=== PATIENT | male | born 1955 | race Caucasian/White ===

== ENCOUNTER 2025-06-03 06:00 | Inpatient (IN) | payer MEDICARE, MEDICAID, SELFPAY ==
[2025-06-03] VITALS (17 sets, daily range): BP systolic 109–135; BP diastolic 58–75; PULSE 64–81; RESP 15–97; TEMP 36.1–36.8; O2SAT 93–98; BMI 24.3
--- NOTE | 2025-06-03 07:11 | EDNOTE_ITS ---
ED Fall Injury RME/HPI General Chief Complaint: Fall Stated Complaint: FALL Time Seen by Provider: 06/03/25 06:27 Source: patient Arrival date/time: 06/03/25 06:00 Mode of arrival: ambulatory Limitations: no limitations and language barrier RME / HPI RME / HPI Narrative: Patient is a 69-year-old male that seen emergency department after having had a fall at home. Patient usually ambulates with a walker states that he tripped on his feet, landed onto his right side. Did hit his head. Patient does not take any blood thinners. Patient remembers everything did not lose consciousness. Denies any neck pain chest pain back pain abdominal pain pelvic pain or pain in his lower extremities. Patient was not able to get up. Patient sustained a large bruise to his right side of his flank. Patient does not have any allergies to medications. No drugs and alcohol no smoking. Has a history of diabetes Related Data Previous Rx's ?Medication ?Instructions ?Recorded Sulfamethoxazole/Trimethoprim DS * 1 tab PO BID #14 ta bs 08/01/17 (BACTRIM DS *) Allergies Allergy/AdvReac Type Severity Reaction Status Date / Time Bee Stings Allergy Severe ANAPHYLAXIS Uncoded 08/01/17 13:41 Review of Systems Review of Systems Systems Reviewed: All systems reviewed, normal except as documented Past Medical History Past Medical History CARDIAC: Positive Hypertension GASTROINTESTINAL: Positive Gastrointestinal Disorders and Cirrhosis ENDOCRINE: Positive Endocrine Disorders and Diabetes Mellitus Type 2 Family History FAMILY HISTORY: Positive Family Cardiac Disorders Surgical History SURGICAL: Negative Cardiac Surgery, Ear Surgery, Abdominal Surgery, Joint Replacement or Neurologic Surgery ED Exam General Limitations: Present no limitations and language barrier General appearance: Present alert Head Head exam: Present other (Small abrasion to the right) Eye Eye exam: Present normal appearance, PERRL and EOMI ENT ENT exam: Present normal exam, normal oropharynx and mucous membranes moist Neck Neck exam: Present normal inspection, full ROM and trachea midline; Absent tenderness Chest Chest inspection: Present symmetric chest wall rise and other (Large hematoma appreciated in patient's right lateral chest wall, no tenderness to palpation, no fluctuance or crepitus); Absent tenderness Respiratory Respiratory exam: Present normal lung sounds bilaterally; Absent respiratory distress, wheezes or stridor Cardiovascular Cardiovascular exam: Present regular rate and normal rhythm Abdominal Exam Abdominal exam: Present soft; Absent distention, tenderness or guarding Extremities Exam Extremities exam: Present normal inspection, full ROM, normal capillary refill and other (Skin tear right forearm, not actively bleeding, no tenderness pa lpation bilateral upper extremities bilateral lower extremities no lesions appreciated in left upper extremity nor bilateral lower extremities, patient also with a large hematoma at the right pelvis, no tenderness palpation); Absent tenderness or pedal edema Back Exam Back exam: Present other (Patient with 7 inch hematoma to right flank); Absent tenderness Neurological Exam Neurological exam: Present alert, oriented X3 and CN II-XII intact Psychiatric Psychiatric exam: Present normal affect and normal mood Skin Skin exam: Present warm and dry Course Quality Measures none Orders Category Date Time Status CT Screening NOW Care 06/03/25 07:16 Active EKG (ED ONLY) *Do not use* NOW Care 06/03/25 07:15 Completed NPO NOW Care 06/03/25 09:36 Active Consult to Gastroenterology Stat Cons 06/03/25 15:18 Ordered Diet NPO (NOW) Diet 06/03/25 09:[address] cervical spine wo con Stat Exams 06/03/25 07:[address] chest abdomen pelvis wo Stat Exams 06/03/25 13:[address] head/brain wo con Stat Exams 06/03/25 07:14 Completed CXR [XR chest 1V] Stat Exams 06/03/25 07:14 Completed EKG (ED Only) Stat Exams 06/03/25 07:14 Draft US abdomen limited Stat Exams 06/03/25 09:23 Completed XR forearm RT 2V Stat Exams 06/03/25 07:14 Completed XR hand comp RT min 3V Stat Exams 06/03/25 07:14 Completed XR pelvis 1-2V Stat Exams 06/03/25 07:14 Completed CBC Stat Lab 06/03/25 07:23 Completed CMP [Comprehensive Metabolic Panel] Stat Lab 06/03/25 07:23 Completed CMP [Comprehensive Metabolic Panel] Stat Lab 06/03/25 10:36 Completed CMP [Comprehensive Metabolic Panel] Stat Lab 06/03/25 12:52 Completed Creatine Kinase Stat Lab 06/03/25 07:23 Completed Fibrinogen Stat Lab 06/03/25 07:23 Completed Hepatitis Acute Panel Stat Lab 06/03/25 10:36 Received Occult Blood, Stool (LAB) Routine Lab 06/03/25 09:46 Completed PT [Prothrombin Time with INR] Stat Lab 06/03/25 07:23 Completed Troponin I Stat Lab 06/03/25 07:23 Completed Type and Screen Stat Lab 06/03/25 09:52 Completed UA, C/S IF [Urinalysis, C/S if Indicated] Stat Lab 06/03/25 09:32 Completed Urine Culture Stat Lab 06/03/25 09:32 Received Acetaminophen Tab [Tylenol Tab] Med 06/03/25 07:19 Discontinued 650 mg PO X1 ONE Pantoprazole/Ns 80Mg IV Premix [Protonix/NS 80mg IV Med 06/03/25 09:37 Active Premix] 80 mg in 100 ml IV X1 Pantoprazole/Ns 80Mg IV Premix [Protonix/NS 80mg IV Med 06/03/25 09:37 Disco ntinued Premix] 80 mg in 100 ml IV X1 Ringers Lactated 1000 ml [Lactated Ringers] 1,000 ml Med 06/03/25 08:09 Discontinued IV 999 mls/hr Ringers Lactated 1000 ml [Lactated Ringers] 1,000 ml Med 06/03/25 11:17 Discontinued IV 999 mls/hr TET,DIP/PERT AC (Adult)-Tdap [Boostrix Adult (Tdap) Med 06/03/25 07:19 Discontinued Vacc] 0.5 ml IMI .ONCE ONE Vital Signs Vital signs: Vital Signs Temperature 97.7 F 06/03/25 06:04 Pulse Rate 73 06/03/25 06:04 Respiratory Rate 19 06/03/25 06:04 Blood Pressure 128/75 06/03/25 06:04 Pulse Oximetry (%) 95 06/03/25 06:04 Oxygen Delivery Method Room Air 06/03/25 06:04 Pulse ox is 95% on room air which is adequate. Fall MDM Narrative MDM Narrative:: Patient is a 69-year-old male is in the emergency ferment after having sustained a ground-level fall. Vital signs and exam as listed. Concern for acute intracranial injury, intrathoracic injury given patient's large hematoma apprec iated on flank. Also concern for rib fractures. Patient was unable to get up after the fall, concern for pelvic injury. Also concern for nonmechanical causes of the fall including syncope arrhythmia. Ordered labs, EKG, CT brain, CT cervical spine, CT chest abdomen pelvis with contrast as well as x-ray of the pelvis. Offered medication for symptom relief. Labs with evidence of hemoglobin 8.6, do not have a recent prior comparison however last recorded hemoglobin we have here is from 2017 that shows a hemoglobin of 13. This is a microcytic anemia. Patient also has 1% immature granulocytes. Patient does not take any blood thinners, no aspirin or Plavix. Patient states that his stool has been right at home. I performed a rectal exam did not identify any gross blood, stool was discolored. Performed Hemoccult testing which was positive for blood. Concerned that patient has been bleeding from his gastrointestinal system. Patient is n.p.o., ordered Protonix. Patient does not have a history of alcohol use less likely varices. Patient is also thrombocytopenic with platelets 35. In 2017 patient's platelets were in the 50s. PT/INR normal. Chloride elevated, bicarb 17.6. Normal anion gap. Creatinine 2.3, BUN 49. Creatinine previously normal in 2017. Patient GFR is 30. Patient with an AST of 103, ALT of 93, alk phos 336. Patient had a transaminitis in 2017. Currently at patient's baseline. T. bili normal. Ordered hepatitis panel, fibrinogen level, also ordered right upper quadrant ultrasound. Troponin not elevated, EKG performed today at 7:43 AM notable for s inus rhythm, heart rate 71, normal intervals, nonspecific T wave changes, not a cardiac alert. Total protein and albumin is low. Pelvic x-ray with severe osteopenia however no evidence of fracture. Chest x-ray with evidence of pulmonary fibrosis however no abnormalities. X-ray of the right forearm and hand also without any abnormalities. CT brain and cervical spine unremarkable. Given patient with acute kidney injury, that did not improve despite fluid resuscitation, ordered CT chest abdomen pelvis without contrast which identified COPD, 16 mm pulmonary nodule in the right upper lobe, cirrhosis, multiple liver lesions concerning for liver metastases, patient with splenomegaly, ascites, cholelithiasis no evidence of obstruction. Given patient with downtrending hemoglobin consulted on-call radiation therapist Dr. Yap, agrees with admission. Discussed case with hospitalist service Patient data External records reviewed:: [facility] previous records Clinical information provided by:: patient Social determinants that could affect healthcare access:: other (specify) Patient has the following chronic illnesses:: See MDM How is presenting disease/condition affected by chronic disease/condition?: exacerbated by Evaluation data The following diagnostics were reviewed and interpreted by me:: lab results, radiology exam(s) and EKG tracing(s) Lab and/or radiology exams considered but not ordered:: None Interpretation Summary: See MDM Medications / Prescriptions Medications or Prescriptions considered but not ordered:: None Medication administrations:: Medication Administration History Pantoprazole Sodium (Protonix/Ns 80mg Iv Premix) 80 mg in 100 mls @ 10 mls/hr IV X1 ONE Stop: 06/03/25 19:36 Last Admin: 06/03/25 10:34 Dose: 10 mls/hr Documented By: NAVEED Discontinued Medications Acetaminophen (Acetaminophen 325 Mg Tablet) 650 mg PO X1 ONE Stop: 06/03/25 07:20 Last Admin: 06/03/25 09:01 Dose: 650 mg Documented By: STEW Diphtheria/Tetanus/Acell Pertussis (Diphth,Pertuss(Acell),Tet Vac 0.5 Ml Syr- Adult) 0.5 ml IMi .ONCE ONE Stop: 06/03/25 07:20 Last Admin: 06/03/25 09:02 Dose: 0.5 ml Documented By: STEW Lactated Ringer's (Lactated Ringers) 1,000 mls @ 999 mls/hr IV .Q1H1M ONE Stop: 06/03/25 09:09 Last Infusion: 06/03/25 10:15 Dose: Infused Documented By: Admin: 06/03/25 09:01 Dose: 999 mls/hr Documented By: STEW Pantoprazole Sodium (Protonix/Ns 80mg Iv Premix) 80 mg in 100 mls @ 400 mls/hr IV X1 ONE Stop: 06/03/25 09:51 Last Infusion: 06/03/25 10:34 Dose: Infused Documented By: Admin: 06/03/25 10:09 Dose: 400 mls/hr Documented By: STEW Lactated Ringer's (Lactated Ringers) 1,000 mls @ 999 mls/hr IV .Q1H1M ONE Stop: 06/03/25 12:17 Last Infusion: 06/03/25 12:46 Dose: Infused Documented By: Admin: 06/03/25 11:34 Dose: 999 mls/hr Documented By: STEW See above Consultations Consultation(s) initiated? (list below): Yes Consultation #1 (Physician, Specialty, Details): See MDM Diagnosis Fall Differential Diagnosis: other (See MDM ) Most likely diagnosis given after review of the tests above:: Metastatic cancer, liver lesions, GI bleed, thrombocytopenia, symptomatic anemia Admission Indicated Admission indicated?: indicated Admission Request Was there a request for admission?: Yes Admission Attestation Admission request attestation: Discussed case with Hospitalist service regarding admission. Discussed patients ED course, exam findings, labs, and radiology results. The Hospitalist [agrees] to accept the patient for admission. Disposition Plan Disposition Plan: Admit Critical Care Time Critical Care Time Critical Care Time: Yes Total Critical Care Time (min.): 120 Attestation: ?I spent 120 minutes of critical care time with this patient not including reportable procedures. There was an acute impairment of an organ system with a high probability of imminent or life threatening deterioration in the patient's condition. Interventions and changes required in the course of therapy are located in the chart. Time involved was spent in direct patient care, reviewing ancillary data, old records, consulting with decision makers, EMS, other doctors, giving orders and documenting. Discharge Plan Plan Patient Disposition: Admit Acute Care w/in Hospital Prescriptions/Referrals Prescriptions/Med Rec: No Action Sulfamethoxazole/Trimethoprim DS * (BACTRIM DS *) 1 TAB tablet 1 tab PO BID Qty: 14 0RF Referrals: Avel Tran DO [Primary Care Provider, Emergency Medicine] - In 1 week Problem List Clinical Impression: Syncope, Metastatic cancer, Cirrhosis, Anemia, GI (gastrointestinal bleed), Thrombocytopenia, Blunt head trauma, Acute kidney injury Patient/Caregiver Discharge Instructions Print Language: Stateless Stand Alone Forms: [employer] Award Info., Patient Portal Info Letter
--- NOTE | 2025-06-03 07:14 | XR_ITS ---
Examination: CT brain head without contrast. 2-D sagittal coronal reconstructions Date and time of exam:June 03, 2025 0824 hours INDICATIONS: Ground-level fall this morning with injury to the head, head pain CTDI: vol (mGy):53.2 DLP: (mGycm):1139 Technique: Multiple CT axial sections of the brain have been obtained, 5 mm slice thickness. Contrast has not been administered. 2-D sagittal, coronal reconstructions have been obtained Low dose protocols were performed. One or more of the following dose reduction techniques were used; automated exposure control, adjustment of the mA and/or KV according to patient size, use of iterative reconstruction technique. Findings: No significant ventricular enlargement. Left frontal encephalomalacia with left frontal craniotomy defect and mild exit lateral ventricular dilatation Old infarct left cerebellar hemisphere Intra-axial or extra-axial hemorrhage density is not seen. No mass effect or midline shift Basal cisterns are not remarkable. Fourth ventricle is midline. No acute cranial vault fracture Impression: Negative for acute hemorrhage, mass effect or midline shift
--- NOTE | 2025-06-03 07:14 | EKG_ITS ---
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
--- NOTE | 2025-06-03 07:14 | XR_ITS ---
Examination: CT cervical spine without contrast 2-D sagittal reconstructions 2-D coronal reconstructions 3-D reconstructions. Exam date and time:June 03, 2025 0824 hours INDICATIONS: Ground-level fall today with injury to the neck, neck pain CTDI:vol (mGy) 29 DLP: (mGycm) 551 Technique: Multiple 2 mm axial sections of the cervical spine have been obtained. The coronal and sagittal reconstructions have been obtained. 3-D reconstructions have been obtained. Low dose protocols were performed. One or more of the following dose reduction techniques were used; automated exposure control, adjustment of the mA and/or KV according to patient size, use of iterative reconstruction technique. Findings: Axial sections demonstrate intact base of the skull. C1 exhibit satisfactory relationship to the odontoid. No acute cervical vertebral body fracture seen. Alignment posterior spinous processes satisfactory. Retrodisplacement C6 relative to C7 8 mm Advanced disc narrowing C3 C4 C5 C6 C6 C7 All of the images are degraded by patient motion Odontoid is intact Impression: Study is severely limited secondary to continual patient motion No gross fracture Repeat this study as clinically warranted
--- NOTE | 2025-06-03 07:14 | XR_ITS ---
Examination: AP chest single view Technique one AP portable sitting chest single view Date and time: June 03, 2025, 0726 hrs., Comparison September 25, 2014 Indications: Patient fell today with into the chest, chest pain Findings: Reduced inspiratory effort No pneumothorax Interstitial disease throughout the lungs, consider pulmonary fibrosis Mild prominence left ventricle Clavicles intact Old right-sided rib fractures Impression: No pneumothorax Suspicious for pulmonary fibrosis
--- NOTE | 2025-06-03 07:14 | XR_ITS ---
Examination: Hand, right 3 views Technique: Hand AP, oblique, lateral 3 views Date and time of exam: June 03, 2025, 0722 hrs. Indications: Patient fell today with injury to the hand, hand pain Findings: Severe osteopenia Significant osteoarthritis radiocarpal and first carpometacarpal joint Old deformity distal phalanx first digit The fingers are not on the lateral view Impression: Limited study No acute fracture depicted
--- NOTE | 2025-06-03 07:14 | XR_ITS ---
Examination: Forearm, right, 2 views. Technique: Forearm, AP, lateral 2 views Date and time of exam: June 03, 2025, 0722 hrs. Indications: Patient fell today with injury to the forearm, forearm pain. Findings: Nonstandard views. Prominent osteopenia. No acute fracture. Soft tissue vascular calcification Impression: No acute fracture
--- NOTE | 2025-06-03 07:14 | XR_ITS ---
Examination: AP pelvis single view Technique: AP portable supine pelvis single view Date and time: June 03, 2025, 0722 hrs. Indications: Patient fell today with into the pelvis, pelvic pain. Findings: No right or left hip fracture. No hip dislocations. Bones of the pelvis intact Impression: No acute hip or pelvic fracture Given the osteopenia, suggest 1-2 day follow-up AP pelvis as clinically warranted
[2025-06-03 07:41] LABS: Basophils # (Auto) 0.0 Thou/mm3 (0.0-0.2); Basophils % (Auto) 1 % (0-2.5); Eosinophils # (Auto) 0.2 Thou/mm3 (0.0-0.5); Eosinophils % (Auto) 3 % (0-10); Hematocrit 28.7 % (41.0-53.0); Immature Granulocytes Auto 0.04 Thou/mm3 (0.00-0.00); Lymphocytes # (Auto) 1.0 Thou/mm3 (1.0-4.8); Lymphocytes % (Auto) 15 % (10-50); Mean Corpuscular HGB Conc 30.0 g/dl (31.0-37.0); Mean Corpuscular Hemoglobin 25.6 pg (25.0-35.0); Mean Corpuscular Volume 85 fL (80-100); Monocytes # (Auto) 0.7 Thou/mm3 (0.0-0.8); Monocytes % (Auto) 11 % (0-12); Neutrophils # (Auto) 4.7 Thou/mm3 (1.8-7.7); Neutrophils % (Auto) 71 % (37-80); Nucleated Red Blood Cell # 0.00 Thou/mm3 (0.00-0.00); Nucleated Red Blood Cell % 0 /100 WBC (0); RDW Standard Deviation 63.7 fL (35.1-43.9); Red Blood Count 3.36 Miln/mm3 (4.50-5.90); White Blood Count 6.6 Thou/mm3 (3.8-10.6)
[2025-06-03 07:58] LABS: Alanine Aminotransferase 93 U/L (10-49); Albumin, Serum 3.0 gm/dL (3.4-4.8); Albumin/Globulin Ratio 1.2 (1.2-2.2); Alkaline Phosphatase 336 U/L (46-116); Anion Gap 11 (7-16); Aspartate Amino Transferase 103 U/L (0-34); BUN/Creatinine Ratio 21 Ratio (12-20); Bilirubin,Total 0.8 mg/dL (0.3-1.2); Blood Urea Nitrogen 49 mg/dL (9-23); Calcium 8.7 mg/dL (8.3-10.6); Calcium (Corrected) 9.5 mg/dL (8.5-10.1); Carbon Dioxide 17.6 mMol/L (20.0-31.0); Chloride 114 mMol/L (98-107); Creatinine (Component) 2.3 mg/dL (0.6-1.3); Estimated Creatinine Clearance 36.2 mL/min (>60); Globulin 2.6 gm/dL (2.3-3.5); Glucose 213 mg/dL (74-106); Osmolality,Calculated 303 (275-295); Potassium 4.9 mMol/L (3.4-5.1); Sodium 143 mMol/L (136-145); Total Protein 5.6 gm/dL (5.7-8.2); Troponin I < 0.002 ng/mL (0.0-0.045); eGFR 30 See Note
[2025-06-03 08:05] LABS: INR 1.1 (0.9-1.3); Prothrombin Time 12.1 Seconds (9.0-12.2)
[2025-06-03] MEDS: RINGERS LACTATED 1000 ML 1,000 ML 999 ML IV ×2 (09:01→11:34)
[2025-06-03] MEDS: ACETAMINOPHEN 325 MG TABLET 650 MG PO (09:01)
[2025-06-03] MEDS: DIPHTH,PERTUSS(ACELL),TET VAC 0.5 ML SYR- ADULT IMi (09:02)
[2025-06-03 09:09] LABS: Creatine Kinase 58 U/L (34-171)
[2025-06-03 09:19] LABS: Hemoglobin 8.6 g/dL (13.5-16.0); Platelet Count 35 Thou/mm3 (140-440)
--- NOTE | 2025-06-03 09:23 | XR_ITS ---
Examination: Abdomen sonogram, Limited Date and time of exam: June 03, 2025 1001 hours INDICATIONS: Abnormal liver function tests on laboratory examination today, diagnosis cirrhosis Technique: Real-time rivera scale transabdominal sonographic images of the upper abdomen obtained. Findings: 10 mm gallstone Gallbladder wall is poorly visualized Common bile duct 0.3 cm Pancreatic head 1.5 cm Liver 18.4 cm multiple mildly hyperechoic liver masses, the largest anterior liver is 12.7 x 13.1 cm with vascularity Normal hepatopedal portal venous flow Patent IVC Also free fluid around the right lobe the liver IMPRESSION: Cholelithiasis Hepatomegaly with multiple liver lesions, recommend CT scan abdomen pelvis post intravenous contrast
[2025-06-03 09:42] LABS: Collection Type, Urine Clean Catch
[2025-06-03] MEDS: PANTOPRAZOLE/NS 80MG IV PREMIX 80 MG/100 ML BAG 400 MG IV (10:09)
[2025-06-03 10:12] LABS: Bacteria,Urine 1+; Bilirubin,Urine Negative (Negative); Blood,Urine Negative (Negative); Clarity,Urine Clear (Clear/Hazy); Color,Urine Lt-Yellow (Lt Yel-Yel); Glucose, Urine 4+ (Negative); Ketones,Urine Negative (Negative); Leukocyte Esterase,Urine Negative (Negative); Nitrite,Urine Negative (Negative); PH,Urine 5.5 (5.0-7.0); Protein,Urine Trace (Neg - Trace); RBC,Urine 1 /hpf (0-3); Specific Gravity,Urine 1.016 (1.001-1.035); Squamous Epithelial Cell,Urine < 1 /hpf (0-5); Urobilinogen,Urine Negative mg/dL (0.0-1.0); WBC,Urine 2 /hpf (0-5)
[2025-06-03 10:19] LABS: OBS Developer Lot # 04/24/55; OBS QC OK? Yes; Occult Blood, Stool Positive (Negative)
[2025-06-03 10:22] LABS: Fibrinogen 357 mg/dL (175-375)
[2025-06-03 10:27] LABS: Culture Indicated,Urine Yes
[2025-06-03] MEDS: PANTOPRAZOLE/NS 80MG IV PREMIX 80 MG/100 ML BAG 10 MG IV (10:34)
[2025-06-03 11:14] LABS: Alanine Aminotransferase 84 U/L (10-49); Albumin, Serum 2.8 gm/dL (3.4-4.8); Albumin/Globulin Ratio 1.1 (1.2-2.2); Alkaline Phosphatase 298 U/L (46-116); Anion Gap 10 (7-16); Aspartate Amino Transferase 93 U/L (0-34); BUN/Creatinine Ratio 19 Ratio (12-20); Bilirubin,Total 0.8 mg/dL (0.3-1.2); Blood Urea Nitrogen 41 mg/dL (9-23); Calcium 8.4 mg/dL (8.3-10.6); Calcium (Corrected) 9.4 mg/dL (8.5-10.1); Carbon Dioxide 17.6 mMol/L (20.0-31.0); Chloride 115 mMol/L (98-107); Creatinine (Component) 2.2 mg/dL (0.6-1.3); Estimated Creatinine Clearance 37.9 mL/min (>60); Globulin 2.5 gm/dL (2.3-3.5); Glucose 217 mg/dL (74-106); Osmolality,Calculated 302 (275-295); Potassium 4.8 mMol/L (3.4-5.1); Sodium 143 mMol/L (136-145); Total Protein 5.3 gm/dL (5.7-8.2); eGFR 32 See Note
[2025-06-03 13:13] LABS: Slide Review Platelets confirmed
[2025-06-03 13:23] LABS: Alanine Aminotransferase 83 U/L (10-49); Albumin, Serum 2.8 gm/dL (3.4-4.8); Albumin/Globulin Ratio 1.2 (1.2-2.2); Alkaline Phosphatase 292 U/L (46-116); Anion Gap 11 (7-16); Aspartate Amino Transferase 92 U/L (0-34); BUN/Creatinine Ratio 17 Ratio (12-20); Bilirubin,Total 0.8 mg/dL (0.3-1.2); Blood Urea Nitrogen 38 mg/dL (9-23); Calcium 8.3 mg/dL (8.3-10.6); Calcium (Corrected) 9.3 mg/dL (8.5-10.1); Carbon Dioxide 17.4 mMol/L (20.0-31.0); Chloride 115 mMol/L (98-107); Creatinine (Component) 2.2 mg/dL (0.6-1.3); Estimated Creatinine Clearance 37.9 mL/min (>60); Globulin 2.4 gm/dL (2.3-3.5); Glucose 192 mg/dL (74-106); Osmolality,Calculated 298 (275-295); Potassium 4.7 mMol/L (3.4-5.1); Sodium 143 mMol/L (136-145); Total Protein 5.2 gm/dL (5.7-8.2); eGFR 32 See Note
--- NOTE | 2025-06-03 13:30 | XR_ITS ---
Examination: CT chest, without intravenous contrast. CT abdomen, without intravenous contrast. CT pelvis, without intravenous contrast. 2-D sagittal and coronal reconstructions. 3-D reconstructions. Date and time of exam:June 03, 2025 1558 hours, comparison CT abdomen pelvis September 25, 2014 INDICATIONS: Multiple liver lesions on ultrasound abdomen 06/03/2025, assess for metastatic disease CTDI vol (mgy) 8.58 DLP (MGycm)746 Technique: Multiple CT images, 3.0 mm slice thickness, obtained chest, abdomen, pelvis, with the high-resolution 64 slice scanner.. Sagittal and coronal 2-D reconstructions are obtained. 3-D reconstructions Low dose protocols were performed. One or more of the following dose reduction techniques were used; automated exposure control, adjustment of the mA and/or KV according to patient size, use of iterative reconstruction technique. Findings: No thoracic aortic aneurysm dilatation. Pulmonary artery segments are not enlarged. No paratracheal tracheobronchial or bronchopulmonary adenopathy. COPD with multiple areas of airspace destruction. 16mm pulmonary nodule right upper lobe image 78 Cirrhosis, liver is markedly irregular in contour Multiple poorly defined liver lesions on this noncontrast study, the largest in the right lobe 7.6 cm, central liver and 4.4 cm lower right lobe of the liver Splenomegaly Mild ascites No pancreatic mass No right hydronephrosis Gallstones Left kidney is not visualized No bowel obstruction Aorta is normal in size Urinary bladder is intact Severe osteopenia with advanced disc narrowing at the lumbar levels IMPRESSION: COPD 16mm pulmonary nodule right upper lobe Cirrhosis Multiple liver lesions, differential would include hepatic metastases, multifocal primary hepatocellular carcinoma, MRI abdomen liver follow-up would best assess these lesions Splenomegaly Mild ascites Cholelithiasis No bowel obstruction
[2025-06-03 15:57] LABS: Hepatitis A Antibody IgM Non Reactive (Non React); Hepatitis B Core Antibody IgM Non Reactive (Non React); Hepatitis B Surface Antigen Non Reactive (Non React); Hepatitis C Antibody Non Reactive (Non React)
--- NOTE | 2025-06-03 16:51 | ESCONSULT_ITS ---
HPI Data of Consult Requesting Physician: Leann Gregorio MD Admitting Provider: Leann Gregorio MD Attending Provider: Leann Gregorio MD Primary Care Provider: Avel Tran DO Consult Narrative Reason for consult: Evaluation of anemia with positive FOBT and recent red stool History of present illness: 69-year-old male with a history of HTN, DM2, and cirrhosis who presented to the ED after a ground-level fall. Initial ED workup revealed Hgb 8.6 (down from 13 in 2017), platelets 35 (baseline 50s in 2017), and positive FOBT. Patient denies hematemesis, melena, nausea, vomiting, abdominal pain, or prior episodes of GI bleeding. On interview, he reports his last bowel movement was earlier today and was reddish in color, the first such episode. He denies weight loss, anorexia, or constitutional symptoms. No history of prior EGD or colonoscopy. Denies history of prior diagnosis of cirrhosis, though imaging shows cirrhotic morphology and multiple liver lesions. Home meds include only antihypertensiveper patient and denies NSAID, aspirin, or anticoagulant use. ROS: * Constitutional: Denies fevers, chills, weight loss. * GI: As above; denies nausea, vomiting, melena, hematemesis, abdominal pain, dysphagia. * Heme: Denies epistaxis, gum bleeding, bruising. * Other systems reviewed, negative. PMH: * Hypertension * Type 2 Diabetes Mellitus * Cirrhosis PSH: * None Family History: * Cardiac disorders * No GI malignancy Social History: * Quit alcohol 20 years ago * Quit smoking 20 years ago * No recreational drug use cc:: cc: Leann Gregorio MD Exam Vital Signs Temp Pulse Resp BP Pulse Ox O2 Del Method 97.7 F 68 18 121/66 97 Room Air 06/03/25 15:25 06/03/25 15:25 06/03/25 15:25 06/03/25 15:25 06/03/25 15:25 06/03/25 15:25 Narrative Exam General: Alert, oriented, no acute distress. Abdomen: Soft, nondistended, nontender. No rebound or guarding. No hepatosplenomegaly palpated. No ascites appreciated on exam. Bowel sounds present. Rectal (per ED): Heme positive, no gross blood. Skin: Right flank ecchymosis, otherwise no jaundice, spider angiomas, or palmar erythema. cardiac: RRR Pulm: clear bilateral no wheezing Results Labs 06/03/25 07:06/03/25 12:52 Labs: Short CBC 06/03/25 Range/Units 07:23 WBC 6.6 (3.8-10.6) Thou/mm3 Hgb 8.6 L (13.5-16.0) g/dL Hct 28.7 L (41.0-53.0) % Plt Count 35 L (140-440) Thou/mm3 BMP 06/03/25 06/03/25 06/03/25 07:23 10:36 12:52 Sodium 143 143 143 Potassium 4.9 4.8 4.7 Chloride 114 H 115 H 115 H Carbon Dioxide 17.6 L 17.6 L 17.4 L BUN 49 H 41 H 38 H Creatinine 2.3 H 2.2 H 2.2 H Glucose 213 H 217 H 192 H Calcium 8.7 8.4 8.3 Cardiac Enzymes 06/03/25 Range/Units 07:23 Total Creatine Kinase 58 (34-171) U/L Troponin I < 0.002 (0.0-0.045) ng/mL Liver Function 06/03/25 06/03/25 06/03/25 Range/Units 07:23 10:36 12:52 Total Bilirubin 0.8 0.8 0.8 (0.3-1.2) mg/dL AST 103 H 93 H 92 H (0-34) U/L ALT 93 H 84 H 83 H (10-49) U/L Alkaline Phosphatase 336 H 298 H D 292 H (46-116) U/L Albumin 3.0 L 2.8 L 2.8 L (3.4-4.8) gm/dL Urine 06/03/25 Range/Units 09:32 Urine Color Lt-Yellow (Lt Yel-Yel) Urine Clarity Clear (Clear/Hazy) Urine pH 5.5 (5.0-7.0) Ur Specific [place] 1.016 (1.001-1.035) Urine Protein Trace (Neg - Trace) Urine Glucose (UA) 4+ A (Negative) Quality Measures Quality Measures VTE prophylaxis Advance care planning discussed with:: patient Medications Home Medications and Allergies Allergies Allergy/AdvReac Type Severity Reaction Status Date / Time Bee Stings Allergy Severe ANAPHYLAXIS Uncoded 08/01/17 13:41 Visit Medications Acetaminophen (Acetaminophen 325 Mg Tablet) 650 mg PO Q6H PRN PRN Reason: Fever >100.4 or pain Stop: 07/03/25 16:39 Pantoprazole Sodium (Protonix/Ns 80mg Iv Premix) 80 mg in 100 mls @ 10 mls/hr IV X1 ONE Stop: 06/03/25 19:36 Last Admin: 06/03/25 10:34 Dose: 10 mls/hr Ceftriaxone Sodium/Dextrose (Rocephin/D5w 1gm Iv Premix) 1 gm in 50 mls @ 100 mls/hr IV X1 ONE Stop: 06/03/25 17:12 Octreotide Acetate 1,000 mcg/ (Sodium Chloride) 102 mls @ 5.1 mls/hr IV .Q20H JERSON; Protocol Stop: 06/08/25 16:44 Ondansetron HCl (Ondansetron Inj 2 Mg/Ml Inj 2 Ml) 4 mg IVP Q6H PRN; Protocol PRN Reason: NAUSEA OR VOMITING Stop: 07/03/25 16:39 Pantoprazole Sodium (Pantoprazole Inj 40 Mg Vial) 40 mg IVP Q12HR JERSON Stop: 07/04/25 08:59 Sennosides (Senna Tablet) 1 tab PO QDAY PRN; Protocol PRN Reason: constipation Stop: 07/03/25 16:39 Discontinued Medications Acetaminophen (Acetaminophen 325 Mg Tablet) 650 mg PO X1 ONE Stop: 06/03/25 07:20 Last Admin: 06/03/25 09:01 Dose: 650 mg Diphtheria/Tetanus/Acell Pertussis (Diphth,Pertuss(Acell),Tet Vac 0.5 Ml Syr- Adult) 0.5 ml IMi .ONCE ONE Stop: 06/03/25 07:20 Last Admin: 06/03/25 09:02 Dose: 0.5 ml Lactated Ringer's (Lactated Ringers) 1,000 mls @ 999 mls/hr IV .Q1H1M ONE Stop: 06/03/25 09:09 Last Infusion: 06/03/25 10:15 Dose: Infused Pantoprazole Sodium (Protonix/Ns 80mg Iv Premix) 80 mg in 100 mls @ 400 mls/hr IV X1 ONE Stop: 06/03/25 09:51 Last Infusion: 06/03/25 10:34 Dose: Infused Lactated Ringer's (Lactated Ringers) 1,000 mls @ 999 mls/hr IV .Q1H1M ONE Stop: 06/03/25 12:17 Last Infusion: 06/03/25 12:46 Dose: Infused Assessment & Plan Plan 69M with HTN, DM2, cirrhosis (MELD-Na 15, hepatitis panel negative), thrombocytopenia (35), and acute anemia (Hgb 8.6 from prior 13) presenting with new hematochezia and positive FOBT concerning for lower GI bleed vs portal hypertensive source. # Anemia, unspecified # Possible GI hemorrhage New hematochezia with microcytic anemia and positive FOBT. Plan: * Consent for EGD today. * Colonoscopy tomorrow - start GoLYTELY prep at midnight and clear liquid diet after EGD tonight * Continue IV PPI (Protonix). * NPO until EGD. * Transfuse PRBCs if Hgb <7 or symptomatic. # Cirrhosis # Splenomegaly # Ascites Cirrhotic morphology with portal hypertension features. MELD-Na 15. Hepatitis panel negative. Plan: * No MRI needed. * Monitor for decompensation. # Secondary malignant neoplasm of liver # Pulmonary nodule Multiple hepatic lesions concerning for metastases RUL pulmonary nodule 16 mm. Plan: * Order CEA and AFP tumor markers. * CT-guided biopsy of liver nodule * Oncology consult after stabilization. ----- Plan discussed with attending physician Dr. Fracisco Branch MD PGY-1 Internal Medicine Attending Provider Attestation/Addendum Patient personally examined I personally reviewed all the imaging studies and laboratory data and examined the patient I agree wholeheartedly with the assessment with the resident Dr. Branch Plan is to do a fiberoptic esophagogastroduodenoscopy with possible biopsy possible therapeutic intervention under intravenous moderate sedation If negative we will consider doing a fiberoptic colonoscopy Also recommend intravenous Protonix and octreotide and will follow the patient closely Serial CBC Thank you very much for the opportunity to participate in the care of this patient
[2025-06-03] MEDS: cefTRIAXone/D5w 1gm IV premix 1 GM/50 ML BAG IV (17:16)
--- NOTE | 2025-06-03 17:46 | ESHP_ITS ---
<Statement entered by Linda Veloz MD - 06/03/25 21:38> Mr. Franz is a 69-year-old male with past medical history significant for diabetes and thrombocytopenia who presented to the ED status post ground-level fall. Patient denies a loss of consciousness and or any pain. Patient denies taking any blood thinners. Patient will be admitted for further management of GI bleed. Patient's baseline hemoglobin is around 13 and today was 8.6. Will order type and screen and transfuse if hemoglobin is less than 7. CT showed NAFLD or secondary to incidental liver lesions. Will keep patient on octreotide, Protonix and n.p.o. for possible EGD and colonoscopy. Patient also found to have incidental pulmonary nodule findings, and may need CT-guided biopsy for further workup. Will also start patient on sliding scale insulin for his diabetes. Patient also will be on IV fluids for his SHAI seen on CMP. Anticipate discharge within 48 to 72 hours. I discussed with and supervised the phd internship physician who took care of this patient. I personally saw and examined the patient and discussed the assessment and plan with the entire medicine team, including my attending Dr. Gregorio, I agree with most of the assessment and plan as documented below Linda Veloz M.D. PGY-3 Disclaimer: Despite multiple revisions, due to the dictation software being used, the document bellow may not be free of grammatical errors including phonetic/typographic errors. However, this does not deter from our commitment to providing health care in the patient's best interest in mind. Documentation for date of: 06/03/25 HPI History of Present Illness Chief complaint: Fall History of present illness: This is a 69 om wtih a h/o insulin dependent diabetes and thrombocytopenia who presents after sustaining a fall. Denies near syncopal event, states he just tripped and fell while getting out of bed. Per ED note, Patient usually ambulates with a walker states that he tripped on his feet, landed onto his right side. Did hit his head. Patient does not take any blood thinners. Patient remembers everything did not lose consciousness. He sustained a bruise on the right side of his ribs, but denies difficulty breathing. He also denies syncope and chest pain. Upon additional history, he denies fever, headache, N/V, abdominal pain, numbness, weakness, or loss of balance. He does endorse some blood in the stool but not melena. He also denies history of IV drug use, prior dx of hepatitis, or prior blood transfusion. PMHx: Insulin Dependent DM, thrombocytopenia recorded in 2017. Transaminitis in 2017. PSHx: Denies Meds: Insulin, dose unspecified Family Hx: non-contributory Allergies: Bee stings Social: Denies alcohol, tobacco, and rec drug use. 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 ED Course: -Patient presents with BP 128/75, HR 73, T 97.7, RR 19, O2 95 Room Air -lab workup notable for low hgb of 8 and platelets in the 50s which was significantly lower from 2017 with hgb 17 and plts in the 70s. Creatinine 2.3, BUN 49. Patient GFR is 30. Patient with an AST of 103, ALT of 93, alk phos 336. T. bili normal. -Ordered hepatitis panel, fibrinogen level, -CT brain and cervical spine unremarkable. CT chest abdomen pelvis without contrast which identified COPD, 16 mm pulmonary nodule in the right upper lobe, cirrhosis, multiple liver lesions concerning for liver metastases, patient with splenomegaly, ascites, cholelithiasis no evidence of obstruction. -On-call shear operator helper Dr. Yap, consulted for downtrending hgb. Agreed with admission for EGD and colonoscopy to eval for GI bleed. Also recommending CT guided bx of the liver nodule. Exam Vital Signs Temp Pulse Resp BP Pulse Ox O2 Del Method 97.7 F 71 19 121/66 97 Room Air 06/03/25 15:25 06/03/25 16:59 06/03/25 16:59 06/03/25 15:25 06/03/25 15:25 06/03/25 15:25 Narrative Exam General: Ill appearing patient, laying in bed, no acute distress, HEENT: Mucosa moist, patient edentulous. No oropharyngeal lesions. Pupils are equal and reactive to light bilaterally Cardiovascular: Normal S1 and S2. Regular rate and rhythm. No murmur appreciated Respiratory: Clear to auscultation bilaterally without wheezes or crackles. Abdomen: Soft, nontender, not distended, slightly protuberant. Skin: Dry, large hematoma along the posterolateral aspect of the right chest wall. Also smaller hematoma along the right scapula just below the scapular spine. Multiple sites of bruising along the arms and legs bilaterally. Musculoskeletal: No gross injuries. Able to move all 4 extremities. Non edematous lower extremities. Neuro: Alert and oriented x2, to person, place, but not year or month. No focal neuro deficits. Negative pronator drift, no asterixis of the fingers or tongue. Results: Labs 06/05/25 05:10 06/05/25 05:10 Labs: Short CBC 06/03/25 Range/Units 07:23 WBC 6.6 (3.8-10.6) Thou/mm3 Hgb 8.6 L (13.5-16.0) g/dL Hct 28.7 L (41.0-53.0) % Plt Count 35 L (140-440) Thou/mm3 BMP 06/03/25 06/03/25 06/03/25 07:23 10:36 12:52 Sodium 143 143 143 Potassium 4.9 4.8 4.7 Chloride 114 H 115 H 115 H Carbon Dioxide 17.6 L 17.6 L 17.4 L BUN 49 H 41 H 38 H Creatinine 2.3 H 2.2 H 2.2 H Glucose 213 H 217 H 192 H Calcium 8.7 8.4 8.3 Cardiac Enzymes 06/03/25 Range/Units 07:23 Total Creatine Kinase 58 (34-171) U/L Troponin I < 0.002 (0.0-0.045) ng/mL Liver Function 06/03/25 06/03/25 06/03/25 Range/Units 07:23 10:36 12:52 Total Bilirubin 0.8 0.8 0.8 (0.3-1.2) mg/dL AST 103 H 93 H 92 H (0-34) U/L ALT 93 H 84 H 83 H (10-49) U/L Alkaline Phosphatase 336 H 298 H D 292 H (46-116) U/L Albumin 3.0 L 2.8 L 2.8 L (3.4-4.8) gm/dL Urine 06/03/25 Range/Units 09:32 Urine Color Lt-Yellow (Lt Yel-Yel) Urine Clarity Clear (Clear/Hazy) Urine pH 5.5 (5.0-7.0) Ur Specific [place] 1.016 (1.001-1.035) Urine Protein Trace (Neg - Trace) Urine Glucose (UA) 4+ A (Negative) Quality Measures Quality Measures none Advance care planning discussed with:: patient Medications Home Medications and Allergies Home Medications ?Medication ?Instructions ?Recorded ?Confirmed ?Type buspirone 5 mg tablet 5 mg PO BID 06/04/25 5 History empagliflozin 25 mg tablet 25 mg PO QAM 06/04/2506/04 History (Jardiance) ezetimibe 10 mg tablet 10 mg PO DAILY 06/04/2505/13 History insulin glargine 100 unit/mL (3 10 unit subcut DAILY 0 06/04/25 06/04/25 History mL) subcutaneous pen (Lantus Solostar U-100 Insulin) lactulose 10 gram/15 mL oral 15 ml PO DAILY 06/04/25 0 06/04/25 History solution levothyroxine 50 mcg tablet 50 mcg PO DAILY UD 5 06/04/25 History neomycin 500 mg tablet 500 mg PO Q4H 06/04/2506/04 History rosuvastatin 20 mg tablet 20 mg PO HS 06/04/25 5 History sertraline 100 mg tablet 100 mg PO DAILY 06/04/25 History Allergies Allergy/AdvReac Type Severity Reaction Status Date / Time Bee Stings Allergy Severe ANAPHYLAXIS Uncoded 08/01/17 13:41 Visit Medications Acetaminophen (Acetaminophen 325 Mg Tablet) 650 mg PO Q6H PRN PRN Reason: Fever >100.4 or pain Stop: 07/03/25 16:39 Pantoprazole Sodium (Protonix/Ns 80mg Iv Premix) 80 mg in 100 mls @ 10 mls/hr IV X1 ONE Stop: 06/03/25 19:36 Last Admin: 06/03/25 10:34 Dose: 10 mls/hr Octreotide Acetate 1,000 mcg/ (Sodium Chloride) 102 mls @ 5.1 mls/hr IV .Q20H JERSON; Protocol Stop: 06/08/25 16:44 Octreotide Acetate 1,000 mcg/ (Sodium Chloride) 102 mls @ 5.1 mls/hr IV .Q20H ONE; Protocol Stop: 06/04/25 12:59 Ondansetron HCl (Ondansetron Inj 2 Mg/Ml Inj 2 Ml) 4 mg IVP Q6H PRN; Protocol PRN Reason: NAUSEA OR VOMITING Stop: 07/03/25 16:39 Pantoprazole Sodium (Pantoprazole Inj 40 Mg Vial) 40 mg IVP Q12HR JERSON Stop: 07/04/25 08:59 Polyethylene Glycol/Electrolytes (Na Lloyd/Nahco3/Bridger/Peg (Golytely) 4,000 Ml Btl) 4,000 ml PO X1 ONE Stop: 06/04/25 00:01 Sennosides (Senna Tablet) 1 tab PO QDAY PRN; Protocol PRN Reason: constipation Stop: 07/03/25 16:39 Discontinued Medications Acetaminophen (Acetaminophen 325 Mg Tablet) 650 mg PO X1 ONE Stop: 06/03/25 07:20 Last Admin: 06/03/25 09:01 Dose: 650 mg Diphtheria/Tetanus/Acell Pertussis (Diphth,Pertuss(Acell),Tet Vac 0.5 Ml Syr- Adult) 0.5 ml IMi .ONCE ONE Stop: 06/03/25 07:20 Last Admin: 06/03/25 09:02 Dose: 0.5 ml Lactated Ringer's (Lactated Ringers) 1,000 mls @ 999 mls/hr IV .Q1H1M ONE Stop: 06/03/25 09:09 Last Infusion: 06/03/25 10:15 Dose: Infused Pantoprazole Sodium (Protonix/Ns 80mg Iv Premix) 80 mg in 100 mls @ 400 mls/hr IV X1 ONE Stop: 06/03/25 09:51 Last Infusion: 06/03/25 10:34 Dose: Infused Lactated Ringer's (Lactated Ringers) 1,000 mls @ 999 mls/hr IV .Q1H1M ONE Stop: 06/03/25 12:17 Last Infusion: 06/03/25 12:46 Dose: Infused Ceftriaxone Sodium/Dextrose (Rocephin/D5w 1gm Iv Premix) 1 gm in 50 mls @ 100 mls/hr IV X1 ONE Stop: 06/03/25 17:12 Last Admin: 06/03/25 17:16 Dose: 100 mls/hr Assessment & Plan Plan This is a 69 om wtih a h/o insulin dependent diabetes and thrombocytopenia who presents after sustaining a fall, found to have low hgb of 8, low plts, cirrhosis, and liver lesions, admitted for GI bleed work up and Bx of Liver nodules. #Acute anemia #Cirrhosis #GI Bleed Patient found to have hgb of 8.6, +FOBT, and reports blood in the stool. CT Abd pelvis notable for cirrhosis and trace ascites fluid. Denies alcohol use or IV drug use. Hepatitis panel negative. Possible NAFLD or secondary to incidental liver lesions seen on CT (see below). Meld Na 15, < 2% estimated 3 month mortality Plan for EGD tonight, Colonoscopy tomorrow. -NPO now. -CLD after EGD. Golytely after midnight. -Octreotide -Protonix - Transfuse if hgb <7 #Liver Mass #Pulmonary nodules Incidental findings on CT. 16mm pulmonary nodule right upper lobe, Multiple poorly defined liver lesions on this noncontrast study, the largest in the right lobe 7.6 cm, central liver and 4.4 cm lower right lobe of the liver, Splenomegaly Mild ascites Concern for primary liver malignancy vs distal metastasis.. Dr. Yap recommending CT guided bx as opposed to MRI for further characterization. -Plan for CT guided bx after workup above. #IDDM Takes insulin at home but unclear of the dose. -Start on sliding scale, adjust once his mom brings home meds for med rec. #SHAI Cr persistently elevated around 2.2 despite 2L fluids. UA unremarkalbe, no blood or protein seen. -mIVF -am CMP. Health Maintenance: DVT prophylaxis: SCDs Diet: NPO for EGD, CLD after, Golytely at midnight. Healy: No Lines: PIV CODE STATUS: DNR Disposition: Pending colonoscopy and bx Patient's plan and care discussed with my attending, Dr Gregorio and my senior Dr. Magdiel Ramey, DO PGY-1 ([facility]ident) Attending Provider Attestation/Addendum 69-year-old male with liver cirrhosis and prediabetes who presented with generalized weakness and presyncope. Found to have acute anemia with differential diagnosis peptic ulcer disease versus esophageal varices given history of history of cirrhosis. In addition noted to have a liver mass with pulmonary nodules and concern of possible underlying malignancy. Plan to admit the patient, start patient on Protonix and octreotide in addition to GI consult. I reviewed above note and agree with findings and plans. I have also personally examined the patient with medicine team and went over assessment and plan with medical team including phd internship and resident physician.
[2025-06-03] MEDS: OCTREOTIDE ACET INJ 1,000 MCG in SODIUM CHLORIDE 0.9% 100 ML 5.1 MCG IV (18:23)
[2025-06-03 18:45] LABS: Partial Thromboplastin Time 27.7 Seconds (22.0-36.0)
--- NOTE | 2025-06-03 19:47 | PC.NURSE ---
Addendum entered by Trevon Kay RN 06/03/25 19:50: Pt transferred at 1944 Original Note: Pt transferred via [facility] for EGD by MD Yap by RYAN Moreland
[2025-06-03 20:28] LABS: AFP Non-Pregnant 2.30 ng/mL (<8.10); Carcinoembryonic Antigen 4.8 ng/mL (0.0-5.0)
--- NOTE | 2025-06-03 21:15 | PC.NURSE ---
Pt returned from EGD procure at 2104, pt resting comfortably in bed, pt instructed to call for assistance as needed by utilizing the call light
[2025-06-03] MEDS: NA SU/NAHCO3/KC/PEG (Golytely) 4,000 ML BTL 4000 ML PO (21:44)
[2025-06-03] MEDS: SODIUM CHLORIDE 0.9% 1000 ML 1,000 ML 75 ML IV (21:44)
--- NOTE | 2025-06-03 23:20 | PC.NURSE ---
Pt found down near bedside commode, code star initiated at 2312, pt noted to have skin tear to left elbow, pt assisted back to bed, vitals taken and pt assessed by MD Fuller. When pt asked if head was hit during the fall, pt replied I don't know, but I don't think so . MD Fuller provided instructions to monitor pt's neuro status periodically and to notify MD if any changes are noted. Avasure put in place, pt re-educated on use of call light for assistance.
[2025-06-04] VITALS (17 sets, daily range): BP systolic 103–148; BP diastolic 53–85; PULSE 62–79; RESP 12–94; TEMP 36–37.1; O2SAT 92–98; BMI 25.4
[2025-06-04 05:39] LABS: Basophils # (Auto) 0.0 Thou/mm3 (0.0-0.2); Basophils % (Auto) 0 % (0-2.5); Eosinophils # (Auto) 0.3 Thou/mm3 (0.0-0.5); Eosinophils % (Auto) 4 % (0-10); Hematocrit 29.5 % (41.0-53.0); Immature Granulocytes Auto 0.03 Thou/mm3 (0.00-0.00); Lymphocytes # (Auto) 0.9 Thou/mm3 (1.0-4.8); Lymphocytes % (Auto) 13 % (10-50); Mean Corpuscular HGB Conc 28.8 g/dl (31.0-37.0); Mean Corpuscular Hemoglobin 25.4 pg (25.0-35.0); Mean Corpuscular Volume 88 fL (80-100); Monocytes # (Auto) 0.9 Thou/mm3 (0.0-0.8); Monocytes % (Auto) 13 % (0-12); Neutrophils # (Auto) 4.8 Thou/mm3 (1.8-7.7); Neutrophils % (Auto) 70 % (37-80); Nucleated Red Blood Cell # 0.00 Thou/mm3 (0.00-0.00); Nucleated Red Blood Cell % 0 /100 WBC (0); RDW Standard Deviation 69.1 fL (35.1-43.9); Red Blood Count 3.34 Miln/mm3 (4.50-5.90); White Blood Count 6.8 Thou/mm3 (3.8-10.6)
[2025-06-04 05:48] LABS: Glucose Estimated Average 157 mg/dL (80-131); Hemoglobin A1C 7.1 % Hgb (4.8-6.0)
[2025-06-04 06:01] LABS: Hemoglobin 8.5 g/dL (13.5-16.0); Platelet Count 30 Thou/mm3 (140-440)
[2025-06-04 06:24] LABS: Alanine Aminotransferase 86 U/L (10-49); Albumin, Serum 2.8 gm/dL (3.4-4.8); Albumin/Globulin Ratio 1.1 (1.2-2.2); Alkaline Phosphatase 309 U/L (46-116); Anion Gap 14 (7-16); Aspartate Amino Transferase 107 U/L (0-34); BUN/Creatinine Ratio 15 Ratio (12-20); Bilirubin,Total 0.8 mg/dL (0.3-1.2); Blood Urea Nitrogen 32 mg/dL (9-23); Calcium 8.3 mg/dL (8.3-10.6); Calcium (Corrected) 9.3 mg/dL (8.5-10.1); Carbon Dioxide 15.4 mMol/L (20.0-31.0); Chloride 115 mMol/L (98-107); Creatinine (Component) 2.2 mg/dL (0.6-1.3); Estimated Creatinine Clearance 37.9 mL/min (>60); Globulin 2.6 gm/dL (2.3-3.5); Glucose 103 mg/dL (74-106); Magnesium 1.9 mg/dL (1.6-2.6); Osmolality,Calculated 293 (275-295); Phosphorous 4.9 mg/dL (2.4-5.1); Potassium 4.5 mMol/L (3.4-5.1); Sodium 144 mMol/L (136-145); Total Protein 5.4 gm/dL (5.7-8.2); eGFR 32 See Note
[2025-06-04 06:40] LABS: Slide Review Platelets confirmed
[2025-06-04] MEDS: cefTRIAXone/D5w 1gm IV premix 1 GM/50 ML BAG IV (08:55)
--- NOTE | 2025-06-04 09:14 | PC.NURSE ---
Notified Sravani DAVIS patients platelets are to low to safely do procedure per Dr. Reyes. Please ask Dr to reorder if procedure is still required when platelets are at an acceptable level greater than 100.
--- NOTE | 2025-06-04 09:51 | XR_ITS ---
Examination: CT brain head without contrast. 2-D sagittal coronal reconstructions Date and time of exam:June 04, 2025, 1047 hours, comparison 06/03/2025 INDICATIONS: Ground-level fall yesterday with injury to the head, persistent head pain CTDI: vol (mGy):51.5 DLP: (mGycm):1043 Technique: Multiple CT axial sections of the brain have been obtained, 5 mm slice thickness. Contrast has not been administered. 2-D sagittal, coronal reconstructions have been obtained Low dose protocols were performed. One or more of the following dose reduction techniques were used; automated exposure control, adjustment of the mA and/or KV according to patient size, use of iterative reconstruction technique. Findings: No significant ventricular enlargement. 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 No mass effect or midline shift Basal cisterns are not remarkable. Fourth ventricle is midline. Cranial vault intact. Impression: No interval acute hemorrhage mass effect or midline shift
--- NOTE | 2025-06-04 10:26 | PC.SS ---
Update: Plan is for the patient to obtain a colonoscopy today.
--- NOTE | 2025-06-04 12:53 | PC.SS ---
Addendum entered and electronically signed by BRADLEY Dumont 06/04/25 13:16: Secondary contact: Cherise Franz [phone], niece. Original Note: HEALTH CENTER ASSOCIATE conducted bedside contact with the patient conduct initial assessment and to discuss discharge planning.? Patient confirmed demographic information.? At bedside with patient was mother, Brittany Lezama .? Patient resides at home with mother.? Patient possesses a walker to assist with ambulation.? Patient does not require the use of home oxygen.? Patient requires some assistance with completion of ADL?s due to recent weakness.? Patient?s surrogate medical decision maker is mother, Brittany Lezama.? Patient?s PCP is [facility].? Patient possesses a accountant auditor, could not recall name. Patient does not participate with dialysis.? Patient utilizes [facility] for medication services.? Patient is diabetic insulin dependent.? Discharge plan is for the patient to transition to SNF.? [facility].? Patient aligned with [facility] prior to current admission.? Patient is prescribed Buspar for anxiety.? Patient possesses coverage for transport services.? Patient and mother informed that patient would need to be assessed for skilled need for SNF placement.? No further discharge needs identified by the patient.? No further intervention required at this time, social worker delinquency prevention will be available to address any further concerns.? Next of Kin: Brittany Teja D/C Plan: Home
--- NOTE | 2025-06-04 13:01 | PC.SS ---
SNF referrals submitted on [facility]. Responses are pending. [facility] facility.
--- NOTE | 2025-06-04 13:06 | PC.SS ---
PASSR completed. Meets Level II criteria. PASSR follow up pending.
--- NOTE | 2025-06-04 13:15 | PC.SS ---
[facility] referral submitted on [facility] Fax.
--- NOTE | 2025-06-04 13:23 | PD.RESPRO ---
Documentation for date of: 06/04/25 Subjective Subjective Interval history: Patient examined at bedside. Overnight patient patient fell after trying to use the restroom. Per nursing patient hit his head. On physical exam small erythematous maximino noted over scalp/forehead. CT head was negative for any hemorrhage. Hb stable 8.6. EGD completed yesterday showed grade 2 esophageal varices status post banding. Patient is currently on GoLytely prep for colonoscopy. Continue octreotide drip, IV Protonix, IV ceftriaxone daily in setting of upper GI bleed. Liver biopsy pending. Follow up with renal u/s to evlauate for possible chronic kidney disease findings. Exam Vital Signs Temp Pulse Resp BP Pulse Ox O2 Del Method O2 Flow Rate 97.4 F 77 21 H 137/83 H 97 Room Air 3 06/04/25 12:00 06/04/25 12:00 06/04/25 12:00 06/04/25 12:00 06/04/25 12:06/04/25 12:00 06/03/25 20:25 Narrative Exam General: Elderly male, no acute distress HEENT: On physical exam small erythematous maximino noted over scalp/forehead. Mucosa moist, patient edentulous. No oropharyngeal lesions. Pupils are equal and reactive to light bilaterally Cardiovascular: Normal S1 and S2. Regular rate and rhythm. No murmur appreciated Respiratory: Clear to auscultation bilaterally without wheezes or crackles. Abdomen: Soft, nontender, not distended, slightly protuberant. Skin: Dry, large hematoma along the posterolateral aspect of the right chest wall. Also smaller hematoma along the right scapula just below the scapular spine. Multiple sites of bruising along the arms and legs bilaterally. Musculoskeletal: No gross injuries. Able to move all 4 extremities. Non edematous lower extremities. Neuro: Alert and oriented x2, to person, place, but not year or month. No focal neuro deficits. Negative pronator drift, no asterixis of the fingers or tongue. Objective Labs 06/05/25 05:10 06/05/25 05:10 Labs: Laboratory Results - last 24 hr 06/03/25 06/03/25 06/03/25 10:36 12:52 18:10 WBC RBC Hgb Hct MCV MCH MCHC RDW Std Deviation Plt Count Neut % (Auto) Lymph % (Auto) [place] % (Auto) Eos % (Auto) Baso % (Auto) Neut # (Auto) Lymph # (Auto) [place] # (Auto) Eos # (Auto) Baso # (Auto) Immature Gran # (Auto) Absolute Nucleated RBC Immature Gran % Nucleated RBC % APTT 27.7 Sodium 143 Potassium 4.7 Chloride 115 H Carbon Dioxide 17.4 L Anion Gap 11 BUN 38 H Creatinine 2.2 H Estim Creat Clear Calc 37.9 L eGFR 32 L BUN/Creatinine Ratio [address] Glu mg/dL Hemoglobin A1c Calculated Osmolality 298 H Calcium 8.3 Corrected Calcium 9.3 Phosphorus Magnesium Total Bilirubin 0.8 AST 92 H ALT 83 H Alkaline Phosphatase 292 H Total Protein 5.2 L Albumin 2.8 L Globulin 2.4 Albumin/Globulin Ratio 1.2 Tumor Marker AFP 2.30 Carcinoembryonic Ag 4.8 Hepatitis A IgM Ab Non Reactive Hep Bs Antigen Non Reactive Hep B Core IgM Ab Non Reactive Hepatitis C Antibody Non Reactive Misc Test Result 06/04/25 05:02 WBC 6.8 RBC 3.34 L Hgb 8.5 L Hct 29.5 L MCV 88 MCH 25.4 MCHC 28.8 L RDW Std Deviation 69.1 H Plt Count 30 L Neut % (Auto) 70 Lymph % (Auto) 13 [place] % (Auto) 13 H Eos % (Auto) 4 Baso % (Auto) 0 Neut # (Auto) 4.8 Lymph # (Auto) 0.9 L [place] # (Auto) 0.9 H Eos # (Auto) 0.3 Baso # (Auto) 0.0 Immature Gran # (Auto) 0.03 H Absolute Nucleated RBC 0.00 Immature Gran % 0 Nucleated RBC % 0 APTT Sodium 144 Potassium 4.5 Chloride 115 H Carbon Dioxide 15.4 L Anion Gap 14 BUN 32 H Creatinine 2.2 H Estim Creat Clear Calc 37.9 L eGFR 32 L BUN/Creatinine Ratio [address] Glu mg/dL 157 H Hemoglobin A1c 7.1 H Calculated Osmolality 293 Calcium 8.3 Corrected Calcium 9.3 Phosphorus 4.9 Magnesium 1.9 Total Bilirubin 0.8 AST 107 H ALT 86 H Alkaline Phosphatase 309 H Total Protein 5.4 L Albumin 2.8 L Globulin 2.6 Albumin/Globulin Ratio 1.1 L Tumor Marker AFP Carcinoembryonic Ag Hepatitis A IgM Ab Hep Bs Antigen Hep B Core IgM Ab Hepatitis C Antibody Misc Test Result Platelets confirmed Quality Measures Quality Measures VTE prophylaxis Advance care planning discussed with:: patient Assessment & Plan Assessment Current Active Medications: Generic Name Dose Route Start Last Admin Trade Name Fremalou PRN Reason Stop Dose Admin Acetaminophen 650 mg 06/03/25 16:40 Acetaminophen 325 Mg Tablet PO 07/03/25 16:39 Q6H PRN Fever >100.4 or pain Dextrose 25 ml 06/03/25 18:26 Dextrose 50%-Water Inj 50 Ml Syringe IV 07/03/25 18:25 Q15MIN PRN BG 50-70 responsive npo pt Dextrose 50 ml 06/03/25 18:26 Dextrose 50%-Water Inj 50 Ml Syringe IV 07/03/25 18:25 Q15MIN PRN BG <50 OR BG <70 & pt unresponsive Glucagon 1 mg 06/03/25 18:26 Glucagon Inj 1 Mg Vial IM Q15MIN PRN BG <70, and no IV access Octreotide Acetate 1,000 mcg/ 102 mls @ 5.1 mls/hr 06/04/25 13:00 Sodium Chloride IV 06/08/25 17:00 .Q20H JERSON Protocol 50 MCG/HR Ceftriaxone Sodium/Dextrose 1 gm in 50 mls @ 100 mls/hr 06/04/25 08:34 06/04/25 12:39 Rocephin/D5w 1gm Iv Premix IV 06/11/25 08:33 Not Given QDAY JERSON Insulin Human Regular 0 unit 06/04/25 07:30 06/04/25 12:07 Insulin Hum Regular 1 Unit/0.01 Ml (Per Unit) SC 07/04/25 07:29 Not Given AC JERSON Protocol Ondansetron HCl 4 mg 06/03/25 16:40 Ondansetron Inj 2 Mg/Ml Inj 2 Ml IVP 07/03/25 16:39 Q6H PRN NAUSEA OR VOMITING Protocol Pantoprazole Sodium 40 mg 06/04/25 09:00 06/04/25 08:07 Pantoprazole Inj 40 Mg Vial IVP 07/04/25 08:59 40 mg Q12HR JERSON Administration Sennosides 1 tab 06/03/25 16:40 Senna Tablet PO 07/03/25 16:39 QDAY PRN constipation Protocol Plan Luis Franz is a 69 yr male with a h/o insulin dependent diabetes and thrombocytopenia who presents after sustaining a fall, found to have low hgb of 8, low plts, cirrhosis, and liver lesions, admitted for GI bleed work up and Bx of Liver nodules. #Acute blood loss anemia 2/2 #upper GI bleed #Cirrhosis Patient found to have hgb of 8.6, +FOBT, and reports blood in the stool. CT Abd pelvis notable for cirrhosis and trace ascites fluid. Denies alcohol use or IV drug use. Hepatitis panel negative. Possible NAFLD or secondary to incidental liver lesions seen on CT (see below). Meld Na 15, < 2% estimated 3 month mortality EGD completed yesterday showed grade 2 esophageal varices status post banding. -Colonoscopy tomorrow. -CLD after EGD. Golytely prep -Octreotide drip (until 06/08) -Protonix 40 twice daily - Transfuse if hgb <7 #Liver Mass #Pulmonary nodules Incidental findings on CT. 16mm pulmonary nodule right upper lobe, Multiple poorly defined liver lesions on this noncontrast study, the largest in the right lobe 7.6 cm, central liver and 4.4 cm lower right lobe of the liver, Splenomegaly Mild ascites Concern for primary liver malignancy vs distal metastasis.. Dr. Yap recommending CT guided bx as opposed to MRI for further characterization. -Plan for CT guided bx after workup above. #IDDM Takes insulin at home but unclear of the dose. A1c 7.1. - Sliding scale insulin ? ACHS glucose checks #SHAI vs CKD 3b GFR 32, Cr persistently elevated around 2.2 despite 2L fluids. UA unremarkable, no blood or protein seen. -mIVF -am CMP. -f/u renal u/s Health Maintenance: DVT prophylaxis: SCDs Diet: Clear liquid diet for colonoscopy Healy: No Lines: PIV CODE STATUS: DNR Disposition: Pending colonoscopy and bx The patient's management plan was discussed with my attending physician Dr. Gregorio. Estelle Mosqueda, PGY-2 Attending Provider Attestation/Addendum 69-year-old male with liver cirrhosis and prediabetes who presented with generalized weakness and presyncope. Found to have acute anemia with differential diagnosis peptic ulcer disease versus esophageal varices given history of history of cirrhosis. In addition noted to have a liver mass with pulmonary nodules and concern of possible underlying malignancy. Plan to admit the patient, start patient on Protonix and octreotide in addition to GI consult. I reviewed above note and agree with findings and plans. I have also personally examined the patient with medicine team and went over assessment and plan with medical team including restaurant management internship and resident physician.
[2025-06-04] MEDS: OCTREOTIDE ACET INJ 1,000 MCG in SODIUM CHLORIDE 0.9% 100 ML 5.1 MCG IV (14:05)
--- NOTE | 2025-06-04 16:42 | XR_ITS ---
Examination: Retroperitoneal ultrasound, complete Technique: Multiple high resolution grayscale images of the retroperitoneum obtained, including kidneys and bladder. Exam date and time:June 04, 2025, 2132 hrs. Indications: Elevated liver function tests on laboratory examination today Findings: Right kidney 9.6 cm cortex 1.3 cm Left kidney 8.7 cm cortex 1.4 cm Left kidney in the pelvis Moderate renal parenchymal scar formation No bladder mass or bladder calculi Bladder prevoid volume 240 cc Impression: Small kidneys with bilateral renal cortical thinning Moderate bilateral renal parenchymal scar formation
--- NOTE | 2025-06-04 21:15 | PC.NURSE ---
Pt transferred by vamshi for colonoscopy procedure at 2007
--- NOTE | 2025-06-04 21:15 | PC.NURSE ---
Pt returned from colonoscopy procedure at 2106, pt resting in bed comfortably, bed in lowest / locked position with side rails up x2, call light within reach and bed alarm on with Av[employer] in place
[2025-06-04 22:28] LABS: Carcinoembryonic Antigen 4.7 ng/mL (0.0-5.0)
[2025-06-05] VITALS (12 sets, daily range): BP systolic 118–149; BP diastolic 66–93; PULSE 63–108; RESP 14–95; TEMP 35.8–36.2; O2SAT 91–95; BMI 25.4
[2025-06-05] MEDS: LEVOTHYROXINE SODIUM 25 MCG TABLET 50 MCG PO (05:20)
[2025-06-05 05:37] LABS: Basophils # (Auto) 0.0 Thou/mm3 (0.0-0.2); Basophils % (Auto) 0 % (0-2.5); Eosinophils # (Auto) 0.2 Thou/mm3 (0.0-0.5); Eosinophils % (Auto) 4 % (0-10); Hematocrit 29.4 % (41.0-53.0); Immature Granulocytes Auto 0.03 Thou/mm3 (0.00-0.00); Lymphocytes # (Auto) 0.9 Thou/mm3 (1.0-4.8); Lymphocytes % (Auto) 17 % (10-50); Mean Corpuscular HGB Conc 29.6 g/dl (31.0-37.0); Mean Corpuscular Hemoglobin 25.4 pg (25.0-35.0); Mean Corpuscular Volume 86 fL (80-100); Monocytes # (Auto) 0.7 Thou/mm3 (0.0-0.8); Monocytes % (Auto) 12 % (0-12); Neutrophils # (Auto) 3.5 Thou/mm3 (1.8-7.7); Neutrophils % (Auto) 66 % (37-80); Nucleated Red Blood Cell # 0.00 Thou/mm3 (0.00-0.00); Nucleated Red Blood Cell % 0 /100 WBC (0); RDW Standard Deviation 65.4 fL (35.1-43.9); Red Blood Count 3.42 Miln/mm3 (4.50-5.90); White Blood Count 5.4 Thou/mm3 (3.8-10.6)
[2025-06-05 05:42] LABS: Hemoglobin 8.7 g/dL (13.5-16.0)
[2025-06-05 05:43] LABS: Platelet Count 27 Thou/mm3 (140-440)
[2025-06-05 06:01] LABS: Alanine Aminotransferase 90 U/L (10-49); Albumin, Serum 2.7 gm/dL (3.4-4.8); Albumin/Globulin Ratio 1.0 (1.2-2.2); Alkaline Phosphatase 308 U/L (46-116); Anion Gap 11 (7-16); Aspartate Amino Transferase 109 U/L (0-34); BUN/Creatinine Ratio 12 Ratio (12-20); Bilirubin,Total 0.8 mg/dL (0.3-1.2); Blood Urea Nitrogen 27 mg/dL (9-23); Calcium 7.8 mg/dL (8.3-10.6); Calcium (Corrected) 8.8 mg/dL (8.5-10.1); Carbon Dioxide 16.6 mMol/L (20.0-31.0); Chloride 116 mMol/L (98-107); Creatinine (Component) 2.2 mg/dL (0.6-1.3); Estimated Creatinine Clearance 37.9 mL/min (>60); Globulin 2.6 gm/dL (2.3-3.5); Glucose 144 mg/dL (74-106); Osmolality,Calculated 294 (275-295); Potassium 4.3 mMol/L (3.4-5.1); Sodium 144 mMol/L (136-145); Total Protein 5.3 gm/dL (5.7-8.2); eGFR 32 See Note
[2025-06-05 07:44] LABS: Slide Review Platelets confirmed
[2025-06-05] MEDS: INSULIN HUM REGULAR 1 UNIT/0.01 ML (PER UNIT) SC ×2 (08:12→12:24)
[2025-06-05] MEDS: SERTRALINE HCL 25 MG TABLET 100 MG PO (08:13)
[2025-06-05] MEDS: EZETIMIBE 10 MG TABLET PO (08:13)
[2025-06-05] MEDS: cefTRIAXone/D5w 1gm IV premix 1 GM/50 ML BAG IV (08:14)
[2025-06-05 09:14] LABS: Path Review Blood Smear Sent to Pathologist
--- NOTE | 2025-06-05 10:25 | PC.SS ---
SS spoke to PT Srinivas who stated, pt did very well with PT and has a walker at home. Pt is no interested at this time for SNF, DC plan Home with PT
--- NOTE | 2025-06-05 10:37 | PC.SS ---
Rounding: Pending sx consult, DC plan Home with HH
--- NOTE | 2025-06-05 10:46 | ESPR_ITS ---
<Statement entered by Leann Gregorio MD - 06/13/25 14:39> I reviewed above note and agree with findings and plans. I have also personally examined the patient with medicine team and went over assessment and plan with medical team including undergraduate intern and resident physician. <Statement entered by Linda Veloz MD - 06/06/25 14:12> Patient seen and examined at bedside. Denies any complaints at this time. Patient was evaluated by surgery due to findings seen on colonoscopy for obstructing mass near the cecum and transverse colon. General surgery will take patient most likely for surgery after platelets are at least above 50,000. Will order platelets and repeat CBC. Patient currently agrees with current action of plan. I discussed with and supervised the undergraduate intern physician who took care of this patient. I personally saw and examined the patient and discussed the assessment and plan with the entire medicine team, including my attending Dr. Gregorio, I agree with most of the assessment and plan as documented below Linda Veloz M.D. PGY-3 Disclaimer: Despite multiple revisions, due to the dictation software being used, the document bellow may not be free of grammatical errors including phonetic/typographic errors. However, this does not deter from our commitment to providing health care in the patient's best interest in mind. Documentation for date of: 06/05/25 Subjective Subjective Interval history: This is a 69 om wtih a h/o insulin dependent diabetes and thrombocytopenia who presents to the ED on 06/03 after sustaining a fall without LOC or syncope, found to have plts in the 40s, anemia with hgb around 8, liver cirrhosis and liver mass on CT, and was subsequently admitted for GI bleed. Patient was taken for upper endoscopy, found to have a grade II varice which was banded. On 06/04, Colonoscopy demonstrated malignant obstructing tumor in the transverse colon which was biopsied. GI recommend surgical consultation for further workup. 06/05: Critical platelet value of 27K reported to the night team before signout. Patient doing well, having more formed stools after colonoscopy, still passing gas, denies increased bloating. VSS. Dr. Tai with general surgery was consulted, recommended partial colectomy after plt count is >70. Transfused 1 unit plts, second one ordered. Repeat CBC tonight. Exam Vital Signs Temp Pulse Resp BP Pulse Ox O2 Del Method O2 Flow Rate 96.6 F L 66 17 149/78 H 94 L Room Air 2 06/05/25 08:00 06/05/25 08:00 06/05/25 08:00 06/05/25 08:00 06/05/25 08:00 06/05/25 08:00 06/04/25 21:06 Narrative Exam General: Ill appearing patient, bitemporal wasting noted, sitting up in bed, no acute distress, conversational. HEENT: Mucosa moist, patient edentulous. No oropharyngeal lesions. Pupils are equal and reactive to light bilaterally Cardiovascular: Normal S1 and S2. Regular rate and rhythm. No murmur appreciated Respiratory: Clear to auscultation bilaterally without wheezes or crackles. Abdomen: Soft, nontender, not distended, slightly protuberant. Skin: Dry, large hematoma along the posterolateral aspect of the right chest wall. Also smaller hematoma along the right scapula just below the scapular spine. Multiple sites of bruising along the arms and legs bilaterally. Musculoskeletal: No gross injuries. Able to move all 4 extremities. Non edematous lower extremities. Neuro: Alert and oriented x2, to person, place, but not year or month. No focal neuro deficits. Negative pronator drift, no asterixis of the fingers or tongue. Objective Labs 06/05/25 05:10 06/05/25 05:10 Labs: Laboratory Results - last 24 hr 06/04/25 06/05/25 05:02 05:10 WBC 5.4 RBC 3.42 L Hgb 8.7 L Hct 29.4 L MCV 86 MCH 25.4 MCHC 29.6 L RDW Std Deviation 65.4 H Plt Count 27 L* Neut % (Auto) 66 Lymph % (Auto) 17 [place] % (Auto) 12 Eos % (Auto) 4 Baso % (Auto) 0 Neut # (Auto) 3.5 Lymph # (Auto) 0.9 L [place] # (Auto) 0.7 Eos # (Auto) 0.2 Baso # (Auto) 0.0 Immature Gran # (Auto) 0.03 H Absolute Nucleated RBC 0.00 Immature Gran % 1 H Nucleated RBC % 0 Smear Path Review Sent to Pathologist Sodium 144 Potassium 4.3 Chloride 116 H Carbon Dioxide 16.6 L Anion Gap 11 BUN 27 H Creatinine 2.2 H Estim Creat Clear Calc 37.9 L eGFR 32 L BUN/Creatinine Ratio 12 Glucose 144 H Calculated Osmolality 294 Calcium 7.8 L Corrected Calcium 8.8 Total Bilirubin 0.8 AST 109 H ALT 90 H Alkaline Phosphatase 308 H Total Protein 5.3 L Albumin 2.7 L Globulin 2.6 Albumin/Globulin Ratio 1.0 L Carcinoembryonic Ag 4.7 Misc Test Result Platelets confirmed Quality Measures Quality Measures VTE prophylaxis Advance care planning discussed with:: patient Assessment & Plan Assessment Current Active Medications: Generic Name Dose Route Start Last Admin Trade Name Freq PRN Reason Stop Dose Admin Acetaminophen 650 mg 06/03/25 16:40 Acetaminophen 325 Mg Tablet PO 07/03/25 16:39 Q6H PRN Fever >100.4 or pain Atorvastatin Calcium 80 mg 06/05/25 21:00 Atorvastatin Calcium 20 Mg Tablet PO 07/05/25 20:59 HS JERSON Protocol Dextrose 25 ml 06/03/25 18:26 Dextrose 50%-Water Inj 50 Ml Syringe IV 07/03/25 18:25 Q15MIN PRN BG 50-70 responsive npo pt Dextrose 50 ml 06/03/25 18:26 Dextrose 50%-Water Inj 50 Ml Syringe IV 07/03/25 18:25 Q15MIN PRN BG <50 OR BG <70 & pt unresponsive Ezetimibe 10 mg 06/05/25 09:00 06/05/25 08:13 Ezetimibe 10 Mg Tablet PO 07/05/25 08:59 10 mg DAILY JERSON Administration Glucagon 1 mg 06/03/25 18:26 Glucagon Inj 1 Mg Vial IM Q15MIN PRN BG <70, and no IV access Octreotide Acetate 1,000 mcg/ 102 mls @ 5.1 mls/hr 06/04/25 13:00 06/04/25 21:07 Sodium Chloride IV 06/08/25 17:00 50 mcg/hr .Q20H JERSON 5.1 mls/hr Protocol Infusion 50 MCG/HR Ceftriaxone Sodium/Dextrose 1 gm in 50 mls @ 100 mls/hr 06/04/25 08:34 06/05/25 08:14 Rocephin/D5w 1gm Iv Premix IV 06/11/25 08:33 100 mls/hr QDAY JERSON Administration Insulin Human Regular 0 unit 06/04/25 07:30 06/05/25 08:12 Insulin Hum Regular 1 Unit/0.01 Ml (Per Unit) SC 07/04/25 07:29 1 unit AC JERSON Administration Protocol Levothyroxine Sodium 50 mcg 06/05/25 06:00 06/05/25 05:20 Levothyroxine Sodium 25 Mcg Tablet PO 07/05/25 05:59 50 mcg ACBR JERSON Administration Protocol Ondansetron HCl 4 mg 06/03/25 16:40 Ondansetron Inj 2 Mg/Ml Inj 2 Ml IVP 07/03/25 16:39 Q6H PRN NAUSEA OR VOMITING Protocol Pantoprazole Sodium 40 mg 06/05/25 09:00 06/05/25 08:14 Pantoprazole Inj 40 Mg Vial IVP 07/05/25 08:59 40 mg Q12HR JERSON Administration Sennosides 1 tab 06/03/25 16:40 Senna Tablet PO 07/03/25 16:39 QDAY PRN constipation Protocol Sertraline HCl 100 mg 06/05/25 09:00 06/05/25 08:13 Sertraline Hcl 25 Mg Tablet PO 07/05/25 08:59 100 mg DAILY JERSON Administration Plan This is a 69 om wtih a h/o insulin dependent diabetes and thrombocytopenia who presents after sustaining a fall, found to have low hgb of 8, low plts, cirrhosis, and liver lesions, admitted for GI bleed work up and Bx of Liver nodules. #Cirrhosis #Grade II Esophageal Varice #Acute anemia #GI Bleed Patient found to have hgb of 8.6, +FOBT, and reports blood in the stool. CT Abd pelvis notable for cirrhosis and trace ascites fluid. Denies alcohol use or IV drug use. Hepatitis panel negative. Possible NAFLD or secondary to incidental liver lesions seen on CT (see below). Meld Na 15, < 2% estimated 3 month mortality EGD demonstrated Grade II esophageal varice which was banded. Hgb stable around 8. -Octreotide -Protonix - Transfuse if hgb <7 #Colonic Mass, suspicious for malignancy #Liver Mass #Pulmonary nodules #Thrombocytopenia Liver mass and pulmonary nodule were Incidental findings on CT. 16mm pulmonary nodule right upper lobe, Multiple poorly defined liver lesions on this noncontrast study, the largest in the right lobe 7.6 cm, central liver and 4.4 cm lower right lobe of the liver, Splenomegaly Mild ascites Colonoscopy demonstrated a large circumferential, obstructing mass in the transverse colon. Biopsied. Dr. Yap recommending surgical consultation. -General surgery consultation, appreciate Dr. Tai -Plts should be greater than 70K prior to partial colectomy. Tranfused on unit today. Pending repeat CBC. -NPO after midnight #IDDM Takes insulin glargine 10U daily. Glc seems to be decently controlled on sliding scale. -Continue sliding scale, consider 5 U degludec if morning glucose is above goal. #SHAI vs CKD Cr persistently elevated around 2.2 despite 2L fluids. UA unremarkalbe, no blood or protein seen. This may represent baseline CKD. -mIVF -am CMP. Health Maintenance: DVT prophylaxis: SCDs Diet: CLD, NPO after midnight. Healy: No Lines: PIV CODE STATUS: DNR Disposition: Pending colonoscopy and bx Patient's plan and care discussed with my attending, Dr Gregorio and my senior Dr. Magdiel Ramey, DO PGY-1 ([facility] Resident) Attending Provider Attestation/Addendum 69-year-old male with liver cirrhosis and prediabetes who presented with generalized weakness and presyncope. Found to have acute anemia with differential diagnosis peptic ulcer disease versus esophageal varices given history of history of cirrhosis. In addition noted to have a liver mass with pulmonary nodules and concern of possible underlying malignancy. Plan to admit the patient, start patient on Protonix and octreotide in addition to GI consult. Overnight, patient underwent EGD with finding of esophageal varices and colonoscopy with findings of colonic mass suspicious for malignancy. As a result, plan to obtain a surgical consultation and awaiting pathology. I reviewed above note and agree with findings and plans. I have also personally examined the patient with medicine team and went over assessment and plan with medical team including undergraduate intern and resident physician.
[2025-06-05] MEDS: OCTREOTIDE ACET INJ 1,000 MCG in SODIUM CHLORIDE 0.9% 100 ML 5.1 MCG IV (13:29)
--- NOTE | 2025-06-05 13:31 | PC.PT ---
Patient is safe to ambulate to the bathroom and in the halls with a FWW and 1 staff assist. RN made aware.
--- NOTE | 2025-06-05 14:59 | PD.SURCONS ---
HPI Consult details Consult date: 06/05/25 Reason for consultation narrative: Obstructing transverse colon mass History of present illness: 69-year-old male history of diabetes, hypothyroidism, thrombocytopenia was admitted with weakness and recent fall. He was noted to have low hemoglobin. He underwent an EGD that revealed esophageal varices, colonoscopy revealed obstructing transverse colon mass highly suspicious for malignancy. He has had colonoscopy about 10 years ago that was unremarkable. He has had intermittent blood per rectum no significant weight loss. Review of Systems Constitutional Constitutional: Denies chills, Denies fever(s), Reports malaise and Reports weakness Cardiovascular Cardiovascular: Denies chest pain Respiratory Respiratory: Denies cough Gastrointestinal Gastrointestinal: Denies abdominal pain, Denies nausea and Denies vomiting Neurologic Neurologic: Reports weakness Hematologic/Lymphatic Hematologic/Lymphatic: Denies easy bleeding and Reports easy bruising Past Medical History Surgical History OTHER SURGICAL HX: Denies surgeries in the past Social History SMOKING STATUS: Former smoker SUBSTANCE USE: does not use ALCOHOL: Former Meds Home Medications and Allergies Home Medications ?Medication ?Instructions ?Recorded ?Confirmed ?Type buspirone 5 mg tablet 5 mg PO BID 06/04/25 06/04/25 History empagliflozin 25 mg tablet 25 mg PO QAM 06/04/25 06/04/25 History (Jardiance) ezetimibe 10 mg tablet 10 mg PO DAILY 06/04/25 06/04/25 History insulin glargine 100 unit/mL (3 10 unit subcut DAILY 06/04/25 06/04/25 History mL) subcutaneous pen (Lantus Solostar U-100 Insulin) lactulose 10 gram/15 mL oral 15 ml PO DAILY 06/04/25 06/04/25 History solution levothyroxine 50 mcg tablet 50 mcg PO DAILY UD 06/04/25 06/04/25 History neomycin 500 mg tablet 500 mg PO Q4H 06/04/25 06/04/25 History rosuvastatin 20 mg tablet 20 mg PO HS 06/04/25 06/04/25 History sertraline 100 mg tablet 100 mg PO DAILY 06/04/25 06/04/25 History Allergies Allergy/AdvReac Type Severity Reaction Status Date / Time Bee Stings Allergy Severe ANAPHYLAXIS Uncoded 08/01/17 13:41 Exam Vital Signs Temp Pulse Resp BP Pulse Ox O2 Del Method O2 Flow Rate 96.9 F 63 18 130/77 95 Room Air 2 06/05/25 12:00 06/05/25 12:05 06/05/25 12:05 06/05/25 12:00 06/05/25 12:00 06/05/25 08:00 06/04/25 21:06 Constitutional Constitutional: no acute distress Routine Abdominal Exam Comments: Abdomen is soft but protuberant, no obvious evidence of hernia Results Results: Laboratory Laboratory results: results reviewed Results: Imaging CT scan - abdomen: report reviewed and image reviewed CT scan - pelvis: report reviewed and image reviewed Assessment & Plan Additional Assessment Additional comments: 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 Thrombocytopenia. Plan Transfuse platelets to get platelet counts greater than 50,000. Continue clear liquids and GoLytely for bowel preparation. If platelets are greater than 50,000 by tomorrow we will plan for exploratory laparotomy and partial colectomy. Risks include but not limited to infection, bleeding, injury to bowel, liver, stomach,*neurovascular structures, abdominal sepsis and or abdominal abscess, need for further procedure and or operation, pneumonia, blood clot, heart attack, stroke and discussed with the patient and his mother. Benefits and alternatives explained to them, all their questions answered, they agreed and consented to proceed with the operation.
--- NOTE | 2025-06-05 15:02 | PC.LAC ---
Per Dr. Tai order an additional unit of PLT for surgery tomorrow and start pt on golytely today, npo midnight. spoke with blood bank and they will have 1 unit of plt on hold for surgery
[2025-06-05] MEDS: NA SU/NAHCO3/KC/PEG (Golytely) 4,000 ML BTL 4000 ML PO (15:55)
[2025-06-05 18:55] LABS: Basophils # (Auto) 0.0 Thou/mm3 (0.0-0.2); Basophils % (Auto) 0 % (0-2.5); Eosinophils # (Auto) 0.3 Thou/mm3 (0.0-0.5); Eosinophils % (Auto) 4 % (0-10); Hematocrit 28.4 % (41.0-53.0); Hemoglobin 8.3 g/dL (13.5-16.0); Immature Granulocytes Auto 0.02 Thou/mm3 (0.00-0.00); Lymphocytes # (Auto) 1.1 Thou/mm3 (1.0-4.8); Lymphocytes % (Auto) 16 % (10-50); Mean Corpuscular HGB Conc 29.2 g/dl (31.0-37.0); Mean Corpuscular Hemoglobin 25.5 pg (25.0-35.0); Mean Corpuscular Volume 87 fL (80-100); Monocytes # (Auto) 0.9 Thou/mm3 (0.0-0.8); Monocytes % (Auto) 13 % (0-12); Neutrophils # (Auto) 4.5 Thou/mm3 (1.8-7.7); Neutrophils % (Auto) 66 % (37-80); Nucleated Red Blood Cell # 0.00 Thou/mm3 (0.00-0.00); Nucleated Red Blood Cell % 0 /100 WBC (0); RDW Standard Deviation 65.7 fL (35.1-43.9); Red Blood Count 3.26 Miln/mm3 (4.50-5.90); White Blood Count 6.8 Thou/mm3 (3.8-10.6)
[2025-06-05 18:56] LABS: Platelet Count 51 Thou/mm3 (140-440)
[2025-06-05 18:57] LABS: Slide Review Platelets confirmed
--- NOTE | 2025-06-05 20:08 | ESPR_ITS ---
Documentation for date of: 06/05/25 Subjective Subjective Interval history: Appreciate the surgical consultation Platelet transfusion makes sense Exam Vital Signs Temp Pulse Resp BP Pulse Ox O2 Del Method O2 Flow Rate 96.6 F L 103 H 18 136/81 H 93 L Room Air 2 06/05/25 17:18 06/05/25 17:18 06/05/25 17:18 06/05/25 17:18 06/05/25 17:18 06/05/25 16:00 06/04/25 21:06 Objective Labs 06/05/25 18:28 06/05/25 05:10 Labs: Laboratory Results - last 24 hr 06/03/25 06/04/25 06/05/25 09:52 05:02 05:10 WBC 5.4 RBC 3.42 L Hgb 8.7 L Hct 29.4 L MCV 86 MCH 25.4 MCHC 29.6 L RDW Std Deviation 65.4 H Plt Count 27 L* Neut % (Auto) 66 Lymph % (Auto) 17 [place] % (Auto) 12 Eos % (Auto) 4 Baso % (Auto) 0 Neut # (Auto) 3.5 Lymph # (Auto) 0.9 L [place] # (Auto) 0.7 Eos # (Auto) 0.2 Baso # (Auto) 0.0 Immature Gran # (Auto) 0.03 H Absolute Nucleated RBC 0.00 Immature Gran % 1 H Nucleated RBC % 0 Smear Path Review Sent to Pathologist Sodium 144 Potassium 4.3 Chloride 116 H Carbon Dioxide 16.6 L Anion Gap 11 BUN 27 H Creatinine 2.2 H Estim Creat Clear Calc 37.9 L eGFR 32 L BUN/Creatinine Ratio 12 Glucose 144 H Calculated Osmolality 294 Calcium 7.8 L Corrected Calcium 8.8 Total Bilirubin 0.8 AST 109 H ALT 90 H Alkaline Phosphatase 308 H Total Protein 5.3 L Albumin 2.7 L Globulin 2.6 Albumin/Globulin Ratio 1.0 L Carcinoembryonic Ag 4.7 Misc Test Result Platelets confirmed Blood Type O Positive Antibody Screen NEGATIVE Blood Bank Wristband ID Yes Blood Bank Comment PLATP Ready 06/05/25 18:28 WBC 6.8 RBC 3.26 L Hgb 8.3 L Hct 28.4 L MCV 87 MCH 25.5 MCHC 29.2 L RDW Std Deviation 65.7 H Plt Count 51 L D Neut % (Auto) 66 Lymph % (Auto) 16 [place] % (Auto) 13 H Eos % (Auto) 4 Baso % (Auto) 0 Neut # (Auto) 4.5 Lymph # (Auto) 1.1 [place] # (Auto) 0.9 H Eos # (Auto) 0.3 Baso # (Auto) 0.0 Immature Gran # (Auto) 0.02 H Absolute Nucleated RBC 0.00 Immature Gran % 0 Nucleated RBC % 0 Smear Path Review Sodium Potassium Chloride Carbon Dioxide Anion Gap BUN Creatinine Estim Creat Clear Calc eGFR BUN/Creatinine Ratio Glucose Calculated Osmolality Calcium Corrected Calcium Total Bilirubin AST ALT Alkaline Phosphatase Total Protein Albumin Globulin Albumin/Globulin Ratio Carcinoembryonic Ag Misc Test Result Platelets confirmed Blood Type Antibody Screen Blood Bank Wristband ID Blood Bank Comment Impressions Impression: 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
[2025-06-05] MEDS: ATORVASTATIN CALCIUM 20 MG TABLET 80 MG PO (21:46)
[2025-06-06] VITALS (104 sets, daily range): BP systolic 65–131; BP diastolic 43–75; PULSE 62–122; RESP 12–35; TEMP 35.4–36.7; O2SAT 91–100; BMI 25.7
[2025-06-06] MEDS: LEVOTHYROXINE SODIUM 25 MCG TABLET 50 MCG PO (05:11)
[2025-06-06 05:54] LABS: Basophils # (Auto) 0.0 Thou/mm3 (0.0-0.2); Basophils % (Auto) 0 % (0-2.5); Eosinophils # (Auto) 0.2 Thou/mm3 (0.0-0.5); Eosinophils % (Auto) 4 % (0-10); Hematocrit 27.5 % (41.0-53.0); Immature Granulocytes Auto 0.01 Thou/mm3 (0.00-0.00); Lymphocytes # (Auto) 0.8 Thou/mm3 (1.0-4.8); Lymphocytes % (Auto) 16 % (10-50); Mean Corpuscular HGB Conc 29.5 g/dl (31.0-37.0); Mean Corpuscular Hemoglobin 25.7 pg (25.0-35.0); Mean Corpuscular Volume 87 fL (80-100); Monocytes # (Auto) 0.6 Thou/mm3 (0.0-0.8); Monocytes % (Auto) 12 % (0-12); Neutrophils # (Auto) 3.2 Thou/mm3 (1.8-7.7); Neutrophils % (Auto) 67 % (37-80); Nucleated Red Blood Cell # 0.00 Thou/mm3 (0.00-0.00); Nucleated Red Blood Cell % 0 /100 WBC (0); RDW Standard Deviation 64.6 fL (35.1-43.9); Red Blood Count 3.15 Miln/mm3 (4.50-5.90); White Blood Count 4.7 Thou/mm3 (3.8-10.6)
[2025-06-06 05:55] LABS: Hemoglobin 8.1 g/dL (13.5-16.0); Platelet Count 41 Thou/mm3 (140-440)
[2025-06-06 05:56] LABS: Slide Review Platelets confirmed
[2025-06-06 06:32] LABS: Alanine Aminotransferase 96 U/L (10-49); Albumin, Serum 2.7 gm/dL (3.4-4.8); Albumin/Globulin Ratio 1.0 (1.2-2.2); Alkaline Phosphatase 304 U/L (46-116); Anion Gap 13 (7-16); Aspartate Amino Transferase 113 U/L (0-34); BUN/Creatinine Ratio 13 Ratio (12-20); Bilirubin,Total 0.8 mg/dL (0.3-1.2); Blood Urea Nitrogen 29 mg/dL (9-23); Calcium 8.1 mg/dL (8.3-10.6); Calcium (Corrected) 9.1 mg/dL (8.5-10.1); Carbon Dioxide 17.7 mMol/L (20.0-31.0); Chloride 112 mMol/L (98-107); Creatinine (Component) 2.2 mg/dL (0.6-1.3); Estimated Creatinine Clearance 37.9 mL/min (>60); Globulin 2.6 gm/dL (2.3-3.5); Glucose 160 mg/dL (74-106); Osmolality,Calculated 293 (275-295); Potassium 4.1 mMol/L (3.4-5.1); Sodium 143 mMol/L (136-145); Total Protein 5.3 gm/dL (5.7-8.2); eGFR 32 See Note
[2025-06-06] MEDS: RINGERS LACTATED 1000 ML 1,000 ML 100 ML IV (08:40)
--- NOTE | 2025-06-06 08:56 | PC.SS ---
Rounding: Pending SX with Dr. Tai, platelets low, DC plan HH
[2025-06-06 09:42] LABS: Magnesium 1.8 mg/dL (1.6-2.6); Phosphorous 4.0 mg/dL (2.4-5.1)
[2025-06-06 10:31] LABS: INR 1.2 (0.9-1.3); Partial Thromboplastin Time 29.0 Seconds (22.0-36.0); Prothrombin Time 13.3 Seconds (9.0-12.2)
--- NOTE | 2025-06-06 12:10 | ESPR_ITS ---
<Statement entered by Estelle Mosqueda MD - 06/06/25 14:48> Patient examined at bedside. No events overnight. Hemoglobin this morning on labs 8.1, MCV 87. After 1 unit platelet transfusion they improved to 51 yesterday. he required additional unit this morning after repeat labs show platelets dropped to 41. Plan for partial colectomy by Dr. Tai today. Repeat INR ordered along with plasma on standby. The patient's management plan was discussed with my attending physician Dr. Gomez. Estelle Mosqueda, PGY-2 Documentation for date of: 06/06/25 Subjective Subjective Interval history: This is a 69 om wtih a h/o insulin dependent diabetes and thrombocytopenia who presents to the ED on 06/03 after sustaining a fall without LOC or syncope, found to have plts in the 40s, anemia with hgb around 8, liver cirrhosis and liver mass on CT, and was subsequently admitted for GI bleed. Patient was taken for upper endoscopy, found to have a grade II varice which was banded. On 06/04, Colonoscopy demonstrated malignant obstructing tumor in the transverse colon which was biopsied. GI recommend surgical consultation for further workup. 06/05: Critical platelet value of 27K reported to the night team before signout. Patient doing well, having more formed stools after colonoscopy, still passing gas, denies increased bloating. VSS. Dr. Tai with general surgery was consulted, recommended partial colectomy after plt count is >70 06/06: Patient given another unit of plts overnight for plt count of 51. Repeat CBC showed plt count of 41. 3rd unit of plts ordered and transfused. Dr. Tai to take the patient to surgery with additional unit of plts. 3 units PRBCs ordered on standby along with 2 units of FFP. Repeat INR ordered. Exam Vital Signs Temp Pulse Resp BP Pulse Ox O2 Del Method O2 Flow Rate 97.6 F 95 15 131/75 H 93 L Nasal Cannula 1 06/06/25 09:06/06/25 09:06/06/25 09:06/06/25 09:27 06/06/25 09:06/06/25 07:54 06/06/25 09:27 Narrative Exam General: Ill appearing patient, bitemporal wasting noted, sitting up in bed, no acute distress, conversational. HEENT: Mucosa moist, patient edentulous. No oropharyngeal lesions. Pupils are equal and reactive to light bilaterally Cardiovascular: Normal S1 and S2. Regular rate and rhythm. No murmur appreciated Respiratory: Clear to auscultation bilaterally without wheezes or crackles. Abdomen: Soft, nontender, some distension. Hematoma along the right lower quadrant, moreso near the right hip. Skin: Dry, large hematoma along the posterolateral aspect of the right chest wall. Also smaller hematoma along the right scapula just below the scapular spine. Multiple sites of bruising along the arms and legs bilaterally. Multiple bruises at various blood draw sites. Musculoskeletal: No gross injuries. Able to move all 4 extremities. Non edematous lower extremities. Neuro: Alert and oriented x3, to person, place, and situation but not year or month. No focal neuro deficits. Negative pronator drift, no asterixis of the fingers or tongue. Objective Labs 06/06/25 16:16 06/06/25 16:16 Labs: Laboratory Results - last 24 hr 06/03/25 06/05/25 06/06/25 09:52 18:28 05:30 WBC 6.8 4.7 RBC 3.26 L 3.15 L Hgb 8.3 L 8.1 L Hct 28.4 L 27.5 L MCV 87 87 MCH 25.5 25.7 MCHC 29.2 L 29.5 L RDW Std Deviation 65.7 H 64.6 H Plt Count 51 L D 41 L Neut % (Auto) 66 67 Lymph % (Auto) 16 16 [place] % (Auto) 13 H 12 Eos % (Auto) 4 4 Baso % (Auto) 0 0 Neut # (Auto) 4.5 3.2 Lymph # (Auto) 1.1 0.8 L [place] # (Auto) 0.9 H 0.6 Eos # (Auto) 0.3 0.2 Baso # (Auto) 0.0 0.0 Immature Gran # (Auto) 0.02 H 0.01 H Absolute Nucleated RBC 0.00 0.00 Immature Gran % 0 0 Nucleated RBC % 0 0 PT INR APTT Sodium 143 Potassium 4.1 Chloride 112 H Carbon Dioxide 17.7 L Anion Gap 13 BUN 29 H Creatinine 2.2 H Estim Creat Clear Calc 37.9 L eGFR 32 L BUN/Creatinine Ratio 13 Glucose 160 H Calculated Osmolality 293 Calcium 8.1 L Corrected Calcium 9.1 Phosphorus Magnesium Total Bilirubin 0.8 AST 113 H ALT 96 H Alkaline Phosphatase 304 H Total Protein 5.3 L Albumin 2.7 L Globulin 2.6 Albumin/Globulin Ratio 1.0 L Misc Test Result Platelets confirmed Platelets confirmed Blood Type O Positive Antibody Screen NEGATIVE Antibody Identification Crossmatch Blood Bank Wristband ID Yes Blood Bank Comment PLATP Ready 06/06/25 08:38 WBC RBC Hgb Hct MCV MCH MCHC RDW Std Deviation Plt Count Neut % (Auto) Lymph % (Auto) [place] % (Auto) Eos % (Auto) Baso % (Auto) Neut # (Auto) Lymph # (Auto) [place] # (Auto) Eos # (Auto) Baso # (Auto) Immature Gran # (Auto) Absolute Nucleated RBC Immature Gran % Nucleated RBC % PT 13.3 H INR 1.2 APTT 29.0 Sodium Potassium Chloride Carbon Dioxide Anion Gap BUN Creatinine Estim Creat Clear Calc eGFR BUN/Creatinine Ratio Glucose Calculated Osmolality Calcium Corrected Calcium Phosphorus 4.0 Magnesium 1.8 Total Bilirubin AST ALT Alkaline Phosphatase Total Protein Albumin Globulin Albumin/Globulin Ratio Misc Test Result Blood Type O Positive Antibody Screen POSITIVE Antibody Identification Cold Antibody Crossmatch See Detail Blood Bank Wristband ID Yes Blood Bank Comment PLATP Ready Quality Measures Quality Measures VTE prophylaxis Advance care planning discussed with:: patient Assessment & Plan Assessment Current Active Medications: Generic Name Dose Route Start Last Admin Trade Name Freq PRN Reason Stop Dose Admin Acetaminophen 650 mg 06/03/25 16:40 Acetaminophen 325 Mg Tablet PO 07/03/25 16:39 Q6H PRN Fever >100.4 or pain Atorvastatin Calcium 80 mg 06/05/25 21:00 06/05/25 21:46 Atorvastatin Calcium 20 Mg Tablet PO 07/05/25 20:59 80 mg HS JERSON Administration Protocol Dextrose 25 ml 06/03/25 18:26 Dextrose 50%-Water Inj 50 Ml Syringe IV 07/03/25 18:25 Q15MIN PRN BG 50-70 responsive npo pt Dextrose 50 ml 06/03/25 18:26 Dextrose 50%-Water Inj 50 Ml Syringe IV 07/03/25 18:25 Q15MIN PRN BG <50 OR BG <70 & pt unresponsive Ezetimibe 10 mg 06/05/25 09:00 06/06/25 10:17 Ezetimibe 10 Mg Tablet PO 07/05/25 08:59 Not Given DAILY JERSON Glucagon 1 mg 06/03/25 18:26 Glucagon Inj 1 Mg Vial IM Q15MIN PRN BG <70, and no IV access Octreotide Acetate 1,000 mcg/ 102 mls @ 5.1 mls/hr 06/04/25 13:00 06/05/25 13:29 Sodium Chloride IV 06/08/25 17:00 50 mcg/hr .Q20H JERSON 5.1 mls/hr Protocol Administration 50 MCG/HR Ceftriaxone Sodium/Dextrose 1 gm in 50 mls @ 100 mls/hr 06/04/25 08:34 06/05/25 08:14 Rocephin/D5w 1gm Iv Premix IV 06/11/25 08:33 100 mls/hr QDAY JERSON Administration Lactated Ringer's 1,000 mls @ 100 mls/hr 06/06/25 07:42 06/06/25 08:40 Lactated Ringers IV 06/06/25 17:41 100 mls/hr .Q10H ONE Administration Insulin Human Regular 0 unit 06/04/25 07:30 06/05/25 17:10 Insulin Hum Regular 1 Unit/0.01 Ml (Per Unit) SC 07/04/25 07:29 Not Given AC JERSON Protocol Levothyroxine Sodium 50 mcg 06/05/25 06:00 06/06/25 05:11 Levothyroxine Sodium 25 Mcg Tablet PO 07/05/25 05:59 50 mcg ACBR JERSON Administration Protocol Ondansetron HCl 4 mg 06/03/25 16:40 Ondansetron Inj 2 Mg/Ml Inj 2 Ml IVP 07/03/25 16:39 Q6H PRN NAUSEA OR VOMITING Protocol Pantoprazole Sodium 40 mg 06/05/25 09:00 06/06/25 10:18 Pantoprazole Inj 40 Mg Vial IVP 07/05/25 08:59 40 mg Q12HR JERSON Administration Sennosides 1 tab 06/03/25 16:40 Senna Tablet PO 07/03/25 16:39 QDAY PRN constipation Protocol Sertraline HCl 100 mg 06/05/25 09:00 06/06/25 10:16 Sertraline Hcl 25 Mg Tablet PO 07/05/25 08:59 Not Given DAILY JERSON Plan This is a 69 om wtih a h/o insulin dependent diabetes and thrombocytopenia who presents after sustaining a fall, found to have low hgb of 8, low plts, cirrhosis, and liver lesions, admitted for GI bleed work up and Bx of Liver nodules. #Cirrhosis #Grade II Esophageal Varice #Acute anemia #GI Bleed Patient found to have hgb of 8.6, +FOBT, and reports blood in the stool. CT Abd pelvis notable for cirrhosis and trace ascites fluid. Denies alcohol use or IV drug use. Hepatitis panel negative. Possible NAFLD or secondary to incidental liver lesions seen on CT (see below). Meld Na 15, < 2% estimated 3 month mortality EGD demonstrated Grade II esophageal varice which was banded. Hgb stable around 8. -Octreotide -Protonix - Transfuse if hgb <7 #Colonic Mass, suspicious for malignancy #Liver Mass #Pulmonary nodules #Thrombocytopenia Liver mass and pulmonary nodule were Incidental findings on CT. 16mm pulmonary nodule right upper lobe, Multiple poorly defined liver lesions on this noncontrast study, the largest in the right lobe 7.6 cm, central liver and 4.4 cm lower right lobe of the liver, Splenomegaly Mild ascites Colonoscopy demonstrated a large circumferential, obstructing mass in the transverse colon. Biopsied. Dr. Yap recommending surgical consultation. Dr. Tai recommending partial colectomy. Plts should be greater than 50 prior to procedure. Transfused 2 units thus far. -General surgery consultation, appreciate Dr. Tai -3rd unit of plts on hold. -3 units PRBCs on hold -2 units of FFP on hold. #IDDM Takes insulin glargine 10U daily. Glc seems to be decently controlled on sliding scale. -Continue sliding scale, consider 5 U degludec if morning glucose is above goal. #SHAI vs CKD Cr persistently elevated around 2.2 despite 2L fluids. UA unremarkalbe, no blood or protein seen. This may represent baseline CKD. -mIVF -am CMP. Health Maintenance: DVT prophylaxis: SCDs Diet: CLD, NPO after midnight. Healy: No Lines: PIV CODE STATUS: DNR Disposition: Pending partial colectomy. Patient's plan and care discussed with my attending, Dr. Gomez and my senior Dr. Veloz. Benjamin Ramey DO PGY-1 ([facility] Resident) Attending Provider Attestation/Addendum Karen Hein DO, attest that I was physically present for the thacker portions of the service and evaluated the patient with the resident and I reviewed and discussed the case with the resident and agree with the resident's findings and plans of care as documented above Patient seen and evaluated this AM. He states that he is doing well. He denies any shortness of breath, chest pain, fevers, chills, nausea or vomiting. Patient denies history of alcohol or drug use. Patient states he lives with his mother and she is aware that he is in the hospital, but she does not know that he is undergoing surgery today. I asked patient if he would like me to update his mother, he stated he did not want her to know. Patient received platelets yesterday and currently has 3 units of PRBCs on hold and 2 units of FFP. Patient scheduled for surgery this afternoon.
--- NOTE | 2025-06-06 14:25 | PC.SS ---
Rounding Note: Patient to undergo exploratory laparotomy. Dr. Tai conducting procedure.
--- NOTE | 2025-06-06 15:16 | PD.SUROPNT ---
Date of Procedure 06/06/25 Pre Op Diagnosis Malignant neoplasm of proximal transverse colon Post Op Diagnosis Malignant neoplasm of proximal transverse colon Cirrhosis of the liver with portal hypertension and ascites Procedure Exploratory laparotomy, right colectomy, abdominal washout Packing of the abdomen Findings A large obstructing proximal transverse colon tumor. Significant cirrhosis of the liver with portal hypertension and ascites. No evidence of pelvic, peritoneal or omental nodules Procedure Description Patient brought into the operating room in supine position. After administration of general tracheal anesthesia, patient's abdomen prepped and draped in standard surgical manner. A laparotomy incision was made from mid epigastrium to above the umbilicus. Dissection was deepened into soft tissue. Patient was noted to have enlarged veins consistent with cirrhosis of the liver and portal hypertension. The veins were ligated with 2-0 silk ties. Anterior abdominal fascia was divided. Patient was noted to have significantly enlarged vein at the falciform ligament that was ligated with 0 silk tie. Patient was also noted to have ascites that was suctioned. There was no evidence of omental, pelvic or peritoneal nodules. Patient was noted to have large obstructing mass of proximal transverse colon with markings clearly visible. He was noted to have significantly cirrhotic liver, was unable to distinguish between cirrhosis of the liver and large liver tumors. There were some adhesions of omentum into the inferior aspect of the liver and there gallbladder that were divided with the harmonic Enseal device. The lesser sac was entered and the gastrocolic ligament was divided. The transverse colon mobilization continued laterally until the hepatic flexure was divided. Once again patient was noted to have enlarged veins consistent with cirrhosis of the liver and portal hypertension. The cecum and ascending colon were mobilized by dividing the white line of [place]. Terminal ileum was divided approximately 15 cm proximal to ileocecal junction with BERNICE stapling device. The mesentery was divided with Enseal harmonic device. Mid transverse colon was also divided with BERNICE stapling device and the mesocolon was ligated with Enseal harmonic device. The right branch of middle colic and the ileocolic vessels were ligated with 0 silk tie. Abdomen and pelvis copiously and thoroughly washed and irrigated, all the fluids were suctioned and the suction fluid returned clear. The small bowel was eviscerated, was run from ligament of Treitz to terminal ileum, no mass, lesions or any tumors noted. The remainder of transverse colon, descending colon sigmoid and rectum were palpated no obvious tumors or masses noted. A [id number], functional end-to-end anastomosis was then created between the terminal ileum and mid transverse colon. The anastomosis was performed in 2 layer handsewn fashion. The posterior serosal layer were reapproximated with interrupted sutures using 3-0 silk. The inner layer was performed with running 2-0 Vicryl, the anterior layer was reinforced with 3-0 silk sutures in Lembert fashion. The anastomosis was widely patent. The abdomen was once again copiously and thoroughly washed and irrigated and all the fluids were suctioned and the suction fluid turn clear. At this point upon further inspection patient was noted to have some oozing from the right paracolic gutter and right upper quadrant around the liver. Patient was noted to be acidotic and hypercoagulable. At this time I elected to space Surgicel powder and packed the right upper quadrant and right paracolic gutter. The bowel was covered with sterile plastic covering. Await towels placed over the plastic covering and the wound VAC was placed the wound VAC apparatus was connected. Patient remained intubated and was transferred to intensive care unit. Plan is to correct the coagulation parameters and bring back to the operating room in 48 hours for removal of the packings and closure of the abdomen. Anesthesia GETA Pathology / specimen Other (Right colon) Estimated Blood Loss 1,000 Condition Critical Disposition ICU Surgeon Kimberley Tai MD Surgical Staff Operation Date: 06/06/25 13:00 Case Staff Anesthesiologist: Buck Arora RNcontrols operator molded goods: Irene Burrell
[2025-06-06] MEDS: Norepinephrine/D5W 8mg/250ml 8 MG/250 ML BAG 22.113 MG IV (16:00)
[2025-06-06 16:13] LABS: Base Excess -12 (-3-3); HCO3 16 mEq/L (20-26); Inspired Oxygen, FIO2 21 %; O2 Saturation 101 % (91-98); PCO2 45 mmHg (32.0-48.0); PO2 190 mmHg (83-108)
--- NOTE | 2025-06-06 16:15 | PD.IMPROG ---
Documentation for date of: 06/06/25 Subjective Subjective Interval history: Patient evaluated Status post resection of the right colon for obstructing proximal transverse colon carcinoma which has been biopsy-proven as per called by our pathologist Dr. Miranda Exam Vital Signs Temp Pulse Resp BP Pulse Ox O2 Del Method O2 Flow Rate 97.6 F 94 15 108/60 100 Nasal Cannula 1 06/06/25 09:27 06/06/25 15:57 06/06/25 09:27 06/06/25 15:57 06/06/25 15:57 06/06/25 07:54 06/06/25 09:27 FiO2 100 06/06/25 15:57 Objective Labs 06/06/25 05:30 06/06/25 05:30 Labs: Laboratory Results - last 24 hr 06/03/25 06/05/25 06/06/25 09:52 18:28 05:30 WBC 6.8 4.7 RBC 3.26 L 3.15 L Hgb 8.3 L 8.1 L Hct 28.4 L 27.5 L MCV 87 87 MCH 25.5 25.7 MCHC 29.2 L 29.5 L RDW Std Deviation 65.7 H 64.6 H Plt Count 51 L D 41 L Neut % (Auto) 66 67 Lymph % (Auto) 16 16 [place] % (Auto) 13 H 12 Eos % (Auto) 4 4 Baso % (Auto) 0 0 Neut # (Auto) 4.5 3.2 Lymph # (Auto) 1.1 0.8 L [place] # (Auto) 0.9 H 0.6 Eos # (Auto) 0.3 0.2 Baso # (Auto) 0.0 0.0 Immature Gran # (Auto) 0.02 H 0.01 H Absolute Nucleated RBC 0.00 0.00 Immature Gran % 0 0 Nucleated RBC % 0 0 PT INR APTT Sodium 143 Potassium 4.1 Chloride 112 H Carbon Dioxide 17.7 L Anion Gap 13 BUN 29 H Creatinine 2.2 H Estim Creat Clear Calc 37.9 L eGFR 32 L BUN/Creatinine Ratio 13 Glucose 160 H Calculated Osmolality 293 Calcium 8.1 L Corrected Calcium 9.1 Phosphorus Magnesium Total Bilirubin 0.8 AST 113 H ALT 96 H Alkaline Phosphatase 304 H Total Protein 5.3 L Albumin 2.7 L Globulin 2.6 Albumin/Globulin Ratio 1.0 L Misc Test Result Platelets confirmed Platelets confirmed Blood Type O Positive Antibody Screen NEGATIVE Antibody Identification Crossmatch Blood Bank Wristband ID Yes Blood Bank Comment PLATP Ready 06/06/25 08:38 WBC RBC Hgb Hct MCV MCH MCHC RDW Std Deviation Plt Count Neut % (Auto) Lymph % (Auto) [place] % (Auto) Eos % (Auto) Baso % (Auto) Neut # (Auto) Lymph # (Auto) [place] # (Auto) Eos # (Auto) Baso # (Auto) Immature Gran # (Auto) Absolute Nucleated RBC Immature Gran % Nucleated RBC % PT 13.3 H INR 1.2 APTT 29.0 Sodium Potassium Chloride Carbon Dioxide Anion Gap BUN Creatinine Estim Creat Clear Calc eGFR BUN/Creatinine Ratio Glucose Calculated Osmolality Calcium Corrected Calcium Phosphorus 4.0 Magnesium 1.8 Total Bilirubin AST ALT Alkaline Phosphatase Total Protein Albumin Globulin Albumin/Globulin Ratio Misc Test Result Blood Type O Positive Antibody Screen POSITIVE Antibody Identification Cold Antibody Crossmatch See Detail Blood Bank Wristband ID Yes Blood Bank Comment FFP Ready Impressions Impression: Status post surgical intervention for obstructing proximal transverse colon invasive adenocarcinoma Cirrhosis of liver with ascites and portal hypertension Continue postoperative management Assessment & Plan Time Spent With Patient Time: Total time spent is greater than 50% in coordination of care (as documented) at patient's floor/unit and/or counseling patient:
--- NOTE | 2025-06-06 16:21 | XR_ITS ---
Examination: AP chest single view Technique: AP portable supine chest single view Date and time: June 06, 2025, 1636 hrs., Comparison 06/03/2025 Indications: Hypoxic respiratory failure, postintubation Findings: Normal heart size Atelectasis versus mild pneumonia left base Old right-sided rib fractures Orogastric tube in the stomach, the sidehole beyond the GE junction Endotracheal tube tip 5.8 cm above jaimie Impression: Atelectasis versus mild pneumonia left base Endotracheal tube tip 5.8 cm above jaimie. Orogastric tube in the stomach satisfactory position
--- NOTE | 2025-06-06 16:23 | ESPR_ITS ---
Documentation for date of: 06/06/25 Patient had GETA for ex lap, partial colectomy for colon mass. Pre-op, I saw him on the floor and again in pre-op holding with his mother at bedside. He was alert, NAD, on NC O2 saturating low 90s. He has h/o DM, cirrhosis, thrombocytopenia and presented with fall and he had significant ecchymoses over R later chest and hip and some minor diffuse bruising on b/l UE and dressing b/l elbows. He had pitting edema L leg but denied posterior calf pain or tenderness. Pre-op, he was suspected to have GI bleed and has had EGD a nd colonoscopy. He received platelet transfusion pre-op in anticipation for surgery and RBC was also placed on hold. He had DNR band L wrist but he did not know what it is and his mother did not know either. I explained to them the meaning of it and that we'd hold it intra- op and it goes back into effect post op and they agreed, but I encouraged them to discuss his code status with his doctor on the floor and they had no further questions for me. I also explained to him possible post op complications including worsening renal function in the setting of pre-existing renal insufficiency and post op ICU admission and need for more blood products. He was taken to OR and induced and intubated uneventfully. Soon after the surgery started, he noticeably had significant ongoing bleeding and blood products were called for and transfused as available. EBL 1000 cc. He was hypotensive and required vasopressor support with intermittent IV Phenylephrine and Vasopressin boluses in addition to ongoing volume resuscitation. In total, he received one unit of Platelet, one RBC, one FFP, one 250 cc bottle of 5% albumin, about 1000 cc of LR and about 300 cc of NS. I also gave him 1 gm CaCl along with Albumin and half amp of NaBicarb. Surgeon also asked for DDAVP and he was given 27 mcg of it intra-op. Rest of his vitals remained stable, O2 sat 95-100%, HR 70-80s sinus, airway pressures normal. Near the end, I started low dose Levo drip and his SBP was 100s. Glu 247 intra-op at the end. He had 3 PIVs and I placed additional 20 g PIV R forearm. Healy was placed and UOP 250 cc. OGT was placed with minimal output. Given his condition, after discussion with the surgeon, his abdomen was left open, and plan was made to transfer him to ICU intubated. ICU was made aware. At the end, he was transferred to ICU with team intubated and care transferred to ICU team and full report given. His vitals were stable upon transfer, SBP 100s, HR 90s sinus, O2 100% on vent. I gave initial vent settings and lab orders and will defer further follow up and management to ICU team. I called his mother's number for update but no answer. Buck Arora MD Anesthesia Progress Note Progress Note Most recent Vital Signs: Last Vital Signs Temp 97.6 F 06/06/25 09:27 Pulse 94 06/06/25 15:57 Resp 15 06/06/25 09:27 BP 108/60 06/06/25 15:57 Pulse Ox 100 06/06/25 15:57 O2 Del Method Nasal Cannula 06/06/25 07:54 O2 Flow Rate 1 06/06/25 09:27 FiO2 100 06/06/25 15:57
[2025-06-06 16:27] LABS: Allen Test Performed/OK; Puncture Site Right Brachial; pH, Arterial 7.16 (7.35-7.45)
[2025-06-06 16:29] LABS: Basophils # (Auto) 0.0 Thou/mm3 (0.0-0.2); Basophils % (Auto) 0 % (0-2.5); Eosinophils # (Auto) 0.1 Thou/mm3 (0.0-0.5); Eosinophils % (Auto) 1 % (0-10); Lymphocytes # (Auto) 1.8 Thou/mm3 (1.0-4.8); Monocytes # (Auto) 0.5 Thou/mm3 (0.0-0.8); Monocytes % (Auto) 3 % (0-12); Nucleated Red Blood Cell % 0 /100 WBC (0)
[2025-06-06 16:30] LABS: Hematocrit 22.7 % (41.0-53.0); Immature Granulocytes Auto 0.27 Thou/mm3 (0.00-0.00); Lymphocytes % (Auto) 9 % (10-50); Mean Corpuscular HGB Conc 29.1 g/dl (31.0-37.0); Mean Corpuscular Hemoglobin 26.0 pg (25.0-35.0); Mean Corpuscular Volume 89 fL (80-100); Neutrophils # (Auto) 16.6 Thou/mm3 (1.8-7.7); Neutrophils % (Auto) 86 % (37-80); Nucleated Red Blood Cell # 0.07 Thou/mm3 (0.00-0.00); Platelet Count 171 Thou/mm3 (140-440); RDW Standard Deviation 62.7 fL (35.1-43.9); Red Blood Count 2.54 Miln/mm3 (4.50-5.90); White Blood Count 19.4 Thou/mm3 (3.8-10.6)
[2025-06-06 16:46] LABS: Hemoglobin 6.6 g/dL (13.5-16.0)
[2025-06-06 16:49] LABS: INR 1.4 (0.9-1.3); Partial Thromboplastin Time 27.8 Seconds (22.0-36.0); Prothrombin Time 14.7 Seconds (9.0-12.2)
[2025-06-06 17:04] LABS: Alanine Aminotransferase 94 U/L (10-49); Albumin, Serum 2.4 gm/dL (3.4-4.8); Albumin/Globulin Ratio 1.2 (1.2-2.2); Alkaline Phosphatase 220 U/L (46-116); Anion Gap 12 (7-16); Aspartate Amino Transferase 136 U/L (0-34); BUN/Creatinine Ratio 10 Ratio (12-20); Bilirubin,Total 0.8 mg/dL (0.3-1.2); Blood Urea Nitrogen 27 mg/dL (9-23); Calcium 8.6 mg/dL (8.3-10.6); Calcium (Corrected) 9.9 mg/dL (8.5-10.1); Carbon Dioxide 17.9 mMol/L (20.0-31.0); Chloride 112 mMol/L (98-107); Creatinine (Component) 2.6 mg/dL (0.6-1.3); Estimated Creatinine Clearance 32.1 mL/min (>60); Globulin 2.0 gm/dL (2.3-3.5); Glucose 304 mg/dL (74-106); Magnesium 1.9 mg/dL (1.6-2.6); Osmolality,Calculated 299 (275-295); Phosphorous 6.4 mg/dL (2.4-5.1); Potassium 5.1 mMol/L (3.4-5.1); Sodium 142 mMol/L (136-145); Total Protein 4.4 gm/dL (5.7-8.2); eGFR 26 See Note
[2025-06-06 18:25] LABS: Base Excess -16 (-3-3); HCO3 12 mEq/L (20-26); Inspired Oxygen, FIO2 45 %; O2 Saturation 93 % (91-98); PCO2 36 mmHg (32.0-48.0); PO2 76 mmHg (83-108)
[2025-06-06 18:26] LABS: Allen Test Not Performed; Puncture Site Right Radial
[2025-06-06 18:27] LABS: pH, Arterial 7.13 (7.35-7.45)
[2025-06-06] MEDS: INSULIN HUM REGULAR 1 UNIT/0.01 ML (PER UNIT) SC (19:09)
[2025-06-06] MEDS: OCTREOTIDE ACET INJ 1,000 MCG in SODIUM CHLORIDE 0.9% 100 ML 5.1 MCG IV (19:19)
[2025-06-06] MEDS: RINGERS LACTATED 1000 ML 1,000 ML 999 ML IV (19:34)
[2025-06-06] MEDS: Sodium Bicarb Inj 8.4% SYR 50 ML SYRINGE IV ×2 (19:34→21:27)
[2025-06-06 19:58] LABS: Path Review Blood Smear Sent to Pathologist
--- NOTE | 2025-06-06 20:02 | PC.NURSE ---
PT brought to ICU from OR by team. PT intubated, semi-comatose with wound vac set at 125 mmHg continuous suction mid-chest s/p surgery.
[2025-06-06 20:03] LABS: Lactate (Lactic Acid) 10.0 mMol/L (0.4-2.0)
[2025-06-06 20:56] LABS: Base Excess -17 (-3-3); HCO3 12 mEq/L (20-26); Inspired Oxygen, FIO2 21 %; O2 Saturation 94 % (91-98); PCO2 35 mmHg (32.0-48.0); PO2 80 mmHg (83-108)
[2025-06-06 20:57] LABS: Allen Test Performed/OK; Puncture Site Right Radial
[2025-06-06 20:58] LABS: pH, Arterial 7.13 (7.35-7.45)
[2025-06-06] MEDS: PROPOFOL 1,000 MG IVPB 1,000 MG/100 ML VIAL 2.722 MG IV (21:10)
[2025-06-06] MEDS: fentaNYL 2,500 MCG/250 ML BAG 2,500 MCG/250 ML BAG IV (21:11)
[2025-06-06 22:49] LABS: Base Excess -14 (-3-3); HCO3 13 mEq/L (20-26); Inspired Oxygen, FIO2 21 %; O2 Saturation 94 % (91-98); PCO2 32 mmHg (32.0-48.0); PO2 72 mmHg (83-108); pH, Arterial 7.21 (7.35-7.45)
[2025-06-06 22:50] LABS: Allen Test Not Performed; Puncture Site Right Radial
[2025-06-06 22:52] LABS: Reflex Lactate? Y
[2025-06-06] MEDS: Norepinephrine/D5W 8mg/250ml 8 MG/250 ML BAG 25.514 MG IV (23:03)
[2025-06-07] VITALS (112 sets, daily range): BP systolic 2–158; BP diastolic 1–116; PULSE 83–129; RESP 26–36; TEMP 36.4–38.3; O2SAT 94–100; BMI 25.7
[2025-06-07 00:06] LABS: Hematocrit 34.4 % (41.0-53.0); Hemoglobin 10.5 g/dL (13.5-16.0)
[2025-06-07 00:12] LABS: Anion Gap 19 (7-16); BUN/Creatinine Ratio 14 Ratio (12-20); Blood Urea Nitrogen 40 mg/dL (9-23); Calcium 8.1 mg/dL (8.3-10.6); Chloride 111 mMol/L (98-107); Creatinine (Component) 2.8 mg/dL (0.6-1.3); Estimated Creatinine Clearance 29.8 mL/min (>60); Glucose 257 mg/dL (74-106); Lactic Acid, 3 HR 9.8 mMol/L (0.4-2.0); Osmolality,Calculated 303 (275-295); Potassium 5.6 mMol/L (3.4-5.1); Sodium 143 mMol/L (136-145); eGFR 24 See Note
[2025-06-07 00:15] LABS: INR 1.6 (0.9-1.3); Partial Thromboplastin Time 31.4 Seconds (22.0-36.0); Prothrombin Time 17.2 Seconds (9.0-12.2)
[2025-06-07 00:32] LABS: Carbon Dioxide 13.2 mMol/L (20.0-31.0)
[2025-06-07] MEDS: ALBUMIN HUMAN-KJDA 25% IVPB 25 GM/100 ML BTL IV ×2 (01:04→08:32)
[2025-06-07] MEDS: Sodium Bicarb 8.4% 50ml Vial* 88.23 MEQ in DEXTROSE 5%-WATER 500 ML 100 MEQ IV ×2 (01:07→08:19)
[2025-06-07] MEDS: INSULIN HUM REGULAR 1 UNIT/0.01 ML (PER UNIT) 5 UNIT IV (01:50)
[2025-06-07 03:32] LABS: Base Excess -11 (-3-3); HCO3 15 mEq/L (20-26); Inspired Oxygen, FIO2 21 %; O2 Saturation 100 % (91-98); PCO2 30 mmHg (32.0-48.0); PO2 130 mmHg (83-108); pH, Arterial 7.30 (7.35-7.45)
[2025-06-07 03:33] LABS: Allen Test Not Performed; Puncture Site Right Brachial
[2025-06-07 03:46] LABS: Lactate (Lactic Acid) 8.5 mMol/L (0.4-2.0)
[2025-06-07 03:50] LABS: Hematocrit 31.3 % (41.0-53.0); Hemoglobin 9.8 g/dL (13.5-16.0)
[2025-06-07 04:07] LABS: Albumin, Serum 3.3 gm/dL (3.4-4.8); Anion Gap 17 (7-16); BUN/Creatinine Ratio 11 Ratio (12-20); Blood Urea Nitrogen 33 mg/dL (9-23); Calcium 7.9 mg/dL (8.3-10.6); Calcium (Corrected) 8.5 mg/dL (8.5-10.1); Chloride 111 mMol/L (98-107); Creatinine (Component) 3.1 mg/dL (0.6-1.3); Estimated Creatinine Clearance 26.9 mL/min (>60); Glucose 236 mg/dL (74-106); Osmolality,Calculated 300 (275-295); Phosphorous 9.0 mg/dL (2.4-5.1); Potassium 5.4 mMol/L (3.4-5.1); Sodium 143 mMol/L (136-145); eGFR 21 See Note
[2025-06-07 04:18] LABS: Carbon Dioxide 14.6 mMol/L (20.0-31.0)
[2025-06-07] MEDS: Norepinephrine/D5W 8mg/250ml 8 MG/250 ML BAG 32.318 MG IV (05:54)
[2025-06-07] MEDS: LEVOTHYROXINE SODIUM 25 MCG TABLET 50 MCG PO (05:55)
[2025-06-07 06:44] LABS: Reflex Lactate? Y
[2025-06-07 07:38] LABS: Lactic Acid, 3 HR 6.3 mMol/L (0.4-2.0)
[2025-06-07 07:54] LABS: Basophils # (Auto) 0.0 Thou/mm3 (0.0-0.2); Basophils % (Auto) 0 % (0-2.5); Eosinophils # (Auto) 0.0 Thou/mm3 (0.0-0.5); Eosinophils % (Auto) 0 % (0-10); Hematocrit 31.4 % (41.0-53.0); Hemoglobin 10.0 g/dL (13.5-16.0); Immature Granulocytes Auto 0.22 Thou/mm3 (0.00-0.00); Lymphocytes # (Auto) 1.4 Thou/mm3 (1.0-4.8); Lymphocytes % (Auto) 7 % (10-50); Mean Corpuscular HGB Conc 31.8 g/dl (31.0-37.0); Mean Corpuscular Hemoglobin 27.1 pg (25.0-35.0); Mean Corpuscular Volume 85 fL (80-100); Monocytes # (Auto) 1.7 Thou/mm3 (0.0-0.8); Monocytes % (Auto) 8 % (0-12); Neutrophils # (Auto) 17.1 Thou/mm3 (1.8-7.7); Neutrophils % (Auto) 84 % (37-80); Nucleated Red Blood Cell # 0.11 Thou/mm3 (0.00-0.00); Nucleated Red Blood Cell % 1 /100 WBC (0); Platelet Count 131 Thou/mm3 (140-440); RDW Standard Deviation 54.7 fL (35.1-43.9); Red Blood Count 3.69 Miln/mm3 (4.50-5.90); White Blood Count 20.4 Thou/mm3 (3.8-10.6)
[2025-06-07] MEDS: OCTREOTIDE ACET INJ 1,000 MCG in SODIUM CHLORIDE 0.9% 100 ML 5.1 MCG IV (08:18)
[2025-06-07] MEDS: PROPOFOL 1,000 MG IVPB 1,000 MG/100 ML VIAL 8.165 MG IV (08:31)
[2025-06-07] MEDS: cefTRIAXone/D5w 1gm IV premix 1 GM/50 ML BAG IV (08:32)
[2025-06-07] MEDS: SERTRALINE HCL 25 MG TABLET 100 MG PO (08:43)
[2025-06-07 09:03] LABS: Fibrinogen 135 mg/dL (175-375); INR 1.9 (0.9-1.3); Partial Thromboplastin Time 31.5 Seconds (22.0-36.0); Prothrombin Time 20.3 Seconds (9.0-12.2)
--- NOTE | 2025-06-07 09:08 | ESPR_ITS ---
Documentation for date of: 06/07/25 Subjective Subjective Interval history: This is a 69yo M admitted to the ICU yesterday from the OR. He was admitted to the hospital on 06/03 with GIB, cirrhosis, and SHAI. He was found to have a colon mass on EGD and liver mass with pulmonary nodules on CT. He was taken to the OR for resection and had a significant amount of bleeding. He was normocytic prior to the procedure and transfused a total of 3 units of platelets for the 24 hours prior to the procedure. And he had approximately a liter of blood loss IntraOp. Due to the significant amount of bleeding and oozing decision was made to leave the abdomen open for reexploration on Monday or Monday. He was brought to the ICU intubated and on low-dose Levophed. During the course of the evening he was noted to have high output from the wound VAC with at least 2 L out overnight. He was transfused 2 units of PRBCs in the ICU after the OR and was transfused 1 unit of PRBCs in the OR. He was found to be significantly acidotic and his vent settings were adjusted. He had both a respiratory as well as metabolic acidosis. Overnight he was started on a bicarb drip. This morning his hemoglobin is stabilized. On arrival from OR a lactate was checked and he was found to have a lactic acid of 10 this morning it is down to 6.3. He has had a total of 40 cc of urinary output throughout the entire night. Critical Care Note Critical care time (min.): 80 Exam Vital Signs Temp Pulse Resp BP Pulse Ox O2 Del Method O2 Flow Rate 100.9 F H 95 30 H 110/59 L 100 Mechanical Ventilation 1 06/07/25 08:01 06/07/25 09:00 06/06/25 23:17 06/07/25 09:00 06/07/25 09:00 06/07/25 08:01 06/06/25 09: FiO2 55 06/07/25 08:01 Narrative Exam Ujucott-[id number]-[id number], elderly, pale, normal body habitus HEENT-normocephalic, atraumatic, sclera anicteric, pupils equal and reactive, oral mucosa is hydrated, ET tube and OG tube in place Chest-lungs clear to auscultation bilaterally, heart rate regular and rhythmic, no bruits or murmurs Abdomen-soft, bowel sounds absent, wound VAC in place midline, extensive bruising over the right lateral abdomen and right thigh and gluteal region Extremities-1+ edema throughout, pulses palpable, bruising over bilateral lower extremities though mostly on the right, no mottling, no clubbing Drips Levophed Bicarb Octreotide Vent AC/VC Physical Exam Completion Physical Exam Complete?: Yes 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 Asset Coordinator Labs 06/07/25 07:10 06/07/25 03:39 Labs: Laboratory Results - last 24 hr 06/06/25 06/06/25 06/06/25 08:38 16:05 16:16 WBC 19.4 H D RBC 2.54 L Hgb 6.6 L* Hct 22.7 L MCV 89 MCH 26.0 MCHC 29.1 L RDW Std Deviation 62.7 H Plt Count 171 D Neut % (Auto) 86 H Lymph % (Auto) 9 L Hitchcock % (Auto) 3 Eos % (Auto) 1 Baso % (Auto) 0 Neut # (Auto) 16.6 H Lymph # (Auto) 1.8 Hitchcock # (Auto) 0.5 Eos # (Auto) 0.1 Baso # (Auto) 0.0 Immature Gran # (Auto) 0.27 H Absolute Nucleated RBC 0.07 H Immature Gran % 1 H Nucleated RBC % 0 Smear Path Review Sent to Pathologist PT 13.3 H 14.7 H INR 1.2 1.4 H APTT 29.0 27.8 Puncture Site Right Brachial ABG pH 7.16 L* ABG pCO2 45 ABG pO2 190 H ABG HCO3 16 L ABG O2 Saturation 101 H ABG Base Excess -12 L FiO2 21 Sodium 142 Potassium 5.1 D Chloride 112 H Carbon Dioxide 17.9 L Anion Gap 12 BUN 27 H Creatinine 2.6 H Estim Creat Clear Calc 32.1 L eGFR 26 L BUN/Creatinine Ratio 10 L Glucose 304 H D Calculated Osmolality 299 H Lactic Acid Calcium 8.6 Corrected Calcium 9.9 Phosphorus 4.0 6.4 H Magnesium 1.8 1.9 Total Bilirubin 0.8 AST 136 H ALT 94 H Alkaline Phosphatase 220 H D Total Protein 4.4 L Albumin 2.4 L Globulin 2.0 L Albumin/Globulin Ratio 1.2 Blood Type O Positive Antibody Screen POSITIVE Antibody Identification Cold Antibody Crossmatch See Detail Blood Bank Wristband ID Yes Blood Bank Comment FFP Ready 09/06/06/25 06/06/25 18:18 19:47 20:48 WBC RBC Hgb Hct MCV MCH MCHC RDW Std Deviation Plt Count Neut % (Auto) Lymph % (Auto) Hitchcock % (Auto) Eos % (Auto) Baso % (Auto) Neut # (Auto) Lymph # (Auto) Hitchcock # (Auto) Eos # (Auto) Baso # (Auto) Immature Gran # (Auto) Absolute Nucleated RBC Immature Gran % Nucleated RBC % Smear Path Review PT INR APTT Puncture Site Right Radial Right Radial ABG pH 7.13 L* 7.13 L* ABG pCO2 36 35 ABG pO2 76 L D 80 L ABG HCO3 12 L 12 L ABG O2 Saturation 93 94 ABG Base Excess -16 L -17 L FiO2 45 21 Sodium Potassium Chloride Carbon Dioxide Anion Gap BUN Creatinine Estim Creat Clear Calc eGFR BUN/Creatinine Ratio Glucose Calculated Osmolality Lactic Acid 10.0 H* Calcium Corrected Calcium Phosphorus Magnesium Total Bilirubin AST ALT Alkaline Phosphatase Total Protein Albumin Globulin Albumin/Globulin Ratio Blood Type Antibody Screen Antibody Identification Crossmatch Blood Bank Wristband ID Blood Bank Comment 06/06/25 06/06/25 06/07/25 22:31 23:22 03:02 WBC RBC Hgb 10.5 L D Hct 34.4 L D MCV MCH MCHC RDW Std Deviation Plt Count Neut % (Auto) Lymph % (Auto) Hitchcock % (Auto) Eos % (Auto) Baso % (Auto) Neut # (Auto) Lymph # (Auto) Hitchcock # (Auto) Eos # (Auto) Baso # (Auto) Immature Gran # (Auto) Absolute Nucleated RBC Immature Gran % Nucleated RBC % Smear Path Review PT 17.2 H INR 1.6 H APTT 31.4 Puncture Site Right Radial Right Brachial ABG pH 7.21 L 7.30 L ABG pCO2 32 30 L ABG pO2 72 L 130 H D ABG HCO3 13 L 15 L ABG O2 Saturation 94 100 H ABG Base Excess -14 L -11 L FiO2 21 21 Sodium 143 Potassium 5.6 H D Chloride 111 H Carbon Dioxide 13.2 L* Anion Gap 19 H BUN 40 H Creatinine 2.8 H Estim Creat Clear Calc 29.8 L eGFR 24 L BUN/Creatinine Ratio 14 Glucose 257 H Calculated Osmolality 303 H Lactic Acid 9.8 H* Calcium 8.1 L Corrected Calcium Phosphorus Magnesium Total Bilirubin AST ALT Alkaline Phosphatase Total Protein Albumin Globulin Albumin/Globulin Ratio Blood Type Antibody Screen Antibody Identification Crossmatch Blood Bank [facility] ID Blood Bank Comment 06/07/25 06/07/25 03:39 07:10 WBC 20.4 H RBC 3.69 L Hgb 9.8 L 10.0 L Hct 31.3 L 31.4 L MCV 85 MCH 27.1 MCHC 31.8 RDW Std Deviation 54.7 H Plt Count 131 L D Neut % (Auto) 84 H Lymph % (Auto) 7 L Hitchcock % (Auto) 8 Eos % (Auto) 0 Baso % (Auto) 0 Neut # (Auto) 17.1 H Lymph # (Auto) 1.4 Hitchcock # (Auto) 1.7 H Eos # (Auto) 0.0 Baso # (Auto) 0.0 Immature Gran # (Auto) 0.22 H Absolute Nucleated RBC 0.11 H Immature Gran % 1 H Nucleated RBC % 1 H Smear Path Review PT INR APTT Puncture Site ABG pH ABG pCO2 ABG pO2 ABG HCO3 ABG O2 Saturation ABG Base Excess FiO2 Sodium 143 Potassium 5.4 H Chloride 111 H Carbon Dioxide 14.6 L* Anion Gap 17 H BUN 33 H Creatinine 3.1 H Estim Creat Clear Calc 26.9 L eGFR 21 L BUN/Creatinine Ratio 11 L Glucose 236 H Calculated Osmolality 300 H Lactic Acid 8.5 H* 6.3 H* Calcium 7.9 L Corrected Calcium 8.5 Phosphorus 9.0 H Magnesium Total Bilirubin AST ALT Alkaline Phosphatase Total Protein Albumin 3.3 L D Globulin Albumin/Globulin Ratio Blood Type Antibody Screen Antibody Identification Crossmatch Blood Bank [facility] Blood Bank Comment Assessment & Plan Additional Plan Additional Plan: In brief this is a 69-year-old male with cirrhosis status post ex lap with right colectomy 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 Initially felt to be both hypovolemic as well as distributive in nature. Will obtain additional hemodynamics on the [facility]. No evidence of obstructive etiology. fluid responsive with fluid bolus, given wide pulse pressure will aim for SBP >90, on abx Resp Acute Resp Failure-patient is intubated and on mechanical ventilation. Has a mixed metabolic and respiratory acidosis. Vent settings have been adjusted and his minute ventilation is about 16-17 on the ventilator. However his pCO2 is still 30. Will adjust as able and follow-up on ABG. Pulm nodule-unclear if this may be a metastatic lesion, will need follow-up Renal SHAI-has had minimal urinary output overnight at 40 cc. Will give additional volume NC. Monitor I's and O's. Avoid nephrotoxins. If the patient remains anuric will consult nephrology with a question of need for dialysis. AGMA-patient initially presented with a hyperchloremic acidosis and now has both a high Perichlor REMIC as well as anion gap metabolic acidosis secondary to the lactate. His lactic obese little cleared given the acute kidney injury as well as a cirrhosis. His lactate is currently downtrending. -delta delta shows a concomittent non gap acidosis - send urine lytes - this was present on arrival Hyperkalemia-given insulin and D50 overnight. Today it is 5.4. Will repeat and see. The patient does have a dialysis line should this be required for his potassium. GI Cirrhosis-once patient is stable will start on Aldactone and rifaximin GI bleed-this was felt to be secondary to colon mass. Stabilized. No active bleeding. Remains on octreotide drip to the . - on q12 PPI - followed by GI -Esophageal varices were also noted which were banded x 2. Gastritis also noted on EGD. colon mass-resected yesterday and sent to pathology. Awaiting final diagnosis Liver mass-currently being evaluated for metastatic disease Hypoalbuminemia-secondary to cirrhosis Endo Hypothyroidism-continue Synthroid Diabetes-sliding scale Heme Leukocytosis- likely reactive in nature Anemia-patient came in with an acute GI bleed. Postop he dropped his hemoglobin to 6.6 was transfused 2 units PRBCs. His hemoglobin has remained stable throughout the rest of the night. Thrombocytopenia-in the setting of cirrhosis, patient was transfused platelets yesterday and his bleeding appears to have currently stopped. Platelets down to 131 this morning Coagulopathy-patient's labs are consistent with a low-grade DIC however the patient also has cirrhosis. His INR however was normal on arrival pointing to perhaps more low-grade DIC ID On ceftriaxone for variceal bleed UTI- growing proteus-> on ceftri case d/w ICU team d/w surgery and anesthesia yesterday labs, imaging, records reviewed ~80ccmin requried for eval, exam , review, intervention, discussion and formulation of POC for this critically ill pt Provider Notation Provider Notation: Although this document has been carefully reviewed, there may still be some phonetic and other typographical errors. These errors are purely grammatical due to imperfections in the software program and should not be construed in any way to compromise the substance of the patient's medical care during this visit. Thank you for the opportunity and privilege in assisting you with this patient's care and management.
--- NOTE | 2025-06-07 09:46 | XR_ITS ---
Examination: AP chest single view Technique one AP portable semiupright chest single view Date and time: June 07, 2025, 10 0 2:00 AM, comparison 06/06/2025 Indications: Post line placement today, hypoxic respiratory failure Findings: Right internal jugular catheter tip SVC No pneumothorax Normal heart size Moderate hyperexpansion Endotracheal tube tip 10 cm above jaimie Orogastric tube in the stomach Prominent osteopenia No pneumonia Impression: Interval right internal jugular line tip SVC no pneumothorax
[2025-06-07 10:26] LABS: Base Excess -9 (-3-3); HCO3 15 mEq/L (20-26); Inspired Oxygen, FIO2 45 %; PCO2 26 mmHg (32.0-48.0); PO2 120 mmHg (83-108); pH, Arterial 7.37 (7.35-7.45)
[2025-06-07 10:27] LABS: Allen Test Not Performed; O2 Saturation 99 % (91-98); Puncture Site Arterial Line
[2025-06-07] MEDS: HEPARIN SOD INJ 1000 UNIT/ML VIAL 10 ML 2600 UNIT INDWELLCAT (10:32)
[2025-06-07] MEDS: SODIUM CHLORIDE 0.9% 250 ML 250 ML 999 ML IV (10:59)
[2025-06-07] MEDS: RINGERS LACTATED 1000 ML 1,000 ML 999 ML IV (11:04)
--- NOTE | 2025-06-07 11:15 | PD.RESPRO ---
Documentation for date of: 06/07/25 Subjective Subjective Interval history: Patient is a 69 yo M w/ PMH of IDDM and thrombocytopenia who was admitted to the ICU s/p right maranda-colectomy performed by General Surgery on 06/06/25. He had initially been admitted to the hospital on 06/03 for GI bleed where he was found to have a platelet count in the 40s, hemoglobin 8, liver cirrhosis and mass with pulmonary nodules on CT, and malignant, obstructing colonic mass in the transverse colon on 06/04 EGD (later found to be well-differentiated invasive adenocarcinoma by Pathology). Patient was taken to the OR on 06/06 for resection of the colonic mass but the procedure was complicated by approximately a liter of blood loss as well as profound hypotension despite blood pressure support with 3 pressors and the decision was made to leave the abdomen open for re-exploration on 06/08. At that point, he was intubated and brought to the ICU while on low-dose Levophed. Patient had received pRBC transfusion x 1 while in the OR and pRBC transfusion x 2 in the ICU. Patient's labs shortly after being moved from OR found that he was significantly acidotic with both a metabolic acidosis (lactic acid 10) and concomitant respiratory acidosis. Interval History 06/07/25: Overnight, patient was noted to have high output from the wound VAC of at least 2 L of fluid and was started on a bicarbonate drip for his acidemia. Patient was examined at bedside; he remains intubated with OG tube in place as well as wound VAC installed at the midline of the abdomen draining reddish fluid. A right IJ central line and arterial line have been successfully installed. This morning, his hemoglobin has stabilized, LA down-trended to 6.3 from 10, and total UOP overnight was about 40 mL. Patient's recent creatinine baseline was around 2.2 (last creatinine reading of 0.8 was more than 8 years ago) but it has now steadily up-trended to 3.1 this morning, indicating SHAI which is likely 2/2 intravascular depletion from blood loss during the surgery. Based on findings from the NICOM patient seems to be fluid responsive and he will receive 1 L of LR. On bedside echocardiogram, the heart was difficult to visualize but no pericardial effusions were seen. From reviewing patient's lab values upon 06/03 admission, it seems that patient already had a non-anion gap metabolic acidosis (bicarbonate 17.6, chloride 114) at that time; the etiology is unclear but could be due to liver failure. Patient is slated to resume his surgical procedure on 06/08 and will also be started on IV ceftriaxone for SBP prophylaxis. Exam Vital Signs Temp Pulse Resp BP Pulse Ox O2 Del Method O2 Flow Rate 100.9 F H 92 30 H 99/65 100 Mechanical Ventilation 1 06/07/25 08:01 06/07/25 11:00 06/06/25 23:17 06/07/25 11:00 06/07/25 11:00 06/07/25 08:01 06/06/25 09: FiO2 55 06/07/25 10:11 Narrative Exam Physical Exam: General: Frail, ill-appearing, pale, and elderly male. Head: Normocephalic, atraumatic. Eyes: PERRL. Anicteric. Mouth/Throat: ET tube and OG tube in place. Oral mucosa moist. Cardiovascular: Regular rate and rhythm, no murmur, no JVD or carotid bruits. +S1/S2. Respiratory: Bilateral lungs are clear to auscultation, respirations unlabored, no crackles, no wheezing. No accessory muscle use. Gastrointestinal: Wound VAC placed at abdominal midline. Soft, nontender, non-distended, no palpable masses. No guarding or rebound tenderness. Hypoactive bowel sounds. Areas of bruising noted at the right lateral abdomen, right thigh, and gluteal region. Extremities: Bruising of bilateral lower extremities, moreso on right side. 1+ pitting edema bilaterally, pulses bilaterally, no clubbing, cyanosis or mottling noted Objective Labs 06/08/25 00:22 06/07/25 12:55 Labs: Laboratory Results - last 24 hr 06/06/25 06/06/25 06/06/25 08:38 16:05 16:16 WBC 19.4 H D RBC 2.54 L Hgb 6.6 L* Hct 22.7 L MCV 89 MCH 26.0 MCHC 29.1 L RDW Std Deviation 62.7 H Plt Count 171 D Neut % (Auto) 86 H Lymph % (Auto) 9 L [place] % (Auto) 3 Eos % (Auto) 1 Baso % (Auto) 0 Neut # (Auto) 16.6 H Lymph # (Auto) 1.8 [place] # (Auto) 0.5 Eos # (Auto) 0.1 Baso # (Auto) 0.0 Immature Gran # (Auto) 0.27 H Absolute Nucleated RBC 0.07 H Immature Gran % 1 H Nucleated RBC % 0 Smear Path Review Sent to Pathologist PT 14.7 H INR 1.4 H APTT 27.8 Fibrinogen Puncture Site Right Brachial ABG pH 7.16 L* ABG pCO2 45 ABG pO2 190 H ABG HCO3 16 L ABG O2 Saturation 101 H ABG Base Excess -12 L FiO2 21 Sodium 142 Potassium 5.1 D Chloride 112 H Carbon Dioxide 17.9 L Anion Gap 12 BUN 27 H Creatinine 2.6 H Estim Creat Clear Calc 32.1 L eGFR 26 L BUN/Creatinine Ratio 10 L Glucose 304 H D Calculated Osmolality 299 H Lactic Acid Calcium 8.6 Corrected Calcium 9.9 Phosphorus 6.4 H Magnesium 1.9 Total Bilirubin 0.8 AST 136 H ALT 94 H Alkaline Phosphatase 220 H D Total Protein 4.4 L Albumin 2.4 L Globulin 2.0 L Albumin/Globulin Ratio 1.2 Blood Type O Positive Antibody Screen POSITIVE Antibody Identification Cold Antibody Crossmatch See Detail Blood Bank Wristband ID Yes Blood Bank Comment FFP Ready 06/06/25 06/06/25 06/06/25 18:18 19:47 20:48 WBC RBC Hgb Hct MCV MCH MCHC RDW Std Deviation Plt Count Neut % (Auto) Lymph % (Auto) [place] % (Auto) Eos % (Auto) Baso % (Auto) Neut # (Auto) Lymph # (Auto) [place] # (Auto) Eos # (Auto) Baso # (Auto) Immature Gran # (Auto) Absolute Nucleated RBC Immature Gran % Nucleated RBC % Smear Path Review PT INR APTT Fibrinogen Puncture Site Right Radial Right Radial ABG pH 7.13 L* 7.13 L* ABG pCO2 36 35 ABG pO2 76 L D 80 L ABG HCO3 12 L 12 L ABG O2 Saturation 93 94 ABG Base Excess -16 L -17 L FiO2 45 21 Sodium Potassium Chloride Carbon Dioxide Anion Gap BUN Creatinine Estim Creat Clear Calc eGFR BUN/Creatinine Ratio Glucose Calculated Osmolality Lactic Acid 10.0 H* Calcium Corrected Calcium Phosphorus Magnesium Total Bilirubin AST ALT Alkaline Phosphatase Total Protein Albumin Globulin Albumin/Globulin Ratio Blood Type Antibody Screen Antibody Identification Crossmatch Blood Bank Wristband ID Blood Bank Comment 06/06/25 06/06/25 06/07/25 22:31 23:22 03:02 WBC RBC Hgb 10.5 L D Hct 34.4 L D MCV MCH MCHC RDW Std Deviation Plt Count Neut % (Auto) Lymph % (Auto) [place] % (Auto) Eos % (Auto) Baso % (Auto) Neut # (Auto) Lymph # (Auto) [place] # (Auto) Eos # (Auto) Baso # (Auto) Immature Gran # (Auto) Absolute Nucleated RBC Immature Gran % Nucleated RBC % Smear Path Review PT 17.2 H INR 1.6 H APTT 31.4 Fibrinogen Puncture Site Right Radial Right Brachial ABG pH 7.21 L 7.30 L ABG pCO2 32 30 L ABG pO2 72 L 130 H D ABG HCO3 13 L 15 L ABG O2 Saturation 94 100 H ABG Base Excess -14 L -11 L FiO2 21 21 Sodium 143 Potassium 5.6 H D Chloride 111 H Carbon Dioxide 13.2 L* Anion Gap 19 H BUN 40 H Creatinine 2.8 H Estim Creat Clear Calc 29.8 L eGFR 24 L BUN/Creatinine Ratio 14 Glucose 257 H Calculated Osmolality 303 H Lactic Acid 9.8 H* Calcium 8.1 L Corrected Calcium Phosphorus Magnesium Total Bilirubin AST ALT Alkaline Phosphatase Total Protein Albumin Globulin Albumin/Globulin Ratio Blood Type Antibody Screen Antibody Identification Crossmatch Blood Bank Wristband ID Blood Bank Comment 06/07/25 06/07/25 06/07/25 03:39 07:10 10:20 WBC 20.4 H RBC 3.69 L Hgb 9.8 L 10.0 L Hct 31.3 L 31.4 L MCV 85 MCH 27.1 MCHC 31.8 RDW Std Deviation 54.7 H Plt Count 131 L D Neut % (Auto) 84 H Lymph % (Auto) 7 L [place] % (Auto) 8 Eos % (Auto) 0 Baso % (Auto) 0 Neut # (Auto) 17.1 H Lymph # (Auto) 1.4 [place] # (Auto) 1.7 H Eos # (Auto) 0.0 Baso # (Auto) 0.0 Immature Gran # (Auto) 0.22 H Absolute Nucleated RBC 0.11 H Immature Gran % 1 H Nucleated RBC % 1 H Smear Path Review PT 20.3 H D INR 1.9 H APTT 31.5 Fibrinogen 135 L Puncture Site Arterial Line ABG pH 7.37 ABG pCO2 26 L ABG pO2 120 H ABG HCO3 15 L ABG O2 Saturation 99 H ABG Base Excess -9 L FiO2 45 Sodium 143 Potassium 5.4 H Chloride 111 H Carbon Dioxide 14.6 L* Anion Gap 17 H BUN 33 H Creatinine 3.1 H Estim Creat Clear Calc 26.9 L eGFR 21 L BUN/Creatinine Ratio 11 L Glucose 236 H Calculated Osmolality 300 H Lactic Acid 8.5 H* 6.3 H* Calcium 7.9 L Corrected Calcium 8.5 Phosphorus 9.0 H Magnesium Total Bilirubin AST ALT Alkaline Phosphatase Total Protein Albumin 3.3 L D Globulin Albumin/Globulin Ratio Blood Type Antibody Screen Antibody Identification Crossmatch Blood Bank Wristband ID Blood Bank Comment ABG Interpretation ABG results: 06/06/25 06/06/25 06/06/25 16:05 18:18 20:48 ABG pH 7.16 L* 7.13 L* 7.13 L* ABG pCO2 45 36 35 ABG pO2 190 H 76 L D 80 L ABG HCO3 16 L 12 L 12 L ABG O2 Saturation 101 H 93 94 ABG Base Excess -12 L -16 L -17 L 06/06/25 06/07/25 06/07/25 22:31 03:02 10:20 ABG pH 7.21 L 7.30 L 7.37 ABG pCO2 32 30 L 26 L ABG pO2 72 L 130 H D 120 H ABG HCO3 13 L 15 L 15 L ABG O2 Saturation 94 100 H 99 H ABG Base Excess -14 L -11 L -9 L Quality Measures Quality Measures VTE prophylaxis Advance care planning discussed with:: patient Assessment & Plan Assessment Current Active Medications: Generic Name Dose Route Start Last Admin Trade Name Freq PRN Reason Stop Dose Admin Dextrose 25 ml 06/03/25 18:26 Dextrose 50%-Water Inj 50 Ml Syringe IV 07/03/25 18:25 Q15MIN PRN BG 50-70 responsive npo pt Dextrose 50 ml 06/03/25 18:26 Dextrose 50%-Water Inj 50 Ml Syringe IV 07/03/25 18:25 Q15MIN PRN BG <50 OR BG <70 & pt unresponsive Glucagon 1 mg 06/03/25 18:26 Glucagon Inj 1 Mg Vial IM Q15MIN PRN BG <70, and no IV access Haloperidol Lactate 5 mg 06/06/25 16:21 Haloperidol Lact Inj 5 Mg/Ml Vial IV 07/06/25 16:20 Q6HR PRN AGITATION Fentanyl Citrate 2,500 mcg in 250 mls @ 2.5 mls/hr 06/06/25 16:21 06/07/25 06:00 Sublimaze Inj 2,500 Mcg/250 Ml Bag IV 06/11/25 16:20 50 mcg/hr .Q24H PRN 5 mls/hr PER PROTOCOL Titration Protocol 25 MCG/HR Propofol 1,000 mg in 100 mls @ 2.722 mls/hr 06/06/25 16:22 06/07/25 08:31 Diprivan Ivpb IV 07/06/25 16:21 15 mcg/kg/min .Q24H PRN 8.165 mls/hr PER PROTOCOL Administration Protocol 5 MCG/KG/MIN Albumin Human 25 gm in 100 mls @ 100 mls/hr 06/07/25 00:48 06/07/25 08:32 Albuminex 25% Ivpb IV 07/07/25 00:47 100 mls/hr QDAY JERSON Administration Sodium Bicarbonate 88.23 meq/ 588.23 mls @ 100 mls/hr 06/07/25 08:00 06/07/25 08:19 Dextrose IV 07/07/25 07:59 100 mls/hr .Q5H53M JERSON Administration Octreotide Acetate 1,000 mcg/ 102 mls @ 5.1 mls/hr 06/07/25 08:00 06/07/25 08:18 Sodium Chloride IV 06/08/25 17:00 50 mcg/hr .Q20H JERSON 5.1 mls/hr Protocol Administration 50 MCG/HR Ceftriaxone Sodium/Dextrose 1 gm in 50 mls @ 100 mls/hr 06/07/25 21:00 Rocephin/D5w 1gm Iv Premix IV 06/14/25 20:59 BID JERSON Norepinephrine/Dextrose 8 mg in 250 mls @ 8.505 mls/hr 06/07/25 11:10 Levophed In D5w 8mg/250ml IV 07/07/25 11:09 .Q24H PRN PER PROTOCOL Protocol 0.05 MCG/KG/MIN Insulin Human Regular 0 unit 06/07/25 12:00 Insulin Hum Regular 1 Unit/0.01 Ml (Per Unit) SC 07/07/25 11:59 Q6HR JERSON Protocol Levothyroxine Sodium 50 mcg 06/05/25 06:00 06/07/25 05:55 Levothyroxine Sodium 25 Mcg Tablet PO 07/05/25 05:59 50 mcg ACBR JERSON Administration Protocol Ondansetron HCl 4 mg 06/03/25 16:40 Ondansetron Inj 2 Mg/Ml Inj 2 Ml IVP 07/03/25 16:39 Q6H PRN NAUSEA OR VOMITING Protocol Pantoprazole Sodium 40 mg 06/05/25 09:00 06/07/25 08:32 Pantoprazole Inj 40 Mg Vial IVP 07/05/25 08:59 40 mg Q12HR JERSON Administration Sertraline HCl 100 mg 06/05/25 09:00 06/07/25 08:43 Sertraline Hcl 25 Mg Tablet PO 07/05/25 08:59 100 mg DAILY JERSON Administration Plan Patient is a 69 yo M w/ PMH of IDDM and thrombocytopenia who was admitted to the ICU s/p right maranda-colectomy performed by General Surgery on 06/06/25. Overnight, patient was noted to have high output from the wound VAC of at least 2 L of fluid and was started on a bicarbonate drip for his acidemia. Patient was examined at bedside; he remains intubated with OG tube in place as well as wound VAC installed at the midline of the abdomen draining reddish fluid. A right IJ central line and arterial line have been successfully installed. This morning, his hemoglobin has stabilized, LA down-trended to 6.3 from 10, and total UOP overnight was about 40 mL. Patient's recent creatinine baseline was around 2.2 (last creatinine reading of 0.8 was more than 8 years ago) but it has now steadily up-trended to 3.1 this morning, indicating SHAI which is likely 2/2 intravascular depletion from blood loss during the surgery. Based on findings from the NICOM patient seems to be fluid responsive and he will receive 1 L of LR. On bedside echocardiogram, the heart was difficult to visualize but no pericardial effusions were seen. From reviewing patient's lab values upon 06/03 admission, it seems that patient already had a non-anion gap metabolic acidosis (bicarbonate 17.6, chloride 114) at that time; the etiology is unclear but could be due to liver failure. Patient is slated to resume his surgical procedure on 06/08 and will also be started on IV ceftriaxone for SBP prophylaxis. Neuro #Chemical sedation Patient is being chemically sedated with propofol to maintain RASS -2 (eyes open and make contact for less than 10 seconds in response to voice) and fentanyl to maintain CPOT 2 or less due to being 1 day s/p right maranda-colectomy and intubated Rx: -Hold off on daily SATs until patient is hemodynamically stable -IV haloperidol 5 mg q6HR prn for agitation Cardiac #Undifferentiated shock, likely mixed components of both hypovolemic and distributive etiologies Patient's blood pressure from 06/06 onwards have been soft and had initially been attributed to hypovolemia in the setting of acute blood loss during patient's recent surgery and distributive shock in the setting of possible adrenal insufficiency and / or cirrhosis-induced vasodilation of the splanchnic circulation. No evidence of obstructive etiologies like cardiac tamponade on bedside echo, nor evidence of pulmonary embolism, tension pneumothorax, constrictive pericarditis, ascites, or abdominal compartment syndrome DDx: obstructive etiologies, cardiogenic etiologies Dx: -06/06 NICOM findings suggest fluid responsiveness -06/06 bedside echocardiogram was unable to visualize heart well but did not find signs of pericardial effusion or cardiac tamponade Rx: -Due to patient's wide pulse pressure, IV Levophed will be titrated to maintain SBP > 90 as parameters centered on MAP may be falsely reassuring (MAP can appear normal while diastolic pressures are unacceptably low which may lead to inadequate perfusion of organs, especially the heart which perfuses during diastole) -Due to NICOM findings suggestive of fluid responsiveness, patient was given 1 L LR bolus in hopes of improving his blood pressure -IV ceftriaxone 1 gm qD for infection prophylaxis as well as treatment of any underlying infection that may be contributing to a septic distributive component of ongoing hypotension Respiratory #Acute respiratory failure, requiring intubation and mechanical ventilation #??COPD #??Pulmonary fibrosis Patient is intubated and on mechanical ventilation after his 06/06 procedure. Lab findings suggest a mixed metabolic acidosis and respiratory alkalosis. Lactic acidosis is likely at least one component of patient's metabolic acidosis while patient's newly low pCO2 leading to respiratory alkalosis may be due to overly high respiratory rate or tidal volume ventilator settings -06/07 ABG @ 19:59 showed pH 7.36 (slightly acidotic), pCO2 28 (respiratory alkalosis), bicarbonate 16 (metabolic acidosis) -06/07 lactic acid @ 18:53 was 4.4 -06/03 CT CAP showed COPD with multiple areas of airspace destruction -06/03 CXR suspicious for pulmonary fibrosis Rx: -Continue intubation and mechanical ventilation, adjusting ventilator settings as guided by ABG monitoring RRx: -At this time, due to surgery planned for tomorrow as well as patient's poor clinical gestalt, extubation is not being even remotely considered and SBTs will be deferred for the time being #Pulmonary nodule 06/03/25 CT CAP visualized a 16 mm pulmonary nodule of the right upper lobe. In the setting of Pathology-confirmed, well-differentiated, invasive adenocarcinoma, as well as multiple liver lesions concerning for hepatic metastases, this is concerning for pulmonary metastasis from malignancy of likely GI origin Rx: -Consider follow-up and specialty consults for possible CT-guided biopsy once patient is clinically stabilized GI #Cirrhosis #Hypoalbuminemia 06/03/25 CT CAP showed cirrhosis of the liver which is markedly irregular in contour and also has multiple poorly defined liver lesions with the largest in the right lobe at 7.6 cm and another measuring 4.4 cm in the lower right lobe of the liver May be 2/2 to underlying etiology of the poorly defined liver lesions mentioned above Low albumin levels between 2.4 and 3.0 this admission are likely 2/2 cirrhosis DDx: MAFLD Dx: -Hepatitis panel negative -Per chart review, patient denies history of alcohol or IV drug use #GI bleed Likely 2/2 colonic mass later identified as well-differentiated, invasive adenocarcinoma of the proximal transverse colon s/p endoscopic band ligation of grade II esophageal varices x 2 Currently no signs of active bleeding and considered clinically stable Dx: -Gastritis was also noted on EGD Rx: -Continue octreotide drip until 06/08 -IV Protonix 40 mg q12HR -GI consulted, appreciate recommendations #Colonic mass Identified as well-differentiated, invasive adenocarcinoma of the proximal transverse colon by Pathology #Liver mass Concerning for metastatic lesions Renal #SHAI Dx: -Minimal UOP of 40 mL overnight -Creatinine now 3.1 from 2.2 yesterday Rx: -Fluid infusion -Monitor I's and O's -Avoid nephrotoxins -Consult Nephrology if patient remains anuric for possible need for HD #AGMA #NAGMA Patient initially presented with a hyperchloremic metabolic acidosis on 06/03 and now has both a hyperchloremic metabolic acidosis as well as an anion gap metabolic acidosis secondary to elevated lactate. Patient's ability to clear his lactic acidosis is impaired by his acute kidney injury as well as cirrhosis. Dx: -Delta-delta (change in anion gap / change in bicarbonate) shows a concomitant NAGMA which is likely the hyperchloremic metabolic acidosis already present on arrival -Lactate is down-trending, 10.0 -> 9.8 -> 8.5 -> 6.3 -> 5.4 -> 4.4 (06/07 @ 18:53) Rx: -Ordered urine electrolytes to determine the renal contribution to the acidosis #Hyperkalemia Dx: -Potassium now 5.4 from 4.1 yesterday Rx: -Given insulin and D50 as temporizing measures -May have HD if needed to reduce potassium levels Heme #Leukocytosis Likely reactive in the setting of recent surgery and blood loss #Anemia Patient came in with an acute GI bleed thought 10/13 colonic mass later identified as well-differentiated, 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 After 06/06 right maranda-colectomy, hemoglobin dropped to 6.6 and he was transfused w/ 2 units pRBCs. His hemoglobin has remained stable throughout the rest of the night. Dx: -Hemoglobin now 9.8 from 10.5 yesterday Rx: -Monitor CBC, transfuse if hemoglobin < 7 #Thrombocytopenia Occurs in the setting of cirrhosis, patient was transfused w/ platelets yesterday and his bleeding appears to have currently stopped. Dx: -Platelets now 131 from 171 yesterday #Coagulopathy Patient's labs showing thrombocytopenia, elevated PT, INR, and low fibrinogen are consistent with low-grade DIC; however, the patient also has cirrhosis. His INR and fibrinogen however was normal on arrival pointing to perhaps more low-grade DIC Endocrine #Hypothyroidism Rx: -Continue home medication: PO levothyroxine 50 mcg ACBR #T2DM Rx: -Insulin sliding scale ID #UTI Dx: -06/03 UA indicated likely UTI Rx: -Follow up on urine cultures #Esophageal varices, s/p band ligation on 06/03 Patient recently had endoscopic band ligation to treat some bleeding esophageal varices Rx: -IV ceftriaxone 1 gm qD to prevent SBP and other infections Patient care was discussed with my senior resident, Dr. Lobo (PGY-2) , and attending conference translator, Dr. Jeffries. Rony Grace, DO Internal Medicine, PGY-1
--- NOTE | 2025-06-07 12:11 | PC.SS ---
SS update: bedside nurse Mallory stated that patient is currently intubated, on iv antibiotics, surgery possibly either today, tomorrow or Monday.
--- NOTE | 2025-06-07 12:29 | PD.INTPROC ---
PROCEDURES: Procedure Date / Time 06/07/25 1229 Central Line Placement Right IJ: Indication(s): shock and poor, or inadequate peripheral venous access Informed consent obtained: obtained from surrogate decision maker Time out done, and the following verified: correct patient, side and site, procedure and patient position Patient placed on monitor/pulse ox: Yes Hand Hygiene: alcohol-based hand rub Max Sterile Barrier Techniques used: cap, mask, sterile gown, sterile gloves and sterile full body drape Central line prep: Chlorhexidine scrub and sterile drapes applied Local anesthesia used: lidocaine 1% Amount of anesthesia used (mL): 5 Ultrasound used for placement: Yes Sterile Technique if Ultrasound used, including sterile gel: yes Central line lumen inserted: triple (Tri Flow) Post procedure: sutured in place, good blood return, all ports aspirated, flushed, capped and sterile dressing applied Post procedure x-ray: tip of catheter in good position and no pneumothorax seen Patient tolerated procedure: well and no complications EBL(ml): 10 Complications: none
--- NOTE | 2025-06-07 12:31 | PD.INTPROC ---
PROCEDURES: Procedure Date / Time 06/07/25 1231 Arterial Line Indication(s): frequent arterial line sampling, shock and inability to monitor non-invasive BP Informed consent obtained: procedure done urgently Time out done, and the following verified: correct patient, side and site, procedure and patient position Technique used: guide wire technique Post-Procedure: line sutured into place and dry sterile dressing placed Patient tolerated procedure: well and no complications EBL(ml): 5 Complications: none Site: right and femoral
[2025-06-07] MEDS: INSULIN HUM REGULAR 1 UNIT/0.01 ML (PER UNIT) SC ×3 (13:01→23:31)
--- NOTE | 2025-06-07 13:37 | PD.SURPROG ---
Documentation for date of: 06/07/25 Subjective Subjective Narrative: Patient is seen and examined in ICU. He is intubated and sedated Exam Vital Signs Temp Pulse Resp BP Pulse Ox O2 Del Method O2 Flow Rate 100.9 F H 92 30 H 99/65 100 Mechanical Ventilation 1 06/07/25 08:01 06/07/25 11:00 06/06/25 23:17 06/07/25 11:00 06/07/25 11:00 06/07/25 08:01 06/06/25 09: FiO2 55 06/07/25 10:11 Constitutional Comments: Intubated and sedated Routine Abdominal Exam Comments: Abdomen is soft and nondistended. Wound VAC in place and intact Assessment & Plan Assessment Additional comments: Postop day #1 status post exploratory laparotomy with right colectomy and packing of the abdomen Plan Continue care as directed. Will start giving patient vitamin K. May require FFP transfusions to bring INR less than 1.5. Plan is to take patient back to the operating room tomorrow for abdominal washout, removal of packing and abdominal closure PROCEDURES: Procedures Exploratory laparotomy, right colectomy, abdominal washout Packing of the abdomen
[2025-06-07 13:38] LABS: Chloride,Urine Random < 20.0 mMol/L (55.0-125.0); Creatinine,Random Urine 194 mg/dL (30-125); Potassium,Urine Random 60 mMol/L (12-62); Sodium,Urine Random < 15.0 mMol/L (20.0-110.0)
[2025-06-07 13:39] LABS: Alanine Aminotransferase > 1100 U/L (10-49); Albumin, Serum 3.0 gm/dL (3.4-4.8); Albumin/Globulin Ratio 1.7 (1.2-2.2); Alkaline Phosphatase 498 U/L (46-116); Anion Gap 17 (7-16); Aspartate Amino Transferase > 1000 U/L (0-34); BUN/Creatinine Ratio 12 Ratio (12-20); Bilirubin,Total 1.4 mg/dL (0.3-1.2); Blood Urea Nitrogen 42 mg/dL (9-23); Calcium (Corrected) 7.5 mg/dL (8.5-10.1); Carbon Dioxide 15.1 mMol/L (20.0-31.0); Chloride 107 mMol/L (98-107); Creatinine (Component) 3.5 mg/dL (0.6-1.3); Estimated Creatinine Clearance 23.8 mL/min (>60); Globulin 1.8 gm/dL (2.3-3.5); Glucose 317 mg/dL (74-106); Osmolality,Calculated 300 (275-295); Potassium 5.3 mMol/L (3.4-5.1); Sodium 139 mMol/L (136-145); Total Protein 4.8 gm/dL (5.7-8.2); eGFR 18 See Note
[2025-06-07 13:57] LABS: Calcium 6.7 mg/dL (8.3-10.6)
[2025-06-07] MEDS: PHYTONADIONE INJ 10 MG/ML AMP SC (14:13)
[2025-06-07] MEDS: Norepinephrine/D5W 8mg/250ml 8 MG/250 ML BAG 25.514 MG IV (15:34)
[2025-06-07] MEDS: CALCIUM ACETATE 667 MG TABLET NG (15:34)
[2025-06-07 15:37] LABS: Lactate (Lactic Acid) 5.4 mMol/L (0.4-2.0)
[2025-06-07 16:15] LABS: Base Excess -8 (-3-3); HCO3 16 mEq/L (20-26); Inspired Oxygen, FIO2 45 %; O2 Saturation 99 % (91-98); PCO2 27 mmHg (32.0-48.0); PO2 112 mmHg (83-108); pH, Arterial 7.39 (7.35-7.45)
[2025-06-07 16:25] LABS: Allen Test Not Performed; Puncture Site Arterial Line
[2025-06-07 16:46] LABS: Magnesium 1.8 mg/dL (1.6-2.6)
--- NOTE | 2025-06-07 17:35 | PD.IMPROG ---
Documentation for date of: 06/07/25 Subjective Subjective Interval history: Patient evaluated patient status post surgical intervention for proximal transverse colon invasive adenocarcinoma WBC count dropped down to 13.2 platelet 148,000 pro time INR 1.9 Hemoglobin hematocrit stable at 12.2 and 39.0 Exam Vital Signs Temp Pulse Resp BP Pulse Ox O2 Del Method O2 Flow Rate 97.5 F 84 30 H 91/52 L 100 Mechanical Ventilation 1 06/07/25 16:01 06/07/25 17:16 06/06/25 23:17 06/07/25 17:16 06/07/25 17:16 06/07/25 16:01 06/06/25 09:27 FiO2 45 06/07/25 16:01 Objective Labs 06/07/25 07:10 06/07/25 12:55 Labs: Laboratory Results - last 24 hr 06/06/25 06/06/25 06/06/25 08:38 16:16 18:18 WBC RBC Hgb Hct MCV MCH MCHC RDW Std Deviation Plt Count Neut % (Auto) Lymph % (Auto) [place] % (Auto) Eos % (Auto) Baso % (Auto) Neut # (Auto) Lymph # (Auto) [place] # (Auto) Eos # (Auto) Baso # (Auto) Immature Gran # (Auto) Absolute Nucleated RBC Immature Gran % Nucleated RBC % Smear Path Review Sent to Pathologist PT INR APTT Fibrinogen Puncture Site Right Radial ABG pH 7.13 L* ABG pCO2 36 ABG pO2 76 L D ABG HCO3 12 L ABG O2 Saturation 93 ABG Base Excess -16 L FiO2 45 Sodium Potassium Chloride Carbon Dioxide Anion Gap BUN Creatinine Estim Creat Clear Calc eGFR BUN/Creatinine Ratio Glucose Calculated Osmolality Lactic Acid Calcium Corrected Calcium Phosphorus Magnesium Total Bilirubin AST ALT Alkaline Phosphatase Total Protein Albumin Globulin Albumin/Globulin Ratio Ur Random Creatinine Ur Random Sodium Ur Random Potassium Ur Random Chloride Blood Type O Positive Antibody Screen POSITIVE Antibody Identification Cold Antibody Crossmatch See Detail Blood Bank Wristband ID Yes Blood Bank Comment [facility]FP Ready 06/06/25 06/06/25 06/06/25 19:47 20:48 22:31 WBC RBC Hgb Hct MCV MCH MCHC RDW Std Deviation Plt Count Neut % (Auto) Lymph % (Auto) [place] % (Auto) Eos % (Auto) Baso % (Auto) Neut # (Auto) Lymph # (Auto) [place] # (Auto) Eos # (Auto) Baso # (Auto) Immature Gran # (Auto) Absolute Nucleated RBC Immature Gran % Nucleated RBC % Smear Path Review PT INR APTT Fibrinogen Puncture Site Right Radial Right Radial ABG pH 7.13 L* 7.21 L ABG pCO2 35 32 ABG pO2 80 L 72 L ABG HCO3 12 L 13 L ABG O2 Saturation 94 94 ABG Base Excess -17 L -14 L FiO2 21 21 Sodium Potassium Chloride Carbon Dioxide Anion Gap BUN Creatinine Estim Creat Clear Calc eGFR BUN/Creatinine Ratio Glucose Calculated Osmolality Lactic Acid 10.0 H* Calcium Corrected Calcium Phosphorus Magnesium Total Bilirubin AST ALT Alkaline Phosphatase Total Protein Albumin Globulin Albumin/Globulin Ratio Ur Random Creatinine Ur Random Sodium Ur Random Potassium Ur Random Chloride Blood Type Antibody Screen Antibody Identification Crossmatch Blood Bank Wristband ID Blood Bank Comment 06/06/25 06/07/25 06/07/25 23:22 03:02 03:39 WBC RBC Hgb 10.5 L D 9.8 L Hct 34.4 L D 31.3 L MCV MCH MCHC RDW Std Deviation Plt Count Neut % (Auto) Lymph % (Auto) [place] % (Auto) Eos % (Auto) Baso % (Auto) Neut # (Auto) Lymph # (Auto) [place] # (Auto) Eos # (Auto) Baso # (Auto) Immature Gran # (Auto) Absolute Nucleated RBC Immature Gran % Nucleated RBC % Smear Path Review PT 17.2 H INR 1.6 H APTT 31.4 Fibrinogen Puncture Site Right Brachial ABG pH 7.30 L ABG pCO2 30 L ABG pO2 130 H D ABG HCO3 15 L ABG O2 Saturation 100 H ABG Base Excess -11 L FiO2 21 Sodium 143 143 Potassium 5.6 H D 5.4 H Chloride 111 H 111 H Carbon Dioxide 13.2 L* 14.6 L* Anion Gap 19 H 17 H BUN 40 H 33 H Creatinine 2.8 H 3.1 H Estim Creat Clear Calc 29.8 L 26.9 L eGFR 24 L 21 L BUN/Creatinine Ratio 14 11 L Glucose 257 H 236 H Calculated Osmolality 303 H 300 H Lactic Acid 9.8 H* 8.5 H* Calcium 8.1 L 7.9 L Corrected Calcium 8.5 Phosphorus 9.0 H Magnesium Total Bilirubin AST ALT Alkaline Phosphatase Total Protein Albumin 3.3 L D Globulin Albumin/Globulin Ratio Ur Random Creatinine Ur Random Sodium Ur Random Potassium Ur Random Chloride Blood Type Antibody Screen Antibody Identification Crossmatch Blood Bank [facility] Blood Bank Comment 06/07/25 06/07/25 06/07/25 07:10 10:20 12:20 WBC 20.4 H RBC 3.69 L Hgb 10.0 L Hct 31.4 L MCV 85 MCH 27.1 MCHC 31.8 RDW Std Deviation 54.7 H Plt Count 131 L D Neut % (Auto) 84 H Lymph % (Auto) 7 L [place] % (Auto) 8 Eos % (Auto) 0 Baso % (Auto) 0 Neut # (Auto) 17.1 H Lymph # (Auto) 1.4 [place] # (Auto) 1.7 H Eos # (Auto) 0.0 Baso # (Auto) 0.0 Immature Gran # (Auto) 0.22 H Absolute Nucleated RBC 0.11 H Immature Gran % 1 H Nucleated RBC % 1 H Smear Path Review PT 20.3 H D INR 1.9 H APTT 31.5 Fibrinogen 135 L Puncture Site Arterial Line ABG pH 7.37 ABG pCO2 26 L ABG pO2 120 H ABG HCO3 15 L ABG O2 Saturation 99 H ABG Base Excess -9 L FiO2 45 Sodium Potassium Chloride Carbon Dioxide Anion Gap BUN Creatinine Estim Creat Clear Calc eGFR BUN/Creatinine Ratio Glucose Calculated Osmolality Lactic Acid 6.3 H* Calcium Corrected Calcium Phosphorus Magnesium Total Bilirubin AST ALT Alkaline Phosphatase Total Protein Albumin Globulin Albumin/Globulin Ratio Ur Random Creatinine 194 H Ur Random Sodium < 15.0 L Ur Random Potassium 60 Ur Random Chloride < 20.0 L Blood Type Antibody Screen Antibody Identification [facility] Blood [facility] Blood Bank Comment 06/07/25 06/07/25 06/07/25 12:55 15:13 15:40 WBC RBC Hgb Hct MCV MCH MCHC RDW Std Deviation Plt Count Neut % (Auto) Lymph % (Auto) [place] % (Auto) Eos % (Auto) Baso % (Auto) Neut # (Auto) Lymph # (Auto) [place] # (Auto) Eos # (Auto) Baso # (Auto) Immature Gran # (Auto) Absolute Nucleated RBC Immature Gran % Nucleated RBC % Smear Path Review PT INR APTT Fibrinogen Puncture Site ABG pH ABG pCO2 ABG pO2 ABG HCO3 ABG O2 Saturation ABG Base Excess FiO2 Sodium 139 Potassium 5.3 H Chloride 107 Carbon Dioxide 15.1 L Anion Gap 17 H BUN 42 H Creatinine 3.5 H Estim Creat Clear Calc 23.8 L eGFR 18 L BUN/Creatinine Ratio 12 Glucose 317 H D Calculated Osmolality 300 H Lactic Acid 5.4 H* Calcium 6.7 L* Corrected Calcium 7.5 L Phosphorus Magnesium 1.8 Total Bilirubin 1.4 H D AST > 1000 H* ALT > 1100 H* Alkaline Phosphatase 498 H D Total Protein 4.8 L Albumin 3.0 L Globulin 1.8 L Albumin/Globulin Ratio 1.7 Ur Random Creatinine Ur Random Sodium Ur Random Potassium Ur Random Chloride Blood Type Antibody Screen Antibody Identification [facility] Blood [facility] Blood Bank Comment 06/07/25 16:00 WBC RBC Hgb Hct MCV MCH MCHC RDW Std Deviation Plt Count Neut % (Auto) Lymph % (Auto) [place] % (Auto) Eos % (Auto) Baso % (Auto) Neut # (Auto) Lymph # (Auto) [place] # (Auto) Eos # (Auto) Baso # (Auto) Immature Gran # (Auto) Absolute Nucleated RBC Immature Gran % Nucleated RBC % Smear Path Review PT INR APTT Fibrinogen Puncture Site Arterial Line ABG pH 7.39 ABG pCO2 27 L ABG pO2 112 H ABG HCO3 16 L ABG O2 Saturation 99 H ABG Base Excess -8 L FiO2 45 Sodium Potassium Chloride Carbon Dioxide Anion Gap BUN Creatinine Estim Creat Clear Calc eGFR BUN/Creatinine Ratio Glucose Calculated Osmolality Lactic Acid Calcium Corrected Calcium Phosphorus Magnesium Total Bilirubin AST ALT Alkaline Phosphatase Total Protein Albumin Globulin Albumin/Globulin Ratio Ur Random Creatinine Ur Random Sodium Ur Random Potassium Ur Random Chloride Blood Type Antibody Screen [facility] Blood Bank Comment Impressions Impression: Status post resection of the proximal transverse colon invasive adenocarcinoma Continue current management ABG Interpretation ABG results: 06/06/25 06/06/25 06/06/25 16:05 18:18 20:48 ABG pH 7.16 L* 7.13 L* 7.13 L* ABG pCO2 45 36 35 ABG pO2 190 H 76 L D 80 L ABG HCO3 16 L 12 L 12 L ABG O2 Saturation 101 H 93 94 ABG Base Excess -12 L -16 L -17 L 06/06/25 06/07/25 06/07/25 22:31 03:02 10:20 ABG pH 7.21 L 7.30 L 7.37 ABG pCO2 32 30 L 26 L ABG pO2 72 L 130 H D 120 H ABG HCO3 13 L 15 L 15 L ABG O2 Saturation 94 100 H 99 H ABG Base Excess -14 L -11 L -9 L 06/07/25 16:00 ABG pH 7.39 ABG pCO2 27 L ABG pO2 112 H ABG HCO3 16 L ABG O2 Saturation 99 H ABG Base Excess -8 L Assessment & Plan Time Spent With Patient Time: Total time spent is greater than 50% in coordination of care (as documented) at patient's floor/unit and/or counseling patient:
--- NOTE | 2025-06-07 18:19 | PC.RT ---
Patiient is tolerating settings as charted. No respiratory distress noted. ETT is patent and secured. Ventilator alarms on and audible.
[2025-06-07 18:33] LABS: Reflex Lactate? Y
[2025-06-07 19:04] LABS: Lactic Acid, 3 HR 4.4 mMol/L (0.4-2.0)
[2025-06-07 20:17] LABS: Allen Test Not Performed; Base Excess -8 (-3-3); HCO3 16 mEq/L (20-26); Inspired Oxygen, FIO2 40 %; O2 Saturation 98 % (91-98); PCO2 28 mmHg (32.0-48.0); PO2 97 mmHg (83-108); Puncture Site Left Radial; pH, Arterial 7.36 (7.35-7.45)
[2025-06-07] MEDS: PROPOFOL 1,000 MG IVPB 1,000 MG/100 ML VIAL 10.886 MG IV (20:57)
[2025-06-07] MEDS: Norepinephrine/D5W 8mg/250ml 8 MG/250 ML BAG 28.916 MG IV (23:16)
[2025-06-08] VITALS (154 sets, daily range): BP systolic 76–116; BP diastolic 25–75; PULSE 83–125; RESP 17–33; TEMP 36.1–36.7; O2SAT 30–100; BMI 25.7
[2025-06-08 00:55] LABS: Hematocrit 27.0 % (41.0-53.0)
[2025-06-08 00:58] LABS: Hemoglobin 8.7 g/dL (13.5-16.0)
[2025-06-08] MEDS: OCTREOTIDE ACET INJ 1,000 MCG in SODIUM CHLORIDE 0.9% 100 ML 5.1 MCG IV (04:20)
[2025-06-08] MEDS: Norepinephrine/D5W 8mg/250ml 8 MG/250 ML BAG 42.524 MG IV (05:27)
[2025-06-08] MEDS: INSULIN HUM REGULAR 1 UNIT/0.01 ML (PER UNIT) SC ×4 (05:27→23:30)
[2025-06-08] MEDS: LEVOTHYROXINE SODIUM 25 MCG TABLET 50 MCG PO (05:27)
[2025-06-08 05:33] LABS: Basophils # (Auto) 0.0 Thou/mm3 (0.0-0.2); Basophils % (Auto) 0 % (0-2.5); Eosinophils # (Auto) 0.1 Thou/mm3 (0.0-0.5); Eosinophils % (Auto) 0 % (0-10); Hematocrit 27.4 % (41.0-53.0); Immature Granulocytes Auto 0.22 Thou/mm3 (0.00-0.00); Lymphocytes # (Auto) 2.9 Thou/mm3 (1.0-4.8); Lymphocytes % (Auto) 12 % (10-50); Mean Corpuscular HGB Conc 32.1 g/dl (31.0-37.0); Mean Corpuscular Hemoglobin 26.7 pg (25.0-35.0); Mean Corpuscular Volume 83 fL (80-100); Monocytes # (Auto) 2.0 Thou/mm3 (0.0-0.8); Monocytes % (Auto) 8 % (0-12); Neutrophils # (Auto) 20.0 Thou/mm3 (1.8-7.7); Neutrophils % (Auto) 79 % (37-80); Nucleated Red Blood Cell # 0.15 Thou/mm3 (0.00-0.00); Nucleated Red Blood Cell % 1 /100 WBC (0); Platelet Count 99 Thou/mm3 (140-440); RDW Standard Deviation 54.0 fL (35.1-43.9); Red Blood Count 3.30 Miln/mm3 (4.50-5.90); White Blood Count 25.2 Thou/mm3 (3.8-10.6)
[2025-06-08 05:34] LABS: Hemoglobin 8.8 g/dL (13.5-16.0)
[2025-06-08 05:39] LABS: INR 2.0 (0.9-1.3); Partial Thromboplastin Time 33.3 Seconds (22.0-36.0); Prothrombin Time 20.9 Seconds (9.0-12.2)
[2025-06-08 05:54] LABS: Alanine Aminotransferase > 3300 U/L (10-49); Albumin, Serum 2.8 gm/dL (3.4-4.8); Albumin/Globulin Ratio 1.4 (1.2-2.2); Alkaline Phosphatase 705 U/L (46-116); Anion Gap 16 (7-16); Aspartate Amino Transferase > 1000 U/L (0-34); BUN/Creatinine Ratio 10 Ratio (12-20); Bilirubin,Total 1.3 mg/dL (0.3-1.2); Blood Urea Nitrogen 47 mg/dL (9-23); Calcium 7.1 mg/dL (8.3-10.6); Calcium (Corrected) 8.1 mg/dL (8.5-10.1); Carbon Dioxide 15.2 mMol/L (20.0-31.0); Chloride 107 mMol/L (98-107); Creatinine (Component) 4.6 mg/dL (0.6-1.3); Estimated Creatinine Clearance 18.1 mL/min (>60); Globulin 2.0 gm/dL (2.3-3.5); Glucose 319 mg/dL (74-106); Magnesium 1.9 mg/dL (1.6-2.6); Osmolality,Calculated 299 (275-295); Phosphorous 7.2 mg/dL (2.4-5.1); Potassium 5.1 mMol/L (3.4-5.1); Sodium 138 mMol/L (136-145); Total Protein 4.8 gm/dL (5.7-8.2); eGFR 13 See Note
[2025-06-08] MEDS: SERTRALINE HCL 25 MG TABLET 100 MG PO (08:13)
[2025-06-08] MEDS: CALCIUM ACETATE 667 MG TABLET NG ×3 (08:13→17:52)
[2025-06-08] MEDS: cefTRIAXone/D5w 1gm IV premix 1 GM/50 ML BAG IV (08:14)
[2025-06-08] MEDS: PROPOFOL 1,000 MG IVPB 1,000 MG/100 ML VIAL 8.165 MG IV (08:14)
[2025-06-08] MEDS: PHYTONADIONE INJ 10 MG/ML AMP SC (08:14)
[2025-06-08] MEDS: ALBUMIN HUMAN-KJDA 25% IVPB 25 GM/100 ML BTL IV (08:14)
[2025-06-08] MEDS: SODIUM CHLORIDE 0.9% 250 ML 250 ML 999 ML IV (08:44)
[2025-06-08] MEDS: MUPIROCIN OINT 2% 15 GM TUBE TOP (09:20)
--- NOTE | 2025-06-08 09:56 | ESPR_ITS ---
<Statement entered by Piop Lobo MD - 06/08/25 11:01> I saw and examined patient personally and supervised PGY 1 resident, Dr. Grace with formulating a management plan. I agree with the documentation with the exceptions as listed below. Patient is a 69 yo M w/ PMH of IDDM and thrombocytopenia who was admitted to the ICU s/p right maranda-colectomy performed by General Surgery on 06/06/25. Patient remains intubated, mechanically ventilated and sedated and preparation for return to the OR to close the abdomen. Problem list: 1. Shock?likely hemorrhagic and distributive 2. Acute blood loss anemia secondary to GI bleed and right hemicolectomy on 06/06 3. 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 Acute respiratory failure requiring intubation and mechanical ventilation 5. 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 Hypoalbuminemia 7. 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 Hypocalcemia 9. Hyperphosphatemia 10. SHAI secondary to shock and possible underlying hepato-renal syndrome 11. Esophageal varices s/p banding on octreotide infusion to complete on 06/08 12. Leukocytosis?likely reactive postoperatively Overnight patient had approximately 1 L output from his wound VAC and norepinephrine was titrated to 0.23. Patient continues to be on propofol and fentanyl to maintain a RASS of -2. This morning patient was responsive to noxious stimuli and was noted to have multiple areas of ecchymosis over her knees face and chest. Also noticed to have mild cyanosis of left toes. His coagulation panel showed PT 20.9, INR 2, PTT 33.5. Patient received second dose of vitamin K today and will be transfused 1 unit FFP prior to being taken to the OR. A NICOM fluid challenge was done this morning and patient was fluid responsive. We will infuse FFP for volume replacement. A second unit of FFP was also ordered for transfusion intraoperatively. We will follow-up on his coagulation panel tomorrow morning. For his SBP prophylaxis, patient continues to be on ceftriaxone 1 g daily to complete a total of 7 days on 06/10. With regards to patient non-anion gap metabolic acidosis etiology likely seems to be due to RTA type IV and underlying liver failure. Initially presented with a hyperchloremic nongap metabolic acidosis which worsened to a HAGMA secondary to lactic acidosis postoperatively. Urine electrolytes showed a positive anion gap along with hyperkalemia of 5.2 which is suggestive of RTA type IV. His RTA type IV is likely secondary to diabetic nephropathy, however HIV nephropathy cannot be ruled out at this point. HIV 1 and 2 rapid ordered. Once patient gets through this acute stage and is stable for discharge, we recommend he be started on a loop diuretic as outpatient. The plan for today is for patient to be taken to the OR by general surgeon, Dr Tai for inspection of any intra-abdominal bleeding, removal of abdominal packing and closure of the abdomen. Plan of care discussed with Attending Dr. Mervin Lobo MD PGY 2 Disclaimer: This note was dictated by speech recognition. Minor errors in medical transcription editor may be present due to voice recognition software. Documentation for date of: 06/08/25 Subjective Subjective Interval history: Patient is a 69 yo M w/ PMH of IDDM and thrombocytopenia who was admitted to the ICU s/p right maranda-colectomy performed by General Surgery on 06/06/25. He had initially been admitted to the hospital on 06/03 for GI bleed where he was found to have a platelet count in the 40s, hemoglobin 8, liver cirrhosis and mass with pulmonary nodules on CT, and malignant, obstructing colonic mass in the transverse colon on 06/04 EGD (later found to be well-differentiated invasive adenocarcinoma by Pathology). Patient was taken to the OR on 06/06 for resection of the colonic mass but the procedure was complicated by approximately a liter of blood loss as well as profound hypotension despite blood pressure support with 3 pressors and the decision was made to leave the abdomen open for re-exploration on 06/08. At that point, he was intubated and brought to the ICU while on low-dose Levophed. Patient had received pRBC transfusion x 1 while in the OR and pRBC transfusion x 2 in the ICU. Patient's labs shortly after being moved from OR found that he was significantly acidotic with both a metabolic acidosis (lactic acid 10) and concomitant respiratory acidosis. Interval History 06/07/25: Overnight, patient was noted to have high output from the wound VAC of at least 2 L of fluid and was started on a bicarbonate drip for his acidemia. Patient was examined at bedside; he remains intubated with OG tube in place as well as wound VAC installed at the midline of the abdomen draining reddish fluid. A right IJ central line and arterial line have been successfully installed. This morning, his hemoglobin has stabilized, LA down-trended to 6.3 from 10, and total UOP overnight was about 40 mL. Patient's recent creatinine baseline was around 2.2 (last creatinine reading of 0.8 was more than 8 years ago) but it has now steadily up-trended to 3.1 this morning, indicating SHAI which is likely 2/2 intravascular depletion from blood loss during the surgery. Based on findings from the NICOM patient seems to be fluid responsive and he will receive 1 L of LR. On bedside echocardiogram, the heart was difficult to visualize but no pericardial effusions were seen. From reviewing patient's lab values upon 06/03 admission, it seems that patient already had a non-anion gap metabolic acidosis (bicarbonate 17.6, chloride 114) at that time; the etiology is unclear but could be due to liver failure. Patient is slated to resume his surgical procedure on 06/08 and will also be started on IV ceftriaxone for SBP prophylaxis. 06/08/25: Overnight, patient had a total urine output of 500 mL and wound VAC took out 1 L of abdominal fluid. Patient was examined at bedside; he appears asleep (still intubated) and does not respond to voice but does respond to pain elicited via abdominal palpation. Pertinent labs today include WBC now 25.2 from 20.4, hemoglobin now 8.8 from 9.8, platelet count now 99 from 131, PT now 20.9 from 20.3, INR now 2.0 from 1.9, APTT now 33.3 from 31.5, blood glucose 319, potassium now 5.3 from 5.1, phosphorus now 7.2 from 9.0, AST > 1000, ALT > 3300, alkaline phosphatase now 705 from 498, and creatinine now 4.6 from 3.5. Urine electrolyte labs showed random creatinine 194, random sodium < 15.0, random potassium 60, and random chloride < 20.0; calculated urine anion gap is 55 and suggests Type IV RTA (hypoaldosteronic conditions) which is most likely 2/2 diabetic nephropathy (will order HIV panel to rule out HIV-related Type IV RTA). Patient will be returning to the OR in the afternoon today to have his abdomen closed. After patient returns from his procedure, plans will be made to extubate him in a timely manner. Exam Vital Signs Temp Pulse Resp BP Pulse Ox O2 Del Method O2 Flow Rate 97.0 F 92 30 H 93/42 L 99 Mechanical Ventilation 1 06/08/25 09:49 06/08/25 09:49 06/08/25 09:49 06/08/25 09:49 06/08/25 09:49 06/07/25 16:01 06/06/25 09:27 FiO2 30 06/08/25 08:00 Narrative Exam General: Frail, ill-appearing, pale, and elderly male. Head: Normocephalic, atraumatic. Bruise on right scalp. Eyes: PERRL. Anicteric. Mouth/Throat: ET tube and OG tube in place. Oral mucosa moist. Cardiovascular: Difficult to auscultate clearly but seemingly regular rate and rhythm, no murmur, no JVD or carotid bruits. +S1/S2. Respiratory: Bilateral lungs are clear to auscultation, respirations unlabored, no crackles, no wheezing. No accessory muscle use. Gastrointestinal: Wound VAC placed at abdominal midline. Generalized tenderness to abdominal palpation (as evidenced by patient grimacing). Soft, non-distended, no palpable masses. No guarding or rebound tenderness. Hypoactive bowel sounds. Areas of bruising noted at the right lateral abdomen, right thigh, and gluteal region. Extremities: Bruising of bilateral lower extremities, moreso on right side. 1+ pitting edema bilaterally, pulses present bilaterally, mild cyanosis of left toes, no clubbing or mottling noted. Puffiness of hands with slight dusky tinge appreciated at the fingertips of right hand. Third toe on right foot shorter than surrounding toes. Objective Labs 06/08/25 04:32 06/08/25 04:32 Labs: Laboratory Results - last 24 hr 06/06/25 06/07/25 06/07/25 08:38 10:20 12:20 WBC RBC Hgb Hct MCV MCH MCHC RDW Std Deviation Plt Count Neut % (Auto) Lymph % (Auto) Lab[place] % (Auto) Eos % (Auto) Baso % (Auto) Neut # (Auto) Lymph # (Auto) [place] # (Auto) Eos # (Auto) Baso # (Auto) Immature Gran # (Auto) Absolute Nucleated RBC Immature Gran % Nucleated RBC % PT INR APTT Puncture Site Arterial Line ABG pH 7.37 ABG pCO2 26 L ABG pO2 120 H ABG HCO3 15 L ABG O2 Saturation 99 H ABG Base Excess -9 L FiO2 45 Sodium Potassium Chloride Carbon Dioxide Anion Gap BUN Creatinine Estim Creat Clear Calc eGFR BUN/Creatinine Ratio Glucose Calculated Osmolality Lactic Acid Calcium Corrected Calcium Phosphorus Magnesium Total Bilirubin AST ALT Alkaline Phosphatase Total Protein Albumin Globulin Albumin/Globulin Ratio Ur Random Creatinine 194 H Ur Random Sodium < 15.0 L Ur Random Potassium 60 Ur Random Chloride < 20.0 L Blood Type O Positive Antibody Screen POSITIVE Antibody Identification Cold Antibody Crossmatch See Detail Blood Bank Wristband ID Yes Blood Bank Comment FFP Ready 06/07/25 06/07/25 06/07/25 12:55 15:13 15:40 WBC RBC Hgb Hct MCV MCH MCHC RDW Std Deviation Plt Count Neut % (Auto) Lymph % (Auto) [place] % (Auto) Eos % (Auto) Baso % (Auto) Neut # (Auto) Lymph # (Auto) [place] # (Auto) Eos # (Auto) Baso # (Auto) Immature Gran # (Auto) Absolute Nucleated RBC Immature Gran % Nucleated RBC % PT INR APTT Puncture Site ABG pH ABG pCO2 ABG pO2 ABG HCO3 ABG O2 Saturation ABG Base Excess FiO2 Sodium 139 Potassium 5.3 H Chloride 107 Carbon Dioxide 15.1 L Anion Gap 17 H BUN 42 H Creatinine 3.5 H Estim Creat Clear Calc 23.8 L eGFR 18 L BUN/Creatinine Ratio 12 Glucose 317 H D Calculated Osmolality 300 H Lactic Acid 5.4 H* Calcium 6.7 L* Corrected Calcium 7.5 L Phosphorus Magnesium 1.8 Total Bilirubin 1.4 H D AST > 1000 H* ALT > 1100 H* Alkaline Phosphatase 498 H D Total Protein 4.8 L Albumin 3.0 L Globulin 1.8 L Albumin/Globulin Ratio 1.7 Ur Random Creatinine Ur Random Sodium Ur Random Potassium Ur Random Chloride Blood Type Antibody Screen Antibody Identification Crossmatch Blood Bank Wristband ID Blood Bank Comment 06/07/25 06/07/25 06/07/25 16:00 18:53 19:59 WBC RBC Hgb Hct MCV MCH MCHC RDW Std Deviation Plt Count Neut % (Auto) Lymph % (Auto) [place] % (Auto) Eos % (Auto) Baso % (Auto) Neut # (Auto) Lymph # (Auto) [place] # (Auto) Eos # (Auto) Baso # (Auto) Immature Gran # (Auto) Absolute Nucleated RBC Immature Gran % Nucleated RBC % PT INR APTT Puncture Site Arterial Line Left Radial ABG pH 7.39 7.36 ABG pCO2 27 L 28 L ABG pO2 112 H 97 ABG HCO3 16 L 16 L ABG O2 Saturation 99 H 98 ABG Base Excess -8 L -8 L FiO2 45 40 Sodium Potassium Chloride Carbon Dioxide Anion Gap BUN Creatinine Estim Creat Clear Calc eGFR BUN/Creatinine Ratio Glucose Calculated Osmolality Lactic Acid 4.4 H* Calcium Corrected Calcium Phosphorus Magnesium Total Bilirubin AST ALT Alkaline Phosphatase Total Protein Albumin Globulin Albumin/Globulin Ratio Ur Random Creatinine Ur Random Sodium Ur Random Potassium Ur Random Chloride Blood Type Antibody Screen Antibody Identification Crossmatch Blood Bank Wristband ID Blood Bank Comment 06/08/25 06/08/25 00:22 04:32 WBC 25.2 H RBC 3.30 L Hgb 8.7 L 8.8 L Hct 27.0 L 27.4 L MCV 83 MCH 26.7 MCHC 32.1 RDW Std Deviation 54.0 H Plt Count 99 L D Neut % (Auto) 79 Lymph % (Auto) 12 Labette % (Auto) 8 Eos % (Auto) 0 Baso % (Auto) 0 Neut # (Auto) 20.0 H Lymph # (Auto) 2.9 Labette # (Auto) 2.0 H Eos # (Auto) 0.1 Baso # (Auto) 0.0 Immature Gran # (Auto) 0.22 H Absolute Nucleated RBC 0.15 H Immature Gran % 1 H Nucleated RBC % 1 H PT 20.9 H INR 2.0 H APTT 33.3 Puncture Site ABG pH ABG pCO2 ABG pO2 ABG HCO3 ABG O2 Saturation ABG Base Excess FiO2 Sodium 138 Potassium 5.1 Chloride 107 Carbon Dioxide 15.2 L Anion Gap 16 BUN 47 H Creatinine 4.6 H* D Estim Creat Clear Calc 18.1 L eGFR 13 L* BUN/Creatinine Ratio 10 L Glucose 319 H Calculated Osmolality 299 H Lactic Acid Calcium 7.1 L Corrected Calcium 8.1 L Phosphorus 7.2 H Magnesium 1.9 Total Bilirubin 1.3 H AST > 1000 H* ALT > 3300 H* Alkaline Phosphatase 705 H D Total Protein 4.8 L Albumin 2.8 L Globulin 2.0 L Albumin/Globulin Ratio 1.4 Ur Random Creatinine Ur Random Sodium Ur Random Potassium Ur Random Chloride Blood Type Antibody Screen Antibody Identification Crossmatch Blood Bank Wristband ID Blood Bank Comment ABG Interpretation ABG results: 06/06/25 06/06/25 06/06/25 16:05 18:18 20:48 ABG pH 7.16 L* 7.13 L* 7.13 L* ABG pCO2 45 36 35 ABG pO2 190 H 76 L D 80 L ABG HCO3 16 L 12 L 12 L ABG O2 Saturation 101 H 93 94 ABG Base Excess -12 L -16 L -17 L 06/06/25 06/07/25 06/07/25 22:31 03:02 10:20 ABG pH 7.21 L 7.30 L 7.37 ABG pCO2 32 30 L 26 L ABG pO2 72 L 130 H D 120 H ABG HCO3 13 L 15 L 15 L ABG O2 Saturation 94 100 H 99 H ABG Base Excess -14 L -11 L -9 L 06/07/25 06/07/25 16:00 19:59 ABG pH 7.39 7.36 ABG pCO2 27 L 28 L ABG pO2 112 H 97 ABG HCO3 16 L 16 L ABG O2 Saturation 99 H 98 ABG Base Excess -8 L -8 L Quality Measures Quality Measures VTE prophylaxis Advance care planning discussed with:: patient Assessment & Plan Assessment Current Active Medications: Generic Name Dose Route Start Last Admin Trade Name Freq PRN Reason Stop Dose Admin Calcium Acetate 667 mg 06/07/25 14:05 06/08/25 08:13 Calcium Acetate 667 Mg Tablet NG 07/07/25 14:04 667 mg TIDWM JERSON Administration Dextrose 25 ml 06/03/25 18:26 Dextrose 50%-Water Inj 50 Ml Syringe IV 07/03/25 18:25 Q15MIN PRN BG 50-70 responsive npo pt Dextrose 50 ml 06/03/25 18:26 Dextrose 50%-Water Inj 50 Ml Syringe IV 07/03/25 18:25 Q15MIN PRN BG <50 OR BG <70 & pt unresponsive Glucagon 1 mg 06/03/25 18:26 Glucagon Inj 1 Mg Vial IM Q15MIN PRN BG <70, and no IV access Haloperidol Lactate 5 mg 06/06/25 16:21 Haloperidol Lact Inj 5 Mg/Ml Vial IV 07/06/25 16:20 Q6HR PRN AGITATION Fentanyl Citrate 2,500 mcg in 250 mls @ 2.5 mls/hr 06/06/25 16:21 06/08/25 06:00 Sublimaze Inj 2,500 Mcg/250 Ml Bag IV 06/11/25 16:20 50 mcg/hr .Q24H PRN 5 mls/hr PER PROTOCOL Titration Protocol 25 MCG/HR Propofol 1,000 mg in 100 mls @ 2.722 mls/hr 06/06/25 16:22 06/08/25 08:14 Diprivan Ivpb IV 07/06/25 16:21 15 mcg/kg/min .Q24H PRN 8.165 mls/hr PER PROTOCOL Administration Protocol 5 MCG/KG/MIN Albumin Human 25 gm in 100 mls @ 100 mls/hr 06/07/25 00:48 06/08/25 08:14 Albuminex 25% Ivpb IV 07/07/25 00:47 100 mls/hr QDAY JERSON Administration Octreotide Acetate 1,000 mcg/ 102 mls @ 5.1 mls/hr 06/07/25 08:00 06/08/25 04:20 Sodium Chloride IV 06/08/25 17:00 50 mcg/hr .Q20H JERSON 5.1 mls/hr Protocol Administration 50 MCG/HR Norepinephrine/Dextrose 8 mg in 250 mls @ 8.505 mls/hr 06/07/25 11:10 06/08/25 06:00 Levophed In D5w 8mg/250ml IV 07/07/25 11:09 0.25 mcg/kg/min .Q24H PRN 42.524 mls/hr PER PROTOCOL Titration Protocol 0.05 MCG/KG/MIN Ceftriaxone Sodium/Dextrose 1 gm in 50 mls @ 100 mls/hr 06/08/25 09:00 06/08/25 08:14 Rocephin/D5w 1gm Iv Premix IV 06/10/25 08:59 100 mls/hr DAILY JERSON Administration Insulin Human Regular 0 unit 06/07/25 12:00 06/08/25 05:27 Insulin Hum Regular 1 Unit/0.01 Ml (Per Unit) SC 07/07/25 11:59 3 unit Q6HR JERSON Administration Protocol Levothyroxine Sodium 50 mcg 06/05/25 06:00 06/08/25 05:27 Levothyroxine Sodium 25 Mcg Tablet PO 07/05/25 05:59 50 mcg ACBR JERSON Administration Protocol Ondansetron HCl 4 mg 06/03/25 16:40 Ondansetron Inj 2 Mg/Ml Inj 2 Ml IVP 07/03/25 16:39 Q6H PRN NAUSEA OR VOMITING Protocol Pantoprazole Sodium 40 mg 06/05/25 09:00 06/08/25 08:12 Pantoprazole Inj 40 Mg Vial IVP 07/05/25 08:59 40 mg Q12HR JERSON Administration Sertraline HCl 100 mg 06/05/25 09:00 06/08/25 08:13 Sertraline Hcl 25 Mg Tablet PO 07/05/25 08:59 100 mg DAILY JERSON Administration Plan Patient is a 69 yo M w/ PMH of IDDM and thrombocytopenia who was admitted to the ICU s/p right maranda-colectomy performed by General Surgery on 06/06/25. Overnight, patient had a total urine output of 500 mL and wound VAC took out 1 L of abdominal fluid. Patient was examined at bedside; he appears asleep (still intubated) and does not respond to voice but does respond to pain elicited via abdominal palpation. Pertinent labs today include WBC now 25.2 from 20.4, hemoglobin now 8.8 from 9.8, platelet count now 99 from 131, PT now 20.9 from 20.3, INR now 2.0 from 1.9, APTT now 33.3 from 31.5, blood glucose 319, potassium now 5.3 from 5.1, phosphorus now 7.2 from 9.0, AST > 1000, ALT > 3300, alkaline phosphatase now 705 from 498, and creatinine now 4.6 from 3.5. Urine electrolyte labs showed random creatinine 194, random sodium < 15.0, random potassium 60, and random chloride < 20.0; calculated urine anion gap is 55 and suggests Type IV RTA (hypoaldosteronic conditions) which is most likely 2/2 diabetic nephropathy (will order HIV panel to rule out HIV-related Type IV RTA). Patient will be returning to the OR in the afternoon today to have his abdomen closed. After patient returns from his procedure, plans will be made to extubate him in a timely manner. Neuro #Chemical sedation Patient is being chemically sedated with propofol to maintain RASS -2 (eyes open and make contact for less than 10 seconds in response to voice) and fentanyl to maintain CPOT 2 or less due to being s/p right maranda-colectomy and intubated Rx: -Hold off on daily SATs until patient is hemodynamically stable -IV haloperidol 5 mg q6HR prn for agitation Cardiac #Undifferentiated shock, likely mixed components of both hypovolemic and distributive etiologies Patient's blood pressure from 06/06 onwards have been soft and had initially been attributed to hypovolemia in the setting of acute blood loss during patient's recent surgery and distributive shock in the setting of possible adrenal insufficiency and / or cirrhosis-induced vasodilation of the splanchnic circulation. No evidence of obstructive etiologies like cardiac tamponade on bedside echo, nor evidence of pulmonary embolism, tension pneumothorax, constrictive pericarditis, ascites, or abdominal compartment syndrome DDx: obstructive etiologies, cardiogenic etiologies Dx: -06/08 NICOM findings suggest fluid responsiveness -06/06 bedside echocardiogram was unable to visualize heart well but did not find signs of pericardial effusion or cardiac tamponade Rx: -Due to patient's wide pulse pressure, IV Levophed will be titrated to maintain SBP > 90 as parameters centered on MAP may be falsely reassuring (MAP can appear normal while diastolic pressures are unacceptably low which may lead to inadequate perfusion of organs, especially the heart which perfuses during diastole) -Patient is planned for 1 U FFP transfusion x 1 before surgery today which will help with volume replacement (NICOM today showed that patient was fluid responsive) RRx: -Appears to still be in a state of systemic vasodilation, however there are no signs of active infection at this time -No active bleeding at this time Respiratory #Acute respiratory failure, requiring intubation and mechanical ventilation #??COPD #??Pulmonary fibrosis Patient is intubated and on mechanical ventilation after his 06/06 procedure. Lab findings suggest a mixed metabolic acidosis and respiratory alkalosis. Lactic acidosis is likely at least one component of patient's metabolic acidosis while patient's newly low pCO2 leading to respiratory alkalosis may be due to overly high respiratory rate or tidal volume ventilator settings -06/07 ABG @ 19:59 showed pH 7.36 (slightly acidotic), pCO2 28 (respiratory alkalosis), bicarbonate 16 (metabolic acidosis) -06/07 lactic acid @ 18:53 was 4.4 -06/03 CT CAP showed COPD with multiple areas of airspace destruction -06/03 CXR suspicious for pulmonary fibrosis Rx: -Continue intubation and mechanical ventilation, adjusting ventilator settings as guided by ABG monitoring -Plan for timely extubation once patient's surgical procedure today is completed #Pulmonary nodule 06/03/25 CT CAP visualized a 16 mm pulmonary nodule of the right upper lobe. In the setting of Pathology-confirmed, well-differentiated, invasive adenocarcinoma, as well as multiple liver lesions concerning for hepatic metastases, this is concerning for pulmonary metastasis from malignancy of likely GI origin Rx: -Consider follow-up and specialty consults for possible CT-guided biopsy once patient is clinically stabilized GI #Post-op day #3 for right hemicolectomy 2/2 near-obstructing adenocarcinoma of the proximal transverse colon Patient was taken to the OR on 06/06 for resection of the colonic mass but the procedure was complicated by approximately a liter of blood loss as well as profound hypotension despite blood pressure support with 3 pressors and the decision was made to leave the abdomen open for re-exploration today Patient is scheduled to be taken back to the OR this afternoon by General Surgery (Dr. Tai) for inspection of any intraabdominal bleeding, remove of abdominal packing, and closure of the abdomen #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 #Hypoalbuminemia Child-Chau Score: 9 (30% abdominal surgery sadnra-operative mortality), MELD-Na Score: 29 (27-32% 90-day mortality) Dx: -06/03/25 CT CAP showed cirrhosis of the liver which is markedly irregular in contour and also has multiple poorly defined liver lesions with the largest in the right lobe at 7.6 cm and another measuring 4.4 cm in the lower right lobe of the liver -Low albumin levels between 2.4 and 3.0 this admission are likely 2/2 cirrhosis -Hepatitis panel negative -Per chart review, patient denies history of alcohol or IV drug use Rx: -Will start Aldactone and rifaximin once patient is clinically stabilized #GI bleed Likely 2/2 colonic mass later identified as well-differentiated, invasive adenocarcinoma of the proximal transverse colon s/p endoscopic band ligation of grade II esophageal varices x 2 Currently no signs of active bleeding and considered clinically stable Dx: -Gastritis was also noted on EGD Rx: -Continue octreotide drip until 06/08 (will discontinue after today) -IV Protonix 40 mg q12HR -Due to patient's cirrhotic status w/ recent acute GI bleed, patient meets criteria for [id number] of IV ceftriaxone 1 gm qD for SBP prophylaxis [06/04- 06/10] -GI consulted, appreciate recommendations #Colonic mass Identified as well-differentiated, invasive adenocarcinoma of the proximal transverse colon by Pathology #Liver mass Concerning for metastatic lesions Renal #SHAI 2/2 shock and possible Type I hepato-renal syndrome Patient's rapid doubling of creatinine in less than 2 weeks in the setting of recent bleeding and liver cirrhosis / severe liver dysfunction is concerning for Type I HRS due to mechanism of cirrhotic splanchnic vasodilation -> reduced effective blood volume -> decreased kidney perfusion Dx: -Improved UOP of 500 mL overnight (yesterday was only 40 mL), suggesting improvement in SHAI -Creatinine now 4.6 from 3.1 yesterday (lagging behind, does not imply worsening SHAI) Rx: -Fluid infusion -Monitor I's and O's -Avoid nephrotoxins -Consult Nephrology if patient remains anuric for possible need for HD #HAGMA #NAGMA, likely 2/2 RTA Type IV and liver failure Patient initially presented with a hyperchloremic metabolic acidosis on 06/03 and later developed both a hyperchloremic metabolic acidosis as well as an anion gap metabolic acidosis secondary to elevated lactate. Patient's ability to clear his lactic acidosis is impaired by his acute kidney injury as well as cirrhosis. Calculated urine anion gap = +55, which, in the setting of hyperkalemia of 5.2, is suggestive of RTA Type IV (most likely 2/2 diabetic nephropathy but HIV nephropathy cannot be ruled out) Dx: -Delta-delta (change in anion gap / change in bicarbonate) shows a concomitant NAGMA which is likely the hyperchloremic metabolic acidosis already present on arrival -Lactate is down-trending, 10.0 -> 9.8 -> 8.5 -> 6.3 -> 5.4 -> 4.4 (06/07 @ 18:53) -Urine electrolytes showed a positive anion gap around +55 Rx: -Ordered HIV 1 and 2 rapid test -Consider starting patient on a loop diuretic in the outpatient setting after stabilized for discharge #Hypocalcemia #Hyperphosphatemia Today, calcium 7.1 from 6.7 yesterday and phosphorus 7.2 from 9.0 yesterday Rx: -Started on NG calcium acetate 667 mg TIDWM -Monitor CMP Heme #Leukocytosis, likely reactive postoperatively Likely reactive in the setting of recent surgery and blood loss Dx: -WBC 25.2 from 20.4 yesterday #Acute blood loss anemia 2/2 GI bleed and right hemicolectomy on 06/06 Patient came in with an acute GI bleed thought 2/2 colonic mass later identified as well-differentiated, 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 After 06/06 right maranda-colectomy, hemoglobin dropped to 6.6 and he was transfused w/ 2 units pRBCs. His hemoglobin has remained stable throughout the rest of the night. Dx: -Hemoglobin now 8.8 from 9.8 yesterday Rx: -Monitor CBC, transfuse if hemoglobin < 7 #Thrombocytopenia Occurs in the setting of cirrhosis, patient was transfused w/ platelets and his bleeding appears to have currently stopped. Dx: -Platelets now 99 from 131 yesterday #Coagulopathy Patient's labs showing thrombocytopenia, elevated PT, INR, and low fibrinogen are consistent with low-grade DIC; however, the patient also has cirrhosis. His INR and fibrinogen however was normal on arrival pointing to perhaps more low- grade DIC Dx: -Most recent coagulation panel showed PT 20.3 -> 20.9, INR 1.9 -> 2.0, and PTT 31.5 -> 33.5 Rx: -Will be receiving a total of 2 doses of vitamin K today (once before surgery and once intraoperatively) -Will be transfused w/ 1 U FFP prior to being taken to OR -Follow up on coagulation panel in the morning Endocrine #Hypothyroidism Rx: -Continue home medication: PO levothyroxine 50 mcg ACBR #T2DM Dx: -Most recent blood glucose 319 Rx: -Insulin sliding scale ID #UTI Dx: -06/03 UA indicated likely UTI -06/03 UCx grew quiros-sensitive Proteus mirablis Rx: -Patient has been receiving IV ceftriaxone 1 gm qD since 06/04 (plan to continue until 06/10) which should be adequate coverage #Esophageal varices, s/p band ligation on an octreotide infusion to complete on 06/08 Patient recently had endoscopic band ligation to treat some bleeding esophageal varices Rx: -IV ceftriaxone 1 gm qD [started 06/04, end date planned for 06/10] to prevent SBP and other infections -Octreotide drip will be stopped after today Disposition: Requires continued ICU management due to intubated status DVT prophylaxis: None (bleeding risk) GI prophylaxis: IV Protonix 40 mg q12HR Diet: NPO Healy: Present Lines: Peripheral IV, Central IV, arterial line Antibiotics: IV ceftriaxone 1 gm qD [started 06/04, end date planned for 06/10] CODE STATUS: DNR Patient care was discussed with my senior resident, Dr. Lobo (PGY-2) , and attending supervisor rice milling, Dr. Jeffries. Rony Grace, DO Internal Medicine, PGY-1
--- NOTE | 2025-06-08 10:00 | PC.SS ---
Addendum entered by BRADLEY Corrales 06/08/25 13:31: SS update: in OR today, intubated, on IV antibiotic. Original Note: SS update: patient having procedure today.
[2025-06-08] MEDS: Norepinephrine/D5W 8mg/250ml 8 MG/250 ML BAG 32.318 MG IV (11:36)
--- NOTE | 2025-06-08 11:39 | ESPR_ITS ---
Documentation for date of: 06/08/25 Subjective Subjective Interval history: This is a 69yo M admitted to the ICU yesterday from the OR. He was admitted to the hospital on 06/03 with GIB, cirrhosis, and SHAI. He was found to have a colon mass on EGD and liver mass with pulmonary nodules on CT. He was taken to the OR for resection and had a significant amount of bleeding. He was normocytic prior to the procedure and transfused a total of 3 units of platelets for the 24 hours prior to the procedure. And he had approximately a liter of blood loss IntraOp. Due to the significant amount of bleeding and oozing decision was made to leave the abdomen open for reexploration on Monday or Monday. He was brought to the ICU intubated and on low-dose Levophed. During the course of the evening he was noted to have high output from the wound VAC with at least 2 L out overnight. He was transfused 2 units of PRBCs in the ICU after the OR and was transfused 1 unit of PRBCs in the OR. He was found to be significantly acidotic and his vent settings were adjusted. He had both a respiratory as well as metabolic acidosis. Overnight he was started on a bicarb drip. This morning his hemoglobin is stabilized. On arrival from OR a lactate was checked and he was found to have a lactic acid of 10 this morning it is down to 6.3. He has had a total of 40 cc of urinary output throughout the entire night. 06/08- no acute overnight events, remains on levophed 0.25mcg/kg/min, elevated INR today and will receive FFP for OR Critical Care Note Critical care time (min.): 43 Exam Vital Signs Temp Pulse Resp BP Pulse Ox O2 Del Method O2 Flow Rate 97.2 F 90 30 H 97/43 L 100 Mechanical Ventilation 1 06/08/25 10:48 06/08/25 11:36 06/08/25 10:48 06/08/25 11:36 06/08/25 11:00 06/07/25 16:01 06/06/25 09:27 FiO2 30 06/08/25 10:49 Narrative Exam Gen- intubated, sedated, nl body habitus HEENT- NC/AT, sclera anicteric, ETT/OGT in place, mucosa hydrated Chest- LCTAB, HRRR, no increase in WOB Abd- soft, diminished bowel sounds, grimaces with palpation, wound vac in place actively draining Ext- edema 1-2+ pitting throughout, pulses palp, no clubbing, no mottling, no focal deficits Vent AC VC Drips levo prop fent Physical Exam Completion Physical Exam Complete?: Yes 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 - Novelty Worker Labs 06/08/25 04:32 06/08/25 04:32 Labs: Laboratory Results - last 24 hr 06/06/25 06/07/25 06/07/25 08:38 12:20 12:55 WBC RBC Hgb Hct MCV MCH MCHC RDW Std Deviation Plt Count Neut % (Auto) Lymph % (Auto) [place] % (Auto) Eos % (Auto) Baso % (Auto) Neut # (Auto) Lymph # (Auto) [place] # (Auto) Eos # (Auto) Baso # (Auto) Immature Gran # (Auto) Absolute Nucleated RBC Immature Gran % Nucleated RBC % PT INR APTT Puncture Site ABG pH ABG pCO2 ABG pO2 ABG HCO3 ABG O2 Saturation ABG Base Excess FiO2 Sodium 139 Potassium 5.3 H Chloride 107 Carbon Dioxide 15.1 L Anion Gap 17 H BUN 42 H Creatinine 3.5 H Estim Creat Clear Calc 23.8 L eGFR 18 L BUN/Creatinine Ratio 12 Glucose 317 H D Calculated Osmolality 300 H Lactic Acid Calcium 6.7 L* Corrected Calcium 7.5 L Phosphorus Magnesium Total Bilirubin 1.4 H D AST > 1000 H* ALT > 1100 H* Alkaline Phosphatase 498 H D Total Protein 4.8 L Albumin 3.0 L Globulin 1.8 L Albumin/Globulin Ratio 1.7 Ur Random Creatinine 194 H Ur Random Sodium < 15.0 L Ur Random Potassium 60 Ur Random Chloride < 20.0 L Blood Type O Positive Antibody Screen POSITIVE Antibody Identification Cold Antibody Crossmatch See Detail Blood Bank Wristband ID Yes Blood Bank Comment FFP Ready 06/07/25 06/07/25 06/07/25 15:13 15:40 16:00 WBC RBC Hgb Hct MCV MCH MCHC RDW Std Deviation Plt Count Neut % (Auto) Lymph % (Auto) [place] % (Auto) Eos % (Auto) Baso % (Auto) Neut # (Auto) Lymph # (Auto) [place] # (Auto) Eos # (Auto) Baso # (Auto) Immature Gran # (Auto) Absolute Nucleated RBC Immature Gran % Nucleated RBC % PT INR APTT Puncture Site Arterial Line ABG pH 7.39 ABG pCO2 27 L ABG pO2 112 H ABG HCO3 16 L ABG O2 Saturation 99 H ABG Base Excess -8 L FiO2 45 Sodium Potassium Chloride Carbon Dioxide Anion Gap BUN Creatinine Estim Creat Clear Calc eGFR BUN/Creatinine Ratio Glucose Calculated Osmolality Lactic Acid 5.4 H* Calcium Corrected Calcium Phosphorus Magnesium 1.8 Total Bilirubin AST ALT Alkaline Phosphatase Total Protein Albumin Globulin Albumin/Globulin Ratio Ur Random Creatinine Ur Random Sodium Ur Random Potassium Ur Random Chloride Blood Type Antibody Screen Antibody Identification Crossmatch Blood [facility] Blood Bank Comment 06/07/25 06/07/25 06/08/25 18:53 19:59 00:22 WBC RBC Hgb 8.7 L Hct 27.0 L MCV MCH MCHC RDW Std Deviation Plt Count Neut % (Auto) Lymph % (Auto) [place] % (Auto) Eos % (Auto) Baso % (Auto) Neut # (Auto) Lymph # (Auto) [place] # (Auto) Eos # (Auto) Baso # (Auto) Immature Gran # (Auto) Absolute Nucleated RBC Immature Gran % Nucleated RBC % PT INR APTT Puncture Site Left Radial ABG pH 7.36 ABG pCO2 28 L ABG pO2 97 ABG HCO3 16 L ABG O2 Saturation 98 ABG Base Excess -8 L FiO2 40 Sodium Potassium Chloride Carbon Dioxide Anion Gap BUN Creatinine Estim Creat Clear Calc eGFR BUN/Creatinine Ratio Glucose Calculated Osmolality Lactic Acid 4.4 H* Calcium Corrected Calcium Phosphorus Magnesium Total Bilirubin AST ALT Alkaline Phosphatase Total Protein Albumin Globulin Albumin/Globulin Ratio Ur Random Creatinine Ur Random Sodium Ur Random Potassium Ur Random Chloride Blood Type Antibody Screen Antibody Identification Crossmatch Blood [facility] Blood Bank Comment 06/08/25 04:32 WBC 25.2 H RBC 3.30 L Hgb 8.8 L Hct 27.4 L MCV 83 MCH 26.7 MCHC 32.1 RDW Std Deviation 54.0 H Plt Count 99 L D Neut % (Auto) 79 Lymph % (Auto) 12 [place] % (Auto) 8 Eos % (Auto) 0 Baso % (Auto) 0 Neut # (Auto) 20.0 H Lymph # (Auto) 2.9 [place] # (Auto) 2.0 H Eos # (Auto) 0.1 Baso # (Auto) 0.0 Immature Gran # (Auto) 0.22 H Absolute Nucleated RBC 0.15 H Immature Gran % 1 H Nucleated RBC % 1 H PT 20.9 H INR 2.0 H APTT 33.3 Puncture Site ABG pH ABG pCO2 ABG pO2 ABG HCO3 ABG O2 Saturation ABG Base Excess FiO2 Sodium 138 Potassium 5.1 Chloride 107 Carbon Dioxide 15.2 L Anion Gap 16 BUN 47 H Creatinine 4.6 H* D Estim Creat Clear Calc 18.1 L eGFR 13 L* BUN/Creatinine Ratio 10 L Glucose 319 H Calculated Osmolality 299 H Lactic Acid Calcium 7.1 L Corrected Calcium 8.1 L Phosphorus 7.2 H Magnesium 1.9 Total Bilirubin 1.3 H AST > 1000 H* ALT > 3300 H* Alkaline Phosphatase 705 H D Total Protein 4.8 L Albumin 2.8 L Globulin 2.0 L Albumin/Globulin Ratio 1.4 Ur Random Creatinine Ur Random Sodium Ur Random Potassium Ur Random Chloride Blood Type Antibody Screen Antibody Identification Crossmatch Blood Bank Wristband ID Blood Bank Comment Assessment & Plan Additional Plan Additional Plan: In brief this is a 69-year-old male with cirrhosis status post ex lap with right colectomy 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 Initially felt to be both hypovolemic as well as distributive in nature. Will obtain additional hemodynamics on the [facility]. No evidence of obstructive etiology. fluid responsive with fluid bolus, given wide pulse pressure will aim for SBP >90, on abx - remains vasodilated, no signs of active infection at this time - no active bleeding Resp Acute Resp Failure-patient is intubated and on mechanical ventilation. Has a mixed metabolic and respiratory acidosis. Vent settings have been adjusted and his minute ventilation is about 16-17 on the ventilator. However his pCO2 is still 30. Will adjust as able and follow-up on ABG. - ABGs have improved - vent adjusted Pulm nodule-unclear if this may be a metastatic lesion, will need follow-up Renal SHAI- Will give additional volume NC. Monitor I's and O's. Avoid nephrotoxins. If the patient remains anuric will consult nephrology with a question of need for dialysis. - UOP has improved per nursing report AGMA- LA trending down -delta delta shows a concomittent non gap acidosis - urine lytes sent - this was present on arrival - suspect underlying RTA Hyperkalemia- resolved GI Cirrhosis-once patient is stable will start on Aldactone and rifaximin - LFTs in the thousands - felt to have a superimposed ischemic hepatitis GI bleed-this was felt to be secondary to colon mass and variceal bleed. Stabilized. No active bleeding. Remains on octreotide drip to the . - on q12 PPI - followed by GI -Esophageal varices were also noted which were banded x 2. Gastritis also noted on EGD. colon mass-resected sent to pathology - shows invasive adenocarcinoma - for OR today to close abdomen - will need fu with oncology Liver mass-currently being evaluated for metastatic disease Hypoalbuminemia-secondary to cirrhosis Endo Hypothyroidism-continue Synthroid Diabetes-sliding scale Heme Leukocytosis- likely reactive in nature - trending up Anemia-patient came in with an acute GI bleed. Postop he dropped his hemoglobin to 6.6 was transfused - has been stable for the last 24hrs Thrombocytopenia-in the setting of cirrhosis, patient was transfused platelets and his bleeding appears to have currently stopped. Coagulopathy-patient's labs are consistent with a low-grade DIC however the patient also has cirrhosis. His INR however was normal on arrival pointing to perhaps more low-grade DIC - given FFP today for OR ID On ceftriaxone for variceal bleed UTI- growing proteus-> on ceftri case d/w ICU team d/w surgery today labs, imaging, records reviewed ~43ccmin requried for eval, exam , review, intervention, discussion and formulation of POC for this critically ill pt Provider Notation Provider Notation: Although this document has been carefully reviewed, there may still be some phonetic and other typographical errors. These errors are purely grammatical due to imperfections in the software program and should not be construed in any way to compromise the substance of the patient's medical care during this visit. Thank you for the opportunity and privilege in assisting you with this patient's care and management.
--- NOTE | 2025-06-08 12:24 | PD.SURPROG ---
Documentation for date of: 06/08/25 Subjective Subjective Narrative: Patient is seen and examined. He has remained intubated and sedated. His urine output is improving despite elevation of creatinine. His platelets are stable. His INR is elevated, he has received fresh frozen plasma. He is still requiring Levophed Exam Vital Signs Temp Pulse Resp BP Pulse Ox O2 Del Method O2 Flow Rate 97.2 F 90 30 H 97/43 L 100 Mechanical Ventilation 1 06/08/25 12:00 06/08/25 12:00 06/08/25 12:06/08/25 12:00 06/08/25 12:00 06/07/25 16:01 06/06/25 09:27 FiO2 30 06/08/25 12:00 Assessment & Plan Assessment Additional comments: Open abdomen status post packing Plan Patient will be taken back to the operating room for exploratory laparotomy, removal of packing and abdominal washout. Risks, benefits and alternative discussed with patient's mother via telephone conversation. All her questions answered, she agreed and gave verbal consent to proceed with the operation. PROCEDURES: Procedures Exploratory laparotomy, right colectomy, abdominal washout Packing of the abdomen
--- NOTE | 2025-06-08 13:04 | PD.SUROPNT ---
Date of Procedure 06/08/25 Pre Op Diagnosis Open abdomen with abdominal packing Status post exploratory laparotomy with right colectomy Post Op Diagnosis Cirrhosis of the liver Procedure Exploratory laparotomy, removal of the abdominal packing Abdominal washout and closure Findings There is no evidence of bleeding or infection. Anastomosis was healthy and intact Procedure Description Patient brought into the operating room and spine position. After administration of general tracheal anesthesia, the previously placed wound VAC was removed, abdomen was prepped and draped in standard surgical manner. The wound was washed with warm saline, the previously placed towel and plastic coverings were removed. There was no evidence of bleeding small and large intestines appeared healthy. Anastomosis was healthy and intact. The abdomen and pelvis copiously and thoroughly washed with warm saline. The previously placed packing around the liver and right paracolic gutter were removed. The area was copiously and thoroughly washed and irrigated, there was no evidence of bleeding or infection. Anterior abdominal fascia was closed with running 0 PDS as well as interrupted sutures with #1 Vicryl. Wound was washed and skin was closed with honorio. Sterile dressings and abdominal binder applied. Patient remained stable throughout operation. He was kept intubated and transferred to intensive care unit. Instruments, needles and sponge counts were reported to be correct x 2. Anesthesia GETA Pathology / specimen None Estimated Blood Loss 5 Condition Critical Disposition ICU Surgeon Kimberley Tai MD Surgical Staff Operation Date: 06/08/25 12:00 Case Staff SOFT CRAB SHEDDER: Robert Palencia RNstudent records specialist: Jerrod Jimenez
[2025-06-08 13:16] LABS: HIV (1&2) Antibody Rapid Non-Reactive
[2025-06-08 14:42] LABS: Lactate (Lactic Acid) 3.1 mMol/L (0.4-2.0)
[2025-06-08 15:22] LABS: Allen Test Not Performed; Base Excess -7 (-3-3); HCO3 17 mEq/L (20-26); Inspired Oxygen, FIO2 45 %; O2 Saturation 94 % (91-98); PCO2 29 mmHg (32.0-48.0); PO2 66 mmHg (83-108); Puncture Site Arterial Line; pH, Arterial 7.38 (7.35-7.45)
[2025-06-08 15:47] LABS: Basophils # (Auto) 0.0 Thou/mm3 (0.0-0.2); Basophils % (Auto) 0 % (0-2.5); Eosinophils # (Auto) 0.0 Thou/mm3 (0.0-0.5); Eosinophils % (Auto) 0 % (0-10); Hematocrit 21.9 % (41.0-53.0); Immature Granulocytes Auto 0.14 Thou/mm3 (0.00-0.00); Lymphocytes # (Auto) 1.9 Thou/mm3 (1.0-4.8); Lymphocytes % (Auto) 10 % (10-50); Mean Corpuscular HGB Conc 32.4 g/dl (31.0-37.0); Mean Corpuscular Hemoglobin 27.0 pg (25.0-35.0); Mean Corpuscular Volume 83 fL (80-100); Monocytes # (Auto) 1.3 Thou/mm3 (0.0-0.8); Monocytes % (Auto) 7 % (0-12); Neutrophils # (Auto) 16.1 Thou/mm3 (1.8-7.7); Neutrophils % (Auto) 82 % (37-80); Nucleated Red Blood Cell # 0.06 Thou/mm3 (0.00-0.00); Nucleated Red Blood Cell % 0 /100 WBC (0); RDW Standard Deviation 54.4 fL (35.1-43.9); Red Blood Count 2.63 Miln/mm3 (4.50-5.90); White Blood Count 19.5 Thou/mm3 (3.8-10.6)
[2025-06-08 16:02] LABS: Hemoglobin 7.1 g/dL (13.5-16.0); Platelet Count 47 Thou/mm3 (140-440)
[2025-06-08 16:14] LABS: Alanine Aminotransferase 2513 U/L (10-49); Albumin, Serum 2.8 gm/dL (3.4-4.8); Albumin/Globulin Ratio 1.6 (1.2-2.2); Alkaline Phosphatase 567 U/L (46-116); Anion Gap 16 (7-16); Aspartate Amino Transferase > 1000 U/L (0-34); BUN/Creatinine Ratio 11 Ratio (12-20); Bilirubin,Total 1.2 mg/dL (0.3-1.2); Blood Urea Nitrogen 56 mg/dL (9-23); Calcium 7.3 mg/dL (8.3-10.6); Calcium (Corrected) 8.3 mg/dL (8.5-10.1); Carbon Dioxide 15.9 mMol/L (20.0-31.0); Chloride 106 mMol/L (98-107); Creatinine (Component) 4.9 mg/dL (0.6-1.3); Estimated Creatinine Clearance 17.0 mL/min (>60); Globulin 1.8 gm/dL (2.3-3.5); Glucose 303 mg/dL (74-106); Magnesium 1.8 mg/dL (1.6-2.6); Osmolality,Calculated 302 (275-295); Phosphorous 7.6 mg/dL (2.4-5.1); Potassium 5.0 mMol/L (3.4-5.1); Sodium 138 mMol/L (136-145); Total Protein 4.6 gm/dL (5.7-8.2); eGFR 12 See Note
[2025-06-08 16:21] LABS: Slide Review Platelets confirmed
[2025-06-08 17:42] LABS: Reflex Lactate? Y
[2025-06-08] MEDS: PROPOFOL 1,000 MG IVPB 1,000 MG/100 ML VIAL 10.886 MG IV (18:24)
[2025-06-08] MEDS: fentaNYL 2,500 MCG/250 ML BAG 2,500 MCG/250 ML BAG 10 MCG IV (18:25)
--- NOTE | 2025-06-08 19:10 | ESPR_ITS ---
Documentation for date of: 06/08/25 Subjective Subjective Interval history: Patient's status post abdominal washout and wound closure Exam Vital Signs Temp Pulse Resp BP Pulse Ox O2 Del Method O2 Flow Rate 98.1 F 84 26 H 92/53 L 99 Mechanical Ventilation 1 06/08/25 18:37 06/08/25 18:50 06/08/25 18:37 06/08/25 18:50 06/08/25 18:50 06/07/25 16:01 06/06/25 09:27 FiO2 45 06/08/25 18:04 Objective Labs 06/08/25 15:27 06/08/25 15:27 Labs: Laboratory Results - last 24 hr 06/06/25 06/07/25 06/08/25 08:38 19:59 00:22 WBC RBC Hgb 8.7 L Hct 27.0 L MCV MCH MCHC RDW Std Deviation Plt Count Neut % (Auto) Lymph % (Auto) [place] % (Auto) Eos % (Auto) Baso % (Auto) Neut # (Auto) Lymph # (Auto) [place] # (Auto) Eos # (Auto) Baso # (Auto) Immature Gran # (Auto) Absolute Nucleated RBC Immature Gran % Nucleated RBC % PT INR APTT Puncture Site Left Radial ABG pH 7.36 ABG pCO2 28 L ABG pO2 97 ABG HCO3 16 L ABG O2 Saturation 98 ABG Base Excess -8 L FiO2 40 Sodium Potassium Chloride Carbon Dioxide Anion Gap BUN Creatinine Estim Creat Clear Calc eGFR BUN/Creatinine Ratio Glucose Calculated Osmolality Lactic Acid Calcium Corrected Calcium Phosphorus Magnesium Total Bilirubin AST ALT Alkaline Phosphatase Total Protein Albumin Globulin Albumin/Globulin Ratio HIV 1&2 Antibody Rapid Misc Test Result Blood Type O Positive Antibody Screen POSITIVE Antibody Identification Cold Antibody Crossmatch See Detail Blood Bank Wristband ID Yes Blood Bank Comment FFP Ready 06/08/25 06/08/25 06/08/25 04:32 14:27 15:14 WBC 25.2 H RBC 3.30 L Hgb 8.8 L Hct 27.4 L MCV 83 MCH 26.7 MCHC 32.1 RDW Std Deviation 54.0 H Plt Count 99 L D Neut % (Auto) 79 Lymph % (Auto) 12 [place] % (Auto) 8 Eos % (Auto) 0 Baso % (Auto) 0 Neut # (Auto) 20.0 H Lymph # (Auto) 2.9 [place] # (Auto) 2.0 H Eos # (Auto) 0.1 Baso # (Auto) 0.0 Immature Gran # (Auto) 0.22 H Absolute Nucleated RBC 0.15 H Immature Gran % 1 H Nucleated RBC % 1 H PT 20.9 H INR 2.0 H APTT 33.3 Puncture Site Arterial Line ABG pH 7.38 ABG pCO2 29 L ABG pO2 66 L D ABG HCO3 17 L ABG O2 Saturation 94 ABG Base Excess -7 L FiO2 45 Sodium 138 Potassium 5.1 Chloride 107 Carbon Dioxide 15.2 L Anion Gap 16 BUN 47 H Creatinine 4.6 H* D Estim Creat Clear Calc 18.1 L eGFR 13 L* BUN/Creatinine Ratio 10 L Glucose 319 H Calculated Osmolality 299 H Lactic Acid 3.1 H Calcium 7.1 L Corrected Calcium 8.1 L Phosphorus 7.2 H Magnesium 1.9 Total Bilirubin 1.3 H AST > 1000 H* ALT > 3300 H* Alkaline Phosphatase 705 H D Total Protein 4.8 L Albumin 2.8 L Globulin 2.0 L Albumin/Globulin Ratio 1.4 HIV 1&2 Antibody Rapid Non-Reactive Misc Test Result Blood Type Antibody Screen Antibody Identification Crossmatch Blood Bank Wristband ID Blood Bank Comment 06/08/25 15:27 WBC 19.5 H D RBC 2.63 L Hgb 7.1 L Hct 21.9 L* MCV 83 MCH 27.0 MCHC 32.4 RDW Std Deviation 54.4 H Plt Count 47 L D Neut % (Auto) 82 H Lymph % (Auto) 10 [place] % (Auto) 7 Eos % (Auto) 0 Baso % (Auto) 0 Neut # (Auto) 16.1 H Lymph # (Auto) 1.9 [place] # (Auto) 1.3 H Eos # (Auto) 0.0 Baso # (Auto) 0.0 Immature Gran # (Auto) 0.14 H Absolute Nucleated RBC 0.06 H Immature Gran % 1 H Nucleated RBC % 0 PT INR APTT Puncture Site ABG pH ABG pCO2 ABG pO2 ABG HCO3 ABG O2 Saturation ABG Base Excess FiO2 Sodium 138 Potassium 5.0 Chloride 106 Carbon Dioxide 15.9 L Anion Gap 16 BUN 56 H Creatinine 4.9 H* Estim Creat Clear Calc 17.0 L eGFR 12 L* BUN/Creatinine Ratio 11 L Glucose 303 H Calculated Osmolality 302 H Lactic Acid Calcium 7.3 L Corrected Calcium 8.3 L Phosphorus 7.6 H Magnesium 1.8 Total Bilirubin 1.2 AST > 1000 H* ALT 2513 H* Alkaline Phosphatase 567 H D Total Protein 4.6 L Albumin 2.8 L Globulin 1.8 L Albumin/Globulin Ratio 1.6 HIV 1&2 Antibody Rapid Misc Test Result Platelets confirmed Blood Type Antibody Screen Antibody Identification Crossmatch Blood Bank Wristband ID Blood Bank Comment Impressions Impression: Invasive transverse colon carcinoma s/p resection and today wound closure after abdominal washout Remains intubated Continue current management ABG Interpretation ABG results: 06/06/25 06/06/25 06/06/25 16:05 18:18 20:48 ABG pH 7.16 L* 7.13 L* 7.13 L* ABG pCO2 45 36 35 ABG pO2 190 H 76 L D 80 L ABG HCO3 16 L 12 L 12 L ABG O2 Saturation 101 H 93 94 ABG Base Excess -12 L -16 L -17 L 06/06/25 06/07/25 06/07/25 22:31 03:02 10:20 ABG pH 7.21 L 7.30 L 7.37 ABG pCO2 32 30 L 26 L ABG pO2 72 L 130 H D 120 H ABG HCO3 13 L 15 L 15 L ABG O2 Saturation 94 100 H 99 H ABG Base Excess -14 L -11 L -9 L 06/07/25 06/07/25 06/08/25 16:00 19:59 15:14 ABG pH 7.39 7.36 7.38 ABG pCO2 27 L 28 L 29 L ABG pO2 112 H 97 66 L D ABG HCO3 16 L 16 L 17 L ABG O2 Saturation 99 H 98 94 ABG Base Excess -8 L -8 L -7 L Assessment & Plan Time Spent With Patient Time: Total time spent is greater than 50% in coordination of care (as documented) at patient's floor/unit and/or counseling patient:
[2025-06-08] MEDS: Norepinephrine/D5W 8mg/250ml 8 MG/250 ML BAG 28.916 MG IV (19:32)
[2025-06-08 19:36] LABS: Base Excess -7 (-3-3); HCO3 17 mEq/L (20-26); Inspired Oxygen, FIO2 45 %; Lactic Acid, 3 HR 2.8 mMol/L (0.4-2.0); O2 Saturation 98 % (91-98); PCO2 29 mmHg (32.0-48.0); PO2 89 mmHg (83-108); pH, Arterial 7.39 (7.35-7.45)
[2025-06-08 19:37] LABS: Allen Test Not Performed; Puncture Site Right Femoral
[2025-06-08 21:19] LABS: Hematocrit 25.2 % (41.0-53.0)
[2025-06-08 21:23] LABS: Hemoglobin 8.3 g/dL (13.5-16.0)
[2025-06-09] VITALS (111 sets, daily range): BP systolic 60–122; BP diastolic 35–68; PULSE 80–105; RESP 9–31; TEMP 36.2–36.7; O2SAT 94–100; BMI 25.7
[2025-06-09 00:48] LABS: Hematocrit 24.4 % (41.0-53.0)
[2025-06-09 00:57] LABS: Hemoglobin 8.1 g/dL (13.5-16.0)
[2025-06-09 04:17] LABS: Base Excess -7 (-3-3); HCO3 17 mEq/L (20-26); Inspired Oxygen, FIO2 45 %; O2 Saturation 94 % (91-98); PCO2 30 mmHg (32.0-48.0); PO2 70 mmHg (83-108); pH, Arterial 7.38 (7.35-7.45)
[2025-06-09 04:19] LABS: Allen Test Not Performed; Puncture Site Right Femoral
[2025-06-09] MEDS: Norepinephrine/D5W 8mg/250ml 8 MG/250 ML BAG 28.916 MG IV (04:33)
[2025-06-09] MEDS: PROPOFOL 1,000 MG IVPB 1,000 MG/100 ML VIAL 10.886 MG IV (04:33)
[2025-06-09 05:46] LABS: Basophils # (Auto) 0.0 Thou/mm3 (0.0-0.2); Basophils % (Auto) 0 % (0-2.5); Eosinophils # (Auto) 0.1 Thou/mm3 (0.0-0.5); Eosinophils % (Auto) 1 % (0-10); Hematocrit 25.9 % (41.0-53.0); Immature Granulocytes Auto 0.20 Thou/mm3 (0.00-0.00); Lymphocytes # (Auto) 1.9 Thou/mm3 (1.0-4.8); Lymphocytes % (Auto) 8 % (10-50); Mean Corpuscular HGB Conc 32.8 g/dl (31.0-37.0); Mean Corpuscular Hemoglobin 27.3 pg (25.0-35.0); Mean Corpuscular Volume 83 fL (80-100); Monocytes # (Auto) 1.6 Thou/mm3 (0.0-0.8); Monocytes % (Auto) 7 % (0-12); Neutrophils # (Auto) 18.5 Thou/mm3 (1.8-7.7); Neutrophils % (Auto) 83 % (37-80); Nucleated Red Blood Cell # 0.07 Thou/mm3 (0.00-0.00); Nucleated Red Blood Cell % 0 /100 WBC (0); RDW Standard Deviation 52.9 fL (35.1-43.9); Red Blood Count 3.11 Miln/mm3 (4.50-5.90); White Blood Count 22.3 Thou/mm3 (3.8-10.6)
[2025-06-09] MEDS: INSULIN HUM REGULAR 1 UNIT/0.01 ML (PER UNIT) SC ×3 (05:55→18:10)
[2025-06-09] MEDS: LEVOTHYROXINE SODIUM 25 MCG TABLET 50 MCG PO (05:56)
[2025-06-09 05:58] LABS: Hemoglobin 8.5 g/dL (13.5-16.0); Platelet Count 55 Thou/mm3 (140-440)
[2025-06-09 06:03] LABS: Fibrinogen 201 mg/dL (175-375); INR 1.6 (0.9-1.3); Partial Thromboplastin Time 33.8 Seconds (22.0-36.0); Prothrombin Time 16.8 Seconds (9.0-12.2)
[2025-06-09 06:41] LABS: Albumin, Serum 2.7 gm/dL (3.4-4.8); Albumin/Globulin Ratio 1.4 (1.2-2.2); Alkaline Phosphatase 580 U/L (46-116); Anion Gap 16 (7-16); BUN/Creatinine Ratio 11 Ratio (12-20); Bilirubin,Total 1.2 mg/dL (0.3-1.2); Blood Urea Nitrogen 63 mg/dL (9-23); Calcium 7.5 mg/dL (8.3-10.6); Calcium (Corrected) 8.5 mg/dL (8.5-10.1); Carbon Dioxide 16.0 mMol/L (20.0-31.0); Chloride 105 mMol/L (98-107); Creatinine (Component) 5.5 mg/dL (0.6-1.3); Estimated Creatinine Clearance 15.2 mL/min (>60); Globulin 1.9 gm/dL (2.3-3.5); Glucose 282 mg/dL (74-106); Magnesium 1.9 mg/dL (1.6-2.6); Osmolality,Calculated 301 (275-295); Phosphorous 7.5 mg/dL (2.4-5.1); Potassium 4.9 mMol/L (3.4-5.1); Sodium 137 mMol/L (136-145); Total Protein 4.6 gm/dL (5.7-8.2); eGFR 11 See Note
[2025-06-09 06:43] LABS: Alanine Aminotransferase 2345 U/L (10-49); Aspartate Amino Transferase > 1000 U/L (0-34)
[2025-06-09 06:52] LABS: Slide Review Platelets confirmed
--- NOTE | 2025-06-09 07:59 | PD.SURPROG ---
Documentation for date of: 06/09/25 Subjective Subjective Narrative: Patient was seen and examined. He is intubated and sedated. Still requiring low-dose Levophed. His creatinine continues to go up and he had very minimal urine output Exam Vital Signs Temp Pulse Resp BP Pulse Ox O2 Del Method O2 Flow Rate 97.7 F 81 26 H 84/40 L 96 Mechanical Ventilation 1 06/09/25 06:00 06/09/25 07:45 06/08/25 18:37 06/09/25 07:45 06/09/25 07:45 06/07/25 16:01 06/06/25 09:27 FiO2 45 06/09/25 06:46 Constitutional Comments: Intubated and sedated Routine Abdominal Exam Comments: Abdomen is soft. Incision with dressing clean, dry and intact Assessment & Plan Assessment Additional comments: Postop day #3 status post exploratory laparotomy with right colectomy Postop day #1 status post removal of packing, abdominal washout and closure Plan Attempt to extubate by ICU team, continue care as directed PROCEDURES: Procedures Exploratory laparotomy, removal of the abdominal packing Abdominal washout and closure
[2025-06-09] MEDS: cefTRIAXone/D5w 1gm IV premix 1 GM/50 ML BAG IV (08:40)
[2025-06-09] MEDS: CALCIUM ACETATE 667 MG TABLET NG ×3 (08:40→18:11)
[2025-06-09] MEDS: ALBUMIN HUMAN-KJDA 25% IVPB 25 GM/100 ML BTL IV (09:23)
[2025-06-09] MEDS: SERTRALINE HCL 25 MG TABLET 100 MG PO (09:24)
--- NOTE | 2025-06-09 09:28 | PC.PT ---
Patient is intubated in the ICU. Patient will be D/C from PT services at this time as he is not stable to work with PT.
[2025-06-09] MEDS: DEXTROSE 5% IV (11:03)
[2025-06-09] MEDS: WATER IV (11:03)
[2025-06-09] MEDS: METHYLENE BLUE IV (11:03)
--- NOTE | 2025-06-09 11:18 | PC.SS ---
Update: Patient is intubated. Patient is not receiving sedation. Patient is NPO at current time. Patient is receiving pressor support. Patient is receiving IV ABX. In position of mcclelland catheter. No fever, patient is on soft restraints. Nephrology consulting, possible candidate for dialysis today.Dr. Yap and Dr. Tai are consulting. Gun Striper is Dr. Rea.
--- NOTE | 2025-06-09 11:41 | PD.RESCONSUL ---
HPI Data of Consult Consult date: 06/09/25 Requesting Physician: Bella Jeffries MD Admitting Provider: Leann Gregorio MD Attending Provider: Bella Jeffries MD Primary Care Provider: Avel Tran DO Consult Narrative Reason for consult: SHAI History of present illness: History of Present Illness: 69y/o Male with PMH of insulin dependent diabetes and thrombocytopenia presented to the hospital on 06/03/2025 after a fall. At the time, patient denied any near syncopal event and just experienced fell while getting out of bed. After admission, he was found to have plts in the 40s, anemia with hgb around 8, liver cirrhosis and liver mass on CT, and was subsequently admitted for GI bleed. After upper endoscopy, grade 2 varice was found. 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 Patient resceived surgery on 06/06 for colonic mass resection, but had bleeding complications with profound hypotension. Decision was made to leave abdomen open for re-exploration on 06/08. Patient was intubated and brought to ICU while on levophed with pRBC transfusions x3. Patient became acidotic. On 06/09, nephrology has been consulted as patient's creatinine is increased from 4.9 to 5.5 with minimal urine output of 30ml ED Course: -Patient presents with BP 128/75, HR 73, T 97.7, RR 19, O2 95 Room Air -lab workup notable for low hgb of 8 and platelets in the 50s which was significantly lower from 2017 with hgb 17 and plts in the 70s. Creatinine 2.3, BUN 49. Patient GFR is 30. Patient with an AST of 103, ALT of 93, alk phos 336. T. bili normal. -Ordered hepatitis panel, fibrinogen level, -CT brain and cervical spine unremarkable. CT chest abdomen pelvis without contrast which identified COPD, 16 mm pulmonary nodule in the right upper lobe, cirrhosis, multiple liver lesions concerning for liver metastases, patient with splenomegaly, ascites, cholelithiasis no evidence of obstruction. -On-call inventory transcriber Dr. Yap, consulted for downtrending hgb. Agreed with admission for EGD and colonoscopy to eval for GI bleed. Also recommending CT guided bx of the liver nodule. 06/09/2025: Labs reviewed and patient examined at the bedside. Compared to 06/08 (BUN 47, Cr:4.6, eGFR:13), today's lab value shows BUN:63, Cr:5.5, eGFR:11. Patient does show worsening renal function. Patient will receive conventional hemodialysis today. cc:: cc: Bella Jeffries MD Review of Systems Review of Systems Narrative Review of Systems: Patient remains sedated. Unable to ask any questions. Exam Vital Signs Temp Pulse Resp BP Pulse Ox O2 Del Method O2 Flow Rate 97.7 F 94 26 H 109/58 L 94 L Mechanical Ventilation 1 06/09/25 08:01 06/09/25 11:30 06/08/25 18:37 06/09/25 11:30 06/09/25 11:30 06/07/25 16:01 06/06/25 09:27 FiO2 35 06/09/25 09:59 Narrative Exam General: Elderly, Frail, Pale, Sedated, lethargic Eye: PNormal conjunctiva, no scleral icterus HENT: Normocephalic, atraumatic Neck: Supple, non-tender, no JVD, no lymphadenopathy Lungs: Non-labored respirations, symmetric chest rise, Clear to auscultate bilaterally, No wheezing, rhonchi, crackles Heart: Peripheral pulses intact bilaterally, Regular Rate and Rhythm. Abdomen: Soft, non-tender, non-distended, no palpable masses, Abdominal binder in place Musculoskeletal: 1+pitting edema BLE, Bruising in BLE Skin: Skin is warm, dry, no rashes or lesions., Right IJ central line, Ulcers on right forearm. Psychiatric: Sedated, leghargic, non-responsive. Neuro: Cranial nerves II-XII grossly intact. Results Labs 06/10/25 14:30 06/10/25 04:15 Labs: Short CBC 06/08/25 06/08/25 06/09/25 Range/Units 15:27 21:06 00:20 WBC 19.5 H D (3.8-10.6) Thou/mm3 Hgb 7.1 L 8.3 L 8.1 L (13.5-16.0) g/dL Hct 21.9 L* 25.2 L 24.4 L (41.0-53.0) % Plt Count 47 L D (140-440) Thou/mm3 06/09/25 Range/Units 05:02 WBC 22.3 H (3.8-10.6) Thou/mm3 Hgb 8.5 L (13.5-16.0) g/dL Hct 25.9 L (41.0-53.0) % Plt Count 55 L (140-440) Thou/mm3 BMP 06/08/25 06/09/25 15:27 05:02 Sodium 138 137 Potassium 5.0 4.9 Chloride 106 105 Carbon Dioxide 15.9 L 16.0 L BUN 56 H 63 H Creatinine 4.9 H* 5.5 H* D Glucose 303 H 282 H Calcium 7.3 L 7.5 L Liver Function 06/08/25 06/09/25 Range/Units 15:27 05:02 Total Bilirubin 1.2 1.2 (0.3-1.2) mg/dL AST > 1000 H* > 1000 H* (0-34) U/L ALT 2513 H* 2345 H* (10-49) U/L Alkaline Phosphatase 567 H D 580 H (46-116) U/L Albumin 2.8 L 2.7 L (3.4-4.8) gm/dL ABG Interpretation ABG results: 06/06/25 06/06/25 06/06/25 16:05 18:18 20:48 ABG pH 7.16 L* 7.13 L* 7.13 L* ABG pCO2 45 36 35 ABG pO2 190 H 76 L D 80 L ABG HCO3 16 L 12 L 12 L ABG O2 Saturation 101 H 93 94 ABG Base Excess -12 L -16 L -17 L 06/06/25 06/07/25 06/07/25 22:31 03:02 10:20 ABG pH 7.21 L 7.30 L 7.37 ABG pCO2 32 30 L 26 L ABG pO2 72 L 130 H D 120 H ABG HCO3 13 L 15 L 15 L ABG O2 Saturation 94 100 H 99 H ABG Base Excess -14 L -11 L -9 L 06/07/25 06/07/25 06/08/25 16:00 19:59 15:14 ABG pH 7.39 7.36 7.38 ABG pCO2 27 L 28 L 29 L ABG pO2 112 H 97 66 L D ABG HCO3 16 L 16 L 17 L ABG O2 Saturation 99 H 98 94 ABG Base Excess -8 L -8 L -7 L 06/08/25 06/09/25 19:19 04:09 ABG pH 7.39 7.38 ABG pCO2 29 L 30 L ABG pO2 89 D 70 L ABG HCO3 17 L 17 L ABG O2 Saturation 98 94 ABG Base Excess -7 L -7 L Quality Measures Quality Measures VTE prophylaxis Advance care planning discussed with:: patient and other Medications Home Medications and Allergies Home Medications ?Medication ?Instructions ?Recorded ?Confirmed ?Type buspirone 5 mg tablet 5 mg PO BID 06/04/25 06/04/25 History empagliflozin 25 mg tablet 25 mg PO QAM 06/04/25 06/04/25 History (Jardiance) ezetimibe 10 mg tablet 10 mg PO DAILY 06/04/25 06/04/25 History insulin glargine 100 unit/mL (3 10 unit subcut DAILY 06/04/25 06/04/25 History mL) subcutaneous pen (Lantus Solostar U-100 Insulin) lactulose 10 gram/15 mL oral 15 ml PO DAILY 06/04/25 06/04/25 History solution levothyroxine 50 mcg tablet 50 mcg PO DAILY UD 06/04/25 06/04/25 History neomycin 500 mg tablet 500 mg PO Q4H 06/04/25 06/04/25 History rosuvastatin 20 mg tablet 20 mg PO HS 06/04/25 06/04/25 History sertraline 100 mg tablet 100 mg PO DAILY 06/04/25 06/04/25 History Allergies Allergy/AdvReac Type Severity Reaction Status Date / Time Bee Stings Allergy Severe ANAPHYLAXIS Uncoded 08/01/17 13:41 Visit Medications Calcium Acetate (Calcium Acetate 667 Mg Tablet) 667 mg NG TIDWM JERSON Stop: 07/07/25 14:04 Last Admin: 06/09/25 08:40 Dose: 667 mg Dextrose (Dextrose 50%-Water Inj 50 Ml Syringe) 25 ml IV Q15MIN PRN PRN Reason: BG 50-70 responsive npo pt Stop: 07/03/25 18:25 Dextrose (Dextrose 50%-Water Inj 50 Ml Syringe) 50 ml IV Q15MIN PRN PRN Reason: BG <50 OR BG <70 & pt unresponsive Stop: 07/03/25 18:25 Glucagon (Glucagon Inj 1 Mg Vial) 1 mg IM Q15MIN PRN PRN Reason: BG <70, and no IV access Haloperidol Lactate (Haloperidol Lact Inj 5 Mg/Ml Vial) 5 mg IV Q6HR PRN PRN Reason: AGITATION Stop: 07/06/25 16:20 Fentanyl Citrate (Sublimaze Inj 2,500 Mcg/250 Ml Bag) 2,500 mcg in 250 mls @ 2.5 mls/hr IV .Q24H PRN; Protocol PRN Reason: PER PROTOCOL Stop: 06/11/25 16:20 Last Titration: 06/09/25 09:59 Dose: 0 mcg/hr, 0 mls/hr Propofol (Diprivan Ivpb) 1,000 mg in 100 mls @ 2.722 mls/hr IV .Q24H PRN; Protocol PRN Reason: PER PROTOCOL Stop: 07/06/25 16:21 Last Titration: 06/09/25 09:29 Dose: 0 mcg/kg/min, 0 mls/hr Albumin Human (Albuminex 25% Ivpb) 25 gm in 100 mls @ 100 mls/hr IV QDAY JERSON Stop: 07/07/25 00:47 Last Admin: 06/09/25 09:23 Dose: 100 mls/hr Norepinephrine/Dextrose (Levophed In D5w 8mg/250ml) 8 mg in 250 mls @ 8.505 mls/hr IV .Q24H PRN; Protocol PRN Reason: PER PROTOCOL Stop: 07/07/25 11:09 Last Titration: 06/09/25 11:30 Dose: 0.13 mcg/kg/min, 22.113 mls/hr Ceftriaxone Sodium/Dextrose (Rocephin/D5w 1gm Iv Premix) 1 gm in 50 mls @ 100 mls/hr IV DAILY JERSON Stop: 06/10/25 08:59 Last Admin: 06/09/25 08:40 Dose: 100 mls/hr Insulin Human Regular (Insulin Hum Regular 1 Unit/0.01 Ml (Per Unit)) 0 unit SC Q6HR JERSON; Protocol Stop: 07/07/25 11:59 Last Admin: 06/09/25 05:55 Dose: 3 unit Levothyroxine Sodium (Levothyroxine Sodium 25 Mcg Tablet) 50 mcg PO ACBR JERSON; Protocol Stop: 07/05/25 05:59 Last Admin: 06/09/25 05:56 Dose: 50 mcg Ondansetron HCl (Ondansetron Inj 2 Mg/Ml Inj 2 Ml) 4 mg IVP Q6H PRN; Protocol PRN Reason: NAUSEA OR VOMITING Stop: 07/03/25 16:39 Pantoprazole Sodium (Pantoprazole Inj 40 Mg Vial) 40 mg IVP Q12HR JERSON Stop: 07/05/25 08:59 Last Admin: 06/09/25 08:39 Dose: 40 mg Sertraline HCl (Sertraline Hcl 25 Mg Tablet) 100 mg PO DAILY JERSON Stop: 07/05/25 08:59 Last Admin: 06/09/25 09:24 Dose: 100 mg Discontinued Medications Acetaminophen (Acetaminophen 325 Mg Tablet) 650 mg PO X1 ONE Stop: 06/03/25 07:20 Last Admin: 06/03/25 09:01 Dose: 650 mg Acetaminophen (Acetaminophen 325 Mg Tablet) 650 mg PO Q6H PRN PRN Reason: Fever >100.4 or pain Stop: 07/03/25 16:39 Atorvastatin Calcium (Atorvastatin Calcium 20 Mg Tablet) 80 mg PO HS JERSON; Protocol Stop: 07/05/25 20:59 Last Admin: 06/05/25 21:46 Dose: 80 mg Benzocaine (Benzocaine 20% (Hurricaine) [place] 1 Dose) 1 dose TOP X1 ONE Stop: 06/03/25 19:10 Last Admin: 06/06/25 18:15 Dose: Not Given Diphenhydramine HCl (Diphenhydramine Inj 50 Mg/Ml Vial) 25 mg IVP [id number] PRN PRN Reason: MODERATE SEDATION Stop: 06/03/25 21:09 Diphenhydramine HCl (Diphenhydramine Inj 50 Mg/Ml Vial) 25 mg IVP [id number] PRN PRN Reason: MODERATE SEDATION Stop: 06/04/25 22:23 Diphtheria/Tetanus/Acell Pertussis (Diphth,Pertuss(Acell),Tet Vac 0.5 Ml Syr- Adult) 0.5 ml IMi .ONCE ONE Stop: 06/03/25 07:20 Last Admin: 06/03/25 09:02 Dose: 0.5 ml Ezetimibe (Ezetimibe 10 Mg Tablet) 10 mg PO DAILY JERSON Stop: 07/05/25 08:59 Last Admin: 06/06/25 10:17 Dose: Not Given Fentanyl Citrate (Fentanyl Cit Inj 50 Mcg/Ml Amp 2ml) 50 mcg IVP Q2M PRN PRN Reason: MODERATE SEDATION Stop: 06/03/25 21:09 Fentanyl Citrate (Fentanyl Cit Inj 50 Mcg/Ml Amp 2ml) 50 mcg IVP Q2M PRN PRN Reason: MODERATE SEDATION Stop: 06/04/25 22:23 Heparin Sodium (Porcine) (Heparin Sod Inj 1000 Unit/Ml Vial 10 Ml) 2,600 unit INDWELLCAT X1 ONE Stop: 06/07/25 10:24 Last Admin: 06/07/25 10:32 Dose: 2,600 unit Lactated Ringer's (Lactated Ringers) 1,000 mls @ 999 mls/hr IV .Q1H1M ONE Stop: 06/03/25 09:09 Last Infusion: 06/03/25 10:15 Dose: Infused Pantoprazole Sodium (Protonix/Ns 80mg Iv Premix) 80 mg in 100 mls @ 400 mls/hr IV X1 ONE Stop: 06/03/25 09:51 Last Infusion: 06/03/25 10:34 Dose: Infused Pantoprazole Sodium (Protonix/Ns 80mg Iv Premix) 80 mg in 100 mls @ 10 mls/hr IV X1 ONE Stop: 06/03/25 19:36 Last Admin: 06/03/25 10:34 Dose: 10 mls/hr Lactated Ringer's (Lactated Ringers) 1,000 mls @ 999 mls/hr IV .Q1H1M ONE Stop: 06/03/25 12:17 Last Infusion: 06/03/25 12:46 Dose: Infused Ceftriaxone Sodium/Dextrose (Rocephin/D5w 1gm Iv Premix) 1 gm in 50 mls @ 100 mls/hr IV X1 ONE Stop: 06/03/25 17:12 Last Admin: 06/03/25 17:16 Dose: 100 mls/hr Octreotide Acetate 1,000 mcg/ (Sodium Chloride) 102 mls @ 5.1 mls/hr IV .Q20H [facility]; Protocol Stop: 06/08/25 17:00 Last Admin: 06/07/25 07:18 Dose: Not Given Octreotide Acetate 1,000 mcg/ (Sodium Chloride) 102 mls @ 5.1 mls/hr IV .Q20H ONE; Protocol Stop: 06/04/25 12:59 Last Infusion: 06/03/25 21:45 Dose: 50 mcg/hr, 5.1 mls/hr Sodium Chloride (Ns) 1,000 mls @ 75 mls/hr IV .[id number] JERSON Stop: 06/04/25 09:13 Last Admin: 06/03/25 21:44 Dose: 75 mls/hr Ceftriaxone Sodium/Dextrose (Rocephin/D5w 1gm Iv Premix) 1 gm in 50 mls @ 100 mls/hr IV QDAY JERSON Stop: 06/11/25 08:33 Last Infusion: 06/07/25 18:18 Dose: Infused Sodium Chloride (Ns) 500 mls @ 20 mls/hr IV .Q24H ONE Stop: 06/05/25 20:22 Last Admin: 06/06/25 18:15 Dose: Not Given Lactated Ringer's (Lactated Ringers) 1,000 mls @ 100 mls/hr IV .Q10H ONE Stop: 06/06/25 17:41 Last Admin: 06/06/25 08:40 Dose: 100 mls/hr Desmopressin Acetate 27 mcg/ (Sodium Chloride) 56.75 mls @ 113.5 mls/hr IV X1 ONE Stop: 06/06/25 14:44 Last Admin: 06/06/25 18:12 Dose: Not Given Norepinephrine/Dextrose (Levophed In D5w 8mg/250ml) 8 mg in 250 mls @ 8.505 mls/hr IV .Q24H PRN; Protocol PRN Reason: PER PROTOCOL Stop: 07/06/25 15:07 Norepinephrine/Dextrose (Levophed In D5w 8mg/250ml) 8 mg in 250 mls @ 8.505 mls/hr IV .Q24H PRN; Protocol PRN Reason: PER PROTOCOL Stop: 07/06/25 15:39 Last Titration: 06/07/25 15:00 Dose: Infused Lactated Ringer's (Lactated Ringers) 1,000 mls @ 999 mls/hr IV .Q1H1M ONE Stop: 06/06/25 20:24 Last Infusion: 06/07/25 18:18 Dose: Infused Sodium Bicarbonate 88.23 meq/ (Dextrose) 588.23 mls @ 100 mls/hr IV .Q5H53M [facility] Stop: 07/07/25 00:44 Last Infusion: 06/07/25 18:18 Dose: Infused Sodium Bicarbonate 88.23 meq/ (Dextrose) 588.23 mls @ 100 mls/hr IV .Q5H53M JERSON Stop: 07/07/25 07:59 Last Admin: 06/07/25 15:31 Dose: Not Given Octreotide Acetate 1,000 mcg/ (Sodium Chloride) 102 mls @ 5.1 mls/hr IV .Q20H JERSON; Protocol Stop: 06/08/25 17:00 Last Infusion: 06/08/25 17:29 Dose: 0 mcg/hr, 0 mls/hr Lactated Ringer's (Lactated Ringers) 1,000 mls @ 999 mls/hr IV .Q1H1M ONE Stop: 06/07/25 11:03 Last Admin: 06/07/25 11:04 Dose: 999 mls/hr Ceftriaxone Sodium/Dextrose (Rocephin/D5w 1gm Iv Premix) 1 gm in 50 mls @ 100 mls/hr IV BID [facility] Stop: 06/14/25 20:59 Sodium Chloride (Ns) 250 mls @ 999 mls/hr IV .Q16M ONE Stop: 06/07/25 10:45 Last Admin: 06/07/25 10:59 Dose: 999 mls/hr Norepinephrine/Dextrose (Levophed In D5w 8mg/250ml) 8 mg in 250 mls @ 8.505 mls/hr IV .Q24H PRN; Protocol PRN Reason: PER PROTOCOL Stop: 07/06/25 15:39 Sodium Chloride (Ns) 250 mls @ 999 mls/hr IV .Q16M ONE Stop: 06/08/25 08:49 Last Admin: 06/08/25 08:44 Dose: 999 mls/hr Methylene Blue 100 mg/ (Dextrose) 70 mls @ 140 mls/hr IV X1 ONE Stop: 06/09/25 11:14 Last Admin: 06/09/25 11:03 Dose: 140 mls/hr Insulin Human Regular (Insulin Hum Regular 1 Unit/0.01 Ml (Per Unit)) 0 unit SC AC JERSON; Protocol Stop: 07/04/25 07:29 Last Admin: 06/06/25 19:09 Dose: 3 unit Insulin Human Regular (Insulin Hum Regular 1 Unit/0.01 Ml (Per Unit)) 5 unit IV X1 ONE Stop: 06/07/25 00:46 Last Admin: 06/07/25 01:50 Dose: 5 unit Methylene Blue (Methylene Blue Inj 0.5% 5 Mg/Ml Vial 10ml) 100 mg IV X1 ONE Stop: 06/09/25 10:08 Midazolam HCl (Midazolam Inj 1 Mg/Ml Vial 2 Ml) 2 mg IVP Q2M PRN PRN Reason: Moderate Sedation Stop: 06/03/25 21:09 Midazolam HCl (Midazolam Inj 1 Mg/Ml Vial 2 Ml) 2 mg IVP Q2M PRN PRN Reason: Moderate Sedation Stop: 06/04/25 22:23 Mupirocin (Mupirocin Oint 2% 15 Gm Tube) 0 gm TOP X1 ONE Stop: 06/08/25 07:14 Last Admin: 06/08/25 09:20 Dose: 1 appln Pantoprazole Sodium (Pantoprazole Inj 40 Mg Vial) 40 mg IVP Q12HR JERSON Stop: 07/04/25 08:59 Last Admin: 06/04/25 21:53 Dose: 40 mg Pantoprazole Sodium (Pantoprazole 40 Mg Tablet) 40 mg PO Q12HR JERSON Stop: 07/05/25 08:59 Phytonadione (Phytonadione Inj 10 Mg/Ml Amp) 10 mg SC QDAY JERSON Stop: 06/08/25 09:01 Last Admin: 06/08/25 08:14 Dose: 10 mg Polyethylene Glycol/Electrolytes (Na Lloyd/Nahco3/Bridger/Peg (Golytely) 4,000 Ml Btl) 4,000 ml PO X1 ONE Stop: 06/04/25 00:01 Last Admin: 06/03/25 21:44 Dose: 4,000 ml Polyethylene Glycol/Electrolytes (Na Lloyd/Nahco3/Bridger/Peg (Golytely) 4,000 Ml Btl) 4,000 ml PO X1 ONE Stop: 06/03/25 20:30 Last Admin: 06/06/25 18:09 Dose: Not Given Polyethylene Glycol/Electrolytes (Na Lloyd/Nahco3/Bridger/Peg (Golytely) 4,000 Ml Btl) 4,000 ml PO X1 ONE Stop: 06/05/25 15:00 Last Admin: 06/05/25 15:55 Dose: 4,000 ml Sennosides (Senna Tablet) 1 tab PO QDAY PRN; Protocol PRN Reason: constipation Stop: 07/03/25 16:39 Sodium Bicarbonate (Sodium Bicarb Inj 8.4% Syr 50 Ml Syringe) 50 ml IV X1 ONE Stop: 06/06/25 19:13 Last Admin: 06/06/25 19:34 Dose: 50 ml Sodium Bicarbonate (Sodium Bicarb Inj 8.4% Syr 50 Ml Syringe) 50 ml IV X1 ONE Stop: 06/06/25 21:23 Last Admin: 06/06/25 21:27 Dose: 50 ml Assessment & Plan Plan 69y/o Male with PMH of insulin dependent diabetes and thrombocytopenia presented to the hospital on 06/03/2025 after a fall. Patient was found with, maligant obstruction tumor in transverse colon and resceived surgery on 06/06 for colonic mass resection, but had bleeding complications with profound hypotension. Patient was intubated and brought to ICU while on levophed with pRBC transfusions x3. Patient became acidotic. On 06/09, nephrology has been consulted as patient's creatinine is increased from 4.9 to 5.5 with minimal urine output of 30ml #SHAI, requiring hemodialysis -2/2 ATN due to shock VS Pre-renal due to hypoperfusion from bleeding -Upon Admission, BUN:49, Cr: 2.3, eGFR:30. -In 06/08: BUN 47, Cr:4.6, eGFR:13. -Currently, BUN:63, Cr:5.5, eGFR:11. -Patient worsening in renal function. -Renal US (06/04/2025): Right kidney 9.6 cm cortex 1.3 cm Left kidney 8.7 cm cortex 1.4 cm, Left kidney in the pelvis, Moderate renal parenchymal scar formation, No bladder mass or bladder calculi, Bladder prevoid volume 240 cc. Small kidneys with bilateral renal cortical thinning, Moderate bilateral renal parenchymal scar formation -Hemodialysis session: 06/09 Plan: -Avoid nephrotoxins -Renally dose medication -CTM electrolyte level -Patient received conventional hemodialysis today. If patient can't tolerate will transition to CRRT. #NAGMA #HAGMA- Resolving -Mixed metabolic acidosis where patient transitioned from HAGMA from lactic acidosis due to shock to NAGMA from hypercholremia due to large volume saline resuscitation and reduced acid excreation (ATN) -Delta-delta score shows 0.5 which indicates mixed metabolic acidosis (HAGMA + NAGMA) -Unlikely to be Type 4 RTA because K+ is not persistently high (baseline of ~4) and Urine pH does not exceed 5.5 Plan: -CTM electrolytes, daily ABG, urine output, and volume status. 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 Assessment and plan discussed with my attending physician Dr. Jewel Alejo (PGY-1)- Internal medicine resident Attending Provider Attestation/Addendum Patient seen and examined with resident physician Dr. Alejo. Note reviewed, agree with findings and recommendations. Patient currently seen in ICU. On ventilator. On low-dose pressors. Urine output very minimal. SHAI secondary to ATN with anuria. Decided to proceed with conventional dialysis and see if she he tolerates. Status post bowel surgery. Also and so far negative. Patient on dialysis. Tolerating dialysis without any problems. Hemodialysis for 3 hours, blood flow 200, 2K, ultrafiltration 0 L, Epogen 6000, no heparin ordered. Plan of care discussed with the dialysis nurse. Please see dialysis flowsheet for further details. Care discussed with ICU team and Dr. Jeffries. Thank you Bella for allowing me to participate in the care of Mr. Franz
--- NOTE | 2025-06-09 12:11 | ESPR_ITS ---
<Statement entered by Pipo Lobo MD - 06/09/25 16:16> I saw and examined patient personally and supervised PGY 1 resident, Dr. Grace with formulating a management plan. I agree with the documentation with the exceptions as listed below. Patient is a 69 yo M w/ PMH of IDDM and thrombocytopenia who was admitted to the ICU s/p right maranda-colectomy performed by General Surgery on 06/06/25. Patient remains intubated, mechanically ventilated and sedated and preparation for return to the OR to close the abdomen. Problem list: 1. Shock?likely distributive 2. Acute blood loss anemia secondary to GI bleed and right hemicolectomy on 06/06 3. Day 4 postop right hemicolectomy secondary to near obstructing adenocarcinoma of the colon 4. Day 2 postop abdominal closure 5. Acute respiratory failure requiring intubation and mechanical ventilation 6. 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 Hypoalbuminemia 8. Transaminitis secondary to end stage liver disease and shock 9. 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 Hyperphosphatemia 11. SHAI secondary to shock and possible underlying hepato-renal syndrome requiring HD 12. Esophageal varices s/p banding on octreotide infusion to complete on 06/08 13. Leukocytosis?likely reactive postoperatively Overnight patient's norepinephrine was weaned from 0.2 down to 0.13. Input 2534 cc, output 185 cc, balance 2349 cc. He continues to be on norepinephrine and albumin for blood pressure support due to his distributive shock from liver cirrhosis. Today we will administer 1 dose of methylene blue 100 mg IV x 1 for refractory distributive shock. With regards to patient's worsening SHAI with only 5 cc/h urine output overnight we will consult nephrology for urgent hemodialysis. We also obtained a oncology consultation to evaluate patient's liver lesions and pulmonary nodules. Patient continues to have severe transaminitis with AST >1000, ALT 2345 and ALP 580. However it is downtrending and we will continue to monitor. Treating underlying etiology of shock will help. This morning patient's ABG showed pH 7.38 and pCO2 30. Will attempt sedation vacation, once patient is awake enough to follow commands will also attempt to switch ventilator mode to spontaneous. Plan of care discussed with Attending Dr. Mervin Lobo MD PGY 2 Disclaimer: This note was dictated by speech recognition. Minor errors in collection coordinator may be present due to voice recognition software. Documentation for date of: 06/09/25 Subjective Subjective Interval history: Patient is a 69 yo M w/ PMH of IDDM and thrombocytopenia who was admitted to the ICU s/p right maranda-colectomy performed by General Surgery on 06/06/25. He had initially been admitted to the hospital on 06/03 for GI bleed where he was found to have a platelet count in the 40s, hemoglobin 8, liver cirrhosis and mass with pulmonary nodules on CT, and malignant, obstructing colonic mass in the transverse colon on 06/04 EGD (later found to be well-differentiated invasive adenocarcinoma by Pathology). Patient was taken to the OR on 06/06 for resection of the colonic mass but the procedure was complicated by approximately a liter of blood loss as well as profound hypotension despite blood pressure support with 3 pressors and the decision was made to leave the abdomen open for re-exploration on 06/08. At that point, he was intubated and brought to the ICU while on low-dose Levophed. Patient had received pRBC transfusion x 1 while in the OR and pRBC transfusion x 2 in the ICU. Patient's labs shortly after being moved from OR found that he was significantly acidotic with both a metabolic acidosis (lactic acid 10) and concomitant respiratory acidosis. Interval History 06/07/25: Overnight, patient was noted to have high output from the wound VAC of at least 2 L of fluid and was started on a bicarbonate drip for his acidemia. Patient was examined at bedside; he remains intubated with OG tube in place as well as wound VAC installed at the midline of the abdomen draining reddish fluid. A right IJ central line and arterial line have been successfully installed. This morning, his hemoglobin has stabilized, LA down-trended to 6.3 from 10, and total UOP overnight was about 40 mL. Patient's recent creatinine baseline was around 2.2 (last creatinine reading of 0.8 was more than 8 years ago) but it has now steadily up-trended to 3.1 this morning, indicating SHAI which is likely 2/2 intravascular depletion from blood loss during the surgery. Based on findings from the NICOM patient seems to be fluid responsive and he will receive 1 L of LR. On bedside echocardiogram, the heart was difficult to visualize but no pericardial effusions were seen. From reviewing patient's lab values upon 06/03 admission, it seems that patient already had a non-anion gap metabolic acidosis (bicarbonate 17.6, chloride 114) at that time; the etiology is unclear but could be due to liver failure. Patient is slated to resume his surgical procedure on 06/08 and will also be started on IV ceftriaxone for SBP prophylaxis. 06/08/25: Overnight, patient had a total urine output of 500 mL and wound VAC took out 1 L of abdominal fluid. Patient was examined at bedside; he appears asleep (still intubated) and does not respond to voice but does respond to pain elicited via abdominal palpation. Pertinent labs today include WBC now 25.2 from 20.4, hemoglobin now 8.8 from 9.8, platelet count now 99 from 131, PT now 20.9 from 20.3, INR now 2.0 from 1.9, APTT now 33.3 from 31.5, blood glucose 319, potassium now 5.3 from 5.1, phosphorus now 7.2 from 9.0, AST > 1000, ALT > 3300, alkaline phosphatase now 705 from 498, and creatinine now 4.6 from 3.5. Urine electrolyte labs showed random creatinine 194, random sodium < 15.0, random potassium 60, and random chloride < 20.0; calculated urine anion gap is 55 and suggests Type IV RTA (hypoaldosteronic conditions) which is most likely 2/2 diabetic nephropathy (will order HIV panel to rule out HIV-related Type IV RTA). Patient will be returning to the OR in the afternoon today to have his abdomen closed. After patient returns from his procedure, plans will be made to extubate him in a timely manner. 06/09/25: No overnight events. Patient was examined at bedside; they remained intubated on ACMV with TV 550, RR 26, PEEP 5, and FiO2 45% with the following drips: 15 prop, 100 fent, and 0.21 Levo. On physical exam, patient is noted to be bleeding through the abdominal binder placed on him from the right flank at the level of the xiphoid process. There are also areas of dried blood at the right IJ and the peripheral IV located at the right antecubital fossa and his feet appear a bit puffier in appearance today. Today, NICOM showed SVI 30, SV 64.5, CI 2.4, CO 5.2, TPR 800, and TPRI 1735; the low TPR and low normal TPRI even while patient is on Levophed suggests that patient continues to be in a state of systemic vasodilation which implies that his ongoing shock is distributive in etiology. Patient's UOP overnight was 30 mL and creatinine is now 5.5 from 4.9 yesterday; both indicate that patient's SHAI seems to be worsening, which is likely due to renal hypoperfusion in the setting of shock. As such, Nephrology (Dr. Holloway) has been consulted for patient's possible need for HD. Patient's hemoglobin remains stable after abdominal closure at around 8.5 and his coagulation panel seems improved due to the 2 transfusions of FFP yesterday. However, his platelets have down-trended to 55 from 99 yesterday. Moving forward, patient will be trialed on sedation vacation before putting him through SBT to guide timely extubation efforts. He will also be started on methylene blue with the idea that it will help restore vascular tone by inhibiting the nitric oxide-cGMP pathway that is often overactive in vasodilatory states. thereby improving blood pressures and reducing the need for vasopressors. Exam Vital Signs Temp Pulse Resp BP Pulse Ox O2 Del Method O2 Flow Rate 97.7 F 94 26 H 109/58 L 94 L Mechanical Ventilation 1 06/09/25 08:01 06/09/25 11:30 06/08/25 18:37 06/09/25 11:30 06/09/25 11:30 06/07/25 16:01 06/06/25 09:27 FiO2 35 06/09/25 09:59 Narrative Exam General: Frail, ill-appearing, pale, and elderly male. Head: Normocephalic, atraumatic. Bruise on right scalp. Eyes: PERRL. Anicteric. Mouth/Throat: ET tube and OG tube in place. Oral mucosa moist. Cardiovascular: Difficult to auscultate clearly but seemingly regular rate and rhythm, no murmur, no JVD or carotid bruits. +S1/S2. Respiratory: Bilateral lungs are clear to auscultation, respirations unlabored, no crackles, no wheezing. No accessory muscle use. Gastrointestinal: Abdominal binder in place with bleeding through the binder at the right flank at the level of the xiphoid process. Soft, non-distended, no palpable masses. Hypoactive bowel sounds. Extremities: Bruising of bilateral lower extremities, moreso on right side. 1+ pitting edema bilaterally, pulses present bilaterally, mild cyanosis of left toes, no clubbing or mottling noted. Puffiness of hands with slight dusky tinge appreciated at the fingertips of right hand. Feet appear puffier today. Third toe on right foot shorter than surrounding toes. Skin: Dried blood noted at right IJ central line insertion point and peripheral IV insertion point at the right antecubital fossa. Serosanguinous weeping of lesion on right arm as well as new ulceration noted at right lateral forearm. Areas of bruising noted at the right lateral abdomen, portion of the back inferior to the right scapula, right thigh, and gluteal region. Objective Labs 06/09/25 05:02 06/09/25 05:02 Labs: Laboratory Results - last 24 hr 06/06/25 06/08/25 06/08/25 08:38 04:32 14:27 WBC RBC Hgb Hct MCV MCH MCHC RDW Std Deviation Plt Count Neut % (Auto) Lymph % (Auto) Wise % (Auto) Eos % (Auto) Baso % (Auto) Neut # (Auto) Lymph # (Auto) Wise # (Auto) Eos # (Auto) Baso # (Auto) Immature Gran # (Auto) Absolute Nucleated RBC Immature Gran % Nucleated RBC % PT INR APTT Fibrinogen Puncture Site ABG pH ABG pCO2 ABG pO2 ABG HCO3 ABG O2 Saturation ABG Base Excess FiO2 Sodium Potassium Chloride Carbon Dioxide Anion Gap BUN Creatinine Estim Creat Clear Calc eGFR BUN/Creatinine Ratio Glucose Calculated Osmolality Lactic Acid 3.1 H Calcium Corrected Calcium Phosphorus Magnesium Total Bilirubin AST ALT Alkaline Phosphatase Total Protein Albumin Globulin Albumin/Globulin Ratio HIV 1&2 Antibody Rapid Non-Reactive Misc Test Result Blood Type O Positive Antibody Screen POSITIVE Antibody Identification Cold Antibody Crossmatch See Detail Blood Bank Wristband ID Yes Blood Bank Comment FFP Ready 06/08/25 06/08/25 06/08/25 15:14 15:27 19:19 WBC 19.5 H D RBC 2.63 L Hgb 7.1 L Hct 21.9 L* MCV 83 MCH 27.0 MCHC 32.4 RDW Std Deviation 54.4 H Plt Count 47 L D Neut % (Auto) 82 H Lymph % (Auto) 10 Wise % (Auto) 7 Eos % (Auto) 0 Baso % (Auto) 0 Neut # (Auto) 16.1 H Lymph # (Auto) 1.9 Wise # (Auto) 1.3 H Eos # (Auto) 0.0 Baso # (Auto) 0.0 Immature Gran # (Auto) 0.14 H Absolute Nucleated RBC 0.06 H Immature Gran % 1 H Nucleated RBC % 0 PT INR APTT Fibrinogen Puncture Site Arterial Line Right Femoral ABG pH 7.38 7.39 ABG pCO2 29 L 29 L ABG pO2 66 L D 89 D ABG HCO3 17 L 17 L ABG O2 Saturation 94 98 ABG Base Excess -7 L -7 L FiO2 45 45 Sodium 138 Potassium 5.0 Chloride 106 Carbon Dioxide 15.9 L Anion Gap 16 BUN 56 H Creatinine 4.9 H* Estim Creat Clear Calc 17.0 L eGFR 12 L* BUN/Creatinine Ratio 11 L Glucose 303 H Calculated Osmolality 302 H Lactic Acid 2.8 H Calcium 7.3 L Corrected Calcium 8.3 L Phosphorus 7.6 H Magnesium 1.8 Total Bilirubin 1.2 AST > 1000 H* ALT 2513 H* Alkaline Phosphatase 567 H D Total Protein 4.6 L Albumin 2.8 L Globulin 1.8 L Albumin/Globulin Ratio 1.6 HIV 1&2 Antibody Rapid Misc Test Result Platelets confirmed Blood Type Antibody Screen Antibody Identification Crossmatch Blood Bank Wristband ID Blood Bank Comment 06/08/25 06/09/25 06/09/25 21:06 00:20 04:09 WBC RBC Hgb 8.3 L 8.1 L Hct 25.2 L 24.4 L MCV MCH MCHC RDW Std Deviation Plt Count Neut % (Auto) Lymph % (Auto) Wise % (Auto) Eos % (Auto) Baso % (Auto) Neut # (Auto) Lymph # (Auto) Wise # (Auto) Eos # (Auto) Baso # (Auto) Immature Gran # (Auto) Absolute Nucleated RBC Immature Gran % Nucleated RBC % PT INR APTT Fibrinogen Puncture Site Right Femoral ABG pH 7.38 ABG pCO2 30 L ABG pO2 70 L ABG HCO3 17 L ABG O2 Saturation 94 ABG Base Excess -7 L FiO2 45 Sodium Potassium Chloride Carbon Dioxide Anion Gap BUN Creatinine Estim Creat Clear Calc eGFR BUN/Creatinine Ratio Glucose Calculated Osmolality Lactic Acid Calcium Corrected Calcium Phosphorus Magnesium Total Bilirubin AST ALT Alkaline Phosphatase Total Protein Albumin Globulin Albumin/Globulin Ratio HIV 1&2 Antibody Rapid Misc Test Result Blood Type Antibody Screen Antibody Identification [facility] Blood Bank [facility] Blood Bank Comment 06/09/25 05:02 WBC 22.3 H RBC 3.11 L Hgb 8.5 L Hct 25.9 L MCV 83 MCH 27.3 MCHC 32.8 RDW Std Deviation 52.9 H Plt Count 55 L Neut % (Auto) 83 H Lymph % (Auto) 8 L Wise % (Auto) 7 Eos % (Auto) 1 Baso % (Auto) 0 Neut # (Auto) 18.5 H Lymph # (Auto) 1.9 Wise # (Auto) 1.6 H Eos # (Auto) 0.1 Baso # (Auto) 0.0 Immature Gran # (Auto) 0.20 H Absolute Nucleated RBC 0.07 H Immature Gran % 1 H Nucleated RBC % 0 PT 16.8 H D INR 1.6 H APTT 33.8 Fibrinogen 201 Puncture Site ABG pH ABG pCO2 ABG pO2 ABG HCO3 ABG O2 Saturation ABG Base Excess FiO2 Sodium 137 Potassium 4.9 Chloride 105 Carbon Dioxide 16.0 L Anion Gap 16 BUN 63 H Creatinine 5.5 H* D Estim Creat Clear Calc 15.2 L eGFR 11 L* BUN/Creatinine Ratio 11 L Glucose 282 H Calculated Osmolality 301 H Lactic Acid Calcium 7.5 L Corrected Calcium 8.5 Phosphorus 7.5 H Magnesium 1.9 Total Bilirubin 1.2 AST > 1000 H* ALT 2345 H* Alkaline Phosphatase 580 H Total Protein 4.6 L Albumin 2.7 L Globulin 1.9 L Albumin/Globulin Ratio 1.4 HIV 1&2 Antibody Rapid Misc Test Result Platelets confirmed Blood Type Antibody Screen Antibody Identification [facility] Blood Bank [facility] Blood Bank Comment ABG Interpretation ABG results: 06/06/25 06/06/25 06/06/25 16:05 18:18 20:48 ABG pH 7.16 L* 7.13 L* 7.13 L* ABG pCO2 45 36 35 ABG pO2 190 H 76 L D 80 L ABG HCO3 16 L 12 L 12 L ABG O2 Saturation 101 H 93 94 ABG Base Excess -12 L -16 L -17 L 06/06/25 06/07/25 06/07/25 22:31 03:02 10:20 ABG pH 7.21 L 7.30 L 7.37 ABG pCO2 32 30 L 26 L ABG pO2 72 L 130 H D 120 H ABG HCO3 13 L 15 L 15 L ABG O2 Saturation 94 100 H 99 H ABG Base Excess -14 L -11 L -9 L 06/07/25 06/07/25 06/08/25 16:00 19:59 15:14 ABG pH 7.39 7.36 7.38 ABG pCO2 27 L 28 L 29 L ABG pO2 112 H 97 66 L D ABG HCO3 16 L 16 L 17 L ABG O2 Saturation 99 H 98 94 ABG Base Excess -8 L -8 L -7 L 06/08/25 06/09/25 19:19 04:09 ABG pH 7.39 7.38 ABG pCO2 29 L 30 L ABG pO2 89 D 70 L ABG HCO3 17 L 17 L ABG O2 Saturation 98 94 ABG Base Excess -7 L -7 L Quality Measures Quality Measures VTE prophylaxis Advance care planning discussed with:: patient Assessment & Plan Assessment Current Active Medications: Generic Name Dose Route Start Last Admin Trade Name Freq PRN Reason Stop Dose Admin Calcium Acetate 667 mg 06/07/25 14:05 06/09/25 08:40 Calcium Acetate 667 Mg Tablet NG 07/07/25 14:04 667 mg TIDWM JERSON Administration Dextrose 25 ml 06/03/25 18:26 Dextrose 50%-Water Inj 50 Ml Syringe IV 07/03/25 18:25 Q15MIN PRN BG 50-70 responsive npo pt Dextrose 50 ml 06/03/25 18:26 Dextrose 50%-Water Inj 50 Ml Syringe IV 07/03/25 18:25 Q15MIN PRN BG <50 OR BG <70 & pt unresponsive Glucagon 1 mg 06/03/25 18:26 Glucagon Inj 1 Mg Vial IM Q15MIN PRN BG <70, and no IV access Haloperidol Lactate 5 mg 06/06/25 16:21 Haloperidol Lact Inj 5 Mg/Ml Vial IV 07/06/25 16:20 Q6HR PRN AGITATION Fentanyl Citrate 2,500 mcg in 250 mls @ 2.5 mls/hr 06/06/25 16:21 06/09/25 09:59 Sublimaze Inj 2,500 Mcg/250 Ml Bag IV 06/11/25 16:20 0 mcg/hr .Q24H PRN 0 mls/hr PER PROTOCOL Titration Protocol 25 MCG/HR Propofol 1,000 mg in 100 mls @ 2.722 mls/hr 06/06/25 16:22 06/09/25 09:29 Diprivan Ivpb IV 07/06/25 16:21 0 mcg/kg/min .Q24H PRN 0 mls/hr PER PROTOCOL Titration Protocol 5 MCG/KG/MIN Albumin Human 25 gm in 100 mls @ 100 mls/hr 06/07/25 00:48 06/09/25 09:23 Albuminex 25% Ivpb IV 07/07/25 00:47 100 mls/hr QDAY JERSON Administration Norepinephrine/Dextrose 8 mg in 250 mls @ 8.505 mls/hr 06/07/25 11:10 06/09/25 11:30 Levophed In D5w 8mg/250ml IV 07/07/25 11:09 0.13 mcg/kg/min .Q24H PRN 22.113 mls/hr PER PROTOCOL Titration Protocol 0.05 MCG/KG/MIN Ceftriaxone Sodium/Dextrose 1 gm in 50 mls @ 100 mls/hr 06/08/25 09:00 06/09/25 08:40 Rocephin/D5w 1gm Iv Premix IV 06/10/25 08:59 100 mls/hr DAILY JERSON Administration Insulin Human Regular 0 unit 06/07/25 12:00 06/09/25 05:55 Insulin Hum Regular 1 Unit/0.01 Ml (Per Unit) SC 07/07/25 11:59 3 unit Q6HR JERSON Administration Protocol Levothyroxine Sodium 50 mcg 06/05/25 06:00 06/09/25 05:56 Levothyroxine Sodium 25 Mcg Tablet PO 07/05/25 05:59 50 mcg ACBR JERSON Administration Protocol Ondansetron HCl 4 mg 06/03/25 16:40 Ondansetron Inj 2 Mg/Ml Inj 2 Ml IVP 07/03/25 16:39 Q6H PRN NAUSEA OR VOMITING Protocol Pantoprazole Sodium 40 mg 06/05/25 09:00 06/09/25 08:39 Pantoprazole Inj 40 Mg Vial IVP 07/05/25 08:59 40 mg Q12HR JERSON Administration Sertraline HCl 100 mg 06/05/25 09:00 06/09/25 09:24 Sertraline Hcl 25 Mg Tablet PO 07/05/25 08:59 100 mg DAILY JERSON Administration Plan Patient is a 69 yo M w/ PMH of IDDM and thrombocytopenia who was admitted to the ICU s/p right maranda-colectomy performed by General Surgery on 06/06/25. No overnight events. Patient was examined at bedside; they remained intubated on ACMV with TV 550, RR 26, PEEP 5, and FiO2 45% with the following drips: 15 prop, 100 fent, and 0.21 Levo. On physical exam, patient is noted to be bleeding through the abdominal binder placed on him from the right flank at the level of the xiphoid process. There are also areas of dried blood at the right IJ and the peripheral IV located at the right antecubital fossa and his feet appear a bit puffier in appearance today. Today, NICOM showed SVI 30, SV 64.5, CI 2.4, CO 5.2, TPR 800, and TPRI 1735; the low TPR and low normal TPRI even while patient is on Levophed suggests that patient continues to be in a state of systemic vasodilation which implies that his ongoing shock is distributive in etiology. Patient's UOP overnight was 30 mL and creatinine is now 5.5 from 4.9 yesterday; both indicate that patient's SHAI seems to be worsening, which is likely due to renal hypoperfusion in the setting of shock. As such, Nephrology (Dr. Holloway) has been consulted for patient's possible need for HD. Patient's hemoglobin remains stable after abdominal closure at around 8.5 and his coagulation panel seems improved due to the 2 transfusions of FFP yesterday. However, his platelets have down-trended to 55 from 99 yesterday. Moving forward, patient will be trialed on sedation vacation before putting him through SBT to guide timely extubation efforts. He will also be started on methylene blue with the idea that it will help restore vascular tone by inhibiting the nitric oxide-cGMP pathway that is often overactive in vasodilatory states. thereby improving blood pressures and reducing the need for vasopressors. Neuro #Chemical sedation Rx: -Propofol and fentanyl have been stopped in preparation for SBTs in order to guide timely extubation Cardiac #Undifferentiated shock, likely mixed components of both hypovolemic and distributive etiologies Patient's blood pressure from 06/06 onwards have been soft and had initially been attributed to hypovolemia in the setting of acute blood loss during patient's recent surgery and distributive shock in the setting of possible adrenal insufficiency and / or cirrhosis-induced vasodilation of the splanchnic circulation. No evidence of obstructive etiologies like cardiac tamponade on bedside echo, nor evidence of pulmonary embolism, tension pneumothorax, constrictive pericarditis, ascites, or abdominal compartment syndrome DDx: obstructive etiologies, cardiogenic etiologies Dx: -Today, NICOM showed SVI 30, SV 64.5, CI 2.4, CO 5.2, TPR 800, and TPRI 1735; the low TPR and low normal TPRI even while patient is on Levophed (in the setting of ongoing hypotension despite fluid resuscitation) suggests that patient continues to be in a state of systemic vasodilation and his ongoing shock is less hypovolemic and more distributive in etiology. Rx: -IV methylene blue 0.5% x 1 with the idea that it will help restore vascular tone by inhibiting the nitric oxide-cGMP pathway that is often overactive in vasodilatory states thereby improving blood pressures and reducing the need for vasopressors -Due to patient's wide pulse pressure, IV Levophed will be titrated to maintain SBP > 90 as parameters centered on MAP may be falsely reassuring (MAP can appear normal while diastolic pressures are unacceptably low which may lead to inadequate perfusion of organs, especially the heart which perfuses during diastole) Respiratory #Acute respiratory failure, requiring intubation and mechanical ventilation #COPD #Pulmonary fibrosis Patient is intubated and on mechanical ventilation after his 06/06 procedure. Lab findings suggest a mixed metabolic acidosis and respiratory alkalosis. Lactic acidosis is likely at least one component of patient's metabolic acidosis while patient's newly low pCO2 leading to respiratory alkalosis may be due to overly high respiratory rate or tidal volume ventilator settings Dx: -06/09 ABG @ 13:39 showed pH 7.38 -> 7.26 (slightly acidotic), pCO2 30 -> 40 (respiratory alkalosis resolved), bicarbonate 17 -> 18 (metabolic acidosis) -06/09 lactic acid @ 14:03 of 2.8 -> 1.4 -06/03 CT CAP showed COPD with multiple areas of airspace destruction -06/03 CXR suspicious for pulmonary fibrosis Rx: -Daily SBTs to guide timely extubation -If extubation parameters are unfavorable, continue intubation and mechanical ventilation, adjusting ventilator settings as guided by ABG monitoring #Pulmonary nodule 06/03/25 CT CAP visualized a 16 mm pulmonary nodule of the right upper lobe. In the setting of Pathology-confirmed, well-differentiated, invasive adenocarcinoma, as well as multiple liver lesions concerning for hepatic metastases, this is concerning for pulmonary metastasis from malignancy of likely GI origin Rx: -Radiation Oncology (Dr. Lundberg) has been consulted and it was recommended that patient undergo elective PET scan of liver and pulmonary nodules to guide further oncologic management after patient is clinically stabilized GI #Post-op day #4 for right hemicolectomy 2/2 near-obstructing adenocarcinoma of the proximal transverse colon Patient was taken to the OR on 06/06 for resection of the colonic mass but the procedure was complicated by approximately a liter of blood loss as well as profound hypotension despite blood pressure support with 3 pressors and the decision was made to leave the abdomen open for re-exploration today He then underwent exploratory laparotomy on 06/08 for removal of his abdominal packing, abdominal washout, and closure RRx: -Hemoglobin has remained stable at around 8.5 today #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 #Hypoalbuminemia Child-Chau Score: 9 (30% abdominal surgery sandra-operative mortality), MELD-Na Score: 29 (27-32% 90-day mortality) Dx: -06/03/25 CT CAP showed cirrhosis of the liver which is markedly irregular in contour and also has multiple poorly defined liver lesions with the largest in the right lobe at 7.6 cm and another measuring 4.4 cm in the lower right lobe of the liver -Low albumin levels between 2.4 and 3.0 this admission are likely 2/2 cirrhosis -Hepatitis panel negative -Per chart review, patient denies history of alcohol or IV drug use Rx: -Will start loop diuretic and rifaximin once patient is clinically stabilized #GI bleed Likely 2/2 colonic mass later identified as well-differentiated, invasive adenocarcinoma of the proximal transverse colon s/p endoscopic band ligation of grade II esophageal varices x 2 s/p octreotide drip [06/06-06/08] Dx: -Gastritis was also noted on EGD -Hemoglobin remains stable Rx: -IV Protonix 40 mg q12HR -Due to patient's cirrhotic status w/ recent acute GI bleed, patient meets criteria for [id number] of IV ceftriaxone 1 gm qD for SBP prophylaxis [06/04- 06/10] -GI consulted, appreciate recommendations #Colonic mass Identified as well-differentiated, 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 Patient's ability to clear his lactic acidosis is impaired by his acute kidney injury as well as cirrhosis. Calculated urine anion gap = +55, which, in the setting of hyperkalemia of 5.2, is suggestive of RTA Type IV (most likely 2/2 diabetic nephropathy but HIV nephropathy cannot be ruled out) Dx: -Delta-delta (change in anion gap / change in bicarbonate) shows a concomitant NAGMA which is likely the hyperchloremic metabolic acidosis already present on arrival -Lactic acidosis resolved, LA now 1.4 (06/09 @ 14:03) -Urine electrolytes showed a positive anion gap around +55 -HIV 1 and 2 (-) Rx: -Consider starting patient on a loop diuretic in the outpatient setting after stabilized for discharge #Hypocalcemia #Hyperphosphatemia Rx: -Started on NG calcium acetate 667 mg TIDWM -Monitor CMP Heme #Leukocytosis, likely reactive postoperatively Likely reactive in the setting of recent surgery and blood loss, downtrending #Acute blood loss anemia 2/2 GI bleed and right hemicolectomy on 06/06 Patient came in with an acute GI bleed thought 2/2 colonic mass later identified as well-differentiated, 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 After 06/06 right maranda-colectomy, hemoglobin dropped to 6.6 and he was transfused w/ 2 units pRBCs. Since 06/08 abdominal closure, patient's hemoglobin has remained stable Rx: -Monitor CBC, transfuse if hemoglobin < 7 #Thrombocytopenia Occurs in the setting of cirrhosis, patient was transfused w/ platelets and his bleeding appears to have currently stopped. Dx: -Platelets now 55 from 99 yesterday Rx: -Transfuse platelets if less than 50 with active bleeding or less than 15 #Coagulopathy Patient's admission labs showing thrombocytopenia, elevated PT, INR, and low fibrinogen were consistent with low-grade DIC; however, the patient also has cirrhosis. His INR and fibrinogen however was normal on arrival pointing to perhaps more low-grade DIC. Has improved after 2 transfusions of FFP and 2 doses of vitamin K on 06/08 Dx: -Most recent coagulation panel showed PT 20.9 -> 16.8, INR 2.0 -> 1.6, and PTT 33.5 -> 33.8 -Fibrinogen 135 -> 201 (06/09, 05:02) Rx: -Monitor coagulation panel Endocrine #Hypothyroidism Rx: -Continue home medication: PO levothyroxine 50 mcg ACBR #T2DM Dx: -06/04/25 hemoglobin A1c = 7.1% Rx: -Insulin sliding scale ID #UTI Dx: -06/03 UA indicated likely UTI -06/03 UCx grew quiros-sensitive Proteus mirablis Rx: -Patient has been receiving IV ceftriaxone 1 gm qD since 06/04 (plan to continue until 06/10) which should be adequate coverage #Esophageal varices, s/p band ligation on 06/03 and [octreotide infusion 06/06- 06/08] Rx: -IV ceftriaxone 1 gm qD [started 06/04, end date planned for 06/10] to prevent SBP and other infections Disposition: Requires continued ICU management due to intubated status DVT prophylaxis: None (bleeding risk) GI prophylaxis: IV Protonix 40 mg q12HR Diet: NPO Healy: Present Lines: Peripheral IV, Central IV, arterial line Antibiotics: IV ceftriaxone 1 gm qD [started 06/04, end date planned for 06/10] CODE STATUS: DNR Patient care was discussed with my senior resident, Dr. Lobo (PGY-2) , and attending measurement psychologist, Dr. Jeffries. Rony Grace, DO Internal Medicine, PGY-1
--- NOTE | 2025-06-09 13:43 | PD.IMPROG ---
Documentation for date of: 06/09/25 Subjective Subjective Interval history: Patient remains mechanically ventilated WBC count going down Exam Vital Signs Temp Pulse Resp BP Pulse Ox O2 Del Method O2 Flow Rate 97.2 F 99 26 H 90/49 L 95 Mechanical Ventilation 1 06/09/25 13:34 06/09/25 13:34 06/09/25 13:34 06/09/25 13:34 06/09/25 13:34 06/07/25 16:01 06/09/25 13:34 FiO2 35 06/09/25 13:34 Objective Labs 06/09/25 05:02 06/09/25 05:02 Labs: Laboratory Results - last 24 hr 06/06/25 06/08/25 06/08/25 08:38 14:27 15:14 WBC RBC Hgb Hct MCV MCH MCHC RDW Std Deviation Plt Count Neut % (Auto) Lymph % (Auto) [place] % (Auto) Eos % (Auto) Baso % (Auto) Neut # (Auto) Lymph # (Auto) [place] # (Auto) Eos # (Auto) Baso # (Auto) Immature Gran # (Auto) Absolute Nucleated RBC Immature Gran % Nucleated RBC % PT INR APTT Fibrinogen Puncture Site Arterial Line ABG pH 7.38 ABG pCO2 29 L ABG pO2 66 L D ABG HCO3 17 L ABG O2 Saturation 94 ABG Base Excess -7 L FiO2 45 Sodium Potassium Chloride Carbon Dioxide Anion Gap BUN Creatinine Estim Creat Clear Calc eGFR BUN/Creatinine Ratio Glucose Calculated Osmolality Lactic Acid 3.1 H Calcium Corrected Calcium Phosphorus Magnesium Total Bilirubin AST ALT Alkaline Phosphatase Total Protein Albumin Globulin Albumin/Globulin Ratio Misc Test Result Blood Type O Positive Antibody Screen POSITIVE Antibody Identification Cold Antibody Crossmatch See Detail Blood Bank Wristband ID Yes Blood Bank Comment FFP Ready 06/08/25 06/08/25 06/08/25 15:27 19:19 21:06 WBC 19.5 H D RBC 2.63 L Hgb 7.1 L 8.3 L Hct 21.9 L* 25.2 L MCV 83 MCH 27.0 MCHC 32.4 RDW Std Deviation 54.4 H Plt Count 47 L D Neut % (Auto) 82 H Lymph % (Auto) 10 [place] % (Auto) 7 Eos % (Auto) 0 Baso % (Auto) 0 Neut # (Auto) 16.1 H Lymph # (Auto) 1.9 [place] # (Auto) 1.3 H Eos # (Auto) 0.0 Baso # (Auto) 0.0 Immature Gran # (Auto) 0.14 H Absolute Nucleated RBC 0.06 H Immature Gran % 1 H Nucleated RBC % 0 PT INR APTT Fibrinogen Puncture Site Right Femoral ABG pH 7.39 ABG pCO2 29 L ABG pO2 89 D ABG HCO3 17 L ABG O2 Saturation 98 ABG Base Excess -7 L FiO2 45 Sodium 138 Potassium 5.0 Chloride 106 Carbon Dioxide 15.9 L Anion Gap 16 BUN 56 H Creatinine 4.9 H* Estim Creat Clear Calc 17.0 L eGFR 12 L* BUN/Creatinine Ratio 11 L Glucose 303 H Calculated Osmolality 302 H Lactic Acid 2.8 H Calcium 7.3 L Corrected Calcium 8.3 L Phosphorus 7.6 H Magnesium 1.8 Total Bilirubin 1.2 AST > 1000 H* ALT 2513 H* Alkaline Phosphatase 567 H D Total Protein 4.6 L Albumin 2.8 L Globulin 1.8 L Albumin/Globulin Ratio 1.6 Misc Test Result Platelets confirmed Blood Type Antibody Screen Antibody Identification Crossmatch Blood Bank Wristband ID Blood Bank Comment 06/09/25 06/09/25 06/09/25 00:20 04:09 05:02 WBC 22.3 H RBC 3.11 L Hgb 8.1 L 8.5 L Hct 24.4 L 25.9 L MCV 83 MCH 27.3 MCHC 32.8 RDW Std Deviation 52.9 H Plt Count 55 L Neut % (Auto) 83 H Lymph % (Auto) 8 L [place] % (Auto) 7 Eos % (Auto) 1 Baso % (Auto) 0 Neut # (Auto) 18.5 H Lymph # (Auto) 1.9 [place] # (Auto) 1.6 H Eos # (Auto) 0.1 Baso # (Auto) 0.0 Immature Gran # (Auto) 0.20 H Absolute Nucleated RBC 0.07 H Immature Gran % 1 H Nucleated RBC % 0 PT 16.8 H D INR 1.6 H APTT 33.8 Fibrinogen 201 Puncture Site Right Femoral ABG pH 7.38 ABG pCO2 30 L ABG pO2 70 L ABG HCO3 17 L ABG O2 Saturation 94 ABG Base Excess -7 L FiO2 45 Sodium 137 Potassium 4.9 Chloride 105 Carbon Dioxide 16.0 L Anion Gap 16 BUN 63 H Creatinine 5.5 H* D Estim Creat Clear Calc 15.2 L eGFR 11 L* BUN/Creatinine Ratio 11 L Glucose 282 H Calculated Osmolality 301 H Lactic Acid Calcium 7.5 L Corrected Calcium 8.5 Phosphorus 7.5 H Magnesium 1.9 Total Bilirubin 1.2 AST > 1000 H* ALT 2345 H* Alkaline Phosphatase 580 H Total Protein 4.6 L Albumin 2.7 L Globulin 1.9 L Albumin/Globulin Ratio 1.4 Misc Test Result Platelets confirmed Blood Type Antibody Screen Antibody Identification Crossmatch Blood Bank Wristband ID Blood Bank Comment Impressions Impression: Well-differentiated adeno carcinoma invasive of the transverse colon status post surgical intervention Continue current management ABG Interpretation ABG results: 06/06/25 06/06/25 06/06/25 16:05 18:18 20:48 ABG pH 7.16 L* 7.13 L* 7.13 L* ABG pCO2 45 36 35 ABG pO2 190 H 76 L D 80 L ABG HCO3 16 L 12 L 12 L ABG O2 Saturation 101 H 93 94 ABG Base Excess -12 L -16 L -17 L 06/06/25 06/07/25 06/07/25 22:31 03:02 10:20 ABG pH 7.21 L 7.30 L 7.37 ABG pCO2 32 30 L 26 L ABG pO2 72 L 130 H D 120 H ABG HCO3 13 L 15 L 15 L ABG O2 Saturation 94 100 H 99 H ABG Base Excess -14 L -11 L -9 L 06/07/25 06/07/25 06/08/25 16:00 19:59 15:14 ABG pH 7.39 7.36 7.38 ABG pCO2 27 L 28 L 29 L ABG pO2 112 H 97 66 L D ABG HCO3 16 L 16 L 17 L ABG O2 Saturation 99 H 98 94 ABG Base Excess -8 L -8 L -7 L 06/08/25 06/09/25 19:19 04:09 ABG pH 7.39 7.38 ABG pCO2 29 L 30 L ABG pO2 89 D 70 L ABG HCO3 17 L 17 L ABG O2 Saturation 98 94 ABG Base Excess -7 L -7 L Assessment & Plan Time Spent With Patient Time: Total time spent is greater than 50% in coordination of care (as documented) at patient's floor/unit and/or counseling patient:
[2025-06-09] MEDS: Norepinephrine/D5W 8mg/250ml 8 MG/250 ML BAG 22.113 MG IV (13:47)
--- NOTE | 2025-06-09 13:48 | ESPR_ITS ---
Documentation for date of: 06/09/25 Subjective Subjective Interval history: This is a 69yo M admitted to the ICU yesterday from the OR. He was admitted to the hospital on 06/03 with GIB, cirrhosis, and SHAI. He was found to have a colon mass on EGD and liver mass with pulmonary nodules on CT. He was taken to the OR for resection and had a significant amount of bleeding. He was normocytic prior to the procedure and transfused a total of 3 units of platelets for the 24 hours prior to the procedure. And he had approximately a liter of blood loss IntraOp. Due to the significant amount of bleeding and oozing decision was made to leave the abdomen open for reexploration on Monday or Monday. He was brought to the ICU intubated and on low-dose Levophed. During the course of the evening he was noted to have high output from the wound VAC with at least 2 L out overnight. He was transfused 2 units of PRBCs in the ICU after the OR and was transfused 1 unit of PRBCs in the OR. He was found to be significantly acidotic and his vent settings were adjusted. He had both a respiratory as well as metabolic acidosis. Overnight he was started on a bicarb drip. This morning his hemoglobin is stabilized. On arrival from OR a lactate was checked and he was found to have a lactic acid of 10 this morning it is down to 6.3. He has had a total of 40 cc of urinary output throughout the entire night. 06/08- no acute overnight events, remains on levophed 0.25mcg/kg/min, elevated INR today and will receive FFP for OR 06/09-patient went to the OR yesterday for closure and the procedure was uneventful. He received 2 units of FFP's. There has been no significant bleeding. Sedation has been held and he is currently slow to wake up. He remains with very poor urinary output averaging 0 to 5 cc an hour. Critical Care Note Critical care time (min.): 45 Exam Vital Signs Temp Pulse Resp BP Pulse Ox O2 Del Method O2 Flow Rate 97.2 F 99 26 H 90/49 L 95 Mechanical Ventilation 1 06/09/25 13:34 06/09/25 13:34 06/09/25 13:34 06/09/25 13:34 06/09/25 13:34 06/07/25 16:01 06/09/25 13:34 FiO2 35 06/09/25 13:34 Narrative Exam General-intubated, sedation currently on hold, very lethargic, normal body habitus, pale HEENT-normocephalic, atraumatic, sclera icteric, pupils are small, oral mucosa is hydrated, poor dentition, ET tube and OG tube in place Chest-lung gates with diminished breath sounds, no active crackles or wheezes auscultated times exam, heart regular rhythmic, no gross murmurs, no increased work of breathing, no use of accessory muscles Abdomen-grimacing on palpation, bowel sounds extremely sluggish and diminished, no apparent rebound or guarding Extremities-edema in bilateral lower extremities as well as upper extremities, pulses palpable, no clubbing or mottling, moves all 4 Drips Levophed Propofol Fentanyl Physical Exam Completion Physical Exam Complete?: Yes Objective - Band Builder Labs 06/09/25 05:02 06/09/25 05:02 Labs: Laboratory Results - last 24 hr 06/06/25 06/08/25 06/08/25 08:38 14:27 15:14 WBC RBC Hgb Hct MCV MCH MCHC RDW Std Deviation Plt Count Neut % (Auto) Lymph % (Auto) [place] % (Auto) Eos % (Auto) Baso % (Auto) Neut # (Auto) Lymph # (Auto) [place] # (Auto) Eos # (Auto) Baso # (Auto) Immature Gran # (Auto) Absolute Nucleated RBC Immature Gran % Nucleated RBC % PT INR APTT Fibrinogen Puncture Site Arterial Line ABG pH 7.38 ABG pCO2 29 L ABG pO2 66 L D ABG HCO3 17 L ABG O2 Saturation 94 ABG Base Excess -7 L FiO2 45 Sodium Potassium Chloride Carbon Dioxide Anion Gap BUN Creatinine Estim Creat Clear Calc eGFR BUN/Creatinine Ratio Glucose Calculated Osmolality Lactic Acid 3.1 H Calcium Corrected Calcium Phosphorus Magnesium Total Bilirubin AST ALT Alkaline Phosphatase Total Protein Albumin Globulin Albumin/Globulin Ratio Misc Test Result Blood Type O Positive Antibody Screen POSITIVE Antibody Identification Cold Antibody Crossmatch See Detail Blood Bank Wristband ID Yes Blood Bank Comment FFP Ready 06/08/25 06/08/25 06/08/25 15:27 19:19 21:06 WBC 19.5 H D RBC 2.63 L Hgb 7.1 L 8.3 L Hct 21.9 L* 25.2 L MCV 83 MCH 27.0 MCHC 32.4 RDW Std Deviation 54.4 H Plt Count 47 L D Neut % (Auto) 82 H Lymph % (Auto) 10 [place] % (Auto) 7 Eos % (Auto) 0 Baso % (Auto) 0 Neut # (Auto) 16.1 H Lymph # (Auto) 1.9 [place] # (Auto) 1.3 H Eos # (Auto) 0.0 Baso # (Auto) 0.0 Immature Gran # (Auto) 0.14 H Absolute Nucleated RBC 0.06 H Immature Gran % 1 H Nucleated RBC % 0 PT INR APTT Fibrinogen Puncture Site Right Femoral ABG pH 7.39 ABG pCO2 29 L ABG pO2 89 D ABG HCO3 17 L ABG O2 Saturation 98 ABG Base Excess -7 L FiO2 45 Sodium 138 Potassium 5.0 Chloride 106 Carbon Dioxide 15.9 L Anion Gap 16 BUN 56 H Creatinine 4.9 H* Estim Creat Clear Calc 17.0 L eGFR 12 L* BUN/Creatinine Ratio 11 L Glucose 303 H Calculated Osmolality 302 H Lactic Acid 2.8 H Calcium 7.3 L Corrected Calcium 8.3 L Phosphorus 7.6 H Magnesium 1.8 Total Bilirubin 1.2 AST > 1000 H* ALT 2513 H* Alkaline Phosphatase 567 H D Total Protein 4.6 L Albumin 2.8 L Globulin 1.8 L Albumin/Globulin Ratio 1.6 Misc Test Result Platelets confirmed Blood Type Antibody Screen Antibody Identification Crossmatch Blood Bank Wristband ID Blood Bank Comment 06/09/25 06/09/25 06/09/25 00:20 04:09 05:02 WBC 22.3 H RBC 3.11 L Hgb 8.1 L 8.5 L Hct 24.4 L 25.9 L MCV 83 MCH 27.3 MCHC 32.8 RDW Std Deviation 52.9 H Plt Count 55 L Neut % (Auto) 83 H Lymph % (Auto) 8 L [place] % (Auto) 7 Eos % (Auto) 1 Baso % (Auto) 0 Neut # (Auto) 18.5 H Lymph # (Auto) 1.9 [place] # (Auto) 1.6 H Eos # (Auto) 0.1 Baso # (Auto) 0.0 Immature Gran # (Auto) 0.20 H Absolute Nucleated RBC 0.07 H Immature Gran % 1 H Nucleated RBC % 0 PT 16.8 H D INR 1.6 H APTT 33.8 Fibrinogen 201 Puncture Site Right Femoral ABG pH 7.38 ABG pCO2 30 L ABG pO2 70 L ABG HCO3 17 L ABG O2 Saturation 94 ABG Base Excess -7 L FiO2 45 Sodium 137 Potassium 4.9 Chloride 105 Carbon Dioxide 16.0 L Anion Gap 16 BUN 63 H Creatinine 5.5 H* D Estim Creat Clear Calc 15.2 L eGFR 11 L* BUN/Creatinine Ratio 11 L Glucose 282 H Calculated Osmolality 301 H Lactic Acid Calcium 7.5 L Corrected Calcium 8.5 Phosphorus 7.5 H Magnesium 1.9 Total Bilirubin 1.2 AST > 1000 H* ALT 2345 H* Alkaline Phosphatase 580 H Total Protein 4.6 L Albumin 2.7 L Globulin 1.9 L Albumin/Globulin Ratio 1.4 Misc Test Result Platelets confirmed Blood Type Antibody Screen Antibody Identification Crossmatch Blood Bank Wristband ID Blood Bank Comment Assessment & Plan Additional Plan Additional Plan: In brief this is a 69-year-old male with cirrhosis status post ex lap with right colectomy 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 Given his renal failure and advanced liver disease may require extra time for sedation to clear his system CV Shock-currently on Levophed. Initially felt to be both hypovolemic as well as distributive in nature. Will obtain additional hemodynamics on the [facility]. No evidence of obstructive etiology. fluid responsive with fluid bolus, given wide pulse pressure will aim for SBP >90, on abx - remains vasodilated, no signs of active infection at this time - no active bleeding - Have been able to come down on his Levophed from 0.25-0.09 today, given methylene blue with significant improvement in vasopressor needs - Continue to wean as able Resp Acute Resp Failure-patient is intubated and on mechanical ventilation. Improved ABGs - Sedation is on hold and once he is breathing over the vent will be able to transition to spontaneous mode Pulm nodule-unclear if this may be a metastatic lesion, will need follow-up Renal SHAI- Will give additional volume NC. Monitor I's and O's. Avoid nephrotoxins. If the patient remains anuric will consult nephrology with a question of need for dialysis. -Nephrology consulted - minimal urinary output today AGMA- LA trending down -delta delta shows a concomittent non gap acidosis - urine lytes sent - this was present on arrival - suspect underlying RTA Hyperkalemia- resolved GI Cirrhosis-once patient is stable will start on Aldactone and rifaximin - LFTs in the thousands - felt to have a superimposed ischemic hepatitis GI bleed-this was felt to be secondary to colon mass and variceal bleed. Stabilized. No active bleeding. octreotide drip now off - on q12 PPI - followed by GI -Esophageal varices were also noted which were banded x 2. Gastritis also noted on EGD. colon mass-resected sent to pathology - shows invasive adenocarcinoma - for OR today to close abdomen - will need fu with oncology Liver mass-currently being evaluated for metastatic disease Hypoalbuminemia-secondary to cirrhosis Endo Hypothyroidism-continue Synthroid Diabetes-sliding scale Heme Leukocytosis- likely reactive in nature - trending up Anemia-patient came in with an acute GI bleed. Postop he dropped his hemoglobin to 6.6 was transfused - Postop yesterday required 1 additional unit Thrombocytopenia-in the setting of cirrhosis, patient was transfused platelets and his bleeding appears to have currently stopped. Coagulopathy-patient's labs are consistent with a low-grade DIC however the patient also has cirrhosis. His INR however was normal on arrival pointing to perhaps more low-grade DIC - given FFP for OR - Stable ID On ceftriaxone for variceal bleed UTI- growing proteus-> on ceftri case d/w ICU team d/w nephrology labs, imaging, records reviewed ~45ccmin requried for eval, exam , review, intervention, discussion and formulation of POC for this critically ill pt Provider Notation Provider Notation: Although this document has been carefully reviewed, there may still be some phonetic and other typographical errors. These errors are purely grammatical due to imperfections in the software program and should not be construed in any way to compromise the substance of the patient's medical care during this visit. Thank you for the opportunity and privilege in assisting you with this patient's care and management.
[2025-06-09 13:59] LABS: Base Excess -9 (-3-3); HCO3 18 mEq/L (20-26); Inspired Oxygen, FIO2 95 %; O2 Saturation 95 % (91-98); PCO2 40 mmHg (32.0-48.0); PO2 82 mmHg (83-108); pH, Arterial 7.26 (7.35-7.45)
[2025-06-09 14:00] LABS: Allen Test Not Performed; Puncture Site Arterial Line
[2025-06-09 14:25] LABS: Lactate (Lactic Acid) 1.4 mMol/L (0.4-2.0)
--- NOTE | 2025-06-09 15:50 | PD.ONCCONS ---
HPI Data of Consult Consult date: 06/09/25 Requesting Physician: Bella Jeffries MD Primary Care Provider: Avel Tran, DO Consult Narrative Reason for consult: Stage IV colon cancer History of present illness: Patient is an unfortunate 69-year-old gentleman who was admitted following a fall a week ago noted to have significantly low hemoglobin 8.3 with fecal occult blood positive. WBC 25.2 platelets low at 99,000. Noted to have renal failure with creatinine 4.9 eGFR 12. LFTs considerably elevated with AST 107 later rising to greater than 1000 and ALT 86 rising greater then 1100. Alk phos 309 CT chest abdomen pelvis on 06/03/2025 revealed multiple liver lesions suggestive of liver mets along with 16 mm pulmonary nodule right upper lobe. Colonoscopy performed by Dr. Yap 06/04/2025 complete obstructing ulcerated large mass transverse colon. Biopsy revealed invasive adenocarcinoma differentiated with no loss of expression mismatch repair protein. Patient underwent explorative laparotomy right colectomy performed by Dr. Tai on 06/06/2025. On op note there was no evidence of pelvic peritoneal or omental nodules and significant cirrhosis of liver with portal hypertension and ascites. noted. Patient had remove abdominal packing washout and closure on 06/08/2025. Patient had significant blood loss as well as hypotension and was admitted to ICU and intubated. Noted to be experiencing both metabolic and concomitant respiratory acidosis. Patient received both packed cells and platelets. A.m. labs 22.3 WBC hemoglobin 8.5 platelets 83,000. BUN 63 creatinine 5.5 eGFR 11. 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 Meds Home Medications and Allergies Home Medications ?Medication ?Instructions ?Recorded ?Confirmed ?Type buspirone 5 mg tablet 5 mg PO BID 06/04/25 06/04/25 History empagliflozin 25 mg tablet 25 mg PO QAM 06/04/25 06/04/25 History (Jardiance) ezetimibe 10 mg tablet 10 mg PO DAILY 06/04/25 06/04/25 History insulin glargine 100 unit/mL (3 10 unit subcut DAILY 06/04/25 06/04/25 History mL) subcutaneous pen (Lantus Solostar U-100 Insulin) lactulose 10 gram/15 mL oral 15 ml PO DAILY 06/04/25 06/04/25 History solution levothyroxine 50 mcg tablet 50 mcg PO DAILY UD 06/04/25 06/04/25 History neomycin 500 mg tablet 500 mg PO Q4H 06/04/25 06/04/25 History rosuvastatin 20 mg tablet 20 mg PO HS 06/04/25 06/04/25 History sertraline 100 mg tablet 100 mg PO DAILY 06/04/25 06/04/25 History Allergies Allergy/AdvReac Type Severity Reaction Status Date / Time Bee Stings Allergy Severe ANAPHYLAXIS Uncoded 08/01/17 13:41 Exam Vital Signs Temp Pulse Resp BP Pulse Ox O2 Del Method O2 Flow Rate 97.2 F 103 H 26 H 92/43 L 95 Mechanical Ventilation 1 06/09/25 13:34 06/09/25 15:45 06/09/25 13:34 06/09/25 15:45 06/09/25 15:30 06/07/25 16:01 06/09/25 13:34 FiO2 35 06/09/25 14:30 Narrative Exam Patient lies in ICU intubated and able to communicate. Results Labs 06/09/25 05:02 06/09/25 05:02 Labs: Short CBC 06/08/25 06/08/25 06/09/25 Range/Units 15:27 21:06 00:20 WBC 19.5 H D (3.8-10.6) Thou/mm3 Hgb 7.1 L 8.3 L 8.1 L (13.5-16.0) g/dL Hct 21.9 L* 25.2 L 24.4 L (41.0-53.0) % Plt Count 47 L D (140-440) Thou/mm3 06/09/25 Range/Units 05:02 WBC 22.3 H (3.8-10.6) Thou/mm3 Hgb 8.5 L (13.5-16.0) g/dL Hct 25.9 L (41.0-53.0) % Plt Count 55 L (140-440) Thou/mm3 BMP 06/08/25 06/09/25 15:27 05:02 Sodium 138 137 Potassium 5.0 4.9 Chloride 106 105 Carbon Dioxide 15.9 L 16.0 L BUN 56 H 63 H Creatinine 4.9 H* 5.5 H* D Glucose 303 H 282 H Calcium 7.3 L 7.5 L Liver Function 06/08/25 06/09/25 Range/Units 15:27 05:02 Total Bilirubin 1.2 1.2 (0.3-1.2) mg/dL AST > 1000 H* > 1000 H* (0-34) U/L ALT 2513 H* 2345 H* (10-49) U/L Alkaline Phosphatase 567 H D 580 H (46-116) U/L Albumin 2.8 L 2.7 L (3.4-4.8) gm/dL ABG Interpretation ABG results: 06/06/25 06/06/25 06/06/25 16:05 18:18 20:48 ABG pH 7.16 L* 7.13 L* 7.13 L* ABG pCO2 45 36 35 ABG pO2 190 H 76 L D 80 L ABG HCO3 16 L 12 L 12 L ABG O2 Saturation 101 H 93 94 ABG Base Excess -12 L -16 L -17 L 06/06/25 06/07/25 06/07/25 22:31 03:02 10:20 ABG pH 7.21 L 7.30 L 7.37 ABG pCO2 32 30 L 26 L ABG pO2 72 L 130 H D 120 H ABG HCO3 13 L 15 L 15 L ABG O2 Saturation 94 100 H 99 H ABG Base Excess -14 L -11 L -9 L 06/07/25 06/07/25 06/08/25 16:00 19:59 15:14 ABG pH 7.39 7.36 7.38 ABG pCO2 27 L 28 L 29 L ABG pO2 112 H 97 66 L D ABG HCO3 16 L 16 L 17 L ABG O2 Saturation 99 H 98 94 ABG Base Excess -8 L -8 L -7 L 06/08/25 06/09/25 06/09/25 19:19 04:09 13:39 ABG pH 7.39 7.38 7.26 L D ABG pCO2 29 L 30 L 40 D ABG pO2 89 D 70 L 82 L ABG HCO3 17 L 17 L 18 L ABG O2 Saturation 98 94 95 ABG Base Excess -7 L -7 L -9 L Assessment and Plan Additional Assessment & Plan Additional Plan: A#1. CA of transverse colon, with complete obstruction underwent right colectomy and subsequent removal of the abdominal packing and washout and closure performed by Dr Tai. A#2. Suggestion of possible liver mets and lung mets on CT imaging studies. A#3. Currently at ICU intubated receiving treatments for respiratory failure renal failure hypotension acidosis. A#4. Hopefully his critical conditions will improve and be seen as outpatient at cancer treatment center. Will speak with family and patient which I could not do today.
[2025-06-09] MEDS: ALBUMIN HUMAN 25% IVPB 25 GM/100 ML BTL IV (15:54)
[2025-06-09] MEDS: HEPARIN SOD INJ 1000 UNIT/ML VIAL 10 ML 2600 UNIT INDWELLCAT (16:42)
[2025-06-09 18:24] LABS: Base Excess 1 (-3-3); HCO3 25 mEq/L (20-26); Inspired Oxygen, FIO2 35 %; O2 Saturation 100 % (91-98); PCO2 37 mmHg (32.0-48.0); PO2 119 mmHg (83-108); pH, Arterial 7.44 (7.35-7.45)
[2025-06-09 18:25] LABS: Collection Type, Urine Catheter; Squamous Epithelial Cell,Urine 0 /hpf (0-5)
[2025-06-09 18:26] LABS: Allen Test Not Performed; Puncture Site Arterial Line
[2025-06-09 18:38] LABS: Bilirubin,Urine Negative (Negative); Blood,Urine 2+ (Negative); Budding Yeast,Urine Present; Clarity,Urine Turbid (Clear/Hazy); Color,Urine Yellow (Lt Yel-Yel); Glucose, Urine Negative (Negative); Ketones,Urine Trace (Negative); Leukocyte Esterase,Urine Positive (Negative); Nitrite,Urine Negative (Negative); PH,Urine 5.0 (5.0-7.0); Protein,Urine 1+ (Neg - Trace); RBC,Urine 81 /hpf (0-3); Specific Gravity,Urine 1.023 (1.001-1.035); Urobilinogen,Urine Negative mg/dL (0.0-1.0); WBC,Urine 3 /hpf (0-5)
[2025-06-09 18:41] LABS: Calcium, Random Urine < 5 mg/dL (2-18); Urea Nitrogen, Random Urine 143.0 mg/dL (350.0-1000.0)
[2025-06-09 23:36] LABS: Allen Test Not Performed; Base Excess -1 (-3-3); HCO3 24 mEq/L (20-26); Inspired Oxygen, FIO2 35 %; O2 Saturation 97 % (91-98); PCO2 41 mmHg (32.0-48.0); PO2 82 mmHg (83-108); Puncture Site Arterial Line; pH, Arterial 7.38 (7.35-7.45)
[2025-06-10] VITALS (111 sets, daily range): BP systolic 67–115; BP diastolic 36–67; PULSE 74–97; RESP 0–18; TEMP 36.1–37.7; O2SAT 91–100; BMI 26.2
[2025-06-10] MEDS: INSULIN HUM REGULAR 1 UNIT/0.01 ML (PER UNIT) SC ×4 (00:27→19:18)
[2025-06-10 00:36] LABS: Hematocrit 21.9 % (41.0-53.0)
[2025-06-10 00:39] LABS: Hemoglobin 7.0 g/dL (13.5-16.0)
[2025-06-10] MEDS: Norepinephrine/D5W 8mg/250ml 8 MG/250 ML BAG 15.309 MG IV (01:07)
[2025-06-10 04:27] LABS: Base Excess -1 (-3-3); HCO3 24 mEq/L (20-26); Inspired Oxygen, FIO2 35 %; O2 Saturation 96 % (91-98); PCO2 40 mmHg (32.0-48.0); PO2 74 mmHg (83-108); pH, Arterial 7.38 (7.35-7.45)
[2025-06-10 04:30] LABS: Allen Test Not Performed; Puncture Site Arterial Line
[2025-06-10 05:37] LABS: Basophils # (Auto) 0.0 Thou/mm3 (0.0-0.2); Basophils % (Auto) 0 % (0-2.5); Eosinophils # (Auto) 0.1 Thou/mm3 (0.0-0.5); Eosinophils % (Auto) 0 % (0-10); Hematocrit 21.9 % (41.0-53.0); Immature Granulocytes Auto 0.11 Thou/mm3 (0.00-0.00); Lymphocytes # (Auto) 1.0 Thou/mm3 (1.0-4.8); Lymphocytes % (Auto) 6 % (10-50); Mean Corpuscular HGB Conc 32.0 g/dl (31.0-37.0); Mean Corpuscular Hemoglobin 26.8 pg (25.0-35.0); Mean Corpuscular Volume 84 fL (80-100); Monocytes # (Auto) 1.5 Thou/mm3 (0.0-0.8); Monocytes % (Auto) 9 % (0-12); Neutrophils # (Auto) 13.4 Thou/mm3 (1.8-7.7); Neutrophils % (Auto) 84 % (37-80); Nucleated Red Blood Cell # 0.07 Thou/mm3 (0.00-0.00); Nucleated Red Blood Cell % 0 /100 WBC (0); RDW Standard Deviation 53.1 fL (35.1-43.9); Red Blood Count 2.61 Miln/mm3 (4.50-5.90); White Blood Count 16.0 Thou/mm3 (3.8-10.6)
[2025-06-10 05:55] LABS: Hemoglobin 7.0 g/dL (13.5-16.0)
[2025-06-10 05:56] LABS: Platelet Count 26 Thou/mm3 (140-440)
[2025-06-10 06:20] LABS: Alanine Aminotransferase 1641 U/L (10-49); Albumin, Serum 2.8 gm/dL (3.4-4.8); Albumin/Globulin Ratio 1.5 (1.2-2.2); Alkaline Phosphatase 504 U/L (46-116); Anion Gap 15 (7-16); BUN/Creatinine Ratio 9 Ratio (12-20); Bilirubin,Total 1.5 mg/dL (0.3-1.2); Blood Urea Nitrogen 45 mg/dL (9-23); Calcium 8.1 mg/dL (8.3-10.6); Calcium (Corrected) 9.1 mg/dL (8.5-10.1); Carbon Dioxide 23.2 mMol/L (20.0-31.0); Chloride 100 mMol/L (98-107); Creatinine (Component) 4.9 mg/dL (0.6-1.3); Estimated Creatinine Clearance 17.0 mL/min (>60); Globulin 1.9 gm/dL (2.3-3.5); Glucose 227 mg/dL (74-106); Magnesium 1.7 mg/dL (1.6-2.6); Osmolality,Calculated 294 (275-295); Phosphorous 7.7 mg/dL (2.4-5.1); Potassium 4.9 mMol/L (3.4-5.1); Sodium 138 mMol/L (136-145); Total Protein 4.7 gm/dL (5.7-8.2); eGFR 12 See Note
[2025-06-10] MEDS: LEVOTHYROXINE SODIUM 25 MCG TABLET 50 MCG PO (06:34)
[2025-06-10 06:37] LABS: Aspartate Amino Transferase 1124 U/L (0-34)
[2025-06-10] MEDS: ALBUMIN HUMAN-KJDA 25% IVPB 25 GM/100 ML BTL IV (08:47)
[2025-06-10] MEDS: CALCIUM ACETATE 667 MG TABLET NG ×2 (08:48→12:21)
[2025-06-10] MEDS: Magnesium Sulfate 2 GM Ivpb 2 GM/50 ML BAG IV (08:48)
--- NOTE | 2025-06-10 08:55 | PD.RESPRO ---
Documentation for date of: 06/10/25 Subjective Subjective Interval history: History of Present Illness: 69y/o Male with PMH of insulin dependent diabetes and thrombocytopenia presented to the hospital on 06/03/2025 after a fall. At the time, patient denied any near syncopal event and just experienced fell while getting out of bed. After admission, he was found to have plts in the 40s, anemia with hgb around 8, liver cirrhosis and liver mass on CT, and was subsequently admitted for GI bleed. After upper endoscopy, grade 2 varice was found. 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 Patient resceived surgery on 06/06 for colonic mass resection, but had bleeding complications with profound hypotension. Decision was made to leave abdomen open for re-exploration on 06/08. Patient was intubated and brought to ICU while on levophed with pRBC transfusions x3. Patient became acidotic. On 06/09, nephrology has been consulted as patient's creatinine is increased from 4.9 to 5.5 with minimal urine output of 30ml ED Course: -Patient presents with BP 128/75, HR 73, T 97.7, RR 19, O2 95 Room Air -lab workup notable for low hgb of 8 and platelets in the 50s which was significantly lower from 2017 with hgb 17 and plts in the 70s. Creatinine 2.3, BUN 49. Patient GFR is 30. Patient with an AST of 103, ALT of 93, alk phos 336. T. bili normal. -Ordered hepatitis panel, fibrinogen level, -CT brain and cervical spine unremarkable. CT chest abdomen pelvis without contrast which identified COPD, 16 mm pulmonary nodule in the right upper lobe, cirrhosis, multiple liver lesions concerning for liver metastases, patient with splenomegaly, ascites, cholelithiasis no evidence of obstruction. -On-call market research specialist Dr. Yap, consulted for downtrending hgb. Agreed with admission for EGD and colonoscopy to eval for GI bleed. Also recommending CT guided bx of the liver nodule. 06/09/2025: Labs reviewed and patient examined at the bedside. Compared to 06/08 (BUN 47, Cr:4.6, eGFR:13), today's lab value shows BUN:63, Cr:5.5, eGFR:11. Patient does show worsening renal function. Patient will receive conventional hemodialysis today. 06/10/2025: Labs reviewed and patient examined at the bedside. BUN: 45, Cr:4.9, eGFR:12. Patient will receive anther rounds of hemodialysis today along with blood tranfusion. HCO3- improved to 23.1 from 16.0. Recommend adding Bicitra to his medication. Given his mixed acidotic state, distal RTA (type 1) cannot be ruled out, but given borderline high K (~4.9), Urine pH of 5.5, and his presentation being obscured by more serious illnesses, needs more monitoring of the patient's status. Exam Vital Signs Temp Pulse Resp BP Pulse Ox O2 Del Method O2 Flow Rate 100 F 92 26 H 88/47 L 95 Mechanical Ventilation 1 06/10/25 08:00 06/10/25 08:15 06/09/25 16:55 06/10/25 08:15 06/10/25 08:15 06/10/25 04:15 06/09/25 16:55 FiO2 35 06/10/25 08:00 Narrative Exam General: Elderly, Frail, Pale, Sedated, lethargic Eye: PNormal conjunctiva, no scleral icterus HENT: Normocephalic, atraumatic Neck: Supple, non-tender, no JVD, no lymphadenopathy Lungs: Non-labored respirations, symmetric chest rise, Clear to auscultate bilaterally, No wheezing, rhonchi, crackles Heart: Peripheral pulses intact bilaterally, Regular Rate and Rhythm. Abdomen: Soft, non-tender, non-distended, no palpable masses, Abdominal binder in place Musculoskeletal: 1+pitting edema BLE, Bruising in BLE Skin: Skin is warm, dry, no rashes or lesions., Right IJ central line, Ulcers on right forearm. Psychiatric: Sedated, leghargic, non-responsive. Neuro: Cranial nerves II-XII grossly intact. Objective Labs 06/10/25 14:30 06/10/25 04:15 Labs: Laboratory Results - last 24 hr 06/06/25 06/09/25 06/09/25 08:38 13:39 14:03 WBC RBC Hgb Hct MCV MCH MCHC RDW Std Deviation Plt Count Neut % (Auto) Lymph % (Auto) [place] % (Auto) Eos % (Auto) Baso % (Auto) Neut # (Auto) Lymph # (Auto) [place] # (Auto) Eos # (Auto) Baso # (Auto) Immature Gran # (Auto) Absolute Nucleated RBC Immature Gran % Nucleated RBC % Puncture Site Arterial Line ABG pH 7.26 L D ABG pCO2 40 D ABG pO2 82 L ABG HCO3 18 L ABG O2 Saturation 95 ABG Base Excess -9 L FiO2 95 Sodium Potassium Chloride Carbon Dioxide Anion Gap BUN Creatinine Estim Creat Clear Calc eGFR BUN/Creatinine Ratio Glucose Calculated Osmolality Lactic Acid 1.4 Calcium Corrected Calcium Phosphorus Magnesium Total Bilirubin AST ALT Alkaline Phosphatase Total Protein Albumin Globulin Albumin/Globulin Ratio Ur Collection Type Urine Color Urine Clarity Urine pH Ur Specific [place] Urine Protein Urine Glucose (UA) Urine Ketones Urine Blood Urine Nitrite Urine Bilirubin Urine Urobilinogen (Auto) Ur Leukocyte Esterase Urine RBC Urine WBC Ur Squamous Epith Cells Urine Bacteria Urine Yeast (Budding) Ur Random Urea Nitrogn Ur Random Calcium Blood Type O Positive Antibody Screen POSITIVE Antibody Identification Cold Antibody Crossmatch See Detail Blood Bank Wristband ID Yes Blood Bank Comment FFP Ready 06/09/25 06/09/25 06/09/25 18:14 18:16 23:27 WBC RBC Hgb Hct MCV MCH MCHC RDW Std Deviation Plt Count Neut % (Auto) Lymph % (Auto) [place] % (Auto) Eos % (Auto) Baso % (Auto) Neut # (Auto) Lymph # (Auto) [place] # (Auto) Eos # (Auto) Baso # (Auto) Immature Gran # (Auto) Absolute Nucleated RBC Immature Gran % Nucleated RBC % Puncture Site Arterial Line Arterial Line ABG pH 7.44 D 7.38 ABG pCO2 37 41 ABG pO2 119 H D 82 L D ABG HCO3 25 24 ABG O2 Saturation 100 H 97 ABG Base Excess 1 -1 FiO2 35 35 Sodium Potassium Chloride Carbon Dioxide Anion Gap BUN Creatinine Estim Creat Clear Calc eGFR BUN/Creatinine Ratio Glucose Calculated Osmolality Lactic Acid Calcium Corrected Calcium Phosphorus Magnesium Total Bilirubin AST ALT Alkaline Phosphatase Total Protein Albumin Globulin Albumin/Globulin Ratio Ur Collection Type Catheter Urine Color Yellow Urine Clarity Turbid A Urine pH 5.0 Ur Specific [place] 1.023 Urine Protein 1+ A Urine Glucose (UA) Negative Urine Ketones Trace Urine Blood 2+ A Urine Nitrite Negative Urine Bilirubin Negative Urine Urobilinogen (Auto) Negative Ur Leukocyte Esterase Positive Urine RBC 81 H Urine WBC 3 Ur Squamous Epith Cells 0 Urine Bacteria None Urine Yeast (Budding) Present A Ur Random Urea Nitrogn 143.0 L Ur Random Calcium < 5 Blood Type Antibody Screen Antibody Identification Crossmatch Blood Bank [facility] Blood Bank Comment 06/10/25 06/10/25 06/10/25 00:16 04:15 04:17 WBC 16.0 H D RBC 2.61 L Hgb 7.0 L 7.0 L Hct 21.9 L* 21.9 L* MCV 84 MCH 26.8 MCHC 32.0 RDW Std Deviation 53.1 H Plt Count 26 L* D Neut % (Auto) 84 H Lymph % (Auto) 6 L [place] % (Auto) 9 Eos % (Auto) 0 Baso % (Auto) 0 Neut # (Auto) 13.4 H Lymph # (Auto) 1.0 [place] # (Auto) 1.5 H Eos # (Auto) 0.1 Baso # (Auto) 0.0 Immature Gran # (Auto) 0.11 H Absolute Nucleated RBC 0.07 H Immature Gran % 1 H Nucleated RBC % 0 Puncture Site Arterial Line ABG pH 7.38 ABG pCO2 40 ABG pO2 74 L ABG HCO3 24 ABG O2 Saturation 96 ABG Base Excess -1 FiO2 35 Sodium 138 Potassium 4.9 Chloride 100 Carbon Dioxide 23.2 Anion Gap 15 BUN 45 H Creatinine 4.9 H* D Estim Creat Clear Calc 17.0 L eGFR 12 L* BUN/Creatinine Ratio 9 L Glucose 227 H D Calculated Osmolality 294 Lactic Acid Calcium 8.1 L Corrected Calcium 9.1 Phosphorus 7.7 H Magnesium 1.7 Total Bilirubin 1.5 H AST 1124 H* ALT 1641 H* Alkaline Phosphatase 504 H D Total Protein 4.7 L Albumin 2.8 L Globulin 1.9 L Albumin/Globulin Ratio 1.5 Ur Collection Type Urine Color Urine Clarity Urine pH Ur Specific [place] Urine Protein Urine Glucose (UA) Urine Ketones Urine Blood Urine Nitrite Urine Bilirubin Urine Urobilinogen (Auto) Ur Leukocyte Esterase Urine RBC Urine WBC Ur Squamous Epith Cells Urine Bacteria Urine Yeast (Budding) Ur Random Urea Nitrogn Ur Random Calcium Blood Type Antibody Screen Antibody Identification Crossmatch Blood Bank [facility] Blood Bank Comment 06/10/25 06:33 WBC RBC Hgb Hct MCV MCH MCHC RDW Std Deviation Plt Count Neut % (Auto) Lymph % (Auto) [place] % (Auto) Eos % (Auto) Baso % (Auto) Neut # (Auto) Lymph # (Auto) [place] # (Auto) Eos # (Auto) Baso # (Auto) Immature Gran # (Auto) Absolute Nucleated RBC Immature Gran % Nucleated RBC % Puncture Site ABG pH ABG pCO2 ABG pO2 ABG HCO3 ABG O2 Saturation ABG Base Excess FiO2 Sodium Potassium Chloride Carbon Dioxide Anion Gap BUN Creatinine Estim Creat Clear Calc eGFR BUN/Creatinine Ratio Glucose Calculated Osmolality Lactic Acid Calcium Corrected Calcium Phosphorus Magnesium Total Bilirubin AST ALT Alkaline Phosphatase Total Protein Albumin Globulin Albumin/Globulin Ratio Ur Collection Type Urine Color Urine Clarity Urine pH Ur Specific [place] Urine Protein Urine Glucose (UA) Urine Ketones Urine Blood Urine Nitrite Urine Bilirubin Urine Urobilinogen (Auto) Ur Leukocyte Esterase Urine RBC Urine WBC Ur Squamous Epith Cells Urine Bacteria Urine Yeast (Budding) Ur Random Urea Nitrogn Ur Random Calcium Blood Type O Positive Antibody Screen NEGATIVE Antibody Identification Crossmatch See Detail Blood Bank Wristband ID Yes Blood Bank Comment PLATP Ready ABG Interpretation ABG results: 06/06/25 06/06/25 06/06/25 16:05 18:18 20:48 ABG pH 7.16 L* 7.13 L* 7.13 L* ABG pCO2 45 36 35 ABG pO2 190 H 76 L D 80 L ABG HCO3 16 L 12 L 12 L ABG O2 Saturation 101 H 93 94 ABG Base Excess -12 L -16 L -17 L 06/06/25 06/07/25 06/07/25 22:31 03:02 10:20 ABG pH 7.21 L 7.30 L 7.37 ABG pCO2 32 30 L 26 L ABG pO2 72 L 130 H D 120 H ABG HCO3 13 L 15 L 15 L ABG O2 Saturation 94 100 H 99 H ABG Base Excess -14 L -11 L -9 L 06/07/25 06/07/25 06/08/25 16:00 19:59 15:14 ABG pH 7.39 7.36 7.38 ABG pCO2 27 L 28 L 29 L ABG pO2 112 H 97 66 L D ABG HCO3 16 L 16 L 17 L ABG O2 Saturation 99 H 98 94 ABG Base Excess -8 L -8 L -7 L 06/08/25 06/09/25 06/09/25 19:19 04:09 13:39 ABG pH 7.39 7.38 7.26 L D ABG pCO2 29 L 30 L 40 D ABG pO2 89 D 70 L 82 L ABG HCO3 17 L 17 L 18 L ABG O2 Saturation 98 94 95 ABG Base Excess -7 L -7 L -9 L 06/09/25 06/09/25 06/10/25 18:14 23:27 04:17 ABG pH 7.44 D 7.38 7.38 ABG pCO2 37 41 40 ABG pO2 119 H D 82 L D 74 L ABG HCO3 25 24 24 ABG O2 Saturation 100 H 97 96 ABG Base Excess 1 -1 -1 Quality Measures Quality Measures VTE prophylaxis Advance care planning discussed with:: patient and other Assessment & Plan Assessment Current Active Medications: Generic Name Dose Route Start Last Admin Trade Name Freq PRN Reason Stop Dose Admin Calcium Acetate 667 mg 06/07/25 14:05 06/10/25 08:48 Calcium Acetate 667 Mg Tablet NG 07/07/25 14:04 667 mg TIDWM JERSON Administration Dextrose 25 ml 06/03/25 18:26 Dextrose 50%-Water Inj 50 Ml Syringe IV 07/03/25 18:25 Q15MIN PRN BG 50-70 responsive npo pt Dextrose 50 ml 06/03/25 18:26 Dextrose 50%-Water Inj 50 Ml Syringe IV 07/03/25 18:25 Q15MIN PRN BG <50 OR BG <70 & pt unresponsive Epoetin Jose 10,000 unit 06/10/25 14:00 Epoetin Jose-Epbx Inj 10,000 Unit/Ml Vial (Esrd) SC 06/10/25 14:01 X1 ONE Glucagon 1 mg 06/03/25 18:26 Glucagon Inj 1 Mg Vial IM Q15MIN PRN BG <70, and no IV access Haloperidol Lactate 5 mg 06/06/25 16:21 Haloperidol Lact Inj 5 Mg/Ml Vial IV 07/06/25 16:20 Q6HR PRN AGITATION Heparin Sodium (Porcine) 2,600 unit 06/09/25 15:35 06/09/25 16:42 Heparin Sod Inj 1000 Unit/Ml Vial 10 Ml INDWELLCAT 06/23/25 15:34 2,600 unit X1 PRN Administration DIALYSIS Fentanyl Citrate 2,500 mcg in 250 mls @ 2.5 mls/hr 06/06/25 16:21 06/09/25 09:59 Sublimaze Inj 2,500 Mcg/250 Ml Bag IV 06/11/25 16:20 0 mcg/hr .Q24H PRN 0 mls/hr PER PROTOCOL Titration Protocol 25 MCG/HR Propofol 1,000 mg in 100 mls @ 2.722 mls/hr 06/06/25 16:22 06/09/25 09:29 Diprivan Ivpb IV 07/06/25 16:21 0 mcg/kg/min .Q24H PRN 0 mls/hr PER PROTOCOL Titration Protocol 5 MCG/KG/MIN Albumin Human 25 gm in 100 mls @ 100 mls/hr 06/07/25 00:48 06/10/25 08:47 Albuminex 25% Ivpb IV 07/07/25 00:47 100 mls/hr QDAY JERSON Administration Norepinephrine/Dextrose 8 mg in 250 mls @ 8.505 mls/hr 06/07/25 11:10 06/10/25 06:00 Levophed In D5w 8mg/250ml IV 07/07/25 11:09 0.09 mcg/kg/min .Q24H PRN 15.309 mls/hr PER PROTOCOL Titration Protocol 0.05 MCG/KG/MIN Ceftriaxone Sodium/Dextrose 1 gm in 50 mls @ 100 mls/hr 06/08/25 09:00 06/09/25 09:10 Rocephin/D5w 1gm Iv Premix IV 06/10/25 08:59 Infused DAILY JERSON Infusion Albumin Human 25 gm in 100 mls @ 100 mls/min 06/09/25 15:53 06/09/25 15:55 Albuminar-25 Ivpb IV Infused PRN PRN Infusion DIALYSIS Magnesium Sulfate 2 gm in 50 mls @ 25 mls/hr 06/10/25 07:36 06/10/25 08:48 Magnesium Sulfate Ivpb IV 06/10/25 09:35 25 mls/hr X1 ONE Administration Insulin Human Regular 0 unit 06/07/25 12:00 06/10/25 06:34 Insulin Hum Regular 1 Unit/0.01 Ml (Per Unit) SC 07/07/25 11:59 2 unit Q6HR JERSON Administration Protocol Levothyroxine Sodium 50 mcg 06/05/25 06:00 06/10/25 06:34 Levothyroxine Sodium 25 Mcg Tablet PO 07/05/25 05:59 50 mcg ACBR JERSON Administration Protocol Ondansetron HCl 4 mg 06/03/25 16:40 Ondansetron Inj 2 Mg/Ml Inj 2 Ml IVP 07/03/25 16:39 Q6H PRN NAUSEA OR VOMITING Protocol Pantoprazole Sodium 40 mg 06/05/25 09:00 06/10/25 08:47 Pantoprazole Inj 40 Mg Vial IVP 07/05/25 08:59 40 mg Q12HR JERSON Administration Sertraline HCl 100 mg 06/05/25 09:00 06/09/25 09:24 Sertraline Hcl 25 Mg Tablet PO 07/05/25 08:59 100 mg DAILY JERSON Administration Plan 69y/o Male with PMH of insulin dependent diabetes and thrombocytopenia presented to the hospital on 06/03/2025 after a fall. Patient was found with, maligant obstruction tumor in transverse colon and resceived surgery on 06/06 for colonic mass resection, but had bleeding complications with profound hypotension. Patient was intubated and brought to ICU while on levophed with pRBC transfusions x3. Patient became acidotic. On 06/09, nephrology has been consulted as patient's creatinine is increased from 4.9 to 5.5 with minimal urine output of 30ml #SHAI, requiring hemodialysis -2/2 ATN due to shock VS Pre-renal due to hypoperfusion from bleeding -Upon Admission, BUN:49, Cr: 2.3, eGFR:30. -In 06/08: BUN 47, Cr:4.6, eGFR:13. -Currently, BUN:63, Cr:5.5, eGFR:11. -Patient worsening in renal function. -Renal US (06/04/2025): Right kidney 9.6 cm cortex 1.3 cm Left kidney 8.7 cm cortex 1.4 cm, Left kidney in the pelvis, Moderate renal parenchymal scar formation, No bladder mass or bladder calculi, Bladder prevoid volume 240 cc. Small kidneys with bilateral renal cortical thinning, Moderate bilateral renal parenchymal scar formation -Hemodialysis session: 06/09, 06/10 Plan: -Avoid nephrotoxins -Renally dose medication -CTM electrolyte level -Patient received conventional hemodialysis today. If patient can't tolerate will transition to CRRT. #NAGMA #HAGMA- Resolving #Distal RTA? -Mixed metabolic acidosis where patient transitioned from HAGMA from lactic acidosis due to shock to NAGMA from hypercholremia due to large volume saline resuscitation and reduced acid excreation (ATN) -Delta-delta score shows 0.5 which indicates mixed metabolic acidosis (HAGMA + NAGMA) -Unlikely to be Type 4 RTA because K+ is not persistently high (baseline of ~4) and Urine pH does not exceed 5.5 -Given his mixed acidotic state, distal RTA (type 1) cannot be ruled out, but given borderline high K (~4.9), Urine pH of 5.5, and his presentation being obscured by more serious illnesses, needs more monitoring of the patient's status. Plan: -CTM electrolytes, daily ABG, urine output, and volume status. 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 Assessment and plan discussed with my attending physician Dr. Jewel Alejo (PGY-1)- Internal medicine resident Attending Provider Attestation/Addendum Patient seen and examined with resident physician Dr. Alejo. Note reviewed, agree with findings and recommendations. Patient currently seen in ICU. On ventilator. On low-dose pressors. Urine output very minimal. SHAI secondary to ATN with anuria. Decided to proceed with conventional dialysis and see if she he tolerates. Status post bowel surgery. Also and so far negative. Patient on dialysis. Tolerating dialysis without any problems. Hemodialysis for 3 hours, blood flow 250, 2K, ultrafiltration 1 L, Epogen 6000, no heparin ordered. 1 unit PRBC ordered. Plan of care discussed with the dialysis nurse. Please see dialysis flowsheet for further details. Care discussed with ICU team and Dr. Jeffries. Critical care time spent more than 40 minutes regarding plan of care and disease management. Thank you Bella for allowing me to participate in the care of Mr. Franz
[2025-06-10 09:26] LABS: Slide Review Platelets confirmed
--- NOTE | 2025-06-10 10:23 | ESPR_ITS ---
<Statement entered by Reji Richter MD - 06/10/25 17:20> Senior Resident Attestation: I supervised/discussed management plan with quality internship physician Dr. Grace, and was involved in the care of this patient. I personally saw and examined the patient and discussed the assessment and plan with the entire medicine team, including my attending. I agree with the assessment and plan as documented. Today patient successfully passed SBT and was extubated however developed ICU delirium and remains lethargic. His hemoglobin was 7 in the morning and he was transfused 1 units of PRBCs. Patient underwent hemodialysis with an 1 L of fluids ultrafiltration. He remains on Levophed and is being titrated down. Will continue to monitor patient and attempt to wean off Levophed, started patient on midodrine 10 mg every 6 hours. Patient's care was discussed with attending physician, Dr. Jeffries. Reji Richter MD PGY-3. Documentation for date of: 06/10/25 Subjective Subjective Interval history: Patient is a 69 yo M w/ PMH of IDDM and thrombocytopenia who was admitted to the ICU s/p right maranda-colectomy performed by General Surgery on 06/06/25. He had initially been admitted to the hospital on 06/03 for GI bleed where he was found to have a platelet count in the 40s, hemoglobin 8, liver cirrhosis and mass with pulmonary nodules on CT, and malignant, obstructing colonic mass in the transverse colon on 06/04 EGD (later found to be well-differentiated invasive adenocarcinoma by Pathology). Patient was taken to the OR on 06/06 for resection of the colonic mass but the procedure was complicated by approximately a liter of blood loss as well as profound hypotension despite blood pressure support with 3 pressors and the decision was made to leave the abdomen open for re-exploration on 06/08. At that point, he was intubated and brought to the ICU while on low-dose Levophed. Patient had received pRBC transfusion x 1 while in the OR and pRBC transfusion x 2 in the ICU. Patient's labs shortly after being moved from OR found that he was significantly acidotic with both a metabolic acidosis (lactic acid 10) and concomitant respiratory acidosis. Interval History 06/07/25: Overnight, patient was noted to have high output from the wound VAC of at least 2 L of fluid and was started on a bicarbonate drip for his acidemia. Patient was examined at bedside; he remains intubated with OG tube in place as well as wound VAC installed at the midline of the abdomen draining reddish fluid. A right IJ central line and arterial line have been successfully installed. This morning, his hemoglobin has stabilized, LA down-trended to 6.3 from 10, and total UOP overnight was about 40 mL. Patient's recent creatinine baseline was around 2.2 (last creatinine reading of 0.8 was more than 8 years ago) but it has now steadily up-trended to 3.1 this morning, indicating SHAI which is likely 2/2 intravascular depletion from blood loss during the surgery. Based on findings from the NICOM patient seems to be fluid responsive and he will receive 1 L of LR. On bedside echocardiogram, the heart was difficult to visualize but no pericardial effusions were seen. From reviewing patient's lab values upon 06/03 admission, it seems that patient already had a non-anion gap metabolic acidosis (bicarbonate 17.6, chloride 114) at that time; the etiology is unclear but could be due to liver failure. Patient is slated to resume his surgical procedure on 06/08 and will also be started on IV ceftriaxone for SBP prophylaxis. 06/08/25: Overnight, patient had a total urine output of 500 mL and wound VAC took out 1 L of abdominal fluid. Patient was examined at bedside; he appears asleep (still intubated) and does not respond to voice but does respond to pain elicited via abdominal palpation. Pertinent labs today include WBC now 25.2 from 20.4, hemoglobin now 8.8 from 9.8, platelet count now 99 from 131, PT now 20.9 from 20.3, INR now 2.0 from 1.9, APTT now 33.3 from 31.5, blood glucose 319, potassium now 5.3 from 5.1, phosphorus now 7.2 from 9.0, AST > 1000, ALT > 3300, alkaline phosphatase now 705 from 498, and creatinine now 4.6 from 3.5. Urine electrolyte labs showed random creatinine 194, random sodium < 15.0, random potassium 60, and random chloride < 20.0; calculated urine anion gap is 55 and suggests Type IV RTA (hypoaldosteronic conditions) which is most likely 2/2 diabetic nephropathy (will order HIV panel to rule out HIV-related Type IV RTA). Patient will be returning to the OR in the afternoon today to have his abdomen closed. After patient returns from his procedure, plans will be made to extubate him in a timely manner. 06/09/25: No overnight events. Patient was examined at bedside; they remained intubated on ACMV with TV 550, RR 26, PEEP 5, and FiO2 45% with the following drips: 15 prop, 100 fent, and 0.21 Levo. On physical exam, patient is noted to be bleeding through the abdominal binder placed on him from the right flank at the level of the xiphoid process. There are also areas of dried blood at the right IJ and the peripheral IV located at the right antecubital fossa and his feet appear a bit puffier in appearance today. Today, NICOM showed SVI 30, SV 64.5, CI 2.4, CO 5.2, TPR 800, and TPRI 1735; the low TPR and low normal TPRI even while patient is on Levophed suggests that patient continues to be in a state of systemic vasodilation which implies that his ongoing shock is distributive in etiology. Patient's UOP overnight was 30 mL and creatinine is now 5.5 from 4.9 yesterday; both indicate that patient's SHAI seems to be worsening, which is likely due to renal hypoperfusion in the setting of shock. As such, Nephrology (Dr. Holloway) has been consulted for patient's possible need for HD. Patient's hemoglobin remains stable after abdominal closure at around 8.5 and his coagulation panel seems improved due to the 2 transfusions of FFP yesterday. However, his platelets have down-trended to 55 from 99 yesterday. Moving forward, patient will be trialed on sedation vacation before putting him through SBT to guide timely extubation efforts. He will also be started on methylene blue with the idea that it will help restore vascular tone by inhibiting the nitric oxide-cGMP pathway that is often overactive in vasodilatory states. thereby improving blood pressures and reducing the need for vasopressors. 06/10/25: No overnights events. Patient remains afebrile but virtually anuric, signaling a continued lack of recovery in kidney function. He received HD yesterday (400 ccs removed, creatinine 5.5 -> 4.9, BUN 63 -> 45) and is scheduled to have 1 L removed by HD today as well. WBC is downtrending. However, patient's hemoglobin 8.5 -> 7.0 (transfused w/ pRBC x 1 and platelet count 55 -> 26. Transminitis 2/2 likely ischemic hepatitis is downtrending. Today, patient's ABG was reassuring and he was found to have favorable performance on SBT with good weaning parameters; thus, he was extubated. However, he remains altered, unable to obey commands, and exhibiting no sustained eye contact to voice despite being off of sedation for more than 24 hours now (this is currently being attributed to possible ICU delirium). In terms of changes in management, started PO midodrine 10 mg q6HR in an attempt to wean patient off of pressors (yesterday's administration of methylene blue seemed to help with this as well) so that he is suitable to be downgraded to floors. Exam Vital Signs Temp Pulse Resp BP Pulse Ox O2 Del Method O2 Flow Rate 99.7 F 90 8 L 104/42 L 93 L Mechanical Ventilation 1 06/10/25 10:21 06/10/25 10:21 06/10/25 10:21 06/10/25 10:21 06/10/25 10:21 06/10/25 04:15 06/09/25 16:55 FiO2 35 06/10/25 08:00 Narrative Exam General: Frail, ill-appearing, pale, and elderly male. Head: Normocephalic, atraumatic. Bruise on right scalp. Eyes: PERRL. Anicteric. Mouth/Throat: Extubated today. NG tube in place. Oral mucosa moist. Cardiovascular: Difficult to auscultate clearly but seemingly regular rate and rhythm, no murmur, no JVD or carotid bruits. +S1/S2. Respiratory: Bilateral lungs are clear to auscultation, respirations unlabored, no crackles, no wheezing. No accessory muscle use. Gastrointestinal: Abdominal binder in place. Soft, non-distended, no palpable masses. Hypoactive bowel sounds. Extremities: Bruising of bilateral lower extremities, moreso on right side. 1+ pitting edema bilaterally, pulses present bilaterally, mild cyanosis of left toes, no clubbing or mottling noted. Puffiness of hands with slight dusky tinge appreciated at the fingertips of right hand. Feet appear puffier today. Third toe on right foot shorter than surrounding toes. Skin: Dried blood noted at right IJ central line insertion point and peripheral IV insertion point at the right antecubital fossa. Ulceration noted at right lateral forearm. Areas of bruising noted at the right lateral abdomen, portion of the back inferior to the right scapula, right thigh, and gluteal region. Neuro: Unable to follow commands and does not make eye contact with voice Objective Labs 06/11/25 13:35 06/11/25 05:44 Labs: Laboratory Results - last 24 hr 06/06/25 06/09/25 06/09/25 08:38 13:39 14:03 WBC RBC Hgb Hct MCV MCH MCHC RDW Std Deviation Plt Count Neut % (Auto) Lymph % (Auto) [place] % (Auto) Eos % (Auto) Baso % (Auto) Neut # (Auto) Lymph # (Auto) [place] # (Auto) Eos # (Auto) Baso # (Auto) Immature Gran # (Auto) Absolute Nucleated RBC Immature Gran % Nucleated RBC % Puncture Site Arterial Line ABG pH 7.26 L D ABG pCO2 40 D ABG pO2 82 L ABG HCO3 18 L ABG O2 Saturation 95 ABG Base Excess -9 L FiO2 95 Sodium Potassium Chloride Carbon Dioxide Anion Gap BUN Creatinine Estim Creat Clear Calc eGFR BUN/Creatinine Ratio Glucose Calculated Osmolality Lactic Acid 1.4 Calcium Corrected Calcium Phosphorus Magnesium Total Bilirubin AST ALT Alkaline Phosphatase Total Protein Albumin Globulin Albumin/Globulin Ratio Ur Collection Type Urine Color Urine Clarity Urine pH Ur Specific [place] Urine Protein Urine Glucose (UA) Urine Ketones Urine Blood Urine Nitrite Urine Bilirubin Urine Urobilinogen (Auto) Ur Leukocyte Esterase Urine RBC Urine WBC Ur Squamous Epith Cells Urine Bacteria Urine Yeast (Budding) Ur Random Urea Nitrogn Ur Random Calcium Misc Test Result Blood Type Antibody Screen Crossmatch See Detail Blood Bank Wristband ID Blood Bank Comment 06/09/25 06/09/25 06/09/25 18:14 18:16 23:27 WBC RBC Hgb Hct MCV MCH MCHC RDW Std Deviation Plt Count Neut % (Auto) Lymph % (Auto) [place] % (Auto) Eos % (Auto) Baso % (Auto) Neut # (Auto) Lymph # (Auto) [place] # (Auto) Eos # (Auto) Baso # (Auto) Immature Gran # (Auto) Absolute Nucleated RBC Immature Gran % Nucleated RBC % Puncture Site Arterial Line Arterial Line ABG pH 7.44 D 7.38 ABG pCO2 37 41 ABG pO2 119 H D 82 L D ABG HCO3 25 24 ABG O2 Saturation 100 H 97 ABG Base Excess 1 -1 FiO2 35 35 Sodium Potassium Chloride Carbon Dioxide Anion Gap BUN Creatinine Estim Creat Clear Calc eGFR BUN/Creatinine Ratio Glucose Calculated Osmolality Lactic Acid Calcium Corrected Calcium Phosphorus Magnesium Total Bilirubin AST ALT Alkaline Phosphatase Total Protein Albumin Globulin Albumin/Globulin Ratio Ur Collection Type Catheter Urine Color Yellow Urine Clarity Turbid A Urine pH 5.0 Ur Specific [place] 1.023 Urine Protein 1+ A Urine Glucose (UA) Negative Urine Ketones Trace Urine Blood 2+ A Urine Nitrite Negative Urine Bilirubin Negative Urine Urobilinogen (Auto) Negative Ur Leukocyte Esterase Positive Urine RBC 81 H Urine WBC 3 Ur Squamous Epith Cells 0 Urine Bacteria None Urine Yeast (Budding) Present A Ur Random Urea Nitrogn 143.0 L Ur Random Calcium < 5 Misc Test Result Blood Type Antibody Screen Crossmatch Blood Bank Wristband ID Blood Bank Comment 06/10/25 06/10/25 06/10/25 00:16 04:15 04:17 WBC 16.0 H D RBC 2.61 L Hgb 7.0 L 7.0 L Hct 21.9 L* 21.9 L* MCV 84 MCH 26.8 MCHC 32.0 RDW Std Deviation 53.1 H Plt Count 26 L* D Neut % (Auto) 84 H Lymph % (Auto) 6 L [place] % (Auto) 9 Eos % (Auto) 0 Baso % (Auto) 0 Neut # (Auto) 13.4 H Lymph # (Auto) 1.0 [place] # (Auto) 1.5 H Eos # (Auto) 0.1 Baso # (Auto) 0.0 Immature Gran # (Auto) 0.11 H Absolute Nucleated RBC 0.07 H Immature Gran % 1 H Nucleated RBC % 0 Puncture Site Arterial Line ABG pH 7.38 ABG pCO2 40 ABG pO2 74 L ABG HCO3 24 ABG O2 Saturation 96 ABG Base Excess -1 FiO2 35 Sodium 138 Potassium 4.9 Chloride 100 Carbon Dioxide 23.2 Anion Gap 15 BUN 45 H Creatinine 4.9 H* D Estim Creat Clear Calc 17.0 L eGFR 12 L* BUN/Creatinine Ratio 9 L Glucose 227 H D Calculated Osmolality 294 Lactic Acid Calcium 8.1 L Corrected Calcium 9.1 Phosphorus 7.7 H Magnesium 1.7 Total Bilirubin 1.5 H AST 1124 H* ALT 1641 H* Alkaline Phosphatase 504 H D Total Protein 4.7 L Albumin 2.8 L Globulin 1.9 L Albumin/Globulin Ratio 1.5 Ur Collection Type Urine Color Urine Clarity Urine pH Ur Specific [place] Urine Protein Urine Glucose (UA) Urine Ketones Urine Blood Urine Nitrite Urine Bilirubin Urine Urobilinogen (Auto) Ur Leukocyte Esterase Urine RBC Urine WBC Ur Squamous Epith Cells Urine Bacteria Urine Yeast (Budding) Ur Random Urea Nitrogn Ur Random Calcium Misc Test Result Platelets confirmed Blood Type Antibody Screen Crossmatch Blood Bank Wristband ID Blood Bank Comment 06/10/25 06:33 WBC RBC Hgb Hct MCV MCH MCHC RDW Std Deviation Plt Count Neut % (Auto) Lymph % (Auto) [place] % (Auto) Eos % (Auto) Baso % (Auto) Neut # (Auto) Lymph # (Auto) [place] # (Auto) Eos # (Auto) Baso # (Auto) Immature Gran # (Auto) Absolute Nucleated RBC Immature Gran % Nucleated RBC % Puncture Site ABG pH ABG pCO2 ABG pO2 ABG HCO3 ABG O2 Saturation ABG Base Excess FiO2 Sodium Potassium Chloride Carbon Dioxide Anion Gap BUN Creatinine Estim Creat Clear Calc eGFR BUN/Creatinine Ratio Glucose Calculated Osmolality Lactic Acid Calcium Corrected Calcium Phosphorus Magnesium Total Bilirubin AST ALT Alkaline Phosphatase Total Protein Albumin Globulin Albumin/Globulin Ratio Ur Collection Type Urine Color Urine Clarity Urine pH Ur Specific [place] Urine Protein Urine Glucose (UA) Urine Ketones Urine Blood Urine Nitrite Urine Bilirubin Urine Urobilinogen (Auto) Ur Leukocyte Esterase Urine RBC Urine WBC Ur Squamous Epith Cells Urine Bacteria Urine Yeast (Budding) Ur Random Urea Nitrogn Ur Random Calcium Misc Test Result Blood Type O Positive Antibody Screen NEGATIVE Crossmatch See Detail Blood Bank Wristband ID Yes Blood Bank Comment PLATP Ready ABG Interpretation ABG results: 06/06/25 06/06/25 06/06/25 16:05 18:18 20:48 ABG pH 7.16 L* 7.13 L* 7.13 L* ABG pCO2 45 36 35 ABG pO2 190 H 76 L D 80 L ABG HCO3 16 L 12 L 12 L ABG O2 Saturation 101 H 93 94 ABG Base Excess -12 L -16 L -17 L 06/06/25 06/07/25 06/07/25 22:31 03:02 10:20 ABG pH 7.21 L 7.30 L 7.37 ABG pCO2 32 30 L 26 L ABG pO2 72 L 130 H D 120 H ABG HCO3 13 L 15 L 15 L ABG O2 Saturation 94 100 H 99 H ABG Base Excess -14 L -11 L -9 L 06/07/25 06/07/25 06/08/25 16:00 19:59 15:14 ABG pH 7.39 7.36 7.38 ABG pCO2 27 L 28 L 29 L ABG pO2 112 H 97 66 L D ABG HCO3 16 L 16 L 17 L ABG O2 Saturation 99 H 98 94 ABG Base Excess -8 L -8 L -7 L 06/08/25 06/09/25 06/09/25 19:19 04:09 13:39 ABG pH 7.39 7.38 7.26 L D ABG pCO2 29 L 30 L 40 D ABG pO2 89 D 70 L 82 L ABG HCO3 17 L 17 L 18 L ABG O2 Saturation 98 94 95 ABG Base Excess -7 L -7 L -9 L 06/09/25 06/09/25 06/10/25 18:14 23:27 04:17 ABG pH 7.44 D 7.38 7.38 ABG pCO2 37 41 40 ABG pO2 119 H D 82 L D 74 L ABG HCO3 25 24 24 ABG O2 Saturation 100 H 97 96 ABG Base Excess 1 -1 -1 Quality Measures Quality Measures VTE prophylaxis Advance care planning discussed with:: patient Assessment & Plan Assessment Current Active Medications: Generic Name Dose Route Start Last Admin Trade Name Freq PRN Reason Stop Dose Admin Calcium Acetate 667 mg 06/07/25 14:05 06/10/25 08:48 Calcium Acetate 667 Mg Tablet NG 07/07/25 14:04 667 mg TIDWM JERSON Administration Dextrose 25 ml 06/03/25 18:26 Dextrose 50%-Water Inj 50 Ml Syringe IV 07/03/25 18:25 Q15MIN PRN BG 50-70 responsive npo pt Dextrose 50 ml 06/03/25 18:26 Dextrose 50%-Water Inj 50 Ml Syringe IV 07/03/25 18:25 Q15MIN PRN BG <50 OR BG <70 & pt unresponsive Epoetin Jose 10,000 unit 06/10/25 14:00 Epoetin Jose-Epbx Inj 10,000 Unit/Ml Vial (Esrd) SC 06/10/25 14:01 X1 ONE Glucagon 1 mg 06/03/25 18:26 Glucagon Inj 1 Mg Vial IM Q15MIN PRN BG <70, and no IV access Haloperidol Lactate 5 mg 06/06/25 16:21 Haloperidol Lact Inj 5 Mg/Ml Vial IV 07/06/25 16:20 Q6HR PRN AGITATION Heparin Sodium (Porcine) 2,600 unit 06/09/25 15:35 06/09/25 16:42 Heparin Sod Inj 1000 Unit/Ml Vial 10 Ml INDWELLCAT 06/23/25 15:34 2,600 unit X1 PRN Administration DIALYSIS Fentanyl Citrate 2,500 mcg in 250 mls @ 2.5 mls/hr 06/06/25 16:21 06/09/25 09:59 Sublimaze Inj 2,500 Mcg/250 Ml Bag IV 06/11/25 16:20 0 mcg/hr .Q24H PRN 0 mls/hr PER PROTOCOL Titration Protocol 25 MCG/HR Propofol 1,000 mg in 100 mls @ 2.722 mls/hr 06/06/25 16:22 06/09/25 09:29 Diprivan Ivpb IV 07/06/25 16:21 0 mcg/kg/min .Q24H PRN 0 mls/hr PER PROTOCOL Titration Protocol 5 MCG/KG/MIN Albumin Human 25 gm in 100 mls @ 100 mls/hr 06/07/25 00:48 06/10/25 08:47 Albuminex 25% Ivpb IV 07/07/25 00:47 100 mls/hr QDAY JERSON Administration Norepinephrine/Dextrose 8 mg in 250 mls @ 8.505 mls/hr 06/07/25 11:10 06/10/25 06:00 Levophed In D5w 8mg/250ml IV 07/07/25 11:09 0.09 mcg/kg/min .Q24H PRN 15.309 mls/hr PER PROTOCOL Titration Protocol 0.05 MCG/KG/MIN Albumin Human 25 gm in 100 mls @ 100 mls/min 06/09/25 15:53 06/09/25 15:55 Albuminar-25 Ivpb IV Infused PRN PRN Infusion DIALYSIS Insulin Human Regular 0 unit 06/07/25 12:00 06/10/25 06:34 Insulin Hum Regular 1 Unit/0.01 Ml (Per Unit) SC 07/07/25 11:59 2 unit Q6HR JERSON Administration Protocol Levothyroxine Sodium 50 mcg 06/05/25 06:00 06/10/25 06:34 Levothyroxine Sodium 25 Mcg Tablet PO 07/05/25 05:59 50 mcg ACBR JERSON Administration Protocol Midodrine 10 mg 06/10/25 10:00 Midodrine 5 Mg Tablet PO 07/10/25 09:59 Q6HR JERSON Ondansetron HCl 4 mg 06/03/25 16:40 Ondansetron Inj 2 Mg/Ml Inj 2 Ml IVP 07/03/25 16:39 Q6H PRN NAUSEA OR VOMITING Protocol Pantoprazole Sodium 40 mg 06/05/25 09:00 06/10/25 08:47 Pantoprazole Inj 40 Mg Vial IVP 07/05/25 08:59 40 mg Q12HR JERSON Administration Sertraline HCl 100 mg 06/05/25 09:00 06/10/25 09:05 Sertraline Hcl 25 Mg Tablet PO 07/05/25 08:59 Not Given DAILY JERSON Plan Patient is a 69 yo M w/ PMH of IDDM and thrombocytopenia who was admitted to the ICU s/p right maranda-colectomy performed by General Surgery on 06/06/25. No overnights events. Patient remains afebrile but virtually anuric, signaling a continued lack of recovery in kidney function. He received HD yesterday (400 ccs removed, creatinine 5.5 -> 4.9, BUN 63 -> 45) and is scheduled to have 1 L removed by HD today as well. WBC is downtrending. However, patient's hemoglobin 8.5 -> 7.0 (transfused w/ pRBC x 1 and platelet count 55 -> 26. Transminitis 2/2 likely ischemic hepatitis is downtrending. Today, patient's ABG was reassuring and he was found to have favorable performance on SBT with good weaning parameters; thus, he was extubated. However, he remains altered, unable to obey commands, and exhibiting no sustained eye contact to voice despite being off of sedation for more than 24 hours now (this is currently being attributed to possible ICU delirium). In terms of changes in management, started PO midodrine 10 mg q6HR in an attempt to wean patient off of pressors (yesterday's administration of methylene blue seemed to help with this as well) so that he is suitable to be downgraded to floors. Neuro #Encephalopathy s/p prolonged sedation #??ICU delirium Patient is reported to be able to respond using simple words at baseline However, patient has been weaned off of sedation for over 24 hours and continues to be in a state of apparent hypoactive delirium (does not respond to voice or maintain eye contact despite eyes being open, appears lethargic) Currently being attributed to ICU delirium in the setting of acute illness and protracted ICU stay with prolonged period of sedation and intubation Cardiac #Undifferentiated shock, likely mixed components of both hypovolemic and distributive etiologies Patient's blood pressure from 06/06 onwards have been soft and had initially been attributed to hypovolemia in the setting of acute blood loss during patient's recent surgery and distributive shock in the setting of possible adrenal insufficiency and / or cirrhosis-induced vasodilation of the splanchnic circulation. No evidence of obstructive etiologies like cardiac tamponade on bedside echo, nor evidence of pulmonary embolism, tension pneumothorax, constrictive pericarditis, ascites, or abdominal compartment syndrome Dx: -06/09 NICOM showed SVI 30, SV 64.5, CI 2.4, CO 5.2, TPR 800, and TPRI 1735; the low TPR and low normal TPRI even while patient is on Levophed (in the setting of ongoing hypotension despite fluid resuscitation) suggests that patient continues to be in a state of systemic vasodilation and his ongoing shock is less hypovolemic and more distributive in etiology. Rx: -s/p IV methylene blue 0.5% x 1 on 06/10 which seemed to lower pressor requirement (possibly assisted in restoring vascular tone by inhibiting the nitric oxide-cGMP pathway that is often overactive in vasodilatory states thereby improving blood pressures and reducing the need for vasopressors) -Started PO midodrine 10 mg q6HR to further reduce pressor requirements -Due to patient's wide pulse pressure, IV Levophed will be titrated to maintain SBP > 90 as parameters centered on MAP may be falsely reassuring (MAP can appear normal while diastolic pressures are unacceptably low which may lead to inadequate perfusion of organs, especially the heart which perfuses during diastole), will aim to wean as appropriate Respiratory #Acute respiratory failure, s/p extubation today #COPD #Pulmonary fibrosis Patient has been extubated today after passing SBT and showing good weaning parameters Dx: -06/03 CT CAP showed COPD with multiple areas of airspace destruction -06/03 CXR suspicious for pulmonary fibrosis Rx: -Monitor ABG and respiratory status -Supplemental oxygen as needed #Pulmonary nodule 06/03/25 CT CAP visualized a 16 mm pulmonary nodule of the right upper lobe. In the setting of Pathology-confirmed, well-differentiated, invasive adenocarcinoma, as well as multiple liver lesions concerning for hepatic metastases, this is concerning for pulmonary metastasis from malignancy of likely GI origin Rx: -Radiation Oncology (Dr. Lundberg) has been consulted and it was recommended that patient undergo elective PET scan of liver and pulmonary nodules to guide further oncologic management after patient is clinically stabilized GI #Post-op day #2 for exploratory laparotomy, abdominal packing, abdominal washout, and closure on 06/08 Patient was taken to the OR on 06/06 for resection of the colonic mass but the procedure was complicated by approximately a liter of blood loss as well as profound hypotension despite blood pressure support with 3 pressors and the decision was made to leave the abdomen open for re-exploration today He then underwent exploratory laparotomy on 06/08 for removal of his abdominal packing, abdominal washout, and closure RRx: -Hemoglobin 8.5 -> 7.0 (transfused pRBC x 1) #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 #Hypoalbuminemia Child-Chau Score: 9 (30% abdominal surgery sandra-operative mortality), MELD-Na Score: 29 (27-32% 90-day mortality) Dx: -06/03/25 CT CAP showed cirrhosis of the liver which is markedly irregular in contour and also has multiple poorly defined liver lesions with the largest in the right lobe at 7.6 cm and another measuring 4.4 cm in the lower right lobe of the liver -Low albumin levels between 2.4 and 3.0 this admission are likely 2/2 cirrhosis -Hepatitis panel negative -Per chart review, patient denies history of alcohol or IV drug use Rx: -Will start loop diuretic and rifaximin once patient is clinically stabilized #GI bleed Likely 2/2 colonic mass later identified as well-differentiated, invasive adenocarcinoma of the proximal transverse colon s/p endoscopic band ligation of grade II esophageal varices x 2 s/p octreotide drip [06/06-06/08] Dx: -Gastritis was also noted on EGD -Hemoglobin 8.5 -> 7.0 (transfused pRBC x 1) Rx: -IV Protonix 40 mg q12HR -Due to patient's cirrhotic status w/ recent acute GI bleed, patient meets criteria for [id number] of IV ceftriaxone 1 gm qD for SBP prophylaxis [06/04- 06/10] -GI consulted, appreciate recommendations #Colonic mass Identified as well-differentiated, 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 Patient's ability to clear his lactic acidosis is impaired by his acute kidney injury as well as cirrhosis. Calculated urine anion gap = +55, which, in the setting of hyperkalemia of 5.2, is suggestive of RTA Type IV (most likely 2/2 diabetic nephropathy but HIV nephropathy cannot be ruled out) Dx: -Delta-delta (change in anion gap / change in bicarbonate) shows a concomitant NAGMA which is likely the hyperchloremic metabolic acidosis already present on arrival -Lactic acidosis resolved, LA now 1.4 (06/09 @ 14:03) -Urine electrolytes showed a positive anion gap around +55 -HIV 1 and 2 (-) Rx: -Consider starting patient on a loop diuretic in the outpatient setting after stabilized for discharge #Hypocalcemia #Hyperphosphatemia Rx: -Started on NG calcium acetate 667 mg TIDWM -Monitor CMP Heme #Leukocytosis, likely reactive postoperatively Likely reactive in the setting of recent surgery and blood loss, downtrending #Acute blood loss anemia 2/2 GI bleed and right hemicolectomy on 06/06 Patient came in with an acute GI bleed thought 2/2 colonic mass later identified as well-differentiated, 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 After 06/06 right maranda-colectomy, hemoglobin dropped to 6.6 and he was transfused w/ 2 units pRBCs. Since 06/08 abdominal closure, patient's hemoglobin has remained stable, until today when hemoglobin 8.5 -> 7.0 Rx: -Hemoglobin 8.5 -> 7.0, transfused pRBC x 1 -Monitor CBC, transfuse if hemoglobin < 7 #Thrombocytopenia Occurs in the setting of cirrhosis, patient was transfused w/ platelets and his bleeding appears to have currently stopped. Dx: -Platelets now 26 from 55 yesterday Rx: -Transfuse platelets if less than 50 with active bleeding or less than 15 #Coagulopathy Patient's admission labs showing thrombocytopenia, elevated PT, INR, and low fibrinogen were consistent with low-grade DIC; however, the patient also has cirrhosis. His INR and fibrinogen however was normal on arrival pointing to perhaps more low-grade DIC. Dx: -Most recent coagulation panel showed PT 20.9 -> 16.8, INR 2.0 -> 1.6, and PTT 33.5 -> 33.8 -Fibrinogen 135 -> 201 (06/09, 05:02) Rx: -Monitor coagulation panel RRx: -Has improved after 2 transfusions of FFP and 2 doses of vitamin K on 06/08 Endocrine #Hypothyroidism Rx: -Continue home medication: PO levothyroxine 50 mcg ACBR #T2DM Dx: -06/04/25 hemoglobin A1c = 7.1% Rx: -Insulin sliding scale ID #UTI Dx: -06/03 UA indicated likely UTI -06/03 UCx grew quiros-sensitive Proteus mirablis Rx: -Patient has been receiving IV ceftriaxone 1 gm qD since 06/04 (plan to continue until 06/10) which should be adequate coverage #Esophageal varices, s/p band ligation on 06/03 and [octreotide infusion 06/06- 06/08] Rx: -IV ceftriaxone 1 gm qD [started 06/04, end date planned for 06/10] to prevent SBP and other infections Disposition: Extubated but will need continuing ICU management until weaned off of pressors DVT prophylaxis: None (bleeding risk) GI prophylaxis: IV Protonix 40 mg q12HR Diet: Trickle tube feeds @ 20 cc/hr via NG tube Healy: Present Lines: Peripheral IV, Central IV, arterial line Antibiotics: IV ceftriaxone 1 gm qD [started 06/04, end date planned for 06/10] CODE STATUS: DNR Patient care was discussed with my senior resident, Dr. Lobo (PGY-2) , and attending finish photographer, Dr. Jeffries. Rony Grace, DO Internal Medicine, PGY-1
--- NOTE | 2025-06-10 10:42 | PD.SURPROG ---
Documentation for date of: 06/10/25 Subjective Subjective Narrative: Patient is seen and examined in ICU. He remains intubated. He had very minimal to no urine output, was started on dialysis Exam Vital Signs Temp Pulse Resp BP Pulse Ox O2 Del Method O2 Flow Rate 99.7 F 90 8 L 104/42 L 93 L Mechanical Ventilation 1 06/10/25 10:21 06/10/25 10:25 06/10/25 10:21 06/10/25 10:25 06/10/25 10:25 06/10/25 04:15 06/09/25 16:55 FiO2 35 06/10/25 10:25 Constitutional Comments: Intubated Routine Abdominal Exam Comments: Abdomen is soft and mildly distended. Incision with dressings clean, dry and intact Assessment & Plan Assessment Additional comments: Postop day #4 status post exploratory laparotomy with right colectomy Postop day #2 status post removal of packing, abdominal washout and closure Plan May start patient on clear liquids once extubated. Continue care per ICU team PROCEDURES: Procedures Exploratory laparotomy, removal of the abdominal packing Abdominal washout and closure
[2025-06-10 11:18] LABS: Base Excess -2 (-3-3); HCO3 23 mEq/L (20-26); Inspired Oxygen, FIO2 35 %; O2 Saturation 100 % (91-98); PCO2 39 mmHg (32.0-48.0); PO2 121 mmHg (83-108); pH, Arterial 7.39 (7.35-7.45)
[2025-06-10] MEDS: MIDODRINE 5 MG TABLET 10 MG PO ×2 (11:18→12:21)
[2025-06-10 11:19] LABS: Allen Test Not Performed; Puncture Site Arterial Line
--- NOTE | 2025-06-10 11:59 | PD.INTPROG ---
Documentation for date of: 06/10/25 Subjective Subjective Interval history: This is a 69yo M admitted to the ICU yesterday from the OR. He was admitted to the hospital on 06/03 with GIB, cirrhosis, and SHAI. He was found to have a colon mass on EGD and liver mass with pulmonary nodules on CT. He was taken to the OR for resection and had a significant amount of bleeding. He was normocytic prior to the procedure and transfused a total of 3 units of platelets for the 24 hours prior to the procedure. And he had approximately a liter of blood loss IntraOp. Due to the significant amount of bleeding and oozing decision was made to leave the abdomen open for reexploration on Monday or Monday. He was brought to the ICU intubated and on low-dose Levophed. During the course of the evening he was noted to have high output from the wound VAC with at least 2 L out overnight. He was transfused 2 units of PRBCs in the ICU after the OR and was transfused 1 unit of PRBCs in the OR. He was found to be significantly acidotic and his vent settings were adjusted. He had both a respiratory as well as metabolic acidosis. Overnight he was started on a bicarb drip. This morning his hemoglobin is stabilized. On arrival from OR a lactate was checked and he was found to have a lactic acid of 10 this morning it is down to 6.3. He has had a total of 40 cc of urinary output throughout the entire night. 06/08- no acute overnight events, remains on levophed 0.25mcg/kg/min, elevated INR today and will receive FFP for OR 06/09-patient went to the OR yesterday for closure and the procedure was uneventful. He received 2 units of FFP's. There has been no significant bleeding. Sedation has been held and he is currently slow to wake up. He remains with very poor urinary output averaging 0 to 5 cc an hour. 06/10-no acute overnight events, patient remains extremely lethargic, has been off sedation for 24 hours, remains virtually anuric, afebrile Critical Care Note Critical care time (min.): 38 Exam Vital Signs Temp Pulse Resp BP Pulse Ox O2 Del Method O2 Flow Rate 99.7 F 89 9 L 108/45 L 94 L Mechanical Ventilation 1 06/10/25 10:56 06/10/25 11:18 06/10/25 10:56 06/10/25 11:18 06/10/25 10:56 06/10/25 04:15 06/09/25 16:55 FiO2 35 06/10/25 10:25 Narrative Exam Gen- NAD, ill appearing, thin body habitus, lethargic HEENT- NC/AT, mucosa hydrated, poor dentition, ETT/OGT in place Chest- LCTAB, HRRR, no increase in WOB Abd- soft/bowel sounds sluggish, surgical gauze clean Ext- edema, pulses palp, no clubbing, no cyanosis, no mottling Drips levo Physical Exam Completion Physical Exam Complete?: Yes Objective - Senior Media Planner Labs 06/10/25 04:15 06/10/25 04:15 Labs: Laboratory Results - last 24 hr 06/06/25 06/09/25 06/09/25 08:38 13:39 14:03 WBC RBC Hgb Hct MCV MCH MCHC RDW Std Deviation Plt Count Neut % (Auto) Lymph % (Auto) [place] % (Auto) Eos % (Auto) Baso % (Auto) Neut # (Auto) Lymph # (Auto) [place] # (Auto) Eos # (Auto) Baso # (Auto) Immature Gran # (Auto) Absolute Nucleated RBC Immature Gran % Nucleated RBC % Puncture Site Arterial Line ABG pH 7.26 L D ABG pCO2 40 D ABG pO2 82 L ABG HCO3 18 L ABG O2 Saturation 95 ABG Base Excess -9 L FiO2 95 Sodium Potassium Chloride Carbon Dioxide Anion Gap BUN Creatinine Estim Creat Clear Calc eGFR BUN/Creatinine Ratio Glucose Calculated Osmolality Lactic Acid 1.4 Calcium Corrected Calcium Phosphorus Magnesium Total Bilirubin AST ALT Alkaline Phosphatase Total Protein Albumin Globulin Albumin/Globulin Ratio Ur Collection Type Urine Color Urine Clarity Urine pH Ur Specific Knott Urine Protein Urine Glucose (UA) Urine Ketones Urine Blood Urine Nitrite Urine Bilirubin Urine Urobilinogen (Auto) Ur Leukocyte Esterase Urine RBC Urine WBC Ur Squamous Epith Cells Urine Bacteria Urine Yeast (Budding) Ur Random Urea Nitrogn Ur Random Calcium Misc Test Result Blood Type Antibody Screen Crossmatch See Detail Blood Bank Wristband ID Blood Bank Comment 06/09/25 06/09/25 06/09/25 18:14 18:16 23:27 WBC RBC Hgb Hct MCV MCH MCHC RDW Std Deviation Plt Count Neut % (Auto) Lymph % (Auto) [place] % (Auto) Eos % (Auto) Baso % (Auto) Neut # (Auto) Lymph # (Auto) [place] # (Auto) Eos # (Auto) Baso # (Auto) Immature Gran # (Auto) Absolute Nucleated RBC Immature Gran % Nucleated RBC % Puncture Site Arterial Line Arterial Line ABG pH 7.44 D 7.38 ABG pCO2 37 41 ABG pO2 119 H D 82 L D ABG HCO3 25 24 ABG O2 Saturation 100 H 97 ABG Base Excess 1 -1 FiO2 35 35 Sodium Potassium Chloride Carbon Dioxide Anion Gap BUN Creatinine Estim Creat Clear Calc eGFR BUN/Creatinine Ratio Glucose Calculated Osmolality Lactic Acid Calcium Corrected Calcium Phosphorus Magnesium Total Bilirubin AST ALT Alkaline Phosphatase Total Protein Albumin Globulin Albumin/Globulin Ratio Ur Collection Type Catheter Urine Color Yellow Urine Clarity Turbid A Urine pH 5.0 Ur Specific Knott 1.023 Urine Protein 1+ A Urine Glucose (UA) Negative Urine Ketones Trace Urine Blood 2+ A Urine Nitrite Negative Urine Bilirubin Negative Urine Urobilinogen (Auto) Negative Ur Leukocyte Esterase Positive Urine RBC 81 H Urine WBC 3 Ur Squamous Epith Cells 0 Urine Bacteria None Urine Yeast (Budding) Present A Ur Random Urea Nitrogn 143.0 L Ur Random Calcium < 5 Misc Test Result Blood Type Antibody Screen Crossmatch Blood Bank Wristband ID Blood Bank Comment 06/10/25 06/10/25 06/10/25 00:16 04:15 04:17 WBC 16.0 H D RBC 2.61 L Hgb 7.0 L 7.0 L Hct 21.9 L* 21.9 L* MCV 84 MCH 26.8 MCHC 32.0 RDW Std Deviation 53.1 H Plt Count 26 L* D Neut % (Auto) 84 H Lymph % (Auto) 6 L [place] % (Auto) 9 Eos % (Auto) 0 Baso % (Auto) 0 Neut # (Auto) 13.4 H Lymph # (Auto) 1.0 [place] # (Auto) 1.5 H Eos # (Auto) 0.1 Baso # (Auto) 0.0 Immature Gran # (Auto) 0.11 H Absolute Nucleated RBC 0.07 H Immature Gran % 1 H Nucleated RBC % 0 Puncture Site Arterial Line ABG pH 7.38 ABG pCO2 40 ABG pO2 74 L ABG HCO3 24 ABG O2 Saturation 96 ABG Base Excess -1 FiO2 35 Sodium 138 Potassium 4.9 Chloride 100 Carbon Dioxide 23.2 Anion Gap 15 BUN 45 H Creatinine 4.9 H* D Estim Creat Clear Calc 17.0 L eGFR 12 L* BUN/Creatinine Ratio 9 L Glucose 227 H D Calculated Osmolality 294 Lactic Acid Calcium 8.1 L Corrected Calcium 9.1 Phosphorus 7.7 H Magnesium 1.7 Total Bilirubin 1.5 H AST 1124 H* ALT 1641 H* Alkaline Phosphatase 504 H D Total Protein 4.7 L Albumin 2.8 L Globulin 1.9 L Albumin/Globulin Ratio 1.5 Ur Collection Type Urine Color Urine Clarity Urine pH Ur Specific Knott Urine Protein Urine Glucose (UA) Urine Ketones Urine Blood Urine Nitrite Urine Bilirubin Urine Urobilinogen (Auto) Ur Leukocyte Esterase Urine RBC Urine WBC Ur Squamous Epith Cells Urine Bacteria Urine Yeast (Budding) Ur Random Urea Nitrogn Ur Random Calcium Misc Test Result Platelets confirmed Blood Type Antibody Screen Crossmatch Blood Bank Wristband ID Blood Bank Comment 06/10/25 06/10/25 06:33 11:08 WBC RBC Hgb Hct MCV MCH MCHC RDW Std Deviation Plt Count Neut % (Auto) Lymph % (Auto) [place] % (Auto) Eos % (Auto) Baso % (Auto) Neut # (Auto) Lymph # (Auto) [place] # (Auto) Eos # (Auto) Baso # (Auto) Immature Gran # (Auto) Absolute Nucleated RBC Immature Gran % Nucleated RBC % Puncture Site Arterial Line ABG pH 7.39 ABG pCO2 39 ABG pO2 121 H D ABG HCO3 23 ABG O2 Saturation 100 H ABG Base Excess -2 FiO2 35 Sodium Potassium Chloride Carbon Dioxide Anion Gap BUN Creatinine Estim Creat Clear Calc eGFR BUN/Creatinine Ratio Glucose Calculated Osmolality Lactic Acid Calcium Corrected Calcium Phosphorus Magnesium Total Bilirubin AST ALT Alkaline Phosphatase Total Protein Albumin Globulin Albumin/Globulin Ratio Ur Collection Type Urine Color Urine Clarity Urine pH Ur Specific K[place]t Urine Protein Urine Glucose (UA) Urine Ketones Urine Blood Urine Nitrite Urine Bilirubin Urine Urobilinogen (Auto) Ur Leukocyte Esterase Urine RBC Urine WBC Ur Squamous Epith Cells Urine Bacteria Urine Yeast (Budding) Ur Random Urea Nitrogn Ur Random Calcium Misc Test Result Blood Type O Positive Antibody Screen NEGATIVE Crossmatch See Detail Blood Bank Wristband ID Yes Blood Bank Comment PLATP Ready Assessment & Plan Additional Plan Additional Plan: In brief this is a 69-year-old male with cirrhosis status post ex lap with right colectomy a/p DAY CARE PROVIDER Encephalopathy- pt is awake but appears to be lethargic, ? hypoactive delerium CV Shock-currently on Levophed. Initially felt to be both hypovolemic as well as distributive in nature. Will obtain additional hemodynamics on the cheetah. No evidence of obstructive etiology. fluid responsive with fluid bolus, given wide pulse pressure will aim for SBP >90, on abx - remains vasodilated, no signs of active infection at this time - no active bleeding - decreasing vasopressor needs - on midodrine q6ht - given 1u PRBC today Resp Acute Resp Failure-patient is intubated and on mechanical ventilation. Improved ABGs - transitioned to PSV today - plan on extubation if does well Pulm nodule-unclear if this may be a metastatic lesion, will need follow-up Renal SHAI- Will give additional volume NC. Monitor I's and O's. Avoid nephrotoxins. If the patient remains anuric will consult nephrology with a question of need for dialysis. -Nephrology consulted - minimal urinary output today - for HD today with 1lt vol removal AGMA- LA trending down -delta delta shows a concomittent non gap acidosis - urine lytes sent - this was present on arrival - suspect underlying RTA Hyperkalemia- resolved GI Cirrhosis-once patient is stable will start on Aldactone and rifaximin - LFTs in the thousands - felt to have a superimposed ischemic hepatitis - trending toward improvement GI bleed-this was felt to be secondary to colon mass and variceal bleed. Stabilized. No active bleeding. octreotide drip now off - on q12 PPI - followed by GI -Esophageal varices were also noted which were banded x 2. Gastritis also noted on EGD. colon mass-resected sent to pathology - shows invasive adenocarcinoma - for OR today to close abdomen - will need fu with oncology Liver mass-currently being evaluated for metastatic disease Hypoalbuminemia-secondary to cirrhosis Endo Hypothyroidism-continue Synthroid Diabetes-sliding scale Heme Leukocytosis- likely reactive in nature - trending up - stable Anemia- mult units of PRBC during hospital stay thus far - given 1 unit today Thrombocytopenia-in the setting of cirrhosis, patient was transfused platelets and his bleeding appears to have currently stopped. - slow drift down again Coagulopathy-patient's labs are consistent with a low-grade DIC however the patient also has cirrhosis. His INR however was normal on arrival pointing to perhaps more low-grade DIC - given FFP for OR - Stable ID On ceftriaxone for variceal bleed UTI- growing proteus-> on ceftri - last day of abx case d/w ICU team d/w nephrology labs, imaging, records reviewed ~38ccmin requried for eval, exam , review, intervention, discussion and formulation of POC for this critically ill pt Provider Notation Provider Notation: Although this document has been carefully reviewed, there may still be some phonetic and other typographical errors. These errors are purely grammatical due to imperfections in the software program and should not be construed in any way to compromise the substance of the patient's medical care during this visit. Thank you for the opportunity and privilege in assisting you with this patient's care and management.
--- NOTE | 2025-06-10 13:02 | PC.DIETICIAN ---
Nutrition prescription Trophic feeds of Nepro at 20 ml/hr via OG tube by pump. If no IV fluids, water flushes of 25 ml/hr (or per MD). When indicated by MD, advance 10 ml every 8 hrs to goal rate of 55 ml/hr x 22 hrs. -Hold TF for one hour before and after levothyroxine administration-
--- NOTE | 2025-06-10 14:33 | PC.NURSE ---
Addendum entered by Yvonne Connors RN 06/10/25 14:53: MD PULLIAM W/ ORDER TO RUN TX W/ BFR AT 200, WILL CARRY OUT ORDER. Addendum entered by Yvonne Connors RN 06/10/25 14:37: WILL INITIATE TX W/ DOSE OF ALBUMIN 25/100 AND CONT. TO MONITOR Original Note: PRE TX BP LOW, MD PULLIAM AND ICU MD NOTIFED W/ ORDER TO INITIATE AND CONT. TX LONG SBP REMAINS ABOVE 90, WILL CARRY OUT ORDERS.
[2025-06-10 14:39] LABS: Lactate (Lactic Acid) 1.6 mMol/L (0.4-2.0)
[2025-06-10] MEDS: ALBUMIN HUMAN 25% IVPB 25 GM/100 ML BTL IV (14:44)
--- NOTE | 2025-06-10 15:15 | PC.NURSE ---
BP TRENDING DOWN, BEDSIDE NURSE NOTIFIED. BP MEDICATION WAS INCREASED PER MD ORDER. WILL CONT. TO MONITOR
--- NOTE | 2025-06-10 15:35 | PC.SS ---
Update: Patient extubated today. Off sedation. Receiving dialysis today. 2nd session. NG tube to be placed. Feedings to start today. Dr. Holloway is consulting.
[2025-06-10] MEDS: EPOETIN ALFA-EPBX INJ 10,000 UNIT/ML VIAL (ESRD) 10000 UNIT SC (17:01)
[2025-06-10] MEDS: HEPARIN SOD INJ 1000 UNIT/ML VIAL 10 ML 2600 UNIT INDWELLCAT (17:02)
[2025-06-10 17:11] LABS: Hematocrit 23.0 % (41.0-53.0)
[2025-06-10 17:23] LABS: Hemoglobin 7.3 g/dL (13.5-16.0)
--- NOTE | 2025-06-10 17:52 | XR_ITS ---
Examination: Abdomen AP single view Technique: AP portable supine abdomen, single view Exam date and time: June 10, 2025, 1806 hrs. Indications: Post orogastric tube placement Findings: Orogastric side hole slightly beyond the GE junction Surgical honorio left abdomen Nonobstructive bowel gas pattern Impression: Advance the orogastric tube 4 cm
--- NOTE | 2025-06-10 18:02 | XR_ITS ---
Examination: CT chest with intravenous contrast CT abdomen with intravenous contrast CT pelvis with intravenous contrast 2-D coronal and sagittal reconstructions Time of exam: June 10, 2025, 2058 hrs., Comparison June 03, 2025 Indications: Diagnosis malignant neoplasm of the colon, post surgery, gastrointestinal bleeding 5 days CTDI: vol (mGy) : 20.5 DLP: (mGycm): 1676 Technique: Multiple axial images of the chest, abdomen and pelvis with intravenous contrast, 3.0 mm slice thickness. Images obtained post intravenous injection Isovue 370 60 cc. 2-D sagittal and coronal reconstructions. Low dose protocols were performed. One or more of the following dose reduction techniques were used; automated exposure control, adjustment of the mA and/or KV according to patient size, use of iterative reconstruction technique. Findings: No thoracic aortic aneurysm dilatation Moderate calcification left anterior descending coronary artery. No paratracheal tracheobronchial or bronchopulmonary adenopathy. Bibasilar pneumonia with minimal bilateral pleural fluid COPD with areas of airspace destruction Cirrhosis, liver nodular in contour Pneumoperitoneum in this patient with a history surgery Multiple liver lesions, the largest in the right lobe 12 cm, with areas of relative hyperdensity which may represent bleeding in this metastasis Marked splenomegaly Cholelithiasis Orogastric tube in the stomach Perigastric varices Ascites, moderate No right hydronephrosis Left pelvic kidney Aorta is not enlarged Midline abdominal honorio Contracted urinary bladder with wall thickening Anasarca Severe osteopenia Impression: Bibasilar significant pneumonia COPD Cirrhosis Marked splenomegaly Pneumoperitoneum in this patient with a history of abdominal surgery Multiple hepatic metastases, the largest 12 cm with small areas of hyperdensity which may represent active bleeding Moderate ascites Contracted urinary bladder with marked urinary bladder wall thickening
--- NOTE | 2025-06-10 21:36 | XR_ITS ---
Examination: AP chest single view Technique: AP portable supine chest single view Post orogastric tube placement Comparison: 06/07/2025 Findings: Orogastric tube in the stomach satisfactory position Bibasilar pneumonia Right internal jugular dialysis catheter tip SVC satisfactory position Mild prominence left ventricle Moderate vascular congestion Impression: Orogastric tube tip in the stomach satisfactory position
--- NOTE | 2025-06-10 21:40 | ESPR_ITS ---
Documentation for date of: 06/10/25 Subjective Subjective Interval history: Patient evaluated Remains lethargic Hypotensive requiring fluid challenge and also pressors Exam Vital Signs Temp Pulse Resp BP Pulse Ox O2 Del Method O2 Flow Rate 97.0 F 76 18 79/50 L 92 L Mechanical Ventilation 2 06/10/25 17:25 06/10/25 19:45 06/10/25 17:25 06/10/25 19:45 06/10/25 19:45 06/10/25 04:15 06/10/25 17:25 FiO2 35 06/10/25 12:00 Objective Labs 06/10/25 14:30 06/10/25 04:15 Labs: Laboratory Results - last 24 hr 06/06/25 06/09/25 06/10/25 08:38 23:27 00:16 WBC RBC Hgb 7.0 L Hct 21.9 L* MCV MCH MCHC RDW Std Deviation Plt Count Neut % (Auto) Lymph % (Auto) [place] % (Auto) Eos % (Auto) Baso % (Auto) Neut # (Auto) Lymph # (Auto) [place] # (Auto) Eos # (Auto) Baso # (Auto) Immature Gran # (Auto) Absolute Nucleated RBC Immature Gran % Nucleated RBC % Puncture Site Arterial Line ABG pH 7.38 ABG pCO2 41 ABG pO2 82 L D ABG HCO3 24 ABG O2 Saturation 97 ABG Base Excess -1 FiO2 35 Sodium Potassium Chloride Carbon Dioxide Anion Gap BUN Creatinine Estim Creat Clear Calc eGFR BUN/Creatinine Ratio Glucose Calculated Osmolality Lactic Acid Calcium Corrected Calcium Phosphorus Magnesium Total Bilirubin AST ALT Alkaline Phosphatase Total Protein Albumin Globulin Albumin/Globulin Ratio Misc Test Result Blood Type Antibody Screen Crossmatch See Detail Blood Bank Wristband ID Blood Bank Comment 06/10/25 06/10/25 06/10/25 04:15 04:17 06:33 WBC 16.0 H D RBC 2.61 L Hgb 7.0 L Hct 21.9 L* MCV 84 MCH 26.8 MCHC 32.0 RDW Std Deviation 53.1 H Plt Count 26 L* D Neut % (Auto) 84 H Lymph % (Auto) 6 L [place] % (Auto) 9 Eos % (Auto) 0 Baso % (Auto) 0 Neut # (Auto) 13.4 H Lymph # (Auto) 1.0 [place] # (Auto) 1.5 H Eos # (Auto) 0.1 Baso # (Auto) 0.0 Immature Gran # (Auto) 0.11 H Absolute Nucleated RBC 0.07 H Immature Gran % 1 H Nucleated RBC % 0 Puncture Site Arterial Line ABG pH 7.38 ABG pCO2 40 ABG pO2 74 L ABG HCO3 24 ABG O2 Saturation 96 ABG Base Excess -1 FiO2 35 Sodium 138 Potassium 4.9 Chloride 100 Carbon Dioxide 23.2 Anion Gap 15 BUN 45 H Creatinine 4.9 H* D Estim Creat Clear Calc 17.0 L eGFR 12 L* BUN/Creatinine Ratio 9 L Glucose 227 H D Calculated Osmolality 294 Lactic Acid Calcium 8.1 L Corrected Calcium 9.1 Phosphorus 7.7 H Magnesium 1.7 Total Bilirubin 1.5 H AST 1124 H* ALT 1641 H* Alkaline Phosphatase 504 H D Total Protein 4.7 L Albumin 2.8 L Globulin 1.9 L Albumin/Globulin Ratio 1.5 Misc Test Result Platelets confirmed Blood Type O Positive Antibody Screen NEGATIVE Crossmatch See Detail Blood Bank Wristband ID Yes Blood Bank Comment PLATP Ready 06/10/25 06/10/25 11:08 14:30 WBC RBC Hgb 7.3 L Hct 23.0 L MCV MCH MCHC RDW Std Deviation Plt Count Neut % (Auto) Lymph % (Auto) [place] % (Auto) Eos % (Auto) Baso % (Auto) Neut # (Auto) Lymph # (Auto) [place] # (Auto) Eos # (Auto) Baso # (Auto) Immature Gran # (Auto) Absolute Nucleated RBC Immature Gran % Nucleated RBC % Puncture Site Arterial Line ABG pH 7.39 ABG pCO2 39 ABG pO2 121 H D ABG HCO3 23 ABG O2 Saturation 100 H ABG Base Excess -2 FiO2 35 Sodium Potassium Chloride Carbon Dioxide Anion Gap BUN Creatinine Estim Creat Clear Calc eGFR BUN/Creatinine Ratio Glucose Calculated Osmolality Lactic Acid 1.6 Calcium Corrected Calcium Phosphorus Magnesium Total Bilirubin AST ALT Alkaline Phosphatase Total Protein Albumin Globulin Albumin/Globulin Ratio Misc Test Result Blood Type Antibody Screen Crossmatch Blood Bank Wristband ID Blood Bank Comment Impressions Impression: 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 and a two-stage procedure wound closed normal biventricular Hypotension Intubated and mechanically ventilated Anuric Continue current management ABG Interpretation ABG results: 06/06/25 06/06/25 06/06/25 16:05 18:18 20:48 ABG pH 7.16 L* 7.13 L* 7.13 L* ABG pCO2 45 36 35 ABG pO2 190 H 76 L D 80 L ABG HCO3 16 L 12 L 12 L ABG O2 Saturation 101 H 93 94 ABG Base Excess -12 L -16 L -17 L 06/06/25 06/07/25 06/07/25 22:31 03:02 10:20 ABG pH 7.21 L 7.30 L 7.37 ABG pCO2 32 30 L 26 L ABG pO2 72 L 130 H D 120 H ABG HCO3 13 L 15 L 15 L ABG O2 Saturation 94 100 H 99 H ABG Base Excess -14 L -11 L -9 L 06/07/25 06/07/25 06/08/25 16:00 19:59 15:14 ABG pH 7.39 7.36 7.38 ABG pCO2 27 L 28 L 29 L ABG pO2 112 H 97 66 L D ABG HCO3 16 L 16 L 17 L ABG O2 Saturation 99 H 98 94 ABG Base Excess -8 L -8 L -7 L 06/08/25 06/09/25 06/09/25 19:19 04:09 13:39 ABG pH 7.39 7.38 7.26 L D ABG pCO2 29 L 30 L 40 D ABG pO2 89 D 70 L 82 L ABG HCO3 17 L 17 L 18 L ABG O2 Saturation 98 94 95 ABG Base Excess -7 L -7 L -9 L 06/09/25 06/09/25 06/10/25 18:14 23:27 04:17 ABG pH 7.44 D 7.38 7.38 ABG pCO2 37 41 40 ABG pO2 119 H D 82 L D 74 L ABG HCO3 25 24 24 ABG O2 Saturation 100 H 97 96 ABG Base Excess 1 -1 -1 06/10/25 11:08 ABG pH 7.39 ABG pCO2 39 ABG pO2 121 H D ABG HCO3 23 ABG O2 Saturation 100 H ABG Base Excess -2 Assessment & Plan A&P Narrative A#1. CA of transverse colon, with complete obstruction underwent right colectomy and subsequent removal of the abdominal packing and washout and closure performed by Dr Tai. A#2. Suggestion of possible liver mets and lung mets on CT imaging studies. A#3. Currently at ICU intubated receiving treatments for respiratory failure renal failure hypotension acidosis. A#4. Hopefully his critical conditions will improve and be seen as outpatient at cancer treatment center. Will speak with family and patient which I could not do today. Time Spent With Patient Time: Total time spent is greater than 50% in coordination of care (as documented) at patient's floor/unit and/or counseling patient:
[2025-06-11] VITALS (120 sets, daily range): BP systolic 75–172; BP diastolic 17–169; PULSE 67–88; RESP 7–95; TEMP 36.1–36.7; O2SAT 89–98
[2025-06-11] MEDS: INSULIN HUM REGULAR 1 UNIT/0.01 ML (PER UNIT) SC ×2 (00:17→05:29)
[2025-06-11] MEDS: MIDODRINE 5 MG TABLET 10 MG PO ×3 (00:18→12:29)
[2025-06-11] MEDS: Norepinephrine/D5W 8mg/250ml 8 MG/250 ML BAG 8.505 MG IV (01:54)
[2025-06-11 02:23] LABS: Hematocrit 21.3 % (41.0-53.0)
[2025-06-11 02:41] LABS: Hemoglobin 6.8 g/dL (13.5-16.0)
[2025-06-11 03:02] LABS: Basophils % (Auto) 0 % (0-2.5); Eosinophils % (Auto) 0 % (0-10); Hematocrit 21.5 % (41.0-53.0); Lymphocytes # (Auto) 0.6 Thou/mm3 (1.0-4.8); Lymphocytes % (Auto) 5 % (10-50); Mean Corpuscular HGB Conc 31.6 g/dl (31.0-37.0); Mean Corpuscular Hemoglobin 27.1 pg (25.0-35.0); Mean Corpuscular Volume 86 fL (80-100); Monocytes % (Auto) 11 % (0-12); Neutrophils # (Auto) 9.8 Thou/mm3 (1.8-7.7); Neutrophils % (Auto) 82 % (37-80); RDW Standard Deviation 52.8 fL (35.1-43.9); Red Blood Count 2.51 Miln/mm3 (4.50-5.90); White Blood Count 11.9 Thou/mm3 (3.8-10.6)
[2025-06-11 03:03] LABS: Basophils # (Auto) 0.0 Thou/mm3 (0.0-0.2); Eosinophils # (Auto) 0.0 Thou/mm3 (0.0-0.5); Immature Granulocytes Auto 0.08 Thou/mm3 (0.00-0.00); Monocytes # (Auto) 1.4 Thou/mm3 (0.0-0.8); Nucleated Red Blood Cell # 0.09 Thou/mm3 (0.00-0.00); Nucleated Red Blood Cell % 1 /100 WBC (0)
[2025-06-11 03:08] LABS: Hemoglobin 6.8 g/dL (13.5-16.0); Platelet Count 39 Thou/mm3 (140-440)
[2025-06-11 03:31] LABS: Slide Review Platelets confirmed
[2025-06-11] MEDS: LEVOTHYROXINE SODIUM 25 MCG TABLET 50 MCG PO (05:30)
[2025-06-11 06:03] LABS: Basophils # (Auto) 0.0 Thou/mm3 (0.0-0.2); Basophils % (Auto) 0 % (0-2.5); Eosinophils # (Auto) 0.0 Thou/mm3 (0.0-0.5); Eosinophils % (Auto) 0 % (0-10); Hematocrit 24.7 % (41.0-53.0); Immature Granulocytes Auto 0.07 Thou/mm3 (0.00-0.00); Lymphocytes # (Auto) 0.8 Thou/mm3 (1.0-4.8); Lymphocytes % (Auto) 6 % (10-50); Mean Corpuscular HGB Conc 32.0 g/dl (31.0-37.0); Mean Corpuscular Hemoglobin 27.9 pg (25.0-35.0); Mean Corpuscular Volume 87 fL (80-100); Monocytes # (Auto) 1.4 Thou/mm3 (0.0-0.8); Monocytes % (Auto) 11 % (0-12); Neutrophils # (Auto) 10.1 Thou/mm3 (1.8-7.7); Neutrophils % (Auto) 82 % (37-80); Nucleated Red Blood Cell # 0.11 Thou/mm3 (0.00-0.00); Nucleated Red Blood Cell % 1 /100 WBC (0); RDW Standard Deviation 52.9 fL (35.1-43.9); Red Blood Count 2.83 Miln/mm3 (4.50-5.90); White Blood Count 12.4 Thou/mm3 (3.8-10.6)
[2025-06-11 06:06] LABS: Hemoglobin 7.9 g/dL (13.5-16.0); Platelet Count 32 Thou/mm3 (140-440)
[2025-06-11 06:31] LABS: Slide Review Platelets confirmed
[2025-06-11 06:40] LABS: Alanine Aminotransferase 1102 U/L (10-49); Albumin, Serum 3.1 gm/dL (3.4-4.8); Albumin/Globulin Ratio 1.7 (1.2-2.2); Alkaline Phosphatase 451 U/L (46-116); Anion Gap 14 (7-16); Aspartate Amino Transferase 647 U/L (0-34); BUN/Creatinine Ratio 7 Ratio (12-20); Bilirubin,Total 2.2 mg/dL (0.3-1.2); Blood Urea Nitrogen 34 mg/dL (9-23); Calcium 8.6 mg/dL (8.3-10.6); Calcium (Corrected) 9.3 mg/dL (8.5-10.1); Carbon Dioxide 23.4 mMol/L (20.0-31.0); Chloride 100 mMol/L (98-107); Creatinine (Component) 4.6 mg/dL (0.6-1.3); Estimated Creatinine Clearance 18.1 mL/min (>60); Globulin 1.8 gm/dL (2.3-3.5); Glucose 206 mg/dL (74-106); Magnesium 2.3 mg/dL (1.6-2.6); Osmolality,Calculated 287 (275-295); Phosphorous 7.5 mg/dL (2.4-5.1); Potassium 4.5 mMol/L (3.4-5.1); Sodium 137 mMol/L (136-145); Total Protein 4.9 gm/dL (5.7-8.2); eGFR 13 See Note
--- NOTE | 2025-06-11 07:51 | PC.NURSE ---
MD PULLIAM W/ ORDER TO PUT UF GOAL AT 1.5L, START TX W/ DOSE OF ALBUMIN 25/100ML AND TO CONT. TX LONG SBP REMAINS ABOVE 90, WILL CARRY OUT ORDER AND CONT. TO MONITOR
--- NOTE | 2025-06-11 08:06 | PD.SURPROG ---
Documentation for date of: 06/11/25 Subjective Subjective Narrative: Patient is seen and examined in ICU. He was extubated yesterday. He remains obtunded. He had loose bowel movements. Still requiring pressors and drop in hemoglobin Exam Vital Signs Temp Pulse Resp BP Pulse Ox O2 Del Method O2 Flow Rate 97.0 F 80 14 113/58 L 94 L Nasal Cannula 1 06/11/25 07:46 06/11/25 07:46 06/11/25 07:46 06/11/25 07:46 06/11/25 07:46 06/11/25 04:00 06/11/25 07:46 FiO2 35 06/10/25 12:00 Constitutional Constitutional: no acute distress Routine Abdominal Exam Comments: Abdomen is soft and nondistended. Incision is clean, dry and intact Assessment & Plan Assessment Additional comments: Postop day #5 status post exploratory laparotomy with right colectomy Postop day #3 status post removal of packing, abdominal washout and closure CT scan shows a small area of hyperdensity in the large liver metastasis suspicious for bleeding, this cannot be controlled surgically, may require angioembolization Plan Once patient is more alert his NG tube can be removed and patient can be started on liquid diet PROCEDURES: Procedures Exploratory laparotomy, removal of the abdominal packing Abdominal washout and closure
[2025-06-11] MEDS: ALBUMIN HUMAN 25% IVPB 25 GM/100 ML BTL IV (08:11)
--- NOTE | 2025-06-11 08:16 | PC.NURSE ---
TX INITIATED W/ DOSE OF ALBUMIN 25/100ML PER MD ORDER, BFR AT 250 PER MD ORDER WILL CONT. TO MONITOR.
[2025-06-11] MEDS: SERTRALINE HCL 25 MG TABLET 100 MG PO (08:23)
[2025-06-11] MEDS: CALCIUM ACETATE 667 MG TABLET NG ×2 (08:24→12:30)
--- NOTE | 2025-06-11 10:49 | PC.NURSE ---
pt noted to have abnormal/irregular breathing pattern with hiccups. Respiratory rate 8-9 per min. MD Jeffries aware and no new orders.
--- NOTE | 2025-06-11 10:55 | ESPR_ITS ---
Documentation for date of: 06/11/25 Subjective Subjective Interval history: History of Present Illness: 69y/o Male with PMH of insulin dependent diabetes and thrombocytopenia presented to the hospital on 06/03/2025 after a fall. At the time, patient denied any near syncopal event and just experienced fell while getting out of bed. After admission, he was found to have plts in the 40s, anemia with hgb around 8, liver cirrhosis and liver mass on CT, and was subsequently admitted for GI bleed. After upper endoscopy, grade 2 varice was found. 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 Patient resceived surgery on 06/06 for colonic mass resection, but had bleeding complications with profound hypotension. Decision was made to leave abdomen open for re-exploration on 06/08. Patient was intubated and brought to ICU while on levophed with pRBC transfusions x3. Patient became acidotic. On 06/09, nephrology has been consulted as patient's creatinine is increased from 4.9 to 5.5 with minimal urine output of 30ml ED Course: -Patient presents with BP 128/75, HR 73, T 97.7, RR 19, O2 95 Room Air -lab workup notable for low hgb of 8 and platelets in the 50s which was significantly lower from 2017 with hgb 17 and plts in the 70s. Creatinine 2.3, BUN 49. Patient GFR is 30. Patient with an AST of 103, ALT of 93, alk phos 336. T. bili normal. -Ordered hepatitis panel, fibrinogen level, -CT brain and cervical spine unremarkable. CT chest abdomen pelvis without contrast which identified COPD, 16 mm pulmonary nodule in the right upper lobe, cirrhosis, multiple liver lesions concerning for liver metastases, patient with splenomegaly, ascites, cholelithiasis no evidence of obstruction. -On-call regular senior care provider Dr. Yap, consulted for downtrending hgb. Agreed with admission for EGD and colonoscopy to eval for GI bleed. Also recommending CT guided bx of the liver nodule. 06/09/2025: Labs reviewed and patient examined at the bedside. Compared to 06/08 (BUN 47, Cr:4.6, eGFR:13), today's lab value shows BUN:63, Cr:5.5, eGFR:11. Patient does show worsening renal function. Patient will receive conventional hemodialysis today. 06/10/2025: Labs reviewed and patient examined at the bedside. BUN: 45, Cr:4.9, eGFR:12. Patient will receive anther rounds of hemodialysis today along with blood tranfusion. HCO3- improved to 23.1 from 16.0. Recommend adding Bicitra to his medication. Given his mixed acidotic state, distal RTA (type 1) cannot be ruled out, but given borderline high K (~4.9), Urine pH of 5.5, and his presentation being obscured by more serious illnesses, needs more monitoring of the patient's status. 06/11/2025 patient currently seen in ICU. Extubated. Currently on dialysis. Urine output very minimal. Patient currently oligoanuric. Seems to be in ATN. Bowel sounds present. On low-dose pressors. On conventional dialysis. Blood pressure 96/51, heart rate 73. WBC 12.4, hemoglobin 7.9, platelets 32. Sodium 137, potassium 4.5, BUN 34, creatinine 4.6, GFR 13, calcium 9.3, phosphorus 7.5, total bilirubin 2.2, AST 647, ALT 09/11/2001, albumin 3.1. Review of Systems Review of Systems Narrative Review of Systems: Patient barely arousable. Extubated. On dialysis. Exam Vital Signs Temp Pulse Resp BP Pulse Ox O2 Del Method O2 Flow Rate 36.1 C 72 12 96/37 L 95 Nasal Cannula 1 06/11/25 10:36 06/11/25 10:45 06/11/25 10:36 06/11/25 10:45 06/11/25 10:36 06/11/25 08:00 06/11/25 10:36 FiO2 35 06/10/25 12:00 Narrative Exam General: Elderly, Frail, Pale, barely arousable, lethargic. Extubated Eye: Normal conjunctiva, no scleral icterus HENT: Normocephalic, atraumatic Neck: Supple, non-tender, no JVD, no lymphadenopathy Lungs: Few rhonchi noted bilaterally Heart: Peripheral pulses intact bilaterally, Regular Rate and Rhythm. Abdomen: Status post abdominal surgery with binder. Bowel sounds present. Musculoskeletal: In bed Skin: Patient has significant edema in the upper extremities. 2+ edema in the lower extremities, Right IJ central line, Ulcers on right forearm. Psychiatric/neuro: Sedated, lethargic, barely responsive Objective Labs 06/11/25 13:35 06/11/25 05:44 Labs: Laboratory Results - last 24 hr 06/10/25 06/10/25 06/10/25 06:33 11:08 14:30 WBC RBC Hgb 7.3 L Hct 23.0 L MCV MCH MCHC RDW Std Deviation Plt Count Neut % (Auto) Lymph % (Auto) [place] % (Auto) Eos % (Auto) Baso % (Auto) Neut # (Auto) Lymph # (Auto) [place] # (Auto) Eos # (Auto) Baso # (Auto) Immature Gran # (Auto) Absolute Nucleated RBC Immature Gran % Nucleated RBC % Puncture Site Arterial Line ABG pH 7.39 ABG pCO2 39 ABG pO2 121 H D ABG HCO3 23 ABG O2 Saturation 100 H ABG Base Excess -2 FiO2 35 Sodium Potassium Chloride Carbon Dioxide Anion Gap BUN Creatinine Estim Creat Clear Calc eGFR BUN/Creatinine Ratio Glucose Calculated Osmolality Lactic Acid 1.6 Calcium Corrected Calcium Phosphorus Magnesium Total Bilirubin AST ALT Alkaline Phosphatase Total Protein Albumin Globulin Albumin/Globulin Ratio Misc Test Result Blood Type O Positive Antibody Screen NEGATIVE Crossmatch See Detail Blood Bank Wristband ID Yes Blood Bank Comment PLATP Ready 06/11/25 06/11/25 06/11/25 01:55 01:55 01:55 WBC 11.9 H RBC 2.51 L Hgb 6.8 L* 6.8 L* Hct 21.3 L* 21.5 L* MCV 86 MCH 27.1 MCHC 31.6 RDW Std Deviation 52.8 H Plt Count 39 L D Neut % (Auto) 82 H Lymph % (Auto) 5 L [place] % (Auto) 11 Eos % (Auto) 0 Baso % (Auto) 0 Neut # (Auto) 9.8 H Lymph # (Auto) 0.6 L [place] # (Auto) 1.4 H Eos # (Auto) 0.0 Baso # (Auto) 0.0 Immature Gran # (Auto) 0.08 H Absolute Nucleated RBC 0.09 H Immature Gran % 1 H Nucleated RBC % 1 H Puncture Site ABG pH ABG pCO2 ABG pO2 ABG HCO3 ABG O2 Saturation ABG Base Excess FiO2 Sodium Potassium Chloride Carbon Dioxide Anion Gap BUN Creatinine Estim Creat Clear Calc eGFR BUN/Creatinine Ratio Glucose Calculated Osmolality Lactic Acid Calcium Corrected Calcium Phosphorus Magnesium Total Bilirubin AST ALT Alkaline Phosphatase Total Protein Albumin Globulin Albumin/Globulin Ratio Misc Test Result Platelets confirmed Blood Type Antibody Screen Crossmatch Blood Bank Wristband ID Blood Bank Comment 06/11/25 05:44 WBC 12.4 H RBC 2.83 L Hgb 7.9 L Hct 24.7 L MCV 87 MCH 27.9 MCHC 32.0 RDW Std Deviation 52.9 H Plt Count 32 L Neut % (Auto) 82 H Lymph % (Auto) 6 L [place] % (Auto) 11 Eos % (Auto) 0 Baso % (Auto) 0 Neut # (Auto) 10.1 H Lymph # (Auto) 0.8 L [place] # (Auto) 1.4 H Eos # (Auto) 0.0 Baso # (Auto) 0.0 Immature Gran # (Auto) 0.07 H Absolute Nucleated RBC 0.11 H Immature Gran % 1 H Nucleated RBC % 1 H Puncture Site ABG pH ABG pCO2 ABG pO2 ABG HCO3 ABG O2 Saturation ABG Base Excess FiO2 Sodium 137 Potassium 4.5 Chloride 100 Carbon Dioxide 23.4 Anion Gap 14 BUN 34 H Creatinine 4.6 H* Estim Creat Clear Calc 18.1 L eGFR 13 L* BUN/Creatinine Ratio 7 L Glucose 206 H Calculated Osmolality 287 Lactic Acid Calcium 8.6 Corrected Calcium 9.3 Phosphorus 7.5 H Magnesium 2.3 Total Bilirubin 2.2 H D AST 647 H* ALT 1102 H* Alkaline Phosphatase 451 H D Total Protein 4.9 L Albumin 3.1 L Globulin 1.8 L Albumin/Globulin Ratio 1.7 Misc Test Result Platelets confirmed Blood Type Antibody Screen Crosscttch Blood Bank [facility] Blood Bank Comment ABG Interpretation ABG results: 06/06/25 06/06/25 06/06/25 16:05 18:18 20:48 ABG pH 7.16 L* 7.13 L* 7.13 L* ABG pCO2 45 36 35 ABG pO2 190 H 76 L D 80 L ABG HCO3 16 L 12 L 12 L ABG O2 Saturation 101 H 93 94 ABG Base Excess -12 L -16 L -17 L 06/06/25 06/07/25 06/07/25 22:31 03:02 10:20 ABG pH 7.21 L 7.30 L 7.37 ABG pCO2 32 30 L 26 L ABG pO2 72 L 130 H D 120 H ABG HCO3 13 L 15 L 15 L ABG O2 Saturation 94 100 H 99 H ABG Base Excess -14 L -11 L -9 L 06/07/25 06/07/25 06/08/25 16:00 19:59 15:14 ABG pH 7.39 7.36 7.38 ABG pCO2 27 L 28 L 29 L ABG pO2 112 H 97 66 L D ABG HCO3 16 L 16 L 17 L ABG O2 Saturation 99 H 98 94 ABG Base Excess -8 L -8 L -7 L 06/08/25 06/09/25 06/09/25 19:19 04:09 13:39 ABG pH 7.39 7.38 7.26 L D ABG pCO2 29 L 30 L 40 D ABG pO2 89 D 70 L 82 L ABG HCO3 17 L 17 L 18 L ABG O2 Saturation 98 94 95 ABG Base Excess -7 L -7 L -9 L 06/09/25 06/09/25 06/10/25 18:14 23:27 04:17 ABG pH 7.44 D 7.38 7.38 ABG pCO2 37 41 40 ABG pO2 119 H D 82 L D 74 L ABG HCO3 25 24 24 ABG O2 Saturation 100 H 97 96 ABG Base Excess 1 -1 -1 06/10/25 11:08 ABG pH 7.39 ABG pCO2 39 ABG pO2 121 H D ABG HCO3 23 ABG O2 Saturation 100 H ABG Base Excess -2 Assessment & Plan Additional Assessment & Plan Additional Plan: 69y/o Male with PMH of insulin dependent diabetes and thrombocytopenia presented to the hospital on 06/03/2025 after a fall. Patient was found with, maligant obstruction tumor in transverse colon and resceived surgery on 06/06 for colonic mass resection, but had bleeding complications with profound hypotension. Patient was intubated and brought to ICU while on levophed with pRBC transfusions x3. Patient became acidotic. On 06/09, nephrology has been consulted as patient's creatinine is increased from 4.9 to 5.5 with minimal urine output of 30ml #SHAI, requiring hemodialysis -2/2 ATN due to shock VS Pre-renal due to hypoperfusion from bleeding -Upon Admission, BUN:49, Cr: 2.3, eGFR:30. -In 9/28: BUN 47, Cr:4.6, eGFR:13. -Currently, BUN:63, Cr:5.5, eGFR:11. -Patient worsening in renal function. -Renal US (06/04/2025): Right kidney 9.6 cm cortex 1.3 cm Left kidney 8.7 cm cortex 1.4 cm, Left kidney in the pelvis, Moderate renal parenchymal scar formation, No bladder mass or bladder calculi, Bladder prevoid volume 240 cc. Small kidneys with bilateral renal cortical thinning, Moderate bilateral renal parenchymal scar formation Patient currently seen on dialysis. Tolerating dialysis without any problems. Hemodialysis for 3 hours, 2K, ultrafiltration 1 L, Epogen 6000, no heparin ordered. Plan of care discussed with the dialysis nurse. Please see dialysis flowsheet for further details. 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 Plan of care discussed with ICU team and Dr. Jeffries. Critical care time spent more than 40 minutes regarding plan of care and disease management. Quality - progress note Quality Measures Quality Measures: VTE prophylaxis Reason for Continued Stay Reason for Continued Stay: further monitoring
--- NOTE | 2025-06-11 11:27 | ESPR_ITS ---
<Statement entered by Dedrick Brock MD - 06/11/25 18:21> Patient was seen and examined in the ICU. Patient is admitted status post right colectomy performed on 06/06/25 for colon cancer. Patient continued to have low hemoglobin overnight and was given 1 unit PRBC transfusion. Post H&H showed improvement to 7.9. Additional 1 unit PRBC was ordered this morning. There was a concern for bleeding from abdomen therefore CT abdomen was ordered. However, surgery did not recommend any acute surgical intervention. Patient's mother was informed regarding patient's current condition and odd respiratory breathing pattern. She was given option for hospice. Pending decision. Patient is downgraded to floors for continued care. I saw and examined the patient, and I agree with current management stated by Dr Finn MD,PGY1. Plan of care was discussed with the attending physician and resident physician. Disclaimer: Despite multiple revisions, due to the dictation software being used, the document bellow may not be free of grammatical errors including phonetic/typographic errors. However, this does not deter from our commitment to providing health care in the patient's best interest in mind. Dr. Vinod MD, PGY 3 Documentation for date of: 06/11/25 Subjective Subjective Interval history: 69 year-old male with insulin dependent diabetes mellitus and thrombocytopenia admitted to the ICU s/p right colectomy performed by General Surgery on 06/06/25. He had initially been admitted to the hospital on 06/03 for GI bleed where he was found to have a platelet count in the 40s, hemoglobin 8, liver cirrhosis and mass with pulmonary nodules on CT, and malignant, obstructing colonic mass in the transverse colon on 06/04 EGD (later found to be well-differentiated invasive adenocarcinoma by Pathology). Patient was taken to the OR on 06/06 for resection of the colonic mass but the procedure was complicated by approximately a liter of blood loss as well as profound hypotension despite blood pressure support with 3 pressors and the decision was made to leave the abdomen open for re-exploration on 06/08. At that point, he was intubated and brought to the ICU while on low-dose Levophed. Patient had received pRBC transfusion x 1 while in the OR and pRBC transfusion x 2 in the ICU. Patient's labs shortly after being moved from OR found that he was significantly acidotic with both a metabolic acidosis (lactic acid 10) and concomitant respiratory acidosis. Interval History Refer to previous notes for interval history before 06/11/2025. 06/11/25: Overnight the patient's hemoglobin dropped and 1 unit of pRBC was transfused. A total of 2 units of pRBC was transfused on 06/10. And 2 additional units of pRBC was ordered today (06/11) and one was transfused. Patient remains afebrile and anuric. Patient received HD yesterday (1L removed, creatinine 4.9 --> 4.6, BUN 45 --> 34) and is scheduled to have 1.5L removed by HD today. Patient successfully passed SBT and was extubated (06/10) however developed ICU delirium (altered, unable to obey commands) and remains lethargic. Hemoglobin 7.0 --> 7.3 --> 6.8 --> 7.9. PO midodrine 10 mg Q6H was started yesterday (06/10) in attempt to wean patient off pressors. Patient was successfully weaned off Levophed today. Patient continues to remain lethargic, has been off sedation since 06/09. Exam Vital Signs Temp Pulse Resp BP Pulse Ox O2 Del Method O2 Flow Rate 97.0 F 70 12 109/40 L 95 Nasal Cannula 1 06/11/25 11:11 06/11/25 11:11 06/11/25 11:11 06/11/25 11:11 06/11/25 11:11 06/11/25 08:00 06/11/25 11:11 FiO2 35 06/10/25 12:00 Narrative Exam General: Frail, ill-appearing, pale, elderly male. Brief apneic pauses. Head: Normocephalic, atraumatic. Bruise on right scalp. Eyes: PERRL. Anicteric. Mouth/Throat: NG tube in place. Oral mucosa moist. Poor dentition. Cardiovascular: Regular rate and rhythm, no murmur, no JVD or carotid bruits. Respiratory: Bilateral lungs are clear to auscultation, respirations unlabored and no accessory muscle use. Gastrointestinal: Abdominal binder in place. Soft, non-distended, no palpable masses. Hypoactive bowel sounds. Extremities: Lower extremities: +2 pitting edema bilaterally, bilateral bruising, pulses present bilaterally, mild cyanosis of left toes, no clubbing or mottling noted. Third toe on right foot is shorter than surrounding toes. Upper extremities: puffiness of bilateral hands. Skin: Dried blood noted at right IJ central line insertion point and peripheral IV insertion point at the right antecubital fossa. Unable to exam patient's posterior side since patient was getting HD. From previous exam: areas of bruising noted at the right lateral abdomen, portion of the back inferior to the right scapula, right thigh, and gluteal region. Tattoos present. Neuro: Unable to follow commands and does not open eyes with voice. Objective Labs 06/11/25 13:35 06/11/25 05:44 Labs: Laboratory Results - last 24 hr 06/10/25 06/10/25 06/11/25 06:33 14:30 01:55 WBC 11.9 H RBC 2.51 L Hgb 7.3 L 6.8 L* Hct 23.0 L MCV MCH MCHC RDW Std Deviation Plt Count Neut % (Auto) Lymph % (Auto) [place] % (Auto) Eos % (Auto) Baso % (Auto) Neut # (Auto) Lymph # (Auto) [place] # (Auto) Eos # (Auto) Baso # (Auto) Immature Gran # (Auto) Absolute Nucleated RBC Immature Gran % Nucleated RBC % Sodium Potassium Chloride Carbon Dioxide Anion Gap BUN Creatinine Estim Creat Clear Calc eGFR BUN/Creatinine Ratio Glucose Calculated Osmolality Lactic Acid 1.6 Calcium Corrected Calcium Phosphorus Magnesium Total Bilirubin AST ALT Alkaline Phosphatase Total Protein Albumin Globulin Albumin/Globulin Ratio Misc Test Result Blood Type O Positive Antibody Screen NEGATIVE Crossmatch See Detail Blood Bank Wristband ID Yes Blood Bank Comment PLATP Ready 06/11/25 06/11/25 06/11/25 01:55 01:55 05:44 WBC 12.4 H RBC 2.83 L Hgb 6.8 L* 7.9 L Hct 21.3 L* 21.5 L* 24.7 L MCV 86 87 MCH 27.1 27.9 MCHC 31.6 32.0 RDW Std Deviation 52.8 H 52.9 H Plt Count 39 L D 32 L Neut % (Auto) 82 H 82 H Lymph % (Auto) 5 L 6 L [place] % (Auto) 11 11 Eos % (Auto) 0 0 Baso % (Auto) 0 0 Neut # (Auto) 9.8 H 10.1 H Lymph # (Auto) 0.6 L 0.8 L [place] # (Auto) 1.4 H 1.4 H Eos # (Auto) 0.0 0.0 Baso # (Auto) 0.0 0.0 Immature Gran # (Auto) 0.08 H 0.07 H Absolute Nucleated RBC 0.09 H 0.11 H Immature Gran % 1 H 1 H Nucleated RBC % 1 H 1 H Sodium 137 Potassium 4.5 Chloride 100 Carbon Dioxide 23.4 Anion Gap 14 BUN 34 H Creatinine 4.6 H* Estim Creat Clear Calc 18.1 L eGFR 13 L* BUN/Creatinine Ratio 7 L Glucose 206 H Calculated Osmolality 287 Lactic Acid Calcium 8.6 Corrected Calcium 9.3 Phosphorus 7.5 H Magnesium 2.3 Total Bilirubin 2.2 H D AST 647 H* ALT 1102 H* Alkaline Phosphatase 451 H D Total Protein 4.9 L Albumin 3.1 L Globulin 1.8 L Albumin/Globulin Ratio 1.7 Misc Test Result Platelets confirmed Platelets confirmed Blood Type Antibody Screen Crossmatch Blood Bank Wristband ID Blood Bank Comment ABG Interpretation ABG results: 06/06/25 06/06/25 06/06/25 16:05 18:18 20:48 ABG pH 7.16 L* 7.13 L* 7.13 L* ABG pCO2 45 36 35 ABG pO2 190 H 76 L D 80 L ABG HCO3 16 L 12 L 12 L ABG O2 Saturation 101 H 93 94 ABG Base Excess -12 L -16 L -17 L 06/06/25 06/07/25 06/07/25 22:31 03:02 10:20 ABG pH 7.21 L 7.30 L 7.37 ABG pCO2 32 30 L 26 L ABG pO2 72 L 130 H D 120 H ABG HCO3 13 L 15 L 15 L ABG O2 Saturation 94 100 H 99 H ABG Base Excess -14 L -11 L -9 L 06/07/25 06/07/25 06/08/25 16:00 19:59 15:14 ABG pH 7.39 7.36 7.38 ABG pCO2 27 L 28 L 29 L ABG pO2 112 H 97 66 L D ABG HCO3 16 L 16 L 17 L ABG O2 Saturation 99 H 98 94 ABG Base Excess -8 L -8 L -7 L 06/08/25 06/09/25 06/09/25 19:19 04:09 13:39 ABG pH 7.39 7.38 7.26 L D ABG pCO2 29 L 30 L 40 D ABG pO2 89 D 70 L 82 L ABG HCO3 17 L 17 L 18 L ABG O2 Saturation 98 94 95 ABG Base Excess -7 L -7 L -9 L 06/09/25 06/09/25 06/10/25 18:14 23:27 04:17 ABG pH 7.44 D 7.38 7.38 ABG pCO2 37 41 40 ABG pO2 119 H D 82 L D 74 L ABG HCO3 25 24 24 ABG O2 Saturation 100 H 97 96 ABG Base Excess 1 -1 -1 06/10/25 11:08 ABG pH 7.39 ABG pCO2 39 ABG pO2 121 H D ABG HCO3 23 ABG O2 Saturation 100 H ABG Base Excess -2 Quality Measures Quality Measures VTE prophylaxis Advance care planning discussed with:: other (Mother) Assessment & Plan Assessment Current Active Medications: Generic Name Dose Route Start Last Admin Trade Name Freq PRN Reason Stop Dose Admin Calcium Acetate 667 mg 06/07/25 14:05 06/11/25 08:24 Calcium Acetate 667 Mg Tablet NG 07/07/25 14:04 667 mg TIDWM JERSON Administration Dextrose 25 ml 06/03/25 18:26 Dextrose 50%-Water Inj 50 Ml Syringe IV 07/03/25 18:25 Q15MIN PRN BG 50-70 responsive npo pt Dextrose 50 ml 06/03/25 18:26 Dextrose 50%-Water Inj 50 Ml Syringe IV 07/03/25 18:25 Q15MIN PRN BG <50 OR BG <70 & pt unresponsive Glucagon 1 mg 06/03/25 18:26 Glucagon Inj 1 Mg Vial IM Q15MIN PRN BG <70, and no IV access Haloperidol Lactate 5 mg 06/06/25 16:21 Haloperidol Lact Inj 5 Mg/Ml Vial IV 07/06/25 16:20 Q6HR PRN AGITATION Heparin Sodium (Porcine) 2,600 unit 06/09/25 15:35 06/10/25 17:02 Heparin Sod Inj 1000 Unit/Ml Vial 10 Ml INDWELLCAT 06/23/25 15:34 2,600 unit X1 PRN Administration DIALYSIS Fentanyl Citrate 2,500 mcg in 250 mls @ 2.5 mls/hr 06/06/25 16:21 06/09/25 09:59 Sublimaze Inj 2,500 Mcg/250 Ml Bag IV 06/11/25 16:20 0 mcg/hr .Q24H PRN 0 mls/hr PER PROTOCOL Titration Protocol 25 MCG/HR Propofol 1,000 mg in 100 mls @ 2.722 mls/hr 06/06/25 16:22 06/09/25 09:29 Diprivan Ivpb IV 07/06/25 16:21 0 mcg/kg/min .Q24H PRN 0 mls/hr PER PROTOCOL Titration Protocol 5 MCG/KG/MIN Albumin Human 25 gm in 100 mls @ 100 mls/hr 06/07/25 00:48 06/11/25 08:26 Albuminex 25% Ivpb IV 07/07/25 00:47 Not Given QDAY JERSON Norepinephrine/Dextrose 8 mg in 250 mls @ 8.505 mls/hr 06/07/25 11:10 06/11/25 06:15 Levophed In D5w 8mg/250ml IV 07/07/25 11:09 0.03 mcg/kg/min .Q24H PRN 5.103 mls/hr PER PROTOCOL Titration Protocol 0.05 MCG/KG/MIN Insulin Human Regular 0 unit 06/07/25 12:00 06/11/25 05:29 Insulin Hum Regular 1 Unit/0.01 Ml (Per Unit) SC 07/07/25 11:59 2 unit Q6HR JERSON Administration Protocol Levothyroxine Sodium 50 mcg 06/05/25 06:00 06/11/25 05:30 Levothyroxine Sodium 25 Mcg Tablet PO 07/05/25 05:59 50 mcg ACBR JERSON Administration Protocol Midodrine 10 mg 06/10/25 10:00 06/11/25 05:31 Midodrine 5 Mg Tablet PO 07/10/25 09:59 10 mg Q6HR JERSON Administration Ondansetron HCl 4 mg 06/03/25 16:40 Ondansetron Inj 2 Mg/Ml Inj 2 Ml IVP 07/03/25 16:39 Q6H PRN NAUSEA OR VOMITING Protocol Pantoprazole Sodium 40 mg 06/05/25 09:00 06/11/25 08:24 Pantoprazole Inj 40 Mg Vial IVP 07/05/25 08:59 40 mg Q12HR JERSON Administration Sertraline HCl 100 mg 06/05/25 09:00 06/11/25 08:23 Sertraline Hcl 25 Mg Tablet PO 07/05/25 08:59 100 mg DAILY JERSON Administration Plan 69-year-old male with a history of insulin dependent diabetes mellitus, cirrhosis, normocytic anemia, liver mass, pulmonary nodules, admitted to ICU for post-operative shock, worsening acute kidney injury, and multi-organ dysfunction after right colectomy for well-differentiated invasive adenocarcinoma, now requiring ongoing vasopressor support and hemodialysis. NEURO #Encephalopathy s/p prolonged sedation #Query hypoactive delirium Patient is reported to be able to respond using simple words at baseline. However, patient has been weaned off of sedation for over 24 hours and continues to be in a state of apparent hypoactive delirium (does not respond to voice or maintain eye contact despite eyes being open, appears lethargic). Currently being attributed to ICU delirium in the setting of acute illness and protracted ICU stay with prolonged period of sedation and intubation. CARDIO #Undifferentiated shock, likely mixed components of both hypovolemic and distributive etiologies Patient's blood pressure from 06/06 onwards have been soft and had initially been attributed to hypovolemia in the setting of acute blood loss during patient's recent surgery and distributive shock in the setting of possible adrenal insufficiency and/or cirrhosis-induced vasodilation of the splanchnic circulation. No evidence of obstructive etiologies like cardiac tamponade on bedside echo, nor evidence of pulmonary embolism, tension pneumothorax, constrictive pericarditis, ascites, or abdominal compartment syndrome. Fluid responsive with fluid bolus. Finished IV ceftriaxone 1 gm QD [started 06/04, end date 06/10], afebrile and downtrending WBCs with no signs of active infection at this time. s/p IV methylene blue 0.5% x 1 on 06/10 which seemed to lower pressor requirement. Dx: -06/09 NICOM showed SVI 30, SV 64.5, CI 2.4, CO 5.2, TPR 800, and TPRI 1735; the low TPR and low normal TPRI even while patient is on Levophed (in the setting of ongoing hypotension despite fluid resuscitation) suggests that patient continues to be in a state of systemic vasodilation and his ongoing shock is less hypovolemic and more distributive in etiology. Rx: - Continue PO midodrine 15 mg q6HR. - Successfully weaned off IV Levophed. PULM #Acute respiratory failure, s/p extubation 06/10. #COPD #Pulmonary fibrosis Dx: -06/03 CT CAP showed COPD with multiple areas of airspace destruction. -06/03 CXR suspicious for pulmonary fibrosis. Rx: -Monitor ABG and respiratory status. ABG 06/10: pH 7.39 - no changes to ventilation settings at this time. -Supplemental oxygen as needed. Currently on nasal cannula 1 L/min, O2 sat 95%. #Pulmonary nodule Dx: - 06/03 CT CAP visualized a 16 mm pulmonary nodule of the right upper lobe. - Given the pathology-confirmed diagnosis of well-differentiated, invasive adenocarcinoma and multiple liver lesions suggestive of hepatic metastases, there is concern for pulmonary metastasis, likely originating from a gastrointestinal malignancy. Rx: -Radiation Oncology (Dr. Lundberg) has been consulted and it was recommended that patient undergo elective PET scan of liver and pulmonary nodules to guide further oncologic management after patient is clinically stabilized. GI #Postop day #5 status post exploratory laparotomy with right colectomy (06/06). Complicated by blood loss and profound hypotension despite pressors. Patient was noted to be acidotic and hypercoagulable. Abdomen packed covered with sterile plastic covering then wound VAC was placed. The plan was to correct the coagulation parameters and bring back to the operating room in 48 hours for removal of the packings and closure of the abdomen. #Postop day #3 status post removal of packing, abdominal washout and closure (06/08). #GI bleed #Grade II esophageal varices Dx: - Likely secondary to colonic mass and variceal bleed. - S/p endoscopic band ligation of grade II esophageal varices x 2 on 06/03. Gastritis also noted on EGD. - S/p octreotide drip (06/06-06/08). Rx: - Continue IV Protonix 40 mg Q12HR. - Due to patient's cirrhotic status w/ recent acute GI bleed, patient meets criteria for 4-plj-phoptn of IV ceftriaxone 1 gm QD for SBP prophylaxis. Completed course 06/04-06/10. - Followed by GI, appreciate recommendations. RRx: - Hemoglobin 7.3 --> 6.8 --> 7.9. 2 units were transfused yesterday (06/10) and last night (06/11) but hemoglobin did not correct appropriately. Will transfuse 1 unit of pRBC today (06/11). May consider checking haptoglobin and indirect bilirubin to check for hemolysis. Peripheral blood smear on 06/05 showed normocytic normochromic anemia with anisopoikilocytosis. #Well-differentiated invasive adenocarcinoma Dx: - S/p colon mass resection, pathology report confirmed invasive adenocarcinoma. Rx: - Will need to follow up with oncology. #Liver lesions Concerning for metastatic lesions #Metabolic dysfunction-associated steatotic liver disease -associated liver cirrhosis w/ coagulopathy and thrombocytopenia #Hypoalbuminemia (improving) #Transaminitis (improving) Child-Chau Score: 9 (30% abdominal surgery sandra-operative mortality), MELD-Na Score: 29 (27-32% 90-day mortality). Dx: -06/03 CT CAP showed cirrhosis of the liver which is markedly irregular in contour and also has multiple poorly defined liver lesions with the largest in the right lobe at 7.6 cm and another measuring 4.4 cm in the lower right lobe of the liver. -Low albumin levels between 2.4 and 3.0 this admission are likely secondary to cirrhosis. Continue with albumin infusion. -Hepatitis panel negative. -Per chart review, patient denies history of alcohol or IV drug use. -Continue to monitor LFTs, improving. Likely from superimposed ischemic hepatitis. Rx: - Will start Aldactone and rifaximin once patient is clinically stabilized. NEPHRO #Acute Kidney Injury secondary to #Distributive shock #Possible Type I hepato-renal syndrome Patient's rapid doubling of creatinine in less than 2 weeks in the setting of recent bleeding and liver cirrhosis / severe liver dysfunction is concerning for Type I HRS due to mechanism of cirrhotic splanchnic vasodilation -> reduced effective blood volume -> decreased kidney perfusion. Dx: -Patient still remains virtually anuric. Rx: -Nephrology (Dr. Holloway) has been consulted, HD to remove 1 L yesterday (06/10). Plan for HD today to remove 1.5L. -Keep BP with SBP > 90 as mentioned in Cardio section to improve renal perfusion. -Monitor I's and O's. -Avoid nephrotoxins. #Anion Gap Metabolic Acidosis likely secdonary to #Renal Tubular Acidosis Type IV #Lactic acidosis (resolved) Patient initially presented with a hyperchloremic metabolic acidosis on 06/03 and later developed both a hyperchloremic metabolic acidosis as well as an anion gap metabolic acidosis secondary to elevated lactate. Patient's ability to clear his lactic acidosis is impaired by his acute kidney injury as well as cirrhosis. Calculated urine anion gap = +55, which, in the setting of hyperkalemia of 5.2, is suggestive of RTA Type IV (most likely 2/2 diabetic nephropathy; negative HIV 1&2 antibody - HIV nephropathy ruled out). Dx: -Delta-delta (change in anion gap / change in bicarbonate) shows a concomitant NAGMA which is likely the hyperchloremic metabolic acidosis already present on arrival. -Urine electrolytes showed a positive anion gap around +55. -HIV 1 and 2 antibody negative. Rx: -Consider starting patient on a loop diuretic in the outpatient setting after stabilized for discharge. #Electrolyte imbalances #Hypocalcemia (resolved) #Hyperkalemia (resolved) #Hyperphosphatemia Rx: -Started on NG calcium acetate 667 mg TIDWM. -Monitor CMP HEME #Leukocytosis (trending up) Dx: Likely reactive in nature, from recent surgery and blood loss. Afebrile. #Normocytic normochromic anemia #Acute blood loss anemia 2/2 GI bleed and right hemicolectomy on 06/06 Patient came in with an acute GI bleed thought secondary to colonic mass later identified as well-differentiated, 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 Dx: Peripheral blood smear on 06/05 showed normocytic normochromic anemia with anisopoikilocytosis. 06/10 CT AP: Multiple liver lesions with possible bleeding near liver mets. Rx: - Transfused 2 units pRBC overnight with hemoglobin 6.8 --> 7.9. - Plan to transfuse 1 unit since hemoglobin did not correct appropriately. Repeat H&H. #Thrombocytopenia In setting of cirrhosis. Dx: - Platelets 26 --> 39 --> 32. Patient was transfused with platelets. Rx: - Transfuse platelets if less than 50 with active bleeding or less than 15 #Coagulopathy Patient's admission labs showing thrombocytopenia, elevated PT, INR, and low fibrinogen were consistent with low-grade DIC; however, the patient also has cirrhosis. His INR and fibrinogen however was normal on arrival pointing to perhaps more low-grade DIC. Dx: -Most recent coagulation panel showed PT 20.9 -> 16.8, INR 2.0 -> 1.6, and PTT 33.5 -> 33.8. -Fibrinogen 135 -> 201. Rx: -Monitor coagulation panel. RRx: -Has improved after 2 transfusions of FFP and 2 doses of vitamin K on 06/08. ENDO #Hypothyroidism Rx: -Continue home medication: PO levothyroxine 50 mcg. #Type 2 diabetes mellitus Dx: -06/04/25 hemoglobin A1c = 7.1%. Rx: - Continue Insulin sliding scale. ID #Urinary tract infection Dx: -06/03 UA indicated likely UTI -06/03 UCx grew quiros-sensitive Proteus mirablis Rx: -Patient completed IV ceftriaxone 1 gm qD (06/04-06/10). MSK #No active problems SKIN #No active problems Health Maintenance: Disposition: Extubated on 06/10. Weaned off of pressors on 06/11. Downgrade to floors - Tele bed. DVT prophylaxis: None (bleeding risk). GI prophylaxis: IV Protonix 40 mg Q12HR. Diet: Start tube feeds on floors. Healy: Present. Lines: Peripheral IV, Central IV, Arterial line. Antibiotics: Finished IV ceftriaxone 1 gm qD [started 06/04, end date planned for 06/10] CODE STATUS: DNR. Patient care was discussed with my senior resident, Dr. Brock and attending Dr. Jeffries. Katia Briseno, DO Internal Medicine, PGY-1
--- NOTE | 2025-06-11 12:35 | PC.SS ---
Patient is currently receiving Dialysis session. Third dialysis session today.
--- NOTE | 2025-06-11 13:30 | PC.SS ---
POULTRY SLAUGHTERER informed by ICU resident that patient's mother was requesting information regarding hospice services. POULTRY SLAUGHTERER met with patient's mother to discuss request. POULTRY SLAUGHTERER provided overview of hospice services to include not pursuing life sustaining measures. Patient's mother confirmed need to review option. Patient's mother requested contact with local hospice agency. POULTRY SLAUGHTERER infomred patient's mother that [facility] on rotation for today. Zohra's mother in agreement with having [facility] contact her to discuss hospice services. POULTRY SLAUGHTERER to follow up.
[2025-06-11 13:46] LABS: Allen Test Not Performed; Base Excess -1 (-3-3); HCO3 24 mEq/L (20-26); Inspired O2, VO2 Liters 1 L/min; O2 Saturation 95 % (91-98); PCO2 41 mmHg (32.0-48.0); PO2 72 mmHg (83-108); Puncture Site Arterial Line; pH, Arterial 7.38 (7.35-7.45)
[2025-06-11 13:47] LABS: Lactate (Lactic Acid) 1.6 mMol/L (0.4-2.0)
[2025-06-11 13:52] LABS: Hematocrit 24.5 % (41.0-53.0)
[2025-06-11 14:06] LABS: Hemoglobin 7.9 g/dL (13.5-16.0)
--- NOTE | 2025-06-11 15:15 | PC.SS ---
TOOL RENTAL TECHNICIAN contacted [facility] to request that agency follow up with patient's mother to discuss services. Center staff to follow up with patient's mother. TOOL RENTAL TECHNICIAN updated ICU resident.
--- NOTE | 2025-06-11 15:16 | PC.SS ---
Update: Plan is to downgrade patient today.
--- NOTE | 2025-06-11 15:58 | ESPR_ITS ---
Documentation for date of: 06/11/25 Subjective Subjective Interval history: This is a 69yo M admitted to the ICU yesterday from the OR. He was admitted to the hospital on 06/03 with GIB, cirrhosis, and SHAI. He was found to have a colon mass on EGD and liver mass with pulmonary nodules on CT. He was taken to the OR for resection and had a significant amount of bleeding. He was normocytic prior to the procedure and transfused a total of 3 units of platelets for the 24 hours prior to the procedure. And he had approximately a liter of blood loss IntraOp. Due to the significant amount of bleeding and oozing decision was made to leave the abdomen open for reexploration on Monday or Monday. He was brought to the ICU intubated and on low-dose Levophed. During the course of the evening he was noted to have high output from the wound VAC with at least 2 L out overnight. He was transfused 2 units of PRBCs in the ICU after the OR and was transfused 1 unit of PRBCs in the OR. He was found to be significantly acidotic and his vent settings were adjusted. He had both a respiratory as well as metabolic acidosis. Overnight he was started on a bicarb drip. This morning his hemoglobin is stabilized. On arrival from OR a lactate was checked and he was found to have a lactic acid of 10 this morning it is down to 6.3. He has had a total of 40 cc of urinary output throughout the entire night. 06/08- no acute overnight events, remains on levophed 0.25mcg/kg/min, elevated INR today and will receive FFP for OR 06/09-patient went to the OR yesterday for closure and the procedure was uneventful. He received 2 units of FFP's. There has been no significant bleeding. Sedation has been held and he is currently slow to wake up. He remains with very poor urinary output averaging 0 to 5 cc an hour. 06/10-no acute overnight events, patient remains extremely lethargic, has been off sedation for 24 hours, remains virtually anuric, afebrile 06/11-no acute overnight events, afebrile, minimal urinary output, brief apneic pauses, lethargic Critical Care Note Critical care time (min.): 0 Exam Vital Signs Temp Pulse Resp BP Pulse Ox O2 Del Method O2 Flow Rate 97.0 F 71 12 103/37 L 95 Nasal Cannula 1 06/11/25 11:20 06/11/25 12:29 06/11/25 11:20 06/11/25 12:29 06/11/25 11:20 06/11/25 08:00 06/11/25 11:20 FiO2 35 06/10/25 12:00 Narrative Exam General-no acute distress, awake, nonverbal, thin body habitus HEENT-normocephalic, atraumatic, sclera icteric, oral mucosa dry, NG tube in place Chest-lungs clear to auscultation, diminished at bases, heart rate regular rhythmic, no increased work of breathing, Neri-Gomez respiration Abdomen-soft, nontender, sounds present, no rebound or guarding, midline surgical site intact Extremities-edema in upper extremities approximately 2+, no clubbing, no mottling, no cyanosis Physical Exam Completion Physical Exam Complete?: Yes Objective - [employer] Labs 06/11/25 13:35 06/11/25 05:44 Labs: Laboratory Results - last 24 hr 06/10/25 06/10/25 06/11/25 06:33 14:30 01:55 WBC 11.9 H RBC 2.51 L Hgb 7.3 L 6.8 L* Hct 23.0 L MCV MCH MCHC RDW Std Deviation Plt Count Neut % (Auto) Lymph % (Auto) Franklin % (Auto) Eos % (Auto) Baso % (Auto) Neut # (Auto) Lymph # (Auto) Franklin # (Auto) Eos # (Auto) Baso # (Auto) Immature Gran # (Auto) Absolute Nucleated RBC Immature Gran % Nucleated RBC % Puncture Site ABG pH ABG pCO2 ABG pO2 ABG HCO3 ABG O2 Saturation ABG Base Excess Oxygen Liter Flow Sodium Potassium Chloride Carbon Dioxide Anion Gap BUN Creatinine Estim Creat Clear Calc eGFR BUN/Creatinine Ratio Glucose Calculated Osmolality Lactic Acid Calcium Corrected Calcium Phosphorus Magnesium Total Bilirubin AST ALT Alkaline Phosphatase Total Protein Albumin Globulin Albumin/Globulin Ratio Misc Test Result Blood Type O Positive Antibody Screen NEGATIVE Crossmatch See Detail Blood Bank Wristband ID Yes Blood Bank Comment PLATP Ready 06/11/25 06/11/25 06/11/25 01:55 01:55 05:44 WBC 12.4 H RBC 2.83 L Hgb 6.8 L* 7.9 L Hct 21.3 L* 21.5 L* 24.7 L MCV 86 87 MCH 27.1 27.9 MCHC 31.6 32.0 RDW Std Deviation 52.8 H 52.9 H Plt Count 39 L D 32 L Neut % (Auto) 82 H 82 H Lymph % (Auto) 5 L 6 L Franklin % (Auto) 11 11 Eos % (Auto) 0 0 Baso % (Auto) 0 0 Neut # (Auto) 9.8 H 10.1 H Lymph # (Auto) 0.6 L 0.8 L Franklin # (Auto) 1.4 H 1.4 H Eos # (Auto) 0.0 0.0 Baso # (Auto) 0.0 0.0 Immature Gran # (Auto) 0.08 H 0.07 H Absolute Nucleated RBC 0.09 H 0.11 H Immature Gran % 1 H 1 H Nucleated RBC % 1 H 1 H Puncture Site ABG pH ABG pCO2 ABG pO2 ABG HCO3 ABG O2 Saturation ABG Base Excess Oxygen Liter Flow Sodium 137 Potassium 4.5 Chloride 100 Carbon Dioxide 23.4 Anion Gap 14 BUN 34 H Creatinine 4.6 H* Estim Creat Clear Calc 18.1 L eGFR 13 L* BUN/Creatinine Ratio 7 L Glucose 206 H Calculated Osmolality 287 Lactic Acid Calcium 8.6 Corrected Calcium 9.3 Phosphorus 7.5 H Magnesium 2.3 Total Bilirubin 2.2 H D AST 647 H* ALT 1102 H* Alkaline Phosphatase 451 H D Total Protein 4.9 L Albumin 3.1 L Globulin 1.8 L Albumin/Globulin Ratio 1.7 Misc Test Result Platelets confirmed Platelets confirmed Blood Type Antibody Screen Crossmatch Blood Bank Wristband ID Blood Bank Comment 06/11/25 06/11/25 13:33 13:35 WBC RBC Hgb 7.9 L Hct 24.5 L MCV MCH MCHC RDW Std Deviation Plt Count Neut % (Auto) Lymph % (Auto) Franklin % (Auto) Eos % (Auto) Baso % (Auto) Neut # (Auto) Lymph # (Auto) Franklin # (Auto) Eos # (Auto) Baso # (Auto) Immature Gran # (Auto) Absolute Nucleated RBC Immature Gran % Nucleated RBC % Puncture Site Arterial Line ABG pH 7.38 ABG pCO2 41 ABG pO2 72 L D ABG HCO3 24 ABG O2 Saturation 95 ABG Base Excess -1 Oxygen Liter Flow 1 Sodium Potassium Chloride Carbon Dioxide Anion Gap BUN Creatinine Estim Creat Clear Calc eGFR BUN/Creatinine Ratio Glucose Calculated Osmolality Lactic Acid 1.6 Calcium Corrected Calcium Phosphorus Magnesium Total Bilirubin AST ALT Alkaline Phosphatase Total Protein Albumin Globulin Albumin/Globulin Ratio Misc Test Result Blood Type Antibody Screen Crossmatch Blood Bank Wristband ID Blood Bank Comment Assessment & Plan Additional Plan Additional Plan: In brief this is a 69-year-old male with cirrhosis status post ex lap with right colectomy 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 hypoactive delerium - no significant improvement thus far CV Shock- improved - on midodrine 15mg q6 and of vasopressors Resp Acute Resp Failure-extubated yesterday - on 2lts NC and satting well Pulm nodule-unclear if this may be a metastatic lesion, will need follow-up Renal SHAI- on HD - tolerating well AGMA- resolved - suspect underlying RTA as well Hyperkalemia- resolved GI Cirrhosis-once patient is stable will start on Aldactone and rifaximin - LFTs in the thousands - felt to have a superimposed ischemic hepatitis - trending toward improvement - fu with GI GI bleed-this was felt to be secondary to colon mass and variceal bleed. Stabilized. No active bleeding. octreotide drip now off - on q12 PPI - followed by GI -Esophageal varices were also noted which were banded x 2. Gastritis also noted on EGD. 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 - slow drift down again - remained stable Coagulopathy-patient's labs are consistent with a low-grade DIC however the patient also has cirrhosis. His INR however was normal on arrival pointing to perhaps more low-grade DIC - given FFP for OR - Stable ID On ceftriaxone for variceal bleed UTI- growing proteus-> on ceftri - last day of abx case d/w ICU team d/w nephrology pt remains stable off pressors, still lethargic, will discuss with SW for ? of hospice with family remains DNR/DNI labs, imaging, records reviewed ~35min requried for eval, exam , review, intervention, discussion and formulation of POC Provider Notation Provider Notation: Although this document has been carefully reviewed, there may still be some phonetic and other typographical errors. These errors are purely grammatical due to imperfections in the software program and should not be construed in any way to compromise the substance of the patient's medical care during this visit. Thank you for the opportunity and privilege in assisting you with this patient's care and management.
--- NOTE | 2025-06-11 16:30 | ESPR_ITS ---
<Statement entered by Pipo Lobo MD - 06/11/25 20:09> I saw and examined patient personally and supervised PGY 1 resident, Dr. Grace with formulating a management plan. I agree with the documentation with the exceptions as listed below. Patient is a 69 yo M w/ PMH of IDDM and thrombocytopenia who was admitted to the ICU s/p right maranda-colectomy performed by General Surgery on 06/06/25. Patient was subsequently taken back to the OR on 06/08 for closure of the abdomen. While in the ICU patient was in distributive shock likely secondary to end-stage liver disease as well as hypovolemia from blood loss secondary to adenocarcinoma of the colon with subsequent surgery. He remained intubated and mechanically ventilated until 06/10 when he was extubated. During his ICU stay he was on norepinephrine, albumin and even had a dose of methylene blue for refractory distributive shock. Despite all these measures his perfusion did not improve and he developed septic ATN and had to be started on hemodialysis on 06/09. Today at approximately 3:55 PM patient was downgraded to the floor team. At the time of assessment patient's MAP was 61 after being off of norepinephrine infusion for 1 hour. He was noted to have agonal breathing with apneic pauses and unresponsive to verbal stimuli. His mother, decision-maker, was contacted about patient's poor prognosis, high risk of deterioration and . Comfort measures were offered as at this time as there were no further life preserving measures which would benefit. Even after extensive counseling his mother opted to wait until 11 AM tomorrow for discussion with his siblings and her present to decide on comfort measures/outpatient hospice care. She said until that point in time she would want all medical management pursued except for intubation and resuscitation if his heart stopped. Plan of care discussed with Attending Dr. Jason Lobo MD PGY 2 Disclaimer: This note was dictated by speech recognition. Minor errors in fill manager may be present due to voice recognition software. Documentation for date of: 06/11/25 Subjective Subjective Interval history: Patient is a 69 yo M w/ PMH of IDDM and thrombocytopenia who was admitted to the ICU s/p right maranda-colectomy performed by General Surgery on 06/06/25. He had initially been admitted to the hospital on 06/03 for GI bleed where he was found to have a platelet count in the 40s, hemoglobin 8, liver cirrhosis and mass with pulmonary nodules on CT, and malignant, obstructing colonic mass in the transverse colon on 06/04 EGD (later found to be well-differentiated invasive adenocarcinoma by Pathology). Patient was taken to the OR on 06/06 for resection of the colonic mass but the procedure was complicated by approximately a liter of blood loss as well as profound hypotension despite blood pressure support with 3 pressors and the decision was made to leave the abdomen open for re-exploration on 06/08. At that point, he was intubated and brought to the ICU while on low-dose Levophed. After patient had his abdominal closure on 06/08, he remained intubated, sedated, and on pressor support (while also receiving HD and being infused with blood products due to ongoing renal failure and anemia/thrombocytopenia, respectively) until it was deemed appropriate for him to be extubated on 06/10. Today, on 06/11, patient has finally been weaned from pressor support and deemed clinically stabilized enough to be downgraded to floors for management. However, his hemoglobin and platelets continue to be low in the setting of active bleeding suspected 2B 2/2 metastatic liver lesion which General Surgery has evaluated to be unable to be controlled through surgical intervention. Patient also remains in apparent hypoactive delirium and not at mental baseline; he does not respond to questioning nor does he make eye contact. Due to patient's metastatic disease, cirrhosis with likely liver failure, ongoing renal failure, continued occult bleeding and thrombocytopenia, shock, and generally poor condition not amenable to many treatment options that would significantly extend lifespan or restore functional status, the idea of comfort care or hospice was brought up to patient's mother and decision-maker, Brittany Lezama. Patient's mother was called and it was re-confirmed that she did not want to change patient's current Code Status of DNR / DNI but that she was still not ready to make a decision in terms of pursuing comfort care / hospice at this time. She agreed to meet again with Instructional Design Manager Luis tomorrow morning in order to discuss further proceedings. Current plan will be to continue maintaining patient's blood pressure within goal parameters and transfusing blood as appropriate. Exam Vital Signs Temp Pulse Resp BP Pulse Ox O2 Del Method O2 Flow Rate 97.0 F 71 12 103/37 L 95 Nasal Cannula 1 06/11/25 11:20 10/01/25 12:29 06/11/25 11:20 06/11/25 12:29 06/11/25 11:20 06/11/25 08:00 06/11/25 11:20 FiO2 35 06/10/25 12:00 Narrative Exam General: Frail, ill-appearing, pale, and elderly male. Head: Normocephalic, atraumatic. Bruise on right scalp. Eyes: PERRL. Anicteric. Mouth/Throat: Extubated today. NG tube in place. Oral mucosa moist. Cardiovascular: Difficult to auscultate clearly but seemingly regular rate and rhythm, no murmur, no JVD or carotid bruits. +S1/S2. Respiratory: Bilateral lungs are clear to auscultation, respirations unlabored, no crackles, no wheezing. No accessory muscle use. Gastrointestinal: Abdominal binder in place. Soft, non-distended, no palpable masses. Hypoactive bowel sounds. Extremities: Bruising of bilateral lower extremities, moreso on right side. 1+ pitting edema bilaterally, pulses present bilaterally, mild cyanosis of left toes, no clubbing or mottling noted. Puffiness of hands with slight dusky tinge appreciated at the fingertips of right hand. Feet appear puffier today. Third toe on right foot shorter than surrounding toes. Skin: Dried blood noted at right IJ central line insertion point and peripheral IV insertion point at the right antecubital fossa. Ulceration noted at right lateral forearm. Areas of bruising noted at the right lateral abdomen, portion of the back inferior to the right scapula, right thigh, and gluteal region. Neuro: Unable to follow commands and does not make eye contact with voice Objective Labs 06/13/25 07:35 06/13/25 07:35 Labs: Laboratory Results - last 24 hr 06/10/25 06/10/25 06/11/25 06:33 14:30 01:55 WBC 11.9 H RBC 2.51 L Hgb 7.3 L 6.8 L* Hct 23.0 L MCV MCH MCHC RDW Std Deviation Plt Count Neut % (Auto) Lymph % (Auto) [place] % (Auto) Eos % (Auto) Baso % (Auto) Neut # (Auto) Lymph # (Auto) [place] # (Auto) Eos # (Auto) Baso # (Auto) Immature Gran # (Auto) Absolute Nucleated RBC Immature Gran % Nucleated RBC % Puncture Site ABG pH ABG pCO2 ABG pO2 ABG HCO3 ABG O2 Saturation ABG Base Excess Oxygen Liter Flow Sodium Potassium Chloride Carbon Dioxide Anion Gap BUN Creatinine Estim Creat Clear Calc eGFR BUN/Creatinine Ratio Glucose Calculated Osmolality Lactic Acid Calcium Corrected Calcium Phosphorus Magnesium Total Bilirubin AST ALT Alkaline Phosphatase Total Protein Albumin Globulin Albumin/Globulin Ratio Misc Test Result Blood Type O Positive Antibody Screen NEGATIVE Crossmatch See Detail Blood Bank Wristband ID Yes Blood Bank Comment PLATP Ready 06/11/25 06/11/25 06/11/25 01:55 01:55 05:44 WBC 12.4 H RBC 2.83 L Hgb 6.8 L* 7.9 L Hct 21.3 L* 21.5 L* 24.7 L MCV 86 87 MCH 27.1 27.9 MCHC 31.6 32.0 RDW Std Deviation 52.8 H 52.9 H Plt Count 39 L D 32 L Neut % (Auto) 82 H 82 H Lymph % (Auto) 5 L 6 L [place] % (Auto) 11 11 Eos % (Auto) 0 0 Baso % (Auto) 0 0 Neut # (Auto) 9.8 H 10.1 H Lymph # (Auto) 0.6 L 0.8 L [place] # (Auto) 1.4 H 1.4 H Eos # (Auto) 0.0 0.0 Baso # (Auto) 0.0 0.0 Immature Gran # (Auto) 0.08 H 0.07 H Absolute Nucleated RBC 0.09 H 0.11 H Immature Gran % 1 H 1 H Nucleated RBC % 1 H 1 H Puncture Site ABG pH ABG pCO2 ABG pO2 ABG HCO3 ABG O2 Saturation ABG Base Excess Oxygen Liter Flow Sodium 137 Potassium 4.5 Chloride 100 Carbon Dioxide 23.4 Anion Gap 14 BUN 34 H Creatinine 4.6 H* Estim Creat Clear Calc 18.1 L eGFR 13 L* BUN/Creatinine Ratio 7 L Glucose 206 H Calculated Osmolality 287 Lactic Acid Calcium 8.6 Corrected Calcium 9.3 Phosphorus 7.5 H Magnesium 2.3 Total Bilirubin 2.2 H D AST 647 H* ALT 1102 H* Alkaline Phosphatase 451 H D Total Protein 4.9 L Albumin 3.1 L Globulin 1.8 L Albumin/Globulin Ratio 1.7 Misc Test Result Platelets confirmed Platelets confirmed Blood Type Antibody Screen Crossfltch Blood Bank [facility] Blood Bank Comment 06/11/25 06/11/25 13:33 13:35 WBC RBC Hgb 7.9 L Hct 24.5 L MCV MCH MCHC RDW Std Deviation Plt Count Neut % (Auto) Lymph % (Auto) [place] % (Auto) Eos % (Auto) Baso % (Auto) Neut # (Auto) Lymph # (Auto) [place] # (Auto) Eos # (Auto) Baso # (Auto) Immature Gran # (Auto) Absolute Nucleated RBC Immature Gran % Nucleated RBC % Puncture Site Arterial Line ABG pH 7.38 ABG pCO2 41 ABG pO2 72 L D ABG HCO3 24 ABG O2 Saturation 95 ABG Base Excess -1 Oxygen Liter Flow 1 Sodium Potassium Chloride Carbon Dioxide Anion Gap BUN Creatinine Estim Creat Clear Calc eGFR BUN/Creatinine Ratio Glucose Calculated Osmolality Lactic Acid 1.6 Calcium Corrected Calcium Phosphorus Magnesium Total Bilirubin AST ALT Alkaline Phosphatase Total Protein Albumin Globulin Albumin/Globulin Ratio Misc Test Result Blood Type Antibody Screen Crossfltch Blood Bank [facility] Blood Bank Comment ABG Interpretation ABG results: 06/06/25 06/06/25 06/06/25 16:05 18:18 20:48 ABG pH 7.16 L* 7.13 L* 7.13 L* ABG pCO2 45 36 35 ABG pO2 190 H 76 L D 80 L ABG HCO3 16 L 12 L 12 L ABG O2 Saturation 101 H 93 94 ABG Base Excess -12 L -16 L -17 L 06/06/25 06/07/25 06/07/25 22:31 03:02 10:20 ABG pH 7.21 L 7.30 L 7.37 ABG pCO2 32 30 L 26 L ABG pO2 72 L 130 H D 120 H ABG HCO3 13 L 15 L 15 L ABG O2 Saturation 94 100 H 99 H ABG Base Excess -14 L -11 L -9 L 06/07/25 06/07/25 06/08/25 16:00 19:59 15:14 ABG pH 7.39 7.36 7.38 ABG pCO2 27 L 28 L 29 L ABG pO2 112 H 97 66 L D ABG HCO3 16 L 16 L 17 L ABG O2 Saturation 99 H 98 94 ABG Base Excess -8 L -8 L -7 L 06/08/25 06/09/2506/09/25 19:19 04:09 13:39 ABG pH 7.39 7.38 7.26 L D ABG pCO2 29 L 30 L 40 D ABG pO2 89 D 70 L 82 L ABG HCO3 17 L 17 L 18 L ABG O2 Saturation 98 94 95 ABG Base Excess -7 L -7 L -9 L 06/09/25 06/09/25 06/10/25 18:14 23:27 04:17 ABG pH 7.44 D 7.38 7.38 ABG pCO2 37 41 40 ABG pO2 119 H D 82 L D 74 L ABG HCO3 25 24 24 ABG O2 Saturation 100 H 97 96 ABG Base Excess 1 -1 -1 06/10/25 06/11/25 11:08 13:33 ABG pH 7.39 7.38 ABG pCO2 39 41 ABG pO2 121 H D 72 L D ABG HCO3 23 24 ABG O2 Saturation 100 H 95 ABG Base Excess -2 -1 Quality Measures Quality Measures VTE prophylaxis Advance care planning discussed with:: other Assessment & Plan Assessment Current Active Medications: Generic Name Dose Route Start Last Admin Trade Name Freq PRN Reason Stop Dose Admin Calcium Acetate 667 mg 06/07/25 14:05 06/11/25 12:30 Calcium Acetate 667 Mg Tablet NG 07/07/25 14:04 667 mg TIDWM JERSON Administration Dextrose 25 ml 06/03/25 18:26 Dextrose 50%-Water Inj 50 Ml Syringe IV 07/03/25 18:25 Q15MIN PRN BG 50-70 responsive npo pt Dextrose 50 ml 06/03/25 18:26 Dextrose 50%-Water Inj 50 Ml Syringe IV 07/03/25 18:25 Q15MIN PRN BG <50 OR BG <70 & pt unresponsive Glucagon 1 mg 06/03/25 18:26 Glucagon Inj 1 Mg Vial IM Q15MIN PRN BG <70, and no IV access Haloperidol Lactate 5 mg 06/06/25 16:21 Haloperidol Lact Inj 5 Mg/Ml Vial IV 07/06/25 16:20 Q6HR PRN AGITATION Heparin Sodium (Porcine) 2,600 unit 06/09/25 15:35 06/10/25 17:02 Heparin Sod Inj 1000 Unit/Ml Vial 10 Ml INDWELLCAT 06/23/25 15:34 2,600 unit X1 PRN Administration DIALYSIS Propofol 1,000 mg in 100 mls @ 2.722 mls/hr 06/06/25 16:22 06/09/25 09:29 Diprivan Ivpb IV 07/06/25 16:21 0 mcg/kg/min .Q24H PRN 0 mls/hr PER PROTOCOL Titration Protocol 5 MCG/KG/MIN Albumin Human 25 gm in 100 mls @ 100 mls/hr 06/07/25 00:48 06/11/25 08:26 Albuminex 25% Ivpb IV 07/07/25 00:47 Not Given QDAY JERSON Norepinephrine/Dextrose 8 mg in 250 mls @ 8.505 mls/hr 06/07/25 11:10 06/11/25 06:15 Levophed In D5w 8mg/250ml IV 07/07/25 11:09 0.03 mcg/kg/min .Q24H PRN 5.103 mls/hr PER PROTOCOL Titration Protocol 0.05 MCG/KG/MIN Insulin Human Regular 0 unit 06/07/25 12:00 06/11/25 12:29 Insulin Hum Regular 1 Unit/0.01 Ml (Per Unit) SC 07/07/25 11:59 Not Given Q6HR JERSON Protocol Levothyroxine Sodium 50 mcg 06/05/25 06:00 06/11/25 05:30 Levothyroxine Sodium 25 Mcg Tablet PO 07/05/25 05:59 50 mcg ACBR JERSON Administration Protocol Midodrine 15 mg 06/11/25 18:00 Midodrine 5 Mg Tablet PO 07/11/25 17:59 Q6HR JERSON Ondansetron HCl 4 mg 06/03/25 16:40 Ondansetron Inj 2 Mg/Ml Inj 2 Ml IVP 07/03/25 16:39 Q6H PRN NAUSEA OR VOMITING Protocol Pantoprazole Sodium 40 mg 06/05/25 09:00 06/11/25 08:24 Pantoprazole Inj 40 Mg Vial IVP 07/05/25 08:59 40 mg Q12HR JERSON Administration Sertraline HCl 100 mg 06/05/25 09:00 06/11/25 08:23 Sertraline Hcl 25 Mg Tablet PO 07/05/25 08:59 100 mg DAILY JERSON Administration Plan Patient is a 69 yo M w/ PMH of IDDM and thrombocytopenia who was admitted to the ICU s/p right maranda-colectomy performed by General Surgery on 06/06/25 and now downgraded to floors on 06/11/25 after being extubated and weaned off of pressor support. Neuro #Encephalopathy s/p prolonged sedation #??ICU delirium Patient is reported to be able to respond using simple words at baseline However, patient has been weaned off of sedation for over 24 hours and continues to be in a state of apparent hypoactive delirium (does not respond to voice or maintain eye contact despite eyes being open, appears lethargic) Currently being attributed to ICU delirium in the setting of acute illness and protracted ICU stay with prolonged period of sedation and intubation Cardiac #Undifferentiated shock, likely mixed components of both hypovolemic and distributive etiologies Patient's blood pressure from 06/06 onwards have been soft and had initially been attributed to hypovolemia in the setting of acute blood loss during patient's recent surgery and distributive shock in the setting of possible adrenal insufficiency and / or cirrhosis-induced vasodilation of the splanchnic circulation. No evidence of obstructive etiologies like cardiac tamponade on bedside echo, nor evidence of pulmonary embolism, tension pneumothorax, constrictive pericarditis, ascites, or abdominal compartment syndrome Dx: -06/09 NICOM showed SVI 30, SV 64.5, CI 2.4, CO 5.2, TPR 800, and TPRI 1735; the low TPR and low normal TPRI even while patient is on Levophed (in the setting of ongoing hypotension despite fluid resuscitation) suggests that patient continues to be in a state of systemic vasodilation and his ongoing shock is less hypovolemic and more distributive in etiology. Rx: -s/p IV methylene blue 0.5% x 1 on 06/10 which seemed to lower pressor requirement (possibly assisted in restoring vascular tone by inhibiting the nitric oxide-cGMP pathway that is often overactive in vasodilatory states thereby improving blood pressures and reducing the need for vasopressors) -Continue PO midodrine 10 mg q6HR to maintain MAP > 60 Respiratory #COPD #Pulmonary fibrosis Dx: -06/03 CT CAP showed COPD with multiple areas of airspace destruction -06/03 CXR suspicious for pulmonary fibrosis Rx: -Monitor ABG and respiratory status -Supplemental oxygen as needed #Pulmonary nodule 06/03/25 CT CAP visualized a 16 mm pulmonary nodule of the right upper lobe. In the setting of Pathology-confirmed, well-differentiated, invasive adenocarcinoma, as well as multiple liver lesions concerning for hepatic metastases, this is concerning for pulmonary metastasis from malignancy of likely GI origin Rx: -Radiation Oncology (Dr. Lundberg) has been consulted and it was recommended that patient undergo elective PET scan of liver and pulmonary nodules to guide further oncologic management after patient is clinically stabilized GI #s/p exploratory laparotomy with right colectomy and removal of packing, abdominal washout, and closure Patient was taken to the OR on 06/06 for resection of the colonic mass but the procedure was complicated by approximately a liter of blood loss as well as profound hypotension despite blood pressure support with 3 pressors and the decision was made to leave the abdomen open for re-exploration today He then underwent exploratory laparotomy on 06/08 for removal of his abdominal packing, abdominal washout, and closure Yesterday, a transfusion of pRBC for hemoglobin 7.0 only resulted in an increase to 7.3 which later down-trended to 6.8 again (suggesting likely active occult bleed possibly from metastatic liver nodules) Rx: -Monitor CBC, transfuse if hemoglobin < 7.0 #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 #Hypoalbuminemia Child-Chau Score: 9 (30% abdominal surgery sandra-operative mortality), MELD-Na Score: 29 (27-32% 90-day mortality) Dx: -06/03/25 CT CAP showed cirrhosis of the liver which is markedly irregular in contour and also has multiple poorly defined liver lesions with the largest in the right lobe at 7.6 cm and another measuring 4.4 cm in the lower right lobe of the liver -Low albumin levels between 2.4 and 3.0 this admission are likely 2/2 cirrhosis -Hepatitis panel negative -Per chart review, patient denies history of alcohol or IV drug use Rx: -Will start loop diuretic and rifaximin once patient is clinically stabilized #GI bleed Likely 2/2 colonic mass later identified as well-differentiated, invasive adenocarcinoma of the proximal transverse colon s/p endoscopic band ligation of grade II esophageal varices x 2 s/p octreotide drip [06/06-06/08] s/p 8-yok-gyadav of IV ceftriaxone 1 gm qD for SBP prophylaxis [06/04-06/10] Dx: -Gastritis was also noted on EGD -Hemoglobin 7.3 yesterday -> 6.8 today -> 7.9 today Rx: -IV Protonix 40 mg q12HR -GI consulted, appreciate recommendations #Colonic mass Identified as well-differentiated, invasive adenocarcinoma of the proximal transverse colon by Pathology #Liver mass Concerning for metastatic lesions Renal #SHAI 2/2 distributive shock and possible Type I hepato-renal syndrome Patient's rapid doubling of creatinine in less than 2 weeks in the setting of recent bleeding and liver cirrhosis / severe liver dysfunction is concerning for Type I HRS due to mechanism of cirrhotic splanchnic vasodilation -> reduced effective blood volume -> decreased kidney perfusion Dx: -Patient still remains virtually anuric Rx: -Nephrology (Dr. 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 Patient's ability to clear his lactic acidosis is impaired by his acute kidney injury as well as cirrhosis. Calculated urine anion gap = +55, which, in the setting of hyperkalemia of 5.2, is suggestive of RTA Type IV (most likely 2/2 diabetic nephropathy but HIV nephropathy cannot be ruled out) Dx: -Delta-delta (change in anion gap / change in bicarbonate) shows a concomitant NAGMA which is likely the hyperchloremic metabolic acidosis already present on arrival -Lactic acidosis resolved, LA now 1.4 (06/09 @ 14:03) -Urine electrolytes showed a positive anion gap around +55 -HIV 1 and 2 (-) Rx: -Consider starting patient on a loop diuretic in the outpatient setting after stabilized for discharge #Hypocalcemia #Hyperphosphatemia Rx: -Started on NG calcium acetate 667 mg TIDWM -Monitor CMP Heme #Leukocytosis, likely reactive postoperatively Likely reactive in the setting of recent surgery and blood loss, downtrending #Acute blood loss anemia 2/2 GI bleed and right hemicolectomy on 06/06 Patient came in with an acute GI bleed thought 2/2 colonic mass later identified as well-differentiated, 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 After 06/06 right maranda-colectomy, hemoglobin dropped to 6.6 and he was transfused w/ 2 units pRBCs. Since 06/08 abdominal closure, patient's hemoglobin still seems to be down- trending Rx: -Monitor CBC, transfuse if hemoglobin < 7.0 #Thrombocytopenia Occurs in the setting of cirrhosis, patient was transfused w/ platelets but seem to continue to be bleeding occultly somewhere Dx: -Platelets now 26 from 55 yesterday Rx: -Transfuse platelets if less than 50 with active bleeding or less than 15 #Coagulopathy Patient's admission labs showing thrombocytopenia, elevated PT, INR, and low fibrinogen were consistent with low-grade DIC; however, the patient also has cirrhosis. His INR and fibrinogen however was normal on arrival pointing to perhaps more low-grade DIC. Dx: -Most recent coagulation panel showed PT 20.9 -> 16.8, INR 2.0 -> 1.6, and PTT 33.5 -> 33.8 -Fibrinogen 135 -> 201 (06/09, 05:02) Rx: -Monitor coagulation panel RRx: -Has improved after 2 transfusions of FFP and 2 doses of vitamin K on 06/08 Endocrine #Hypothyroidism Rx: -Continue home medication: PO levothyroxine 50 mcg ACBR #T2DM Dx: -06/04/25 hemoglobin A1c = 7.1% Rx: -Insulin sliding scale ID #UTI Dx: -06/03 UA indicated likely UTI -06/03 UCx grew quiros-sensitive Proteus mirablis Rx: -s/p IV ceftriaxone 1 gm qD [started 06/04, ended 06/10] to prevent SBP and other infections #Esophageal varices, s/p band ligation on 06/03 and [octreotide infusion 06/06- 06/08] Rx: -s/p IV ceftriaxone 1 gm qD [started 06/04, ended 06/10] to prevent SBP and other infections Disposition: Downgraded to floors today due to no longer requiring pressors DVT prophylaxis: None (bleeding risk) GI prophylaxis: IV Protonix 40 mg q12HR Diet: Trickle tube feeds @ 20 cc/hr via NG tube Healy: Present Lines: Peripheral IV, Central IV Antibiotics: None CODE STATUS: DNR Patient care was discussed with my senior resident, Dr. Lobo (PGY-2) , and Attending, Dr. Gomez. Rony Grace, DO Internal Medicine, PGY-1 Attending Provider Attestation/Addendum Melvina, Karen Gomez DO, attest that I was physically present for the thacker portions of the service and evaluated the patient with the resident and I reviewed and discussed the case with the resident and agree with the resident's findings and plans of care as documented above Patient is a 69-year-old male past medical history of insulin-dependent diabetes mellitus, cirrhosis, thrombocytopenia who is status post hemicolectomy on 06/06/2025 after which patient had been found to have a colonic mass in the transverse colon that had been obstructing. Surgery had been complicated due to bleeding and hemorrhagic shock. Patient was subsequently transferred to the ICU following procedure due to requirement of vasopressors. Patient was seen back to the OR on 06/08 for closure of the abdomen. Over the course of his ICU stay, patient was treated for refractory distributive shock. He has also been placed on dialysis due to ATN. Patient has been weaned off vasopressors and extubated yesterday. However, patient has had very poor recovery of mental status and has been lethargic. Patient has been noted to have some brief apneic episodes as well. Patient does not track with eyes and cannot follow commands. An NG tube remains in place. Patient has been downgraded from ICU and per ICU team, family has been considering hospice care due to patient's lack of improvement. consulted hospice care and plan for family meeting tomorrow. Patient remains DNR
--- NOTE | 2025-06-11 16:32 | PC.SS ---
QUITLINE COUNSELOR confirmed with patient's mother pending decision regarding hospice services. QUITLINE COUNSELOR confirmed d/c plan to transition patient to SNF. Preferred SNF is [facility]. If hospice is decided, patient's mother confirmed [facility] as preferred agency. SNF referral submitted on [facility], [place]. Responses are pending.
--- NOTE | 2025-06-11 18:30 | EVENTNT_ITS ---
Documentation for date of: 06/11/25 Event Note Event Note: Around 6:30 PM, this adjusto writer operator was alerted that patient's blood pressure parameters were becoming alarmingly low by nurses and that it was vital to obtain a decision from patient's family regarding his care plan moving forward right at that moment to decide whether pressors were used or not. Earlier that day, patient's mother and Decision-Maker, Brittany Lezama, had been called in order to re-confirm patient's Code Status of DNR/DNI as well as to supervisor counseling and guidance her on the option of Comfort Care/Hospice. During that call, the patient's poor condition in the setting of metastatic disease, cirrhosis, and continued bleeding was emphasized and it was explained that no medical interventions at this time would be able to significantly extend patient's lifespan or restore functional status. The idea was broached of switching care goals to trying to keep the patient comfortable as he declines instead of pursuing aggressive medical interventions that would cause undue suffering without much change in eventual outcome. Patient's mother had agreed at that time to maintain status quo for patient's DNR/DNI but verbalized that she still did not feel ready to make a decision in terms of pursuing Comfort Care/Hospice. Instead, she wished to take sometime to discuss with family and meet again the next morning with the Care Team and System Software Developer Luis in order to discuss further proceedings. However, due to the event around 6:30 PM, the patient's Decision-Maker was updated that the patient's blood pressure remained inadequately low despite being actively infused with blood and fluids and that the impending outcomes that nurses would have a Rapid Response called. Due to the exigency of the situation, patient's Decision-Maker was called again to inform her of the patient's decompensation where it was once again stressed to her the futility of aggressive medical intervention and the strong recommendation from the Care Team that patient be switched to Comfort Care/Hospice as patient's ultimate outcome would remain unchanged either way. However, Brittany still felt unprepared to make this decision in the moment and voiced that she would at least like to see her son one last time and that, should this require pressors, that she would wish for this route to be pursued. By the end of the call, the decision to pursue Comfort Care/Hospice could not be obtained from patient's decision-maker. -Rony Grace, DO Internal Medicine, PGY-1
[2025-06-11] MEDS: MIDODRINE 5 MG TABLET 15 MG PO (18:57)
[2025-06-11] MEDS: RINGERS LACTATED 1000 ML 1,000 ML 999 ML IV (19:10)
--- NOTE | 2025-06-11 19:11 | PD.RESEVENT ---
Documentation for date of: 06/11/25 Event Note Event Note: Arrived in ICU at 6:45 during CODE BLUE (third one for the day). ICU day shift resident insurance verification representative with family (brother) in Goals of care dicsussion. I took over [facility] discussion with family at 7:48 PM. Talked extensively with brother (point of care and decision maker). Family was counseled on worsening patient condition, patient did have an arterial flow at the end 8mins of code, however pulse remains very faint, still intubated and unresponsive. All questions and concerns were addressed during the discussion, family showed full understanding of the situation. Discussion concluded with brother deciding to make patient DNR and switching to comfort care. Patient to remain on comfort care starting 7:55PM on 06/11/2025. Will inform family if status changes. Plan of care discussed with attending Dr Pinto, - Marques Paul M.D. PGY3 Disclaimer: Minor errors in disability counselor may be present as this note was dictated using voice recognition software.
--- NOTE | 2025-06-11 21:44 | PD.IMPROG ---
Documentation for date of: 06/11/25 Subjective Subjective Interval history: Patient remains critically sick internal medicine team in discussion with the family for comfort care patient is already DNI DNR Exam Vital Signs Temp Pulse Resp BP Pulse Ox O2 Del Method O2 Flow Rate 97 F 73 17 96/51 L 96 Room Air 1 06/11/25 19:15 06/11/25 19:15 06/11/25 19:15 06/11/25 19:15 06/11/25 19:15 06/11/25 12:00 06/11/25 19:15 FiO2 35 06/10/25 12:00 Objective Labs 06/11/25 13:35 06/11/25 05:44 Labs: Laboratory Results - last 24 hr 06/10/25 06/11/25 06/11/25 06:33 01:55 01:55 WBC 11.9 H RBC 2.51 L Hgb 6.8 L* 6.8 L* Hct 21.3 L* MCV MCH MCHC RDW Std Deviation Plt Count Neut % (Auto) Lymph % (Auto) Labette % (Auto) Eos % (Auto) Baso % (Auto) Neut # (Auto) Lymph # (Auto) Labette # (Auto) Eos # (Auto) Baso # (Auto) Immature Gran # (Auto) Absolute Nucleated RBC Immature Gran % Nucleated RBC % Puncture Site ABG pH ABG pCO2 ABG pO2 ABG HCO3 ABG O2 Saturation ABG Base Excess Oxygen Liter Flow Sodium Potassium Chloride Carbon Dioxide Anion Gap BUN Creatinine Estim Creat Clear Calc eGFR BUN/Creatinine Ratio Glucose Calculated Osmolality Lactic Acid Calcium Corrected Calcium Phosphorus Magnesium Total Bilirubin AST ALT Alkaline Phosphatase Total Protein Albumin Globulin Albumin/Globulin Ratio Misc Test Result Blood Type O Positive Antibody Screen NEGATIVE Crossmatch See Detail Blood Bank Wristband ID Yes Blood Bank Comment PLATP Ready 06/11/25 06/11/25 06/11/25 01:55 05:44 13:33 WBC 12.4 H RBC 2.83 L Hgb 7.9 L Hct 21.5 L* 24.7 L MCV 86 87 MCH 27.1 27.9 MCHC 31.6 32.0 RDW Std Deviation 52.8 H 52.9 H Plt Count 39 L D 32 L Neut % (Auto) 82 H 82 H Lymph % (Auto) 5 L 6 L Labette % (Auto) 11 11 Eos % (Auto) 0 0 Baso % (Auto) 0 0 Neut # (Auto) 9.8 H 10.1 H Lymph # (Auto) 0.6 L 0.8 L Labette # (Auto) 1.4 H 1.4 H Eos # (Auto) 0.0 0.0 Baso # (Auto) 0.0 0.0 Immature Gran # (Auto) 0.08 H 0.07 H Absolute Nucleated RBC 0.09 H 0.11 H Immature Gran % 1 H 1 H Nucleated RBC % 1 H 1 H Puncture Site Arterial Line ABG pH 7.38 ABG pCO2 41 ABG pO2 72 L D ABG HCO3 24 ABG O2 Saturation 95 ABG Base Excess -1 Oxygen Liter Flow 1 Sodium 137 Potassium 4.5 Chloride 100 Carbon Dioxide 23.4 Anion Gap 14 BUN 34 H Creatinine 4.6 H* Estim Creat Clear Calc 18.1 L eGFR 13 L* BUN/Creatinine Ratio 7 L Glucose 206 H Calculated Osmolality 287 Lactic Acid Calcium 8.6 Corrected Calcium 9.3 Phosphorus 7.5 H Magnesium 2.3 Total Bilirubin 2.2 H D AST 647 H* ALT 1102 H* Alkaline Phosphatase 451 H D Total Protein 4.9 L Albumin 3.1 L Globulin 1.8 L Albumin/Globulin Ratio 1.7 Misc Test Result Platelets confirmed Platelets confirmed Blood Type Antibody Screen Crossmatch Blood Bank [facility] Blood [facility] Comment 06/11/25 13:35 WBC RBC Hgb 7.9 L Hct 24.5 L MCV MCH MCHC RDW Std Deviation Plt Count Neut % (Auto) Lymph % (Auto) Labette % (Auto) Eos % (Auto) Baso % (Auto) Neut # (Auto) Lymph # (Auto) Labette # (Auto) Eos # (Auto) Baso # (Auto) Immature Gran # (Auto) Absolute Nucleated RBC Immature Gran % Nucleated RBC % Puncture Site ABG pH ABG pCO2 ABG pO2 ABG HCO3 ABG O2 Saturation ABG Base Excess Oxygen Liter Flow Sodium Potassium Chloride Carbon Dioxide Anion Gap BUN Creatinine Estim Creat Clear Calc eGFR BUN/Creatinine Ratio Glucose Calculated Osmolality Lactic Acid 1.6 Calcium Corrected Calcium Phosphorus Magnesium Total Bilirubin AST ALT Alkaline Phosphatase Total Protein Albumin Globulin Albumin/Globulin Ratio Misc Test Result Blood Type Antibody Screen Crossmatch Blood Bank [facility] Blood [facility] Comment Impressions Impression: 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 Cirrhotic liver disease with thrombocytopenia coagulopathy leading to oozing of blood both intraoperatively and postoperatively Multiple electrolyte abnormalities Continue supportive care Prognosis very poor ABG Interpretation ABG results: 06/06/25 06/06/25 06/06/25 16:05 18:18 20:48 ABG pH 7.16 L* 7.13 L* 7.13 L* ABG pCO2 45 36 35 ABG pO2 190 H 76 L D 80 L ABG HCO3 16 L 12 L 12 L ABG O2 Saturation 101 H 93 94 ABG Base Excess -12 L -16 L -17 L 06/06/25 06/07/25 06/07/25 22:31 03:02 10:20 ABG pH 7.21 L 7.30 L 7.37 ABG pCO2 32 30 L 26 L ABG pO2 72 L 130 H D 120 H ABG HCO3 13 L 15 L 15 L ABG O2 Saturation 94 100 H 99 H ABG Base Excess -14 L -11 L -9 L 06/07/25 06/07/25 06/08/25 16:00 19:59 15:14 ABG pH 7.39 7.36 7.38 ABG pCO2 27 L 28 L 29 L ABG pO2 112 H 97 66 L D ABG HCO3 16 L 16 L 17 L ABG O2 Saturation 99 H 98 94 ABG Base Excess -8 L -8 L -7 L 06/08/25 06/09/25 06/09/25 19:19 04:09 13:39 ABG pH 7.39 7.38 7.26 L D ABG pCO2 29 L 30 L 40 D ABG pO2 89 D 70 L 82 L ABG HCO3 17 L 17 L 18 L ABG O2 Saturation 98 94 95 ABG Base Excess -7 L -7 L -9 L 06/09/25 06/09/25 06/10/25 18:14 23:27 04:17 ABG pH 7.44 D 7.38 7.38 ABG pCO2 37 41 40 ABG pO2 119 H D 82 L D 74 L ABG HCO3 25 24 24 ABG O2 Saturation 100 H 97 96 ABG Base Excess 1 -1 -1 06/10/25 06/11/25 11:08 13:33 ABG pH 7.39 7.38 ABG pCO2 39 41 ABG pO2 121 H D 72 L D ABG HCO3 23 24 ABG O2 Saturation 100 H 95 ABG Base Excess -2 -1 Assessment & Plan A&P Narrative A#1. CA of transverse colon, with complete obstruction underwent right colectomy and subsequent removal of the abdominal packing and washout and closure performed by Dr Tai. A#2. Suggestion of possible liver mets and lung mets on CT imaging studies. A#3. Currently at ICU intubated receiving treatments for respiratory failure renal failure hypotension acidosis. A#4. Hopefully his critical conditions will improve and be seen as outpatient at cancer treatment center. Will speak with family and patient which I could not do today. Time Spent With Patient Time: Total time spent is greater than 50% in coordination of care (as documented) at patient's floor/unit and/or counseling patient:
[2025-06-12] VITALS (14 sets, daily range): BP systolic 85–107; BP diastolic 50–68; PULSE 60–77; RESP 14–22; TEMP 35.8–36.1; O2SAT 90–97; BMI 25.3
[2025-06-12 00:25] LABS: Hematocrit 26.5 % (41.0-53.0)
[2025-06-12 00:26] LABS: Hemoglobin 8.5 g/dL (13.5-16.0)
[2025-06-12] MEDS: MIDODRINE 5 MG TABLET 15 MG PO ×2 (01:01→05:18)
[2025-06-12] MEDS: INSULIN HUM REGULAR 1 UNIT/0.01 ML (PER UNIT) SC ×2 (01:02→05:23)
[2025-06-12] MEDS: LEVOTHYROXINE SODIUM 25 MCG TABLET 50 MCG PO (05:18)
[2025-06-12 06:28] LABS: Alanine Aminotransferase 815 U/L (10-49); Albumin, Serum 3.0 gm/dL (3.4-4.8); Albumin/Globulin Ratio 1.5 (1.2-2.2); Alkaline Phosphatase 456 U/L (46-116); Anion Gap 16 (7-16); Aspartate Amino Transferase 403 U/L (0-34); BUN/Creatinine Ratio 6 Ratio (12-20); Bilirubin,Total 2.7 mg/dL (0.3-1.2); Blood Urea Nitrogen 25 mg/dL (9-23); Calcium 8.3 mg/dL (8.3-10.6); Calcium (Corrected) 9.1 mg/dL (8.5-10.1); Carbon Dioxide 22.6 mMol/L (20.0-31.0); Chloride 101 mMol/L (98-107); Creatinine (Component) 4.0 mg/dL (0.6-1.3); Estimated Creatinine Clearance 20.8 mL/min (>60); Globulin 2.0 gm/dL (2.3-3.5); Glucose 180 mg/dL (74-106); Osmolality,Calculated 288 (275-295); Phosphorous 6.4 mg/dL (2.4-5.1); Potassium 4.5 mMol/L (3.4-5.1); Sodium 140 mMol/L (136-145); Total Protein 5.0 gm/dL (5.7-8.2); eGFR 16 See Note
[2025-06-12] MEDS: ALBUMIN HUMAN-KJDA 25% IVPB 25 GM/100 ML BTL IV (08:44)
[2025-06-12] MEDS: SERTRALINE HCL 25 MG TABLET 100 MG PO (08:46)
[2025-06-12] MEDS: CALCIUM ACETATE 667 MG TABLET NG (08:46)
--- NOTE | 2025-06-12 09:57 | PD.RESPRO ---
Documentation for date of: 06/12/25 --------- Overnight patient was hypotensive and additional bolus administered improved MAP. Goals of care discussion with family at bedside and rn social services. Family including mother, niece and sister agreeable to transitioning patient to comfort measures. Technical Services Representative consulted. Patient started on morphine drip. Comfort measures initiated. - The patient's plan was discussed with attending Dr. Jason Thompson MD PGY2 Internal Medicine Subjective Subjective Interval history: Patient examined at bedside, has been pertually hypotensive overnight, on scheduled midodrine. Patient non verbal, but opens eyes to voice. Goals of care discussion was held with patient's mother, aunt, niece, and rn social services. Discussed the patient's course, poor prognosis, high risk of deterioration, and limited to no benefit of continued aggressive medical therapy. Educated the family regarding comfort measures, they demonstrated understanding, and wished to pursue comfort measures only going forward. -Technical Services Representative referral made. -Downgraded to med/surg Exam Vital Signs Temp Pulse Resp BP Pulse Ox O2 Del Method O2 Flow Rate 96.5 F L 75 19 89/53 L 93 L Room Air 1 06/12/25 08:00 06/12/25 08:00 06/12/25 08:00 06/12/25 08:00 06/12/25 08:00 06/12/25 08:00 06/12/25 04:00 FiO2 35 06/10/25 12:00 Narrative Exam General: Patient appears older than stated age, appears frail, ill, and cachectic, laying in bed with minimal movement. Hiccups are present. HEENT: Right sided temporary dialysis catheter in place. Mucosa dry. Pupils are equal Cardiovascular: Normal S1 and S2. Regular rate and rhythm. No murmur appreciated Respiratory: Clear to auscultation bilaterally without wheezes or crackles. Abdomen: Abdominal binder in place. Skin: Dry, multiple eccymoses from prior lab and IV draws. Musculoskeletal: No gross injuries. Upper extremities are edematous. Non edematous lower extremities. Neuro: Opens eyes to voice, somnolent, no verbal response or purposeful movement. Objective Labs 06/13/25 07:35 06/13/25 07:35 Labs: Laboratory Results - last 24 hr 06/10/25 06/11/25 06/11/25 06:33 13:33 13:35 Hgb 7.9 L Hct 24.5 L Puncture Site Arterial Line ABG pH 7.38 ABG pCO2 41 ABG pO2 72 L D ABG HCO3 24 ABG O2 Saturation 95 ABG Base Excess -1 Oxygen Liter Flow 1 Sodium Potassium Chloride Carbon Dioxide Anion Gap BUN Creatinine Estim Creat Clear Calc eGFR BUN/Creatinine Ratio Glucose Calculated Osmolality Lactic Acid 1.6 Calcium Corrected Calcium Phosphorus Total Bilirubin AST ALT Alkaline Phosphatase Total Protein Albumin Globulin Albumin/Globulin Ratio Blood Type O Positive Antibody Screen NEGATIVE Crossmatch See Detail Blood Bank Wristband ID Yes Blood Bank Comment PLATP Ready 06/12/25 06/12/25 00:11 04:20 Hgb 8.5 L Hct 26.5 L Puncture Site ABG pH ABG pCO2 ABG pO2 ABG HCO3 ABG O2 Saturation ABG Base Excess Oxygen Liter Flow Sodium 140 Potassium 4.5 Chloride 101 Carbon Dioxide 22.6 Anion Gap 16 BUN 25 H Creatinine 4.0 H D Estim Creat Clear Calc 20.8 L eGFR 16 L BUN/Creatinine Ratio 6 L Glucose 180 H Calculated Osmolality 288 Lactic Acid Calcium 8.3 Corrected Calcium 9.1 Phosphorus 6.4 H Total Bilirubin 2.7 H D AST 403 H ALT 815 H* Alkaline Phosphatase 456 H Total Protein 5.0 L Albumin 3.0 L Globulin 2.0 L Albumin/Globulin Ratio 1.5 Blood Type Antibody Screen Crossmatch Blood Bank Wristband ID Blood Bank Comment ABG Interpretation ABG results: 06/06/25 06/06/25 06/06/25 16:05 18:18 20:48 ABG pH 7.16 L* 7.13 L* 7.13 L* ABG pCO2 45 36 35 ABG pO2 190 H 76 L D 80 L ABG HCO3 16 L 12 L 12 L ABG O2 Saturation 101 H 93 94 ABG Base Excess -12 L -16 L -17 L 06/06/25 06/07/25 06/07/25 22:31 03:02 10:20 ABG pH 7.21 L 7.30 L 7.37 ABG pCO2 32 30 L 26 L ABG pO2 72 L 130 H D 120 H ABG HCO3 13 L 15 L 15 L ABG O2 Saturation 94 100 H 99 H ABG Base Excess -14 L -11 L -9 L 06/07/25 06/07/25 06/08/25 16:00 19:59 15:14 ABG pH 7.39 7.36 7.38 ABG pCO2 27 L 28 L 29 L ABG pO2 112 H 97 66 L D ABG HCO3 16 L 16 L 17 L ABG O2 Saturation 99 H 98 94 ABG Base Excess -8 L -8 L -7 L 06/08/25 06/09/25 06/09/25 19:19 04:09 13:39 ABG pH 7.39 7.38 7.26 L D ABG pCO2 29 L 30 L 40 D ABG pO2 89 D 70 L 82 L ABG HCO3 17 L 17 L 18 L ABG O2 Saturation 98 94 95 ABG Base Excess -7 L -7 L -9 L 06/09/25 06/09/25 06/10/25 18:14 23:27 04:17 ABG pH 7.44 D 7.38 7.38 ABG pCO2 37 41 40 ABG pO2 119 H D 82 L D 74 L ABG HCO3 25 24 24 ABG O2 Saturation 100 H 97 96 ABG Base Excess 1 -1 -1 06/10/25 06/11/25 11:08 13:33 ABG pH 7.39 7.38 ABG pCO2 39 41 ABG pO2 121 H D 72 L D ABG HCO3 23 24 ABG O2 Saturation 100 H 95 ABG Base Excess -2 -1 Quality Measures Quality Measures VTE prophylaxis Advance care planning discussed with:: patient and other (mother ) Assessment & Plan Assessment Current Active Medications: Generic Name Dose Route Start Last Admin Trade Name Freq PRN Reason Stop Dose Admin Calcium Acetate 667 mg 06/07/25 14:05 06/12/25 08:46 Calcium Acetate 667 Mg Tablet NG 07/07/25 14:04 667 mg TIDWM JERSON Administration Dextrose 25 ml 06/03/25 18:26 Dextrose 50%-Water Inj 50 Ml Syringe IV 07/03/25 18:25 Q15MIN PRN BG 50-70 responsive npo pt Dextrose 50 ml 06/03/25 18:26 Dextrose 50%-Water Inj 50 Ml Syringe IV 07/03/25 18:25 Q15MIN PRN BG <50 OR BG <70 & pt unresponsive Glucagon 1 mg 06/03/25 18:26 Glucagon Inj 1 Mg Vial IM Q15MIN PRN BG <70, and no IV access Haloperidol Lactate 5 mg 06/06/25 16:21 Haloperidol Lact Inj 5 Mg/Ml Vial IV 07/06/25 16:20 Q6HR PRN AGITATION Heparin Sodium (Porcine) 2,600 unit 06/09/25 15:35 06/10/25 17:02 Heparin Sod Inj 1000 Unit/Ml Vial 10 Ml INDWELLCAT 06/23/25 15:34 2,600 unit X1 PRN Administration DIALYSIS Albumin Human 25 gm in 100 mls @ 100 mls/hr 06/07/25 00:48 06/12/25 08:44 Albuminex 25% Ivpb IV 07/07/25 00:47 100 mls/hr QDAY JERSON Administration Insulin Human Regular 0 unit 06/07/25 12:00 06/12/25 05:23 Insulin Hum Regular 1 Unit/0.01 Ml (Per Unit) SC 07/07/25 11:59 1 unit Q6HR JERSON Administration Protocol Levothyroxine Sodium 50 mcg 06/05/25 06:00 06/12/25 05:18 Levothyroxine Sodium 25 Mcg Tablet PO 07/05/25 05:59 50 mcg ACBR JERSON Administration Protocol Midodrine 15 mg 06/11/25 18:00 06/12/25 05:18 Midodrine 5 Mg Tablet PO 07/11/25 17:59 15 mg Q6HR JERSON Administration Ondansetron HCl 4 mg 06/03/25 16:40 Ondansetron Inj 2 Mg/Ml Inj 2 Ml IVP 07/03/25 16:39 Q6H PRN NAUSEA OR VOMITING Protocol Pantoprazole Sodium 40 mg 06/05/25 09:00 06/12/25 08:46 Pantoprazole Inj 40 Mg Vial IVP 07/05/25 08:59 40 mg Q12HR JERSON Administration Sertraline HCl 100 mg 06/05/25 09:00 06/12/25 08:46 Sertraline Hcl 25 Mg Tablet PO 07/05/25 08:59 100 mg DAILY JERSON Administration Plan Patient is a 69 yo M w/ PMH of IDDM and thrombocytopenia who was admitted to the ICU s/p right maranda-colectomy performed by General Surgery on 06/06/25 and now downgraded to floors on 06/11/25 after being extubated and weaned off of pressor support. Goals of care discussion was held with patient's mother, aunt, niece, and rn social services. Discussed the patient's course, poor prognosis, high risk of deterioration, and limited to no benefit of continued aggressive medical therapy. Educated the family regarding comfort measures, they demonstrated understanding, and wished to pursue comfort measures only going forward. 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 -Downgrade to med/surg Patient's plan and care discussed with my attending, Dr Gomez and my senior Dr Thompson. Benjamin Ramey DO PGY-1 ([facility] Resident) Attending Provider Attestation/Addendum Karen Hein DO, attest that I was physically present for the thacker portions of the service and evaluated the patient with the resident and I reviewed and discussed the case with the resident and agree with the resident's findings and plans of care as documented above Patient seen and evaluated this AM. Mental status is unchanged as patient is able to open his eyes spontaneously, but does not track or follow commands. He remains hypotensive. Mother, aunt and niece are at bedside.They are understanding of patient's overall poor prognosis, particularly due to lack of improvement. Family has decided to pursue comfort measures. Will initiate comfort measures as per family's request.
--- NOTE | 2025-06-12 10:54 | PD.NEPHPROG ---
Documentation for date of: 06/12/25 Subjective Subjective Interval history: History of Present Illness: 69y/o Male with PMH of insulin dependent diabetes and thrombocytopenia presented to the hospital on 06/03/2025 after a fall. At the time, patient denied any near syncopal event and just experienced fell while getting out of bed. After admission, he was found to have plts in the 40s, anemia with hgb around 8, liver cirrhosis and liver mass on CT, and was subsequently admitted for GI bleed. After upper endoscopy, grade 2 varice was found. 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 Patient resceived surgery on 06/06 for colonic mass resection, but had bleeding complications with profound hypotension. Decision was made to leave abdomen open for re-exploration on 06/08. Patient was intubated and brought to ICU while on levophed with pRBC transfusions x3. Patient became acidotic. On 06/09, nephrology has been consulted as patient's creatinine is increased from 4.9 to 5.5 with minimal urine output of 30ml ED Course: -Patient presents with BP 128/75, HR 73, T 97.7, RR 19, O2 95 Room Air -lab workup notable for low hgb of 8 and platelets in the 50s which was significantly lower from 2017 with hgb 17 and plts in the 70s. Creatinine 2.3, BUN 49. Patient GFR is 30. Patient with an AST of 103, ALT of 93, alk phos 336. T. bili normal. -Ordered hepatitis panel, fibrinogen level, -CT brain and cervical spine unremarkable. CT chest abdomen pelvis without contrast which identified COPD, 16 mm pulmonary nodule in the right upper lobe, cirrhosis, multiple liver lesions concerning for liver metastases, patient with splenomegaly, ascites, cholelithiasis no evidence of obstruction. -On-call field evidence technician Dr. Yap, consulted for downtrending hgb. Agreed with admission for EGD and colonoscopy to eval for GI bleed. Also recommending CT guided bx of the liver nodule. 06/09/2025: Labs reviewed and patient examined at the bedside. Compared to 06/08 (BUN 47, Cr:4.6, eGFR:13), today's lab value shows BUN:63, Cr:5.5, eGFR:11. Patient does show worsening renal function. Patient will receive conventional hemodialysis today. 06/10/2025: Labs reviewed and patient examined at the bedside. BUN: 45, Cr:4.9, eGFR:12. Patient will receive anther rounds of hemodialysis today along with blood tranfusion. HCO3- improved to 23.1 from 16.0. Recommend adding Bicitra to his medication. Given his mixed acidotic state, distal RTA (type 1) cannot be ruled out, but given borderline high K (~4.9), Urine pH of 5.5, and his presentation being obscured by more serious illnesses, needs more monitoring of the patient's status. 06/12/2025 patient currently seen in tele.. Urine output very minimal. Patient currently oligoanuric. Pt in ATN. Bowel sounds present. Noted goals of care discussed with -patient was made comfort care. Review of Systems Review of Systems Narrative Review of Systems: Patient very lethargic, not responding Exam Vital Signs Temp Pulse Resp BP Pulse Ox O2 Del Method O2 Flow Rate 35.8 C L 75 19 89/53 L 93 L Room Air 1 06/12/25 08:00 06/12/25 08:00 06/12/25 08:00 06/12/25 08:00 06/12/25 08:00 06/12/25 08:00 06/12/25 04:00 FiO2 35 06/10/25 12:00 Narrative Exam General: Elderly, Frail, Pale, barely arousable, lethargic. Eye: Normal conjunctiva, no scleral icterus HENT: Normocephalic, atraumatic Neck: Supple, non-tender, no JVD, no lymphadenopathy Lungs: Few rhonchi noted bilaterally Heart: Peripheral pulses intact bilaterally, Regular Rate and Rhythm. Abdomen: Status post abdominal surgery with binder. Bowel sounds present. Musculoskeletal: In bed Skin: Patient has significant edema in the upper extremities. 2+ edema in the lower extremities, Right IJ central line, Ulcers on right forearm. Psychiatric/neuro: lethargic, Objective Labs 06/13/25 07:35 06/13/25 07:35 Labs: Laboratory Results - last 24 hr 06/10/25 06/11/25 06/11/25 06:33 13:33 13:35 Hgb 7.9 L Hct 24.5 L Puncture Site Arterial Line ABG pH 7.38 ABG pCO2 41 ABG pO2 72 L D ABG HCO3 24 ABG O2 Saturation 95 ABG Base Excess -1 Oxygen Liter Flow 1 Sodium Potassium Chloride Carbon Dioxide Anion Gap BUN Creatinine Estim Creat Clear Calc eGFR BUN/Creatinine Ratio Glucose Calculated Osmolality Lactic Acid 1.6 Calcium Corrected Calcium Phosphorus Total Bilirubin AST ALT Alkaline Phosphatase Total Protein Albumin Globulin Albumin/Globulin Ratio Blood Type O Positive Antibody Screen NEGATIVE Crossmatch See Detail Blood Bank Wristband ID Yes Blood Bank Comment PLATP Ready 06/12/25 06/12/25 00:11 04:20 Hgb 8.5 L Hct 26.5 L Puncture Site ABG pH ABG pCO2 ABG pO2 ABG HCO3 ABG O2 Saturation ABG Base Excess Oxygen Liter Flow Sodium 140 Potassium 4.5 Chloride 101 Carbon Dioxide 22.6 Anion Gap 16 BUN 25 H Creatinine 4.0 H D Estim Creat Clear Calc 20.8 L eGFR 16 L BUN/Creatinine Ratio 6 L Glucose 180 H Calculated Osmolality 288 Lactic Acid Calcium 8.3 Corrected Calcium 9.1 Phosphorus 6.4 H Total Bilirubin 2.7 H D AST 403 H ALT 815 H* Alkaline Phosphatase 456 H Total Protein 5.0 L Albumin 3.0 L Globulin 2.0 L Albumin/Globulin Ratio 1.5 Blood Type Antibody Screen Crossmatch Blood Bank Wristband ID Blood Bank Comment ABG Interpretation ABG results: 06/06/25 06/06/25 06/06/25 16:05 18:18 20:48 ABG pH 7.16 L* 7.13 L* 7.13 L* ABG pCO2 45 36 35 ABG pO2 190 H 76 L D 80 L ABG HCO3 16 L 12 L 12 L ABG O2 Saturation 101 H 93 94 ABG Base Excess -12 L -16 L -17 L 06/06/25 06/07/25 06/07/25 22:31 03:02 10:20 ABG pH 7.21 L 7.30 L 7.37 ABG pCO2 32 30 L 26 L ABG pO2 72 L 130 H D 120 H ABG HCO3 13 L 15 L 15 L ABG O2 Saturation 94 100 H 99 H ABG Base Excess -14 L -11 L -9 L 06/07/25 06/07/25 06/08/25 16:00 19:59 15:14 ABG pH 7.39 7.36 7.38 ABG pCO2 27 L 28 L 29 L ABG pO2 112 H 97 66 L D ABG HCO3 16 L 16 L 17 L ABG O2 Saturation 99 H 98 94 ABG Base Excess -8 L -8 L -7 L 06/08/25 06/09/25 06/09/25 19:19 04:09 13:39 ABG pH 7.39 7.38 7.26 L D ABG pCO2 29 L 30 L 40 D ABG pO2 89 D 70 L 82 L ABG HCO3 17 L 17 L 18 L ABG O2 Saturation 98 94 95 ABG Base Excess -7 L -7 L -9 L 06/09/25 06/09/25 06/10/25 18:14 23:27 04:17 ABG pH 7.44 D 7.38 7.38 ABG pCO2 37 41 40 ABG pO2 119 H D 82 L D 74 L ABG HCO3 25 24 24 ABG O2 Saturation 100 H 97 96 ABG Base Excess 1 -1 -1 06/10/25 06/11/25 11:08 13:33 ABG pH 7.39 7.38 ABG pCO2 39 41 ABG pO2 121 H D 72 L D ABG HCO3 23 24 ABG O2 Saturation 100 H 95 ABG Base Excess -2 -1 Assessment & Plan Additional Assessment & Plan Additional Plan: 69y/o Male with PMH of insulin dependent diabetes and thrombocytopenia presented to the hospital on 06/03/2025 after a fall. Patient was found with, maligant obstruction tumor in transverse colon and resceived surgery on 06/06 for colonic mass resection, but had bleeding complications with profound hypotension. Patient was intubated and brought to ICU while on levophed with pRBC transfusions x3. Patient became acidotic. On 06/09, nephrology has been consulted as patient's creatinine is increased from 4.9 to 5.5 with minimal urine output of 30ml #SHAI, patient did receive dialysis in ICU. -2/2 ATN due to shock VS Pre-renal due to hypoperfusion from bleeding - Goals of care discussed with -patient not a candidate for dialysis. Prognosis very poor. Made comfort care. Seems to be appropriate. 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 DC dialysis catheter and dialysis. Hospice seems to be appropriate. Quality - progress note Quality Measures Quality Measures: VTE prophylaxis Reason for Continued Stay Reason for Continued Stay: further monitoring
--- NOTE | 2025-06-12 12:01 | PC.SS ---
Addendum entered by Sandra Mccoy 06/12/25 14:18: Correction SS met with pt, mom, Allisison, and physician residents (not ). SS has provided family with [facility] which contains a list of Hospice Agencies. Family pointed and chose [facility]. Original Note: SS met with pt, , granddaughter, Leidy, phone# [phone], and physician residents for a goals of care meeting. Family is agreeable to start comfort care. Pt is now on comfort care with David echevarria. Family prefers [facility] due to having [facility] in the past and pt be placed at SNF.
--- NOTE | 2025-06-12 12:25 | PC.NURSE ---
Order for comfort care give. Clarified dilaudid order for comfort. MD pending family to come from out of town. Per family would like to start comfort measures after prayer with family. Drink Waiter referral in and called. Per heel dipper will be availbale 1300.
[2025-06-12] MEDS: Morphine IV Drip 100mg/100ml 100 ML IV (14:36)
[2025-06-12] MEDS: SCOPOLAMINE 1 MG TDSY TOP (14:37)
[2025-06-12] MEDS: MORPHINE SULF INJ 4 MG/ML VIAL 2 MG IVP ×2 (15:30→16:20)
--- NOTE | 2025-06-12 18:51 | PD.IMPROG ---
Documentation for date of: 06/12/25 Subjective Subjective Interval history: Decision makers have agreed to comfort care Exam Vital Signs Temp Pulse Resp BP Pulse Ox O2 Del Method O2 Flow Rate 96.9 F 72 15 87/51 L 97 Room Air 1 06/12/25 12:00 06/12/25 16:00 06/12/25 12:00 06/12/25 12:00 06/12/25 12:00 06/12/25 16:00 06/12/25 04:00 FiO2 35 06/10/25 12:00 Objective Labs 06/12/25 00:11 06/12/25 04:20 Labs: Laboratory Results - last 24 hr 06/10/25 06/12/25 06/12/25 06:33 00:11 04:20 Hgb 8.5 L Hct 26.5 L Sodium 140 Potassium 4.5 Chloride 101 Carbon Dioxide 22.6 Anion Gap 16 BUN 25 H Creatinine 4.0 H D Estim Creat Clear Calc 20.8 L eGFR 16 L BUN/Creatinine Ratio 6 L Glucose 180 H Calculated Osmolality 288 Calcium 8.3 Corrected Calcium 9.1 Phosphorus 6.4 H Total Bilirubin 2.7 H D AST 403 H ALT 815 H* Alkaline Phosphatase 456 H Total Protein 5.0 L Albumin 3.0 L Globulin 2.0 L Albumin/Globulin Ratio 1.5 Crossmatch See Detail Impressions Impression: Transverse colon invasive well-differentiated adenocarcinoma s/p surgery Cirrhotic liver disease patient now on comfort care ABG Interpretation ABG results: 06/06/25 06/06/25 06/06/25 16:05 18:18 20:48 ABG pH 7.16 L* 7.13 L* 7.13 L* ABG pCO2 45 36 35 ABG pO2 190 H 76 L D 80 L ABG HCO3 16 L 12 L 12 L ABG O2 Saturation 101 H 93 94 ABG Base Excess -12 L -16 L -17 L 06/06/25 06/07/25 06/07/25 22:31 03:02 10:20 ABG pH 7.21 L 7.30 L 7.37 ABG pCO2 32 30 L 26 L ABG pO2 72 L 130 H D 120 H ABG HCO3 13 L 15 L 15 L ABG O2 Saturation 94 100 H 99 H ABG Base Excess -14 L -11 L -9 L 06/07/25 06/07/25 06/08/25 16:00 19:59 15:14 ABG pH 7.39 7.36 7.38 ABG pCO2 27 L 28 L 29 L ABG pO2 112 H 97 66 L D ABG HCO3 16 L 16 L 17 L ABG O2 Saturation 99 H 98 94 ABG Base Excess -8 L -8 L -7 L 06/08/25 06/09/25 06/09/25 19:19 04:09 13:39 ABG pH 7.39 7.38 7.26 L D ABG pCO2 29 L 30 L 40 D ABG pO2 89 D 70 L 82 L ABG HCO3 17 L 17 L 18 L ABG O2 Saturation 98 94 95 ABG Base Excess -7 L -7 L -9 L 06/09/25 06/09/25 06/10/25 18:14 23:27 04:17 ABG pH 7.44 D 7.38 7.38 ABG pCO2 37 41 40 ABG pO2 119 H D 82 L D 74 L ABG HCO3 25 24 24 ABG O2 Saturation 100 H 97 96 ABG Base Excess 1 -1 -1 06/10/25 06/11/25 11:08 13:33 ABG pH 7.39 7.38 ABG pCO2 39 41 ABG pO2 121 H D 72 L D ABG HCO3 23 24 ABG O2 Saturation 100 H 95 ABG Base Excess -2 -1 Assessment & Plan A&P Narrative A#1. CA of transverse colon, with complete obstruction underwent right colectomy and subsequent removal of the abdominal packing and washout and closure performed by Dr Tai. A#2. Suggestion of possible liver mets and lung mets on CT imaging studies. A#3. Currently at ICU intubated receiving treatments for respiratory failure renal failure hypotension acidosis. A#4. Hopefully his critical conditions will improve and be seen as outpatient at cancer treatment center. Will speak with family and patient which I could not do today. Time Spent With Patient Time: Total time spent is greater than 50% in coordination of care (as documented) at patient's floor/unit and/or counseling patient:
[2025-06-13] MEDS: MORPHINE SULF INJ 4 MG/ML VIAL 2 MG IVP ×6 (01:16→06:43)
[2025-06-13 07:52] LABS: Basophils # (Auto) 0.1 Thou/mm3 (0.0-0.2); Basophils % (Auto) 0 % (0-2.5); Eosinophils # (Auto) 0.7 Thou/mm3 (0.0-0.5); Eosinophils % (Auto) 4 % (0-10); Hematocrit 30.8 % (41.0-53.0); Hemoglobin 9.5 g/dL (13.5-16.0); Immature Granulocytes Auto 0.11 Thou/mm3 (0.00-0.00); Lymphocytes # (Auto) 1.3 Thou/mm3 (1.0-4.8); Lymphocytes % (Auto) 7 % (10-50); Mean Corpuscular HGB Conc 30.8 g/dl (31.0-37.0); Mean Corpuscular Hemoglobin 27.5 pg (25.0-35.0); Mean Corpuscular Volume 89 fL (80-100); Monocytes # (Auto) 1.8 Thou/mm3 (0.0-0.8); Monocytes % (Auto) 9 % (0-12); Neutrophils # (Auto) 15.1 Thou/mm3 (1.8-7.7); Neutrophils % (Auto) 79 % (37-80); Nucleated Red Blood Cell # 0.46 Thou/mm3 (0.00-0.00); Nucleated Red Blood Cell % 2 /100 WBC (0); RDW Standard Deviation 55.6 fL (35.1-43.9); Red Blood Count 3.46 Miln/mm3 (4.50-5.90); White Blood Count 19.1 Thou/mm3 (3.8-10.6)
[2025-06-13 08:00] VITALS: BP 76/41; PULSE 62; RESP 12; TEMP 36.9; O2SAT 88
[2025-06-13 08:21] LABS: Alanine Aminotransferase 607 U/L (10-49); Albumin, Serum 3.2 gm/dL (3.4-4.8); Albumin/Globulin Ratio 1.6 (1.2-2.2); Alkaline Phosphatase 437 U/L (46-116); Anion Gap 14 (7-16); Aspartate Amino Transferase 248 U/L (0-34); BUN/Creatinine Ratio 10 Ratio (12-20); Bilirubin,Total 2.3 mg/dL (0.3-1.2); Blood Urea Nitrogen 57 mg/dL (9-23); Calcium 8.3 mg/dL (8.3-10.6); Calcium (Corrected) 8.9 mg/dL (8.5-10.1); Carbon Dioxide 24.1 mMol/L (20.0-31.0); Chloride 102 mMol/L (98-107); Creatinine (Component) 5.8 mg/dL (0.6-1.3); Estimated Creatinine Clearance 14.4 mL/min (>60); Globulin 2.0 gm/dL (2.3-3.5); Glucose 124 mg/dL (74-106); Osmolality,Calculated 296 (275-295); Potassium 5.2 mMol/L (3.4-5.1); Sodium 140 mMol/L (136-145); Total Protein 5.2 gm/dL (5.7-8.2); eGFR 10 See Note
--- NOTE | 2025-06-13 08:43 | PD.ONCPROG ---
Documentation for date of: 06/13/25 Subjective Subjective Interval history: Patient underwent right hemicolectomy 06/06/2025 revealing pT3N0 invasive adenocarcinoma. With multiple comorbidities including shock acute respiratory failure requiring intubation and a time at ICU SHAI requiring hemodialysis electrolyte abnormalities decision was made with family regarding comfort measures. Exam Vital Signs Temp Pulse Resp BP Pulse Ox O2 Del Method O2 Flow Rate 98.5 F 62 12 76/41 L 88 L Room Air 1 06/13/25 08:00 06/13/25 08:00 06/13/25 08:00 06/13/25 08:00 06/13/25 08:00 06/13/25 08:00 06/12/25 04:00 FiO2 35 06/10/25 12:00 Objective Objective Narrative Objective Narrative: Patient lying comfortably receiving comfort measures. Labs 06/12/25 00:11 06/13/25 07:35 Labs: Laboratory Results - last 24 hr 06/13/25 07:35 Sodium 140 Potassium 5.2 H D Chloride 102 Carbon Dioxide 24.1 Anion Gap 14 BUN 57 H Creatinine 5.8 H* D Estim Creat Clear Calc 14.4 L eGFR 10 L* BUN/Creatinine Ratio 10 L Glucose 124 H D Calculated Osmolality 296 H Calcium 8.3 Corrected Calcium 8.9 Total Bilirubin 2.3 H AST 248 H ALT 607 H* Alkaline Phosphatase 437 H Total Protein 5.2 L Albumin 3.2 L Globulin 2.0 L Albumin/Globulin Ratio 1.6 ABG Interpretation ABG results: 06/06/25 06/06/25 06/06/25 16:05 18:18 20:48 ABG pH 7.16 L* 7.13 L* 7.13 L* ABG pCO2 45 36 35 ABG pO2 190 H 76 L D 80 L ABG HCO3 16 L 12 L 12 L ABG O2 Saturation 101 H 93 94 ABG Base Excess -12 L -16 L -17 L 06/06/25 06/07/25 06/07/25 22:31 03:02 10:20 ABG pH 7.21 L 7.30 L 7.37 ABG pCO2 32 30 L 26 L ABG pO2 72 L 130 H D 120 H ABG HCO3 13 L 15 L 15 L ABG O2 Saturation 94 100 H 99 H ABG Base Excess -14 L -11 L -9 L 06/07/25 06/07/2525 16:00 19:59 15:14 ABG pH 7.39 7.36 7.38 ABG pCO2 27 L 28 L 29 L ABG pO2 112 H 97 66 L D ABG HCO3 16 L 16 L 17 L ABG O2 Saturation 99 H 98 94 ABG Base Excess -8 L -8 L -7 L 06/08/25 06/09/25 06/09/25 19:19 04:09 13:39 ABG pH 7.39 7.38 7.26 L D ABG pCO2 29 L 30 L 40 D ABG pO2 89 D 70 L 82 L ABG HCO3 17 L 17 L 18 L ABG O2 Saturation 98 94 95 ABG Base Excess -7 L -7 L -9 L 06/09/25 06/09/25 06/10/25 18:14 23:27 04:17 ABG pH 7.44 D 7.38 7.38 ABG pCO2 37 41 40 ABG pO2 119 H D 82 L D 74 L ABG HCO3 25 24 24 ABG O2 Saturation 100 H 97 96 ABG Base Excess 1 -1 -1 06/10/25 06/11/25 11:08 13:33 ABG pH 7.39 7.38 ABG pCO2 39 41 ABG pO2 121 H D 72 L D ABG HCO3 23 24 ABG O2 Saturation 100 H 95 ABG Base Excess -2 -1 Assessment & Plan A&P Narrative A#1. CA of transverse colon, with complete obstruction underwent right colectomy and subsequent removal of the abdominal packing and washout and closure performed by Dr Tai. A#2. Difficult postop course with shock respiratory failure intubation and stay in ICU. A#3. Receiving comfort measures as per family's wishes. Time Spent With Patient Time: Total time spent is greater than 50% in coordination of care (as documented) at patient's floor/unit and/or counseling patient:
[2025-06-13 09:00] LABS: Platelet Count 29 Thou/mm3 (140-440)
--- NOTE | 2025-06-13 09:32 | ESPR_ITS ---
Documentation for date of: 06/13/25 Subjective Subjective Interval history: History of Present Illness: 69y/o Male with PMH of insulin dependent diabetes and thrombocytopenia presented to the hospital on 06/03/2025 after a fall. At the time, patient denied any near syncopal event and just experienced fell while getting out of bed. After admission, he was found to have plts in the 40s, anemia with hgb around 8, liver cirrhosis and liver mass on CT, and was subsequently admitted for GI bleed. After upper endoscopy, grade 2 varice was found. 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 Patient resceived surgery on 06/06 for colonic mass resection, but had bleeding complications with profound hypotension. Decision was made to leave abdomen open for re-exploration on 06/08. Patient was intubated and brought to ICU while on levophed with pRBC transfusions x3. Patient became acidotic. On 06/09, nephrology has been consulted as patient's creatinine is increased from 4.9 to 5.5 with minimal urine output of 30ml ED Course: -Patient presents with BP 128/75, HR 73, T 97.7, RR 19, O2 95 Room Air -lab workup notable for low hgb of 8 and platelets in the 50s which was significantly lower from 2017 with hgb 17 and plts in the 70s. Creatinine 2.3, BUN 49. Patient GFR is 30. Patient with an AST of 103, ALT of 93, alk phos 336. T. bili normal. -Ordered hepatitis panel, fibrinogen level, -CT brain and cervical spine unremarkable. CT chest abdomen pelvis without contrast which identified COPD, 16 mm pulmonary nodule in the right upper lobe, cirrhosis, multiple liver lesions concerning for liver metastases, patient with splenomegaly, ascites, cholelithiasis no evidence of obstruction. -On-call gravel machine operator Dr. Yap, consulted for downtrending hgb. Agreed with admission for EGD and colonoscopy to eval for GI bleed. Also recommending CT guided bx of the liver nodule. 06/09/2025: Labs reviewed and patient examined at the bedside. Compared to 06/08 (BUN 47, Cr:4.6, eGFR:13), today's lab value shows BUN:63, Cr:5.5, eGFR:11. Patient does show worsening renal function. Patient will receive conventional hemodialysis today. 06/10/2025: Labs reviewed and patient examined at the bedside. BUN: 45, Cr:4.9, eGFR:12. Patient will receive anther rounds of hemodialysis today along with blood tranfusion. HCO3- improved to 23.1 from 16.0. Recommend adding Bicitra to his medication. Given his mixed acidotic state, distal RTA (type 1) cannot be ruled out, but given borderline high K (~4.9), Urine pH of 5.5, and his presentation being obscured by more serious illnesses, needs more monitoring of the patient's status. 06/13/2025 patient currently seen in medical floor. Comfort measures initiated. On morphine drip. Lethargic. Review of Systems Review of Systems Narrative Review of Systems: Patient lethargic Exam Vital Signs Temp Pulse Resp BP Pulse Ox O2 Del Method O2 Flow Rate 36.9 C 62 12 76/41 L 88 L Room Air 1 06/13/25 08:00 06/13/25 08:00 06/13/25 08:00 06/13/25 08:00 06/13/25 08:00 06/13/25 08:00 06/12/25 04:00 FiO2 35 06/10/25 12:00 Narrative Exam General: Elderly frail gentleman seen in medical floor. On morphine drip. Neck: Supple, non-tender, no JVD, no lymphadenopathy Lungs: Few rhonchi noted bilaterally Heart: Peripheral pulses intact bilaterally, Regular Rate and Rhythm. Abdomen: Status post abdominal surgery with binder. Bowel sounds present. Musculoskeletal: In bed Skin: Patient has significant edema in the upper extremities. 2+ edema in the lower extremities Psychiatric/neuro: Patient unresponsive Objective Labs 06/13/25 07:35 06/13/25 07:35 Labs: Laboratory Results - last 24 hr 06/10/25 06/13/25 06:33 07:35 WBC 19.1 H D RBC 3.46 L Hgb 9.5 L Hct 30.8 L MCV 89 MCH 27.5 MCHC 30.8 L RDW Std Deviation 55.6 H Plt Count 29 L* Neut % (Auto) 79 Lymph % (Auto) 7 L [place] % (Auto) 9 Eos % (Auto) 4 Baso % (Auto) 0 Neut # (Auto) 15.1 H Lymph # (Auto) 1.3 [place] # (Auto) 1.8 H Eos # (Auto) 0.7 H Baso # (Auto) 0.1 Immature Gran # (Auto) 0.11 H Absolute Nucleated RBC 0.46 H Immature Gran % 1 H Nucleated RBC % 2 H Sodium 140 Potassium 5.2 H D Chloride 102 Carbon Dioxide 24.1 Anion Gap 14 BUN 57 H Creatinine 5.8 H* D Estim Creat Clear Calc 14.4 L eGFR 10 L* BUN/Creatinine Ratio 10 L Glucose 124 H D Calculated Osmolality 296 H Calcium 8.3 Corrected Calcium 8.9 Total Bilirubin 2.3 H AST 248 H ALT 607 H* Alkaline Phosphatase 437 H Total Protein 5.2 L Albumin 3.2 L Globulin 2.0 L Albumin/Globulin Ratio 1.6 Crossmatch See Detail ABG Interpretation ABG results: 06/06/25 06/06/25 06/06/25 16:05 18:18 20:48 ABG pH 7.16 L* 7.13 L* 7.13 L* ABG pCO2 45 36 35 ABG pO2 190 H 76 L D 80 L ABG HCO3 16 L 12 L 12 L ABG O2 Saturation 101 H 93 94 ABG Base Excess -12 L -16 L -17 L 06/06/25 06/07/25 06/07/25 22:31 03:02 10:20 ABG pH 7.21 L 7.30 L 7.37 ABG pCO2 32 30 L 26 L ABG pO2 72 L 130 H D 120 H ABG HCO3 13 L 15 L 15 L ABG O2 Saturation 94 100 H 99 H ABG Base Excess -14 L -11 L -9 L 06/07/25 06/07/25 06/08/25 16:00 19:59 15:14 ABG pH 7.39 7.36 7.38 ABG pCO2 27 L 28 L 29 L ABG pO2 112 H 97 66 L D ABG HCO3 16 L 16 L 17 L ABG O2 Saturation 99 H 98 94 ABG Base Excess -8 L -8 L -7 L 06/08/25 06/09/25 06/09/25 19:19 04:09 13:39 ABG pH 7.39 7.38 7.26 L D ABG pCO2 29 L 30 L 40 D ABG pO2 89 D 70 L 82 L ABG HCO3 17 L 17 L 18 L ABG O2 Saturation 98 94 95 ABG Base Excess -7 L -7 L -9 L 06/09/25 06/09/25 06/10/25 18:14 23:27 04:17 ABG pH 7.44 D 7.38 7.38 ABG pCO2 37 41 40 ABG pO2 119 H D 82 L D 74 L ABG HCO3 25 24 24 ABG O2 Saturation 100 H 97 96 ABG Base Excess 1 -1 -1 06/10/25 06/11/25 11:08 13:33 ABG pH 7.39 7.38 ABG pCO2 39 41 ABG pO2 121 H D 72 L D ABG HCO3 23 24 ABG O2 Saturation 100 H 95 ABG Base Excess -2 -1 Assessment & Plan Additional Assessment & Plan Additional Plan: 69y/o Male with PMH of insulin dependent diabetes and thrombocytopenia presented to the hospital on 06/03/2025 after a fall. Patient was found with, maligant obstruction tumor in transverse colon and resceived surgery on 06/06 for colonic mass resection, but had bleeding complications with profound hypotension. Patient was intubated and brought to ICU while on levophed with pRBC transfusions x3. Patient became acidotic. On 06/09, nephrology has been consulted as patient's creatinine is increased from 4.9 to 5.5 with minimal urine output of 30ml #SHAI -secondary to ATN. Received dialysis. Currently the dialysis catheter was removed. 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 Currently on morphine drip. Quality - progress note Quality Measures Quality Measures: VTE prophylaxis Reason for Continued Stay Reason for Continued Stay: further monitoring
--- NOTE | 2025-06-13 09:58 | PC.SS ---
Follow up note: Pt is on comfort measures. [facility] is preferred hospice agency.
[2025-06-13 11:33] LABS: Slide Review Platelets confirmed
--- NOTE | 2025-06-13 11:59 | ESPR_ITS ---
Documentation for date of: 06/13/25 No overnight events reported. Patient continues to be on comfort care measures and examined at bedside. Family not in the room this morning. Residents tried to reach next of kin, patient's mother, to update family members, no pickle cutter. Patient continues to be on comfort measures and is expected to pass. - The patient's plan was discussed with attending Dr. Flor Thompson MD PGY2 Internal Medicine Subjective Subjective Interval history: No overnight events. Patient was examined at bedside; he continues to be nonverbal and taking slow, laborious breaths. Goals of care discussion was held yesterday with patient's mother, aunt, niece, and director of social media marketing and patient was successfully switched to Comfort Care. There was talk regarding outpatient hospice but, due to patient's poor condition, he will probably pass before any arrangements can be made. Will keep patient's mother updated by phone call as status changes. Exam Vital Signs Temp Pulse Resp BP Pulse Ox O2 Del Method O2 Flow Rate 98.5 F 62 12 76/41 L 88 L Room Air 1 06/13/25 08:00 06/13/25 08:00 06/13/25 08:00 06/13/25 08:00 06/13/25 08:00 06/13/25 08:00 06/12/25 04:00 FiO2 35 06/10/25 12:00 Narrative Exam General: Frail, ill-appearing, pale, and elderly male. Hiccuping. Head: Normocephalic, atraumatic. Bruise on right scalp. Eyes: PERRL. Anicteric. Mouth/Throat: Oral mucosa dry. Cardiovascular: Difficult to auscultate clearly but seemingly regular rate and rhythm, no murmur, no JVD or carotid bruits. +S1/S2. Respiratory: Bilateral lungs are clear to auscultation, no crackles, no wheezing. No accessory muscle use. Gastrointestinal: Abdominal binder in place. Soft, non-distended, no palpable masses. Hypoactive bowel sounds. Extremities: Bruising of bilateral lower extremities, moreso on right side. 1+ pitting edema bilaterally, pulses present bilaterally, mild cyanosis of left toes, no clubbing or mottling noted. Puffiness of hands with slight dusky tinge appreciated at the fingertips of right hand. Feet appear puffier today. Third toe on right foot shorter than surrounding toes. Skin: Dried blood noted at right IJ central line insertion point and peripheral IV insertion point at the right antecubital fossa. Ulceration noted at right lateral forearm. Areas of bruising noted at the right lateral abdomen, portion of the back inferior to the right scapula, right thigh, and gluteal region. Neuro: Unable to follow commands and does not make eye contact with voice Objective Labs 06/13/25 07:35 06/13/25 07:35 Labs: Laboratory Results - last 24 hr 06/10/25 06/13/25 06:33 07:35 WBC 19.1 H D RBC 3.46 L Hgb 9.5 L Hct 30.8 L MCV 89 MCH 27.5 MCHC 30.8 L RDW Std Deviation 55.6 H Plt Count 29 L* Neut % (Auto) 79 Lymph % (Auto) 7 L [place] % (Auto) 9 Eos % (Auto) 4 Baso % (Auto) 0 Neut # (Auto) 15.1 H Lymph # (Auto) 1.3 [place] # (Auto) 1.8 H Eos # (Auto) 0.7 H Baso # (Auto) 0.1 Immature Gran # (Auto) 0.11 H Absolute Nucleated RBC 0.46 H Immature Gran % 1 H Nucleated RBC % 2 H Sodium 140 Potassium 5.2 H D Chloride 102 Carbon Dioxide 24.1 Anion Gap 14 BUN 57 H Creatinine 5.8 H* D Estim Creat Clear Calc 14.4 L eGFR 10 L* BUN/Creatinine Ratio 10 L Glucose 124 H D Calculated Osmolality 296 H Calcium 8.3 Corrected Calcium 8.9 Total Bilirubin 2.3 H AST 248 H ALT 607 H* Alkaline Phosphatase 437 H Total Protein 5.2 L Albumin 3.2 L Globulin 2.0 L Albumin/Globulin Ratio 1.6 Misc Test Result Platelets confirmed Crossmatch See Detail ABG Interpretation ABG results: 06/06/25 06/06/25 06/06/25 16:05 18:18 20:48 ABG pH 7.16 L* 7.13 L* 7.13 L* ABG pCO2 45 36 35 ABG pO2 190 H 76 L D 80 L ABG HCO3 16 L 12 L 12 L ABG O2 Saturation 101 H 93 94 ABG Base Excess -12 L -16 L -17 L 06/06/25 06/07/25 06/07/25 22:31 03:02 10:20 ABG pH 7.21 L 7.30 L 7.37 ABG pCO2 32 30 L 26 L ABG pO2 72 L 130 H D 120 H ABG HCO3 13 L 15 L 15 L ABG O2 Saturation 94 100 H 99 H ABG Base Excess -14 L -11 L -9 L 06/07/25 06/07/25 06/08/25 16:00 19:59 15:14 ABG pH 7.39 7.36 7.38 ABG pCO2 27 L 28 L 29 L ABG pO2 112 H 97 66 L D ABG HCO3 16 L 16 L 17 L ABG O2 Saturation 99 H 98 94 ABG Base Excess -8 L -8 L -7 L 06/08/25 06/09/25 06/09/25 19:19 04:09 13:39 ABG pH 7.39 7.38 7.26 L D ABG pCO2 29 L 30 L 40 D ABG pO2 89 D 70 L 82 L ABG HCO3 17 L 17 L 18 L ABG O2 Saturation 98 94 95 ABG Base Excess -7 L -7 L -9 L 06/09/25 06/09/25 06/10/25 18:14 23:27 04:17 ABG pH 7.44 D 7.38 7.38 ABG pCO2 37 41 40 ABG pO2 119 H D 82 L D 74 L ABG HCO3 25 24 24 ABG O2 Saturation 100 H 97 96 ABG Base Excess 1 -1 -1 06/10/25 06/11/25 11:08 13:33 ABG pH 7.39 7.38 ABG pCO2 39 41 ABG pO2 121 H D 72 L D ABG HCO3 23 24 ABG O2 Saturation 100 H 95 ABG Base Excess -2 -1 Quality Measures Quality Measures VTE prophylaxis Advance care planning discussed with:: patient Assessment & Plan Assessment Current Active Medications: Generic Name Dose Route Start Last Admin Trade Name Freq PRN Reason Stop Dose Admin Artificial Tears 1 drop 06/12/25 13:54 Artificial Tears 225 Drop/15 Ml Btl BOTH EYES 07/12/25 13:53 Q4HR PRN Dry eyes Atropine Sulfate 2 drop 06/12/25 13:54 Atropine Sulf Op Radha 1% 5 Ml Btl SL 07/12/25 13:53 Q4HR PRN SECRETIONS Morphine Sulfate 100 mls @ 1 mls/hr 06/12/25 13:54 06/13/25 06:45 Morphine Sulfate Iv Drip 100mg/100ml IV 06/17/25 13:53 5 mg/hr .Q24H PRN 5 mls/hr PAIN (COMFORT CARE) Titration Protocol 1 MG/HR Morphine Sulfate 2 mg 06/12/25 14:04 06/13/25 06:43 Morphine Sulf Inj 4 Mg/Ml Vial IVP 06/17/25 14:03 2 mg Q30M PRN Administration Pain and Anxiety Protocol Ondansetron HCl 4 mg 06/03/25 16:40 Ondansetron Inj 2 Mg/Ml Inj 2 Ml IVP 07/03/25 16:39 Q6H PRN NAUSEA OR VOMITING Protocol Scopolamine 1 mg 06/12/25 11:40 06/12/25 14:37 Scopolamine 1 Mg Tdsy TOP 07/12/25 11:44 1 mg Q3D PRN Administration secretions Plan Patient is a 69 yo M w/ PMH of IDDM and thrombocytopenia who was admitted to the ICU s/p right maranda-colectomy performed by General Surgery on 06/06/25 and now downgraded to floors on 06/11/25 after being extubated and weaned off of pressor support. Goals of care discussion was held with patient's mother, aunt, niece, and director of social media marketing. Discussed the patient's course, poor prognosis, high risk of deterioration, and limited to no benefit of continued aggressive medical therapy. Educated the family regarding comfort measures, they demonstrated understanding, and wished to pursue comfort measures only going forward. 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 -Downgrade to med/surg Patient's plan and care discussed with my attending, Dr. Gomez and my senior Dr. Thompson. Rony Grace DO Internal Medicine, PGY-1 Attending Provider Attestation/Addendum I have discussed and was present for the essential components of the history, physical examination, diagnosis, and treatment plan with the resident. I agree with the patient's care as documented by the resident and amended herein by me. Jeovany Ray DO. Although this document has been carefully reviewed, there may still be some phonetic and other typographical errors. These errors are purely grammatical due to imperfections in the software program and should not be construed in any way to compromise the substance of the patient's medical care during this visit. Patient seen and evaluated this AM. Nothing acute overnight, patient remains on comfort measures, on morphine drip at present
--- NOTE | 2025-06-13 16:25 | PD.IMPROG ---
Documentation for date of: 06/13/25 Subjective Subjective Interval history: Patient on comfort care Exam Vital Signs Temp Pulse Resp BP Pulse Ox O2 Del Method O2 Flow Rate 98.5 F 62 12 76/41 L 88 L Room Air 1 06/13/25 08:00 06/13/25 08:00 06/13/25 08:00 06/13/25 08:00 06/13/25 08:00 06/13/25 08:00 06/12/25 04:00 FiO2 35 06/10/25 12:00 Objective Labs 06/13/25 07:35 06/13/25 07:35 Labs: Laboratory Results - last 24 hr 06/10/25 06/13/25 06:33 07:35 WBC 19.1 H D RBC 3.46 L Hgb 9.5 L Hct 30.8 L MCV 89 MCH 27.5 MCHC 30.8 L RDW Std Deviation 55.6 H Plt Count 29 L* Neut % (Auto) 79 Lymph % (Auto) 7 L [place] % (Auto) 9 Eos % (Auto) 4 Baso % (Auto) 0 Neut # (Auto) 15.1 H Lymph # (Auto) 1.3 [place] # (Auto) 1.8 H Eos # (Auto) 0.7 H Baso # (Auto) 0.1 Immature Gran # (Auto) 0.11 H Absolute Nucleated RBC 0.46 H Immature Gran % 1 H Nucleated RBC % 2 H Sodium 140 Potassium 5.2 H D Chloride 102 Carbon Dioxide 24.1 Anion Gap 14 BUN 57 H Creatinine 5.8 H* D Estim Creat Clear Calc 14.4 L eGFR 10 L* BUN/Creatinine Ratio 10 L Glucose 124 H D Calculated Osmolality 296 H Calcium 8.3 Corrected Calcium 8.9 Total Bilirubin 2.3 H AST 248 H ALT 607 H* Alkaline Phosphatase 437 H Total Protein 5.2 L Albumin 3.2 L Globulin 2.0 L Albumin/Globulin Ratio 1.6 Misc Test Result Platelets confirmed Crossmatch See Detail Impressions Impression: Colon carcinoma Status post surgical intervention family assist the patient with comfort care continue current management ABG Interpretation ABG results: 06/06/25 06/06/25 06/06/25 16:05 18:18 20:48 ABG pH 7.16 L* 7.13 L* 7.13 L* ABG pCO2 45 36 35 ABG pO2 190 H 76 L D 80 L ABG HCO3 16 L 12 L 12 L ABG O2 Saturation 101 H 93 94 ABG Base Excess -12 L -16 L -17 L 06/06/25 06/07/25 06/07/25 22:31 03:02 10:20 ABG pH 7.21 L 7.30 L 7.37 ABG pCO2 32 30 L 26 L ABG pO2 72 L 130 H D 120 H ABG HCO3 13 L 15 L 15 L ABG O2 Saturation 94 100 H 99 H ABG Base Excess -14 L -11 L -9 L 06/07/25 06/07/25 06/08/25 16:00 19:59 15:14 ABG pH 7.39 7.36 7.38 ABG pCO2 27 L 28 L 29 L ABG pO2 112 H 97 66 L D ABG HCO3 16 L 16 L 17 L ABG O2 Saturation 99 H 98 94 ABG Base Excess -8 L -8 L -7 L 06/08/25 06/09/25 06/09/25 19:19 04:09 13:39 ABG pH 7.39 7.38 7.26 L D ABG pCO2 29 L 30 L 40 D ABG pO2 89 D 70 L 82 L ABG HCO3 17 L 17 L 18 L ABG O2 Saturation 98 94 95 ABG Base Excess -7 L -7 L -9 L 06/09/25 06/09/25 06/10/25 18:14 23:27 04:17 ABG pH 7.44 D 7.38 7.38 ABG pCO2 37 41 40 ABG pO2 119 H D 82 L D 74 L ABG HCO3 25 24 24 ABG O2 Saturation 100 H 97 96 ABG Base Excess 1 -1 -1 06/10/25 06/11/25 11:08 13:33 ABG pH 7.39 7.38 ABG pCO2 39 41 ABG pO2 121 H D 72 L D ABG HCO3 23 24 ABG O2 Saturation 100 H 95 ABG Base Excess -2 -1 Assessment & Plan A&P Narrative A#1. CA of transverse colon, with complete obstruction underwent right colectomy and subsequent removal of the abdominal packing and washout and closure performed by Dr Tai. A#2. Difficult postop course with shock respiratory failure intubation and stay in ICU. A#3. Receiving comfort measures as per family's wishes. Time Spent With Patient Time: Total time spent is greater than 50% in coordination of care (as documented) at patient's floor/unit and/or counseling patient:
[2025-06-13] MEDS: Morphine IV Drip 100mg/100ml 100 ML IV (16:44)
--- NOTE | 2025-06-13 18:45 | PC.NURSE ---
@1845 Patient found with no vitals, no pulse and not breathing.
--- NOTE | 2025-06-13 18:46 | PC.NURSE ---
@[address] Rock to inform of patient condition.
--- NOTE | 2025-06-13 19:04 | PC.NURSE ---
@[id number] Dr[address] Abdi and Dr. Vides at bedside. Per MD patient pronounced.
--- NOTE | 2025-06-13 19:05 | PC.NURSE ---
@1905 Called patient's mother to inform her of patient's condition.
--- NOTE | 2025-06-13 19:07 | DES_ITS ---
Documentation for date of: 06/13/25 Pronouncement Note Date and Time of Date of : 06/13/25 Time of : 19:04 PCOD Preliminary cause of : Cardiopulmonary arrest Summary Additional details: I was called by nursing staff to evaluate the patient for pronunciation. I came to bedside, examined the patient and there was no pupillary response to light, pupils where dilated and fixated, I did not observe spontaneous breathing or appreciate heart or lung sounds on auscultation. There was no palpable radial /femoral pulse. Patient was pronounced at 1904. Case discussed with my attending Dr. Blair Kay MD PGY-2 Additional Data Confirmation of : no pulse, no respirations, no heart sounds and pupils fixed and dilated Family: contacted Attending/PCP notified?: Yes Attending physician: Jag Pinto MD Was code activated?: No Autopsy requested?: No line up examiner notified?: No Organ bank notified?: No Advance directives: No
--- NOTE | 2025-06-14 18:01 | DES_ITS ---
Documentation for date of: 06/14/25 Summary Date and Time Date of admission: 06/03/25 15:58 Date of : 06/13/25 Time of : 19:04 Summary Details: Patient is a 69 year old male with a past medical history of diabetes mellitus, recent diagnosis of adenocardcinoma sp resection on this admission, decomensated liver cirrhosis with ascites, perigastric varices, transaminitis, and thrombocytopenia. Overnight team was called to pronounce patient at 19:05 on 06/13/2025. During pronouncement, it was documented that patient had no pupillary response to light, his pupils were dilated and fixated, he exhibited no spontaneous breathing, no heart or lung sounds could be appreciated on auscultation, and there was no palpable radial/femoral pulse. Patient had been switched to Comfort Care on 06/12/2025. Hospital attending was notified. [employer] Drilling Machine Operator was also notified and patient's family not a bedside. Hospital Course: ER: -Patient presents with BP 128/75, HR 73, T 97.7, RR 19, O2 95 Room Air -lab workup notable for low hgb of 8 and platelets in the 50s which was significantly lower from 2017 with hgb 17 and plts in the 70s. Creatinine 2.3, BUN 49. Patient GFR is 30. Patient with an AST of 103, ALT of 93, alk phos 336. T. bili normal. -Ordered hepatitis panel, fibrinogen level, -CT brain and cervical spine unremarkable. CT chest abdomen pelvis without contrast which identified COPD, 16 mm pulmonary nodule in the right upper lobe, cirrhosis, multiple liver lesions concerning for liver metastases, patient with splenomegaly, ascites, cholelithiasis no evidence of obstruction. -On-call cake icer Dr. Yap, consulted for downtrending hgb. Agreed with admission for EGD and colonoscopy to [facility] for GI bleed. Also recommending CT guided bx of the liver nodule. Hospital: Patient is a 69 year old male w/ PMH of IDDM and thrombocytopenia who was initially admitted to the hospital on 06/03 for GI bleed 2/2 obstructing colonic mass in the transverse colon on 06/04 EGD (later found to be well-differentiated invasive adenocarcinoma by Pathology). He was taken to the OR once on 06/06 for resection of the colonic mass but was left intubated with abdomen open due to hypotensive complications from blood loss and did not complete abdominal closure until 06/08. After the procedure, he required continued intubation and pressor support in the ICU until he was successfully extubated on 06/10 and weaned off of pressors on 06/11. However, in the setting of metastatic disease, cirrhosis, and continued bleeding, patient continued to decline despite aggressive medical intervention and Goals of Care were discussed with patient's family which ultimately resulted in patient being switched to Comfort Care on 06/12/2025. Finally, patient on 06/13/2025 at 19:05. 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 Holloway, and senior resident, Dr. Travis. Rony Grace DO Internal Medicine, PGY-1 - The patient's plan was discussed with attending Dr. Holloway. Valentina Travis MD PGY2 Internal Medicine Patient seen and examined with resident physician Dr. Grace/ Dr. travis. Note reviewed, agree with findings and recommendations. Additional Data Attending physician: Michael Ray DO Visit Providers Provider Primary care physician: Avel Tran DO Consults: 06/03/25 15:18 Consult to Gastroenterology Stat Comment: Consulting Provider: Sarah Yap 06/05/25 08:03 Referral Physical Therapy Routine Comment: Physician Instructions: 06/05/25 09:32 Consult to General Surgery Routine Comment: Malignant colonic mass, near obstructing Consulting Provider: Kimberley Tai 06/09/25 10:10 Consult to Nephrology Routine Comment: For possible HD Consulting Provider: Kunal Holloway 06/09/25 13:57 Consult to Oncology Routine Comment: Colon ca ? mets Consulting Provider: Jomar Lundberg 06/12/25 11:43 Referral [facility] Comment: comfort measures 06/12/25 11:51 Referral Hospice Urgent Comment: Diagnosis PCOD Cause of : Cardiorespiratory arrest Discharge Plan Plan Patient Disposition: Prescriptions/Referrals Referrals: Avel Tran DO [Primary Care Provider, Emergency Medicine] Patient/Caregiver Discharge Instructions Print Language: Occitan Discharge Order Discharge Orders: Discharge (Routine); Ordered 06/13/25 Ordered By: Flip Kay
== END 2025-06-13 21:14 | disposition expired | DRG 981 ==
LOC: SERX 15:27 → SERHOLD 16:34 → S2NX 17:47 → S2SX 06-06 15:45 → S2NX 06-12 01:30 → S3SX 06-12 21:27
PROVIDERS: Internal Medicine; Specialist; Student in an Organized Health Care Education/Training Program; Surgery; Admitting Provider Internal Medicine; Emergency Provider Emergency Medicine; PCP Student in an Organized Health Care Education/Training Program; Visit Provider Student in an Organized Health Care Education/Training Program
PROC: (CPT 43239; principal; 2025-06-03 19:30)
PROC: 0DJD8ZZ Inspection of Lower Intestinal Tract, Via Natural or Artificial Opening Endoscopic (ICD-10-PCS; CPT 45378; principal; 2025-06-04 19:30)
PROC: 2W53X5Z Removal of Packing Material on Abdominal Wall (ICD-10-PCS; CPT 49000; principal; 2025-06-08 12:00)
DX: K74.60 Unspecified cirrhosis of liver (principal); D65 Disseminated intravascular coagulation [defibrination syndrome]; N17.0 Acute kidney failure with tubular necrosis; J95.821 Acute postprocedural respiratory failure; D62 Acute posthemorrhagic anemia; N17.9 Acute kidney failure, unspecified; R18.8 Other ascites; D68.4 Acquired coagulation factor deficiency; I85.00 Esophageal varices without bleeding; E87.4 Mixed disorder of acid-base balance; I85.10 Secondary esophageal varices without bleeding; C18.4 Malignant neoplasm of transverse colon; F05 Delirium due to known physiological condition; K76.6 Portal hypertension; N39.0 Urinary tract infection, site not specified; G93.40 Encephalopathy, unspecified; Y92.009 Unspecified place in unspecified non-institutional (private) residence as the place of occurrence of the external cause; W01.0XXA Fall on same level from slipping, tripping and stumbling without subsequent striking against object, initial encounter; I10 Essential (primary) hypertension; E11.9 Type 2 diabetes mellitus without complications; R91.1 Solitary pulmonary nodule; K29.70 Gastritis, unspecified, without bleeding; R16.2 Hepatomegaly with splenomegaly, not elsewhere classified; E11.21 Type 2 diabetes mellitus with diabetic nephropathy; Z66 Do not resuscitate; I46.9 Cardiac arrest, cause unspecified; Z51.5 Encounter for palliative care; Z79.4 Long term (current) use of insulin; E03.9 Hypothyroidism, unspecified; E83.39 Other disorders of phosphorus metabolism; E83.51 Hypocalcemia; E86.1 Hypovolemia; E87.5 Hyperkalemia; E87.8 Other disorders of electrolyte and fluid balance, not elsewhere classified; J84.10 Pulmonary fibrosis, unspecified; E88.09 Other disorders of plasma-protein metabolism, not elsewhere classified; D69.59 Other secondary thrombocytopenia; Z79.890 Hormone replacement therapy; Z79.899 Other long term (current) drug therapy; B96.4 Proteus (mirabilis) (morganii) as the cause of diseases classified elsewhere; R57.8 Other shock; Z87.891 Personal history of nicotine dependence; Z99.2 Dependence on renal dialysis; M85.80 Other specified disorders of bone density and structure, unspecified site; J44.9 Chronic obstructive pulmonary disease, unspecified; K66.0 Peritoneal adhesions (postprocedural) (postinfection); K80.20 Calculus of gallbladder without cholecystitis without obstruction; K72.10 Chronic hepatic failure without coma
CPT/HCPCS: 36415; 36600; 70450; 71045; 71250; 71260; 72125; 72170; 73090; 73130; 74018; 74176; 74177; 76705; 76770; 80048; 80053; 80069; 80074; 81001; 82105; 82270; 82340; 82378; 82436; 82550; 82570; 82803; 83036; 83605; 83735; 84100; 84133; 84300; 84484; 84540; 85014; 85018; 85025; 85384; 85610; 85730; 86703; 86850; 86870; 86900; 86901; 86921; 86922; 86927; 86965; 87040; 87077; 87081; 87086; 87186; 90715; 93005; 94002; 94003; 96361; 96365; 96366; 96375; 97162; 99285; A4649; J0694; J0696; J1100; J1171; J1200; J1643; J1815; J2250; J2270; J2354; J2371; J2470; J2598; J2704; J3010; J3430; J3475; J3490; J7030; J7050; J7060; J7120; P9016; P9035; P9045; P9047; P9060; Q5105; Q9967; Q9968; A9270; P0947